=== PATIENT | male | born 1945 | race Caucasian/White ===

== ENCOUNTER 2018-12-09 09:12 | Observation (INO) | payer OTHER ==
[2018-12-09] MEDS ORDERED: ONDANSETRON 4 MG/2 ML VIAL ONE (09:50)
[2018-12-09] MEDS ORDERED: MORPHINE 4 MG/ML SYR ONE (09:50)
[2018-12-09] MEDS ORDERED: NA CHLORIDE 0.9% 1,000 ML ONE (09:50)
[2018-12-09 10:00] LABS: Absolute Lymphocytes (CBC) 0.9 K/uL (0.7-4.9); Basophils % 0.4 % (0-1.3); Eosinophils % 1.1 % (0-4.4); Hematocrit 46.7 % (39.6-49.0); Lymphocytes % 7.8 % (15.3-44.8); MPV 9.6 fL (7.6-11.3); RBC Red Blood Cell Count 5.05 M/uL (4.33-5.43)
[2018-12-09 10:22] LABS: Potassium 4.2 mmol/L (3.5-5.1)
--- NOTE | 2018-12-09 12:02 | RAD REPORT ---
EXAM DESCRIPTION: CT - Abdomen Pelvis W Contrast - 12/09/2018 11:31 am CLINICAL HISTORY: Abdominal pain. Left lower quadrant pain COMPARISON: 2017 TECHNIQUE: Computed axial tomography of the abdomen and pelvis was obtained. 100 cc Isovue-300 is ad ministered intravenously. Oral contrast was given. All CT scans are performed using dose optimization technique as appropriate and may include automated exposure control or mA/KV adjustment according to patient size. FINDINGS: A infrarenal abdominal aortic aneurysm has an AP diameter 5.6 centimeters. It has enlarged since the prior exam in which it measured 4.4 centimeters. There is heterogeneous opacification of the anterior aspect of the aneurysm. The liver, spleen, pancreas, and adrenals appear unremarkable 6.5 centimeter left renal parapelvic cysts. A 4.3 centimeter cyst extends off of the right kidney. . Diverticulosis. Marked stranding is present adjacent to the proximal sigmoid colon with ill-defined fluid. An abscess is not seen. Free air is not noted Mild enlargement prostate gland The appendix is normal caliber. Spondylolysis L5 IMPRESSION: Marked sigmoid diverticulitis Enlargement of a 5.6 centimeter infrarenal abdominal aortic aneurysm. Heterogeneous opacification of the anterior aspect of the aneurysm may indicate an ulcerating plaque
--- NOTE | 2018-12-09 12:19 | EDPHYS ---
Physician Documentation [facility] Name: Chase Daniels Age: 73 yrs Sex: Male : 1945 Arrival Date: 12/09/2018 Time: 09:16 Bed 19 Private MD: Lucero Darnell ED Physician Henri Cohen HPI: 12/09 09:47 This 73 yrs old Male presents to ER via Ambulatory with complaints of kb Abdominal Pain, Back Pain, Constipation. 09:47 The patient presents with abdominal pain in the left lower quadrant. Onset: The kb symptoms/episode began/occurred 3 day(s) ago. The symptoms do not radiate. Associated signs and symptoms: Pertinent positives: constipation, Pertinent negatives: nausea, vomiting, and diarrhea, fever. The symptoms are described as constant. Modifying factors: The symptoms are alleviated by nothing, the symptoms are aggravated by nothing. Severity of pain: At its worst the pain was moderate in the emergency department the pain is unchanged. The patient has experienced similar episodes in the past, a few times. The patient has not recently seen a physician. Historical: - Allergies: 09:25 No Known Allergies; hb - Home Meds: 09:25 Betapace 80 mg Oral tab 1 tab 2 times per day [Active]; clopidogrel 75 mg Oral tab 1 hb tab once daily [Active]; Combigan 0.2-0.5 % ophthalmic drop [Active]; Eliquis 5 mg Oral tab 1 tab 2 times per day [Active]; losartan 50 mg Oral tab 1 tab once daily [Active]; simvastatin 10 mg Oral tab 1 tab once daily [Active]; travoprost ophthalmic [Active]; Zegerid Oral 1 cap once daily [Active]; Zetia 10 mg Oral tab 1 tab once daily [Active]; - PMHx: 09:25 heart attack; Diverticulitis; Hypertension; kidney infection; blood clots; Myocardial hb infarction; Atrial Fib; DVT; - PSHx: 09:25 Pacemaker/Defib; Shoulder Sx; Heart stents; hb - Immunization history:: Adult Immunizations up to date. - Social history:: Smoking status: Patient/guardian denies using tobacco. - Ebola Screening: : No symptoms or risks identified at this time. ROS: 09:47 Constitutional: Negative for fever, chills, and weight loss, ENT: Negative for injury, kb pain, and discharge, Neck: Negative for injury, pain, and swelling, Cardiovascular: Negative for chest pain, palpitations, and edema, Respiratory: Negative for shortness of breath, cough, wheezing, and pleuritic chest pain, Back: Negative for injury and pain, : Negative for injury, bleeding, discharge, and swelling, MS/Extremity: Negative for injury and deformity, Skin: Negative for injury, rash, and discoloration, Neuro: Negative for headache, weakness, numbness, tingling, and seizure. 09:47 Abdomen/GI: Positive for abdominal pain, constipation, Negative for nausea, vomiting, and diarrhea. Exam: 09:46 Constitutional: This is a well developed, well nourished patient who is awake, alert, kb and in no acute distress. Head/Face: Normocephalic, atraumatic. ENT: Nares patent. No nasal discharge, no septal abnormalities noted. Tympanic membranes are normal and external auditory canals are clear. Oropharynx with no redness, swelling, or masses, exudates, or evidence of obstruction, uvula midline. Mucous membranes moist. Neck: Trachea midline, no thyromegaly or masses palpated, and no cervical lymphadenopathy. Supple, full range of motion without nuchal rigidity, or vertebral point tenderness. No Meningismus. Chest/axilla: Normal chest wall appearance and motion. Nontender with no deformity. No lesions are appreciated. Cardiovascular: Regular rate and rhythm with a normal S1 and S2. No gallops, murmurs, or rubs. Normal PMI, no JVD. No pulse deficits. Respiratory: Lungs have equal breath sounds bilaterally, clear to auscultation and percussion. No rales, rhonchi or wheezes noted. No increased work of breathing, no retractions or nasal flaring. Skin: Warm, dry with normal turgor. Normal color with no rashes, no lesions, and no evidence of cellulitis. MS/ Extremity: Pulses equal, no cyanosis. Neurovascular intact. Full, normal range of motion. Neuro: Awake and alert, GCS 15, oriented to person, place, time, and situation. Cranial nerves II-XII grossly intact. Motor strength 5/5 in all extremities. Sensory grossly intact. Cerebellar exam normal. Normal gait. 09:46 Abdomen/GI: Inspection: abdomen appears normal, Bowel sounds: normal, in all quadrants, Palpation: soft, in all quadrants, mild abdominal tenderness, in the left upper quadrant, moderate abdominal tenderness, in the right lower quadrant and left lower quadrant. Vital Signs: 09:22 BP 124 / 89; Pulse 69; Resp 16; Temp 97.9; Pulse Ox 99% on R/A; Weight 81.65 kg; Height hb 5 ft. 10 in. (177.80 cm); Pain 6/10; 11:19 BP 111 / 78; Pulse 64; Resp 18; Pulse Ox 99% on R/A; Pain 3/10; em 12:17 BP 131 / 93; Pulse 62; Resp 18; Temp 97.7(TE); Pulse Ox 100% on R/A; mh5 13:30 BP 131 / 88; Pulse 59; Resp 18; Temp 98.6(O); Pulse Ox 98% on R/A; Pain 4/10; em 09:22 Body Mass Index 25.83 (81.65 kg, 177.80 cm) hb MDM: 09:24 Patient medically screened. kb 09:46 Data reviewed: vital signs, nurses notes. Data interpreted: Pulse oximetry: on room air kb is 99 %. Interpretation: normal. 12:17 Counseling: I had a detailed discussion with the patient and/or guardian regarding: the kb historical points, exam findings, and any diagnostic results supporting the discharge/admit diagnosis, lab results, radiology results, the need for further work-up and treatment in the hospital. Physician consultation: Jcarlos Severino DO was contacted at 12:17, regarding admission, to the medical/surgical unit. patient's condition, and will see patient in ED, shortly. 12/09 09:31 Order name: Basic Metabolic Panel; Complete Time: 10:31 kb 12/09 09:31 Order name: CBC with Diff; Complete Time: 10:31 kb 12/09 09:31 Order name: CT Abd/Pelvis - PO and IV Contrast; Complete Time: 12:08 kb 12/09 12:38 Order name: Urine Dipstick--Ancillary (enter results); Complete Time: 13:20 ms 12/09 09:31 Order name: IV Saline Lock; Complete Time: 09:42 kb 12/09 09:31 Order name: Labs collected and sent; Complete Time: 09:42 kb 06/14 09:31 Order name: Urine Dipstick-Ancillary (obtain specimen); Complete Time: 12:44 kb Administered Medications: 09:41 Drug: NS 0.9% 1000 ml Route: IV; Rate: 1000 ml; Site: right antecubital; sg 11:17 Follow up: IV Status: Completed infusion; IV Intake: 1000ml em 09:41 Drug: Zofran 4 mg Route: IVP; Site: right antecubital; sg 10:30 Follow up: Response: No adverse reaction em 09:41 Drug: morphine 4 mg Route: IVP; Site: right antecubital; sg 11:18 Follow up: Response: No adverse reaction; Pain is decreased em 12:35 Drug: Cipro 500 mg Route: PO; em 12:44 Follow up: Response: No adverse reaction em 12:35 Drug: Flagyl 500 mg Volume: 100 ml; Route: IVPB; Rate: 200 ml/hr; Infused Over: 30 em mins; Site: right antecubital; 13:35 Follow up: Response: No adverse reaction; IV Status: Completed infusion; IV Intake: em 100ml Disposition: 17:46 Co-signature as Attending Physician, Henri Cohen MD I agree with the assessment and kdr plan of care. Disposition: 12/09/18 12:18 Hospitalization ordered by Jcarlos Severino for Inpatient Admission. Preliminary diagnosis is Diverticulitis of intestine, part unspecified, without perforation or abscess without bleeding. - Bed requested for Telemetry/MedSurg (Inpatient). - Status is Inpatient Admission. em - Condition is Stable. - Problem is new. - Symptoms are unchanged. UTI on Admission? No Signatures: Dispatcher [employer] EDCO Anayeli Acevedo, ASIF-C UNDERWRITING CONSULTANT-CkStephen Keene, OLI RN sg Henri Cohen MD MD [facility] Jasen Swan, BINGO ATTENDANT BINGO ATTENDANT [facility] Zulay ms Yuki Jenkins, RN RN Corrections: (The following items were deleted from the chart) 13:28 12:18 Hospitalization Ordered by Jcarlos Severino DO for Inpatient Admission. Preliminary ms diagnosis is Diverticulitis of intestine, part unspecified, without perforation or abscess without bleeding. Bed requested for Telemetry/MedSurg (Inpatient). Status is Inpatient Admission. Condition is Stable. Problem is new. Symptoms are unchanged. UTI on Admission? No. kb 13:56 13:28 12/09/2018 12:18 Hospitalization Ordered by Jcarlos Severino DO for Inpatient em Admission. Preliminary diagnosis is Diverticulitis of intestine, part unspecified, without perforation or abscess without bleeding. Bed requested for Telemetry/MedSurg (Inpatient). Status is Inpatient Admission. Condition is Stable. Problem is new. Symptoms are unchanged. UTI on Admission? No. ms
--- NOTE | 2018-12-09 12:19 | ER ---
Nurse's Notes [facility] Name: Chase Daniels Age: 73 yrs Sex: Male : 1945 Arrival Date: 12/09/2018 Time: 09:16 Bed 19 Private MD: Lucero Darnell Diagnosis: Diverticulitis of intestine, part unspecified, without perforation or abscess without bleeding Presentation: 12/09 09:23 Presenting complaint: Left sided abdominal pain that radiates to left mid back and hb constipation x 3 days. Transition of care: patient was not received from another setting of care. Onset of symptoms was December 06, 2018. Risk Assessment: Do you want to hurt yourself or someone else? Patient reports no desire to harm self or others. Initial Sepsis Screen: Does the patient meet any 2 criteria? No. Patient's initial sepsis screen is negative. Does the patient have a suspected source of infection? No. Patient's initial sepsis screen is negative. Care prior to arrival: None. 09:23 Method Of Arrival: Ambulatory hb 09:23 Acuity: ADAM 3 hb Historical: - Allergies: 09:25 No Known Allergies; hb - Home Meds: 09:25 Betapace 80 mg Oral tab 1 tab 2 times per day [Active]; clopidogrel 75 mg Oral tab 1 hb tab once daily [Active]; Combigan 0.2-0.5 % ophthalmic drop [Active]; Eliquis 5 mg Oral tab 1 tab 2 times per day [Active]; losartan 50 mg Oral tab 1 tab once daily [Active]; simvastatin 10 mg Oral tab 1 tab once daily [Active]; travoprost ophthalmic [Active]; Zegerid Oral 1 cap once daily [Active]; Zetia 10 mg Oral tab 1 tab once daily [Active]; - PMHx: 09:25 heart attack; Diverticulitis; Hypertension; kidney infection; blood clots; Myocardial hb infarction; Atrial Fib; DVT; - PSHx: 09:25 Pacemaker/Defib; Shoulder Sx; Heart stents; hb - Immunization history:: Adult Immunizations up to date. - Social history:: Smoking status: Patient/guardian denies using tobacco. - Ebola Screening: : No symptoms or risks identified at this time. Screenin:28 Abuse screen: Denies threats or abuse. Denies injuries from another. Nutritional hb screening: No deficits noted. Tuberculosis screening: No symptoms or risk factors identified. Fall Risk None identified. Assessment: 09:40 General: Appears in no apparent distress. comfortable, Behavior is calm, cooperative, em Denies fever. Pain: Complains of pain in left upper quadrant and left lower quadrant Pain currently is 4 out of 10 on a pain scale. Neuro: Level of Consciousness is awake, alert, obeys commands, Oriented to person, place, time, situation. Cardiovascular: Capillary refill < 3 seconds Patient's skin is warm and dry. Respiratory: Airway is patent Respiratory effort is even, unlabored, Respiratory pattern is regular, symmetrical. GI: Abdomen is flat, Bowel sounds present X 4 quads. Abd is soft X 4 quads Abdomen is tender to palpation in left upper quadrant and left lower quadrant Reports constipation, since x 2 days Patient currently denies nausea, vomiting. : Denies burning with urination. Derm: Skin is intact, is thin, Skin is pink, warm \T\ dry. Musculoskeletal: Capillary refill < 3 seconds, Range of motion: intact in all extremities. 09:59 Reassessment: finished drinking PO contrast, tolerated well, CT dept. notified. em 10:30 Reassessment: Patient appears in no apparent distress at this time. Patient and/or em family updated on plan of care and expected duration. Pain level reassessed. Patient is alert, oriented x 3, equal unlabored respirations, skin warm/dry/pink. Patient states feeling better. Patient states symptoms have improved. 11:25 Reassessment: Patient appears in no apparent distress at this time. wheeled to CT via em wheelchair. 12:35 Reassessment: Dr. Severino at bedside. em 13:30 Reassessment: Patient appears in no apparent distress at this time. Patient and/or em family updated on plan of care and expected duration. Pain level reassessed. Patient is alert, oriented x 3, equal unlabored respirations, skin warm/dry/pink. rates pain 4/10 Patient states feeling better. Patient states symptoms have improved. Vital Signs: 09:22 BP 124 / 89; Pulse 69; Resp 16; Temp 97.9; Pulse Ox 99% on R/A; Weight 81.65 kg; Height hb 5 ft. 10 in. (177.80 cm); Pain 6/10; 11:19 BP 111 / 78; Pulse 64; Resp 18; Pulse Ox 99% on R/A; Pain 3/10; em 12:17 BP 131 / 93; Pulse 62; Resp 18; Temp 97.7(TE); Pulse Ox 100% on R/A; mh5 13:30 BP 131 / 88; Pulse 59; Resp 18; Temp 98.6(O); Pulse Ox 98% on R/A; Pain 4/10; em 09:22 Body Mass Index 25.83 (81.65 kg, 177.80 cm) hb ED Course: 09:16 Patient arrived in ED. mr 09:17 Lucero Darnell MD is Private Physician. mr 09:19 Jasen Swan LVN is Primary Nurse. em 09:23 Triage completed. hb 09:23 Arm band placed on. hb 09:24 Anayeli Acevedo FNP-C is PHCP. kb 09:24 Henri Cohen MD is Attending Physician. kb 09:40 Patient has correct armband on for positive identification. Bed in low position. Call em light in reach. Adult w/ patient. Pulse ox on. NIBP on. 09:40 Initial lab(s) drawn, by me, sent to lab. Inserted saline lock: 22 gauge in right em antecubital area, using aseptic technique. Blood collected. 11:31 CT Abd/Pelvis - PO and IV Contrast In Process Unspecified. EDMS 12:18 Jcarlos Severino DO is Hospitalizing Provider. kb 13:54 No provider procedures requiring assistance completed. Patient admitted, IV remains in em place. Administered Medications: 09:41 Drug: NS 0.9% 1000 ml Route: IV; Rate: 1000 ml; Site: right antecubital; sg 11:17 Follow up: IV Status: Completed infusion; IV Intake: 1000ml em 09:41 Drug: Zofran 4 mg Route: IVP; Site: right antecubital; sg 10:30 Follow up: Response: No adverse reaction em 09:41 Drug: morphine 4 mg Route: IVP; Site: right antecubital; sg 11:18 Follow up: Response: No adverse reaction; Pain is decreased em 12:35 Drug: Cipro 500 mg Route: PO; em 12:44 Follow up: Response: No adverse reaction em 12:35 Drug: Flagyl 500 mg Volume: 100 ml; Route: IVPB; Rate: 200 ml/hr; Infused Over: 30 em mins; Site: right antecubital; 13:35 Follow up: Response: No adverse reaction; IV Status: Completed infusion; IV Intake: em 100ml Intake: 11:17 IV: 1000ml; Total: 1000ml. em 13:35 IV: 100ml; Total: 1100ml. em Outcome: 12:18 Decision to Hospitalize by Provider. kb 13:54 Admitted to Med/surg accompanied by tech, family with patient, via wheelchair, room em 211, with chart, Report called to OLI Rivas 13:54 Condition: good 13:54 Instructed on the need for admit, Demonstrated understanding of instructions. 13:56 Patient left the ED. em Signatures: Dispatcher [employer] EDAnayeli Millan, CANOPY STRINGERYovannyC CANOPY STRINGER-Stephen Rdz, RN RN Georgiana Lee mr Swan, Jasen, REVENUE CYCLE SPECIALIST REVENUE CYCLE SPECIALIST Yuki Jenkins RN RN Zulay Frausto [facility] Corrections: (The following items were deleted from the chart) 13:56 13:30 BP 131 / 88; Pulse 59bpm; Resp 18bpm; Pulse Ox 98% RA; Temp 96.6F Oral; Pain em 4/10; em
[2018-12-09] MEDS ORDERED: CIPROFLOXACIN HCL 500 MG TAB ONE (12:32)
[2018-12-09] MEDS ORDERED: METRONIDAZOLE 500mg IVPB 500 MG/100 ML BAG IV ONE (12:32)
--- NOTE | 2018-12-09 13:00 | P.HP ---
Certification for Inpatient Patient admitted to: Observation With expected LOS: <2 Midnights Patient will require the following post-hospital care: None Practitioner: I am a practitioner with admitting privileges, knowledge of patient current condition, hospital course, and medical plan of care. Services: Services provided to patient in accordance with Admission requirements found in Title 42 Section 412.3 of the Code of Federal Regulations Patient History Date of Service: 12/09/18 Primary Care Provider: Dr. Darnell; Cardiology-Dr. Sampson Reason for admission: Abdominal pain, nausea and vomiting History of Present Illness: 73-year-old male presented to the emergency room with left lower quadrant abdominal pain, nausea and vomiting. Patient with history of atrial fibrillation on chronic anti coagulation therapy , hypertension, hyperlipidemia, and infrarenal abdominal aortic aneurysm. Patient reported left lower quadrant abdominal pain for the past 2 days. It was associated with some nausea and vomiting. Patient is not been able to take good oral intake over the last day. Pain now radiates to the flank region. Patient reports history of diverticulitis last year. This is similar pain. Pain rated 10/10. Patient came to the ER for further evaluation. In the ER patient evaluated. Patient was given IV pain medication in the emergency room. White count 11.2, hemoglobin 15.9, platelet count 162. Sodium 140, potassium 4.2, BUN of 1.3. GFR 54. Glucose 117. CT scan revealed sigmoid diverticulitis. Previous infrarenal abdominal aortic aneurysm previously 4.4 now 5.6 cm in size. Due to the severity of his symptoms the patient was admitted for observation. When I saw the patient in the ER, abdominal pain had improved from 10 to 4. Patient without any significant nausea at this time. Patient reports compliance with this medication. Patient sees cardiology for his atrial fibrillation and abdominal aortic aneurysm. Allergies No Known Drug Allergies Allergy (Unverified 09/27/14 19:54) Unknown Home medications list reviewed: Yes Home Medications: Aspirin 81 mg PO DAILY 10/08/11 Ezetimibe [Zetia*] 10 mg PO DAILY 10/08/11 Bimatoprost [Lumigan Opthalmic Drops*] 25 drops OP BEDTIME 09/10/14 Brimonidine Tartrate/Timolol [Combigan 0.2%-0.5% Eye Drops] 5 ml OP BID Clopidogrel Bisulfate [Plavix*] 75 mg PO DAILY 09/10/14 Lisinopril [Prinivil*] 10 mg PO DAILY 09/10/14 Simvastatin 10 mg PO BEDTIME 09/10/14 Apixaban [Eliquis *] 10 mg PO BID #14 tablet 09/13/14 Sotalol HCl [Betapace*] 80 mg PO BID 6AM 6PM #60 tab 09/13/14 - Past Medical/Surgical History Diabetic: No -: Glaucoma -: Diverticulosis -: GERD -: CAD -: Chronic atrial fibrillation -: Chronic anti coagulation therapy -: Hypertension -: Hyperlipidemia -: Patient with defibrillator -: Infrarenal abdominal aortic aneurysm -: Heart catheterization x2 -: Defibrillator placement -: Glaucoma surgery Psychosocial/ Personal History: Patient is . He has 1 child. 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 - Family History Father -: Diabetes Brother -: Heart disease, Other (see notes) (Diverticulitis) Mother -: Stroke - Social History Smoking Status: Never smoker Alcohol use: No CD- Drugs: No Caffeine use: Yes Place of Residence: Home Review of Systems General: As per HPI Eyes: Unremarkable ENT: Unremarkable Respiratory: Unremarkable Cardiovascular: Unremarkable Gastrointestinal: Nausea, Vomiting, Abdominal Pain, As per HPI Genitourinary: Unremarkable Musculoskeletal: Back Pain, As per HPI Integumentary: Unremarkable Neurological: Unremarkable Lymphatics: Unremarkable Physical Examination - Physical Exam General: Alert, In no apparent distress, Oriented x3, Cooperative HEENT: Atraumatic, Normocephalic, PERRLA, Mucous membr. moist/pink Neck: Supple, No Thyromegaly Respiratory: Clear to auscultation bilaterally, Normal air movement Cardiovascular: Normal pulses, Regular rate/rhythm Gastrointestinal: Normal bowel sounds, Soft and benign, Non-distended, No masses , No rebound, No guarding, Tenderness (Pain to the left lower quadrant mild) Musculoskeletal: No erythema, No tenderness, No warmth Integumentary: No tenderness/swelling, No erythema, No warmth, No cyanosis Neurological: Normal speech, Normal strength at 5/5 x4 extr, Normal tone, Normal affect - Studies Laboratory Data (last 24 hrs) 12/09/18 09:45: WBC 11.2 H, Hgb 15.9, Hct 46.7, Plt Count 162 12/09/18 09:45: Sodium 140, Potassium 4.2, BUN 15, Creatinine 1.30, Glucose 117 H Assessment and Plan - Plan Impression: Left lower quadrant abdominal pain, nausea and vomiting secondary to acute sigmoid diverticulitis with history of diverticulosis Enlargement of chronic infrarenal abdominal area aneurysm from 4.4-5.6 cm Chronic atrial fibrillation on chronic anti coagulation therapy Hypertension Hyperlipidemia GERD CAD History of defibrillator Plan: Left lower quadrant abdominal pain, nausea and vomiting secondary to acute sigmoid diverticulitis with history of diverticulosis: Patient will be admitted for observation. Will continue with IV fluid and antibiotic therapy including Cipro/Flagyl. Will provide medication for pain and nausea. Pain and nausea at this time has improved. Will start with a full liquid diet and advance to a GI soft as tolerated. Patient will require colonoscopy in the future with GI. This will likely need to be coordinated with his night time nanny due to his multiple cardiac issues and chronic anti coagulation therapy. Encourage ambulation. Likely improvement over the next 24 hr. Anticipate discharge tomorrow. Patient will require outpatient antibiotic therapy and GI follow up. I will turn the service over to Dr. Read tomorrow. I will go over the plan of care with her. Enlargement of chronic infrarenal abdominal area aneurysm from 4.4cm to 5.6 cm: Patient has history of infrarenal abdominal aortic aneurysm. Aneurysm now 5.6 cm in size. Previously 4.4 cm. This was discussed in detail with the patient. Patient will need follow up with cardiology as an outpatient to monitor closely. Patient may require CV surgery evaluation and possible treatment in the near future. Education will be provided. Chronic atrial fibrillation on chronic anti coagulation therapy: Will continue with his medication of Betapace 80 mg 1 pill twice daily and Eliquis 5 mg 1 pill twice daily. Hypertension: Continue with his home medication of losartan 50 mg daily. Hyperlipidemia: Continue with his medication of Zetia 10 mg daily and Zocor 10 mg daily. GERD: Will continue with his medication of Protonix 40 mg daily CAD: Will continue with his medication of Plavix 75 mg daily. History of defibrillator: Overall stable. Will monitor closely. Discharge Plan: Home Plan to discharge in: 24 Hours - Advance Directives Does patient have a Living Will: No Does patient have a Durable POA for Healthcare: No - Code Status/Comfort Care Code Status Assessed: Yes (Patient full code) Time Spent Managing Pts Care (In Minutes): 55
[2018-12-09 13:14] LABS: Urine Blood NEGATIVE (NEG); Urine Glucose NEGATIVE (NEG); Urine Protein NEGATIVE (NEG); Urine Specific Gravity <1.005 (1.005-1.030); Urine pH 5.5 (5.0-7.0)
[2018-12-09] MEDS ORDERED: ONDANSETRON 4 MG/2 ML VIAL IV PRN (14:15)
[2018-12-09] MEDS ORDERED: HYDROCODONE/APAP 7.5/325 MG TAB PO PRN (14:15)
[2018-12-09] MEDS ORDERED: ACETAMINOPHEN 500 MG TAB PO PRN (14:15)
[2018-12-09] MEDS ORDERED: NA CHLORIDE 0.9% 1,000 ML IV SCH (14:15)
[2018-12-09] MEDS ORDERED: TRAMADOL HCL 50 MG TAB PO PRN (14:15)
[2018-12-09] MEDS ORDERED: MORPHINE 2 MG/ML SYR IV PRN (14:15)
[2018-12-09 14:25] VITALS: BMI 28.0
[2018-12-09 15:45] LABS: Urine Appearance CLEAR; Urine Bilirubin NEGATIVE (NEG); Urine Blood NEGATIVE (NEG); Urine Color YELLOW; Urine Glucose NEGATIVE (NEG); Urine Protein NEGATIVE (NEG); Urine Specific Gravity >=1.030 (1.005-1.030)
[2018-12-09 15:48] LABS: Urine Microscopic Reflex NO UMIC
[2018-12-09] MEDS: SOTALOL HCL 80 MG TAB PO SCH (17:05)
[2018-12-09] MEDS: METRONIDAZOLE 500mg IVPB 500 MG/100 ML BAG IV SCH (17:06)
[2018-12-09] MEDS: APIXABAN 5 MG TABLET PO SCH (20:46)
[2018-12-09] MEDS: CIPROFLOXACIN 400mg IV 400 MG/200 ML BAG IV SCH (20:46)
[2018-12-09] MEDS ORDERED: ATORVASTATIN 10 MG TAB PO SCH (21:00)
[2018-12-09] MEDS ORDERED: EZETIMIBE 10 MG TAB PO SCH (21:00)
[2018-12-10] MEDS: METRONIDAZOLE 500mg IVPB 500 MG/100 ML BAG IV SCH ×2 (00:35→08:48)
[2018-12-10 05:16] LABS: Absolute Lymphocytes (CBC) 0.8 K/uL (0.7-4.9); Basophils % 0.5 % (0-1.3); Eosinophils % 3.1 % (0-4.4); Hematocrit 38.5 % (39.6-49.0); Lymphocytes % 12.2 % (15.3-44.8); MPV 8.8 fL (7.6-11.3); Monocytes % 11.3 % (3.3-12.3); RBC Red Blood Cell Count 4.09 M/uL (4.33-5.43)
[2018-12-10 05:25] LABS: Magnesium 2.3 mg/dL (1.8-2.4); Potassium 4.3 mmol/L (3.5-5.1)
[2018-12-10] MEDS: SOTALOL HCL 80 MG TAB PO SCH (06:15)
[2018-12-10] MEDS ORDERED: PANTOPRAZOLE 40MG TABLET PO SCH (07:30)
[2018-12-10] MEDS: APIXABAN 5 MG TABLET PO SCH (08:49)
[2018-12-10] MEDS ORDERED: CLOPIDOGREL 75 MG TABLET PO SCH (09:00)
[2018-12-10] MEDS ORDERED: LOSARTAN POTASSIUM 50 MG TABLET PO SCH (09:00)
[2018-12-10] MEDS: CIPROFLOXACIN 400mg IV 400 MG/200 ML BAG IV SCH (09:36)
[2018-12-10 10:46] VITALS: O2SAT 94
--- NOTE | 2018-12-10 11:10 | P.DS ---
Admission Date: 12/09/18 Discharge Date: 12/10/18 Primary Care Provider: Dr. Darnell; Cardiology-Dr. Sampson Disposition: ROUTINE DISCHARGE Discharge Condition: FAIR Reason for Admission: Abdominal pain, nausea and vomiting - Problems (1) Diverticulitis Current Visit: Yes Status: Acute Brief History of Present Illness: 73-year-old male with pmhx of HTN,HLD,Afib presented to the emergency room with left lower quadrant abdominal pain, nausea and vomiting. CT scan revealed sigmoid diverticulitis. Previous infrarenal abdominal aortic aneurysm previously 4.4 now 5.6 cm in size. Hospital Course: 73-year-old male with pmhx of HTN,HLD,Afib presented to the emergency room with left lower quadrant abdominal pain, nausea and vomiting. CT scan revealed sigmoid diverticulitis. Previous infrarenal abdominal aortic aneurysm previously 4.4 now 5.6 cm in size. Due to the severity of his symptoms the patient was admitted for observation. pt was started on cirpofloxacin and flagyl and on the second day of admission pt clinically improved and was able to eat without any N/V pt seen and examined today denied abdominal pain or diarrhea discussed with the pt the dc plan Vital Signs/Physical Exam: Temp Pulse Resp BP Pulse Ox 97.8 F 62 18 100/60 94 12/10/18 08:00 12/10/18 08:00 12/10/18 08:00 12/10/18 08:00 12/10/18 08:00 General: Alert, In no apparent distress, Oriented x3, Cooperative HEENT: Atraumatic, Normocephalic, PERRLA Neck: Supple Respiratory: Clear to auscultation bilaterally, Normal air movement Cardiovascular: No edema, Normal pulses, Regular rate/rhythm, Normal S1 S2 Gastrointestinal: Normal bowel sounds, Soft and benign, Non-distended Musculoskeletal: No clubbing, No swelling Integumentary: No rashes, No breakdown Neurological: Normal speech, Normal strength at 5/5 x4 extr Laboratory Data at Discharge: WBC 6.9 K/uL (4.3-10.9) D 12/10/18 05:04 Hgb 13.0 g/dL (13.6-17.9) L D 12/10/18 05:04 Hct 38.5 % (39.6-49.0) L D 12/10/18 05:04 Plt Count 105 K/uL (152-406) L D 12/10/18 05:04 Sodium 143 mmol/L (136-145) 12/10/18 05:04 Potassium 4.3 mmol/L (3.5-5.1) 12/10/18 05:04 BUN 13 mg/dL (7-18) 12/10/18 05:04 Creatinine 0.98 mg/dL (0.55-1.3) 12/10/18 05:04 Glucose 96 mg/dL (74-106) 12/10/18 05:04 Magnesium 2.3 mg/dL (1.8-2.4) 12/10/18 05:04 Home Medications: Brimonidine Tartrate/Timolol [Combigan 0.2%-0.5% Eye Drops] 1 drop LEFT EYE BID 09/10/14 Clopidogrel Bisulfate [Plavix*] 75 mg PO BEDTIME 09/10/14 Simvastatin 10 mg PO BEDTIME 09/10/14 Sotalol HCl [Betapace*] 80 mg PO BID 6AM 6PM #60 tab 09/13/14 Apixaban [Eliquis] 5 mg PO BID 12/09/18 Brinzolamide [Azopt] 1 drop LEFT EYE BID 12/09/18 Ezetimibe 10 mg PO BEDTIME 12/09/18 Losartan Potassium 50 mg PO BEDTIME 12/09/18 Omeprazole/Sodium Bicarbonate [Zegerid 20 mg Capsule] 1 each PO BEDTIME Travoprost (Benzalkonium) [Travatan 0.004% Eye Drop] 1 drop LEFT EYE BEDTIME Ciprofloxacin HCl [Cipro 500 MG Tablet] 500 mg PO BID 6 Days #12 tab 12/10/18 metroNIDAZOLE [Flagyl] 500 mg PO Q8H #18 tablet 12/10/18 New Medications: Ciprofloxacin HCl [Cipro 500 MG Tablet] 500 mg PO BID 6 Days #12 tab metroNIDAZOLE [Flagyl] 500 mg PO Q8H #18 tablet Patient Discharge Instructions: pcp f/up for continuation of care. please return to ER if you develop any fever,Nausea ,vomting or severe abdominal pain. cardiology f/up for enlargment of abdominal aneurysm Diet: Low sodium Activity: Ad gretta Followup: Lucero Darnell MD [Primary Care Provider] - Slim Sampson MD [ACTIVE - CAN ADMIT] -
[2018-12-10 12:33] VITALS: BP 122/74; TEMP 97.6
== END 2018-12-10 12:07 | disposition home or self-care (01) ==
LOC: ER 09:12 → ERHOLD 12:46 → 2ND 13:49
PROVIDERS: ADMIT Family Medicine; ATTEND Internal Medicine
DX: K57.32 Diverticulitis of large intestine without perforation or abscess without bleeding (principal); I71.4 Abdominal aortic aneurysm, without rupture; I10 Essential (primary) hypertension; I48.2 Chronic atrial fibrillation; E78.5 Hyperlipidemia, unspecified; I25.10 Atherosclerotic heart disease of native coronary artery without angina pectoris; K21.9 Gastro-esophageal reflux disease without esophagitis; I25.2 Old myocardial infarction; Z79.82 Long term (current) use of aspirin; Z79.01 Long term (current) use of anticoagulants; Z79.899 Other long term (current) drug therapy; Z95.810 Presence of automatic (implantable) cardiac defibrillator; Z86.718 Personal history of other venous thrombosis and embolism; Z95.5 Presence of coronary angioplasty implant and graft
CPT/HCPCS: 96365; 96361; 87040 ×2; 85025 ×2; 80048 ×2; 36415; 83735; 81003 ×2; 74177; 96375; 99285; Q9967; J7030 ×2; J2405; J0744 ×2; G0378 ×2

== ENCOUNTER 2019-02-21 06:31 | Day surgery (SDC) | payer OTHER ==
--- NOTE | 2019-02-20 11:27 | RAD REPORT ---
EXAM DESCRIPTION: RAD - Chest Pa And Lat (2 Views) - 02/20/2019 11:13 am CLINICAL HISTORY: abdominal angiogrampreop chest, pending abdominal angiogram, history of cardiac st enting, smoking history COMPARISON: August 2014 TECHNIQUE: PA and lateral views of the chest were obtained. FINDINGS: The lungs are clear. Pacemaker remains in place. Trachea is midline. Heart size is normal and central vasculature is within normal limits. No pleural effusion or pneumothorax seen. No acut e bony finding noted. No aortic abnormality. IMPRESSION: No acute cardiopulmonary process. No significant interval change.
[2019-02-20 11:30] LABS: Absolute Lymphocytes (CBC) 0.8 K/uL (0.7-4.9); Basophils % 0.8 % (0-1.3); Lymphocytes % 13.7 % (15.3-44.8); MPV 9.1 fL (7.6-11.3); RBC Red Blood Cell Count 4.82 M/uL (4.33-5.43)
[2019-02-20 11:41] LABS: Protime INR 1.6
[2019-02-20 11:48] LABS: Potassium 4.6 mmol/L (3.5-5.1)
--- OUTSIDE RECORDS SUMMARY | 2019-02-21 06:34 | XMS REPORT ---
:1945 [facility] Care Team Providers Name Role Phone Lucero Darnell Provider Role Unavailable Allergies, Adverse Reactions, Alerts Substance Reaction Event Type N.K.D.A. Info Not Available Non Drug Allergy Problems Problem Type Condition Code Onset Dates Condition Status Problem Coronary atherosclerosis of [place] I25.10 Active coronary artery Problem Other chronic pain G89.29 Active Problem Cardiac defibrillator in situ Z95.810 Active Problem Primary osteoarthritis of left knee M17.12 Active Assessment Coronary atherosclerosis of [place] I25.10 Active coronary artery Problem Primary osteoarthritis of right M17.11 Active knee Assessment Cardiac defibrillator in situ Z95.810 Active Assessment Abdominal aortic aneurysm without I71.4 Active rupture Problem Sigmoid diverticulitis K57.32 Active Problem Pain in right knee M25.561 Active Problem Depression screening Z13.31 Active Problem Pain in left knee M25.562 Active Problem Abnormal x-ray of extremity R93.7 Active Problem Abnormal liver function K76.89 Active Assessment Depression screening Z13.31 Active Assessment Hypertension, unspecified type I10 Active Problem Hyperlipidemia, unspecified E78.5 Active hyperlipidemia type Problem Abdominal aortic aneurysm without I71.4 Active rupture Assessment Sigmoid diverticulitis K57.32 Active Problem Rash R21 Active Problem Thrombocytopenia D69.6 Active Assessment Hyperlipidemia, unspecified E78.5 Active hyperlipidemia type Problem Hypertension, unspecified type I10 Active Problem Hyperglycemia R73.9 Active Medications Medication Code Code Instructions Start End Status Dosage System Date Date Fenofibrate ND 15851078523 40 MG Orally Active 1 tablet with Once a day food Eliquis 5 mg ND 48904515418 5 mg Orally Active 1 tablet Once a daily Triamcinolone ND 43587863517 0.1 % Feb 09, Active 1 application Acetonide Externally 2018 to affected Twice daily area Ketoconazole ND 24435206200 2 % Externally Active 1 application Once a day to affected area Clindamycin HCl ND 85681293708 300 MG Orally November Active 1 capsule every 8 hrs 2018 HydrOXYzine HCl [facility] 58950119277 25 MG Orally Active 1 tablet as every 8 hrs needed Simvastatin [facility] 34552646340 10 MG Orally Active 1 tablet Once a day in evening Travatan ND 0 Active not defined Zetia [facility] 06323614785 10 MG Orally Active 1 tablet Once a day Fenofibrate [facility] 94333729297 120 MG Orally August Active 1 tablet with Once a day 2017 Gemfibrozil [facility] 32401901433 600 MG Orally August Active 1 tablet Twice a day 2017 Zegerid [facility] 27690552952 20-1100 MG Active 1 capsule on Orally Once a an empty day stomach Combigan [facility] 27991780977 0.2-0.5 % Active 1 drop into Ophthalmic affected eye Twice a day Medrol [facility] 16637755650 4 MG Orally Active 1 tablet with food or milk in the morning Losartan [facility] 21255279211 50 MG Orally Active 1 tablet Potassium Once a day Betapace [facility] 26314287225 80 MG Orally Active 1 tablet every 12 hrs Plavix [facility] 77284112010 75 MG Orally Active 1 tablet Once a day Results No Known Results Summary Purpose eClinicalWorks Submission
--- OUTSIDE RECORDS SUMMARY | 2019-02-21 06:34 | XMS REPORT ---
:1945 [facility] [place] Care Team Providers Name Role Phone Lucero Darnell Provider Role Unavailable Allergies, Adverse Reactions, Alerts Substance Reaction Event Type N.K.D.A. Info Not Available Non Drug Allergy Problems Problem Type Condition Code Onset Dates Condition Status Problem Coronary atherosclerosis of [place] I25.10 Active coronary artery Problem Other chronic pain G89.29 Active Problem Cardiac defibrillator in situ Z95.810 Active Problem Primary osteoarthritis of left knee M17.12 Active Assessment Follow-up exam Z09 Active Problem Primary osteoarthritis of right M17.11 Active knee Assessment Depression screening Z13.31 Active Problem Sigmoid diverticulitis K57.32 Active Problem Pain in right knee M25.561 Active Problem Depression screening Z13.31 Active Problem Pain in left knee M25.562 Active Problem Abnormal x-ray of extremity R93.7 Active Problem Abnormal liver function K76.89 Active Assessment Abdominal aortic aneurysm without I71.4 Active rupture Assessment Sigmoid diverticulitis K57.32 Active Problem Hyperlipidemia, unspecified E78.5 Active hyperlipidemia type Problem Abdominal aortic aneurysm without I71.4 Active rupture Problem Rash R21 Active Problem Thrombocytopenia D69.6 Active Problem Hypertension, unspecified type I10 Active Problem Hyperglycemia R73.9 Active Medications Medication Code Code Instructions Start End Status Dosage System Date Date Zegerid [facility] 40742563128 20-1100 MG Active 1 capsule on Orally Once a an empty day stomach Triamcinolone & NDC 0 0.1 % Active 1 application Emollient Externally Twice a day Simvastatin ND 34530303770 10 MG Orally Active 1 tablet Once a day in evening Triamcinolone ND 72367078038 0.1 % Feb 09, Active 1 application Acetonide Externally 2018 to affected Twice daily area Gemfibrozil ND 64286065625 600 MG Orally August Active 1 tablet Twice a day 2017 Zetia [facility] 31956483959 10 MG Orally Active 1 tablet Once a day Combigan [facility] 42006766537 0.2-0.5 % Active 1 drop into Ophthalmic affected eye Twice a day Medrol [facility] 20465430356 4 MG Orally Active 1 tablet with food or milk in the morning HydrOXYzine HCl [facility] 79772997784 25 MG Orally Active 1 tablet as every 8 hrs needed Plavix [facility] 59231756297 75 MG Orally Active 1 tablet Once a day Eliquis 5 mg [facility] 62924848647 5 mg Orally Active 1 tablet Once a daily Fenofibrate [facility] 17803133959 120 MG Orally August Active 1 tablet with Once a day 2017 Clindamycin HCl [facility] 66702448839 300 MG Orally November Active 1 capsule every 8 hrs 2018 Losartan [facility] 47021659568 50 MG Orally Active 1 tablet Potassium Once a day Travatan [facility] 0 Active not defined Ketoconazole [facility] 44365415901 2 % Externally Active 1 application Once a day to affected area Fenofibrate [facility] 59496416619 40 MG Orally Active 1 tablet with Once a day food Betapace [facility] 06884269973 80 MG Orally Active 1 tablet every 12 hrs Results No Known Results Summary Purpose eClinicalWorks Submission
[2019-02-21] MEDS ORDERED: NA CHLORIDE 0.9% 500 ML ONE (06:40)
[2019-02-21] MEDS ORDERED: HEPA 1000U/500MLS 1,000 UNIT/500 ML BAG IV ONE ×2 (06:40)
[2019-02-21] MEDS ORDERED: LIDOCAINE 1% MPF 30 ML VIAL ONE (06:40)
[2019-02-21] MEDS ORDERED: MIDAZOLAM HCL 2 MG/2 ML INJ ONE (07:24)
[2019-02-21] MEDS ORDERED: FENTANYL CITR 100 MCG/2 ML ONE (07:25)
[2019-02-21 11:29] VITALS: O2SAT 98
[2019-02-21 12:18] VITALS: BP 121/100; TEMP 97.5
--- NOTE | 2019-02-21 19:47 | OP ---
Date of Procedure: 02/21/2019 Surgeon: Cirilo Carver MD Chemical Project Engineer: Eugenie Omer. Procedure Performed: Abdominal angiogram. Indication For Procedure: Large infrarenal abdominal aortic aneurysm, greater than 5 cm. History Of Present Illness: Mr. Chase Daniels was brought into the orthodontic laboratory technician as an outpatient today, prepped and draped in the routine sterile fashion. Given Versed and fentanyl for sedation. A 6-Fren ch sheath was introduced in the right common femoral artery without any complication. StarClose was used to close the case. Abdominal angiogram was done using the pigtail catheter that was placed abov e the hepatic and splenic artery in the mid aorta. Abdominal angiogram revealed an infrarenal, large , approximately 5.5 cm wide and about 5 cm long aneurysm up to the bifurcation of the iliacs. There were no iliac stenosis. The iliac arteries appeared to be normal. The renal arteries were normal. There were no complications. Blood Loss: 5 mL. Anesthesia: Total conscious sedation was 30 minutes. Final Diagnosis: Large infrarenal abdominal aortic aneurysm. CV surgery [facility] JULIANA/KRISSY Voice ID: [id number] Report ID: [id number]
== END 2019-02-21 12:15 | disposition home or self-care (01) ==
LOC: CCL 06:31
PROC: B400YZZ Plain Radiography of Abdominal Aorta using Other Contrast (ICD-10-PCS; principal; 2019-02-21)
DX: I71.4 Abdominal aortic aneurysm, without rupture (principal); I25.10 Atherosclerotic heart disease of native coronary artery without angina pectoris; I48.0 Paroxysmal atrial fibrillation; I11.0 Hypertensive heart disease with heart failure; I50.9 Heart failure, unspecified; E78.5 Hyperlipidemia, unspecified; H40.9 Unspecified glaucoma; Z95.810 Presence of automatic (implantable) cardiac defibrillator; Z86.718 Personal history of other venous thrombosis and embolism; Z87.891 Personal history of nicotine dependence
CPT/HCPCS: 85025; 80048; 36415; 85610; 85730; 71046; 36200; 75625; C1893; J2250; J3010

== ENCOUNTER 2019-09-04 06:48 | Day surgery (SDC) | payer OTHER ==
--- NOTE | 2019-09-01 11:21 | RAD REPORT ---
EXAM DESCRIPTION: RAD - Chest Pa And Lat (2 Views) - 09/01/2019 11:14 am CLINICAL HISTORY: preop Chest pain. COMPARISON: Chest Pa And Lat (2 Views) dated 02/20/2019; CHEST SINGLE VIEW dated 09/11/2014; CHEST SIN GLE VIEW dated 09/10/2014; CHEST SINGLE VIEW dated 10/09/2011 FINDINGS: The lungs are clear. The heart is upper limit normal in size with a dual lead pacer device present. No displaced fractures. IMPRESSION: No acute or concerning finding suspected.
[2019-09-01 11:33] LABS: Absolute Lymphocytes (CBC) 0.9 K/uL (0.7-4.9); Basophils % 0.6 % (0-1.3); Hematocrit 46.3 % (39.6-49.0); MPV 9.4 fL (7.6-11.3); Protime INR 1.71; RBC Red Blood Cell Count 5.06 M/uL (4.33-5.43)
--- OUTSIDE RECORDS SUMMARY | 2019-09-04 06:50 | XMS REPORT ---
:1945 [facility] Address [address] [place] [address] Dr. Hurst [address] [place] [address] Care Team Providers Name Role Phone Unavailable Unavailable Unavailable Problems This patient has no known problems. Allergies, Adverse Reactions, Alerts This patient has no known allergies or adverse reactions. Medications This patient has no known medications. Encounters Start End Encounter Admission Attending Care Care Encounter Date/Time Date/Time Type Type Clinicians Facility Department ID 2019-04-20 2019-04-18 Inpatient U [facility] [id number] 09:26:00 15:00:00
--- OUTSIDE RECORDS SUMMARY | 2019-09-04 06:50 | XMS REPORT ---
:1945 Author Organization eClinicalWorks Care Team Providers Name Role Phone Lucia Kapoor Provider Role Unavailable Allergies, Adverse Reactions, Alerts Substance Reaction Event Type N.K.D.A. Info Not Available Non Drug Allergy Problems Problem Type Condition Code Onset Dates Condition Status Problem Coronary atherosclerosis of [place] I25.10 Active coronary artery Problem Other chronic pain G89.29 Active Problem Cardiac defibrillator in situ Z95.810 Active Problem Primary osteoarthritis of left knee M17.12 Active Problem Primary osteoarthritis of right M17.11 Active knee Problem Sigmoid diverticulitis K57.32 Active Problem Pain in right knee M25.561 Active Problem Depression screening Z13.31 Active Problem Pain in left knee M25.562 Active Problem Abnormal x-ray of extremity R93.7 Active Problem Abnormal liver function K76.89 Active Assessment Renal cysts, acquired, bilateral N28.1 Active Problem Hyperlipidemia, unspecified E78.5 Active hyperlipidemia type Problem Abdominal aortic aneurysm without I71.4 Active rupture Problem Rash R21 Active Problem Thrombocytopenia D69.6 Active Problem Hypertension, unspecified type I10 Active Problem Hyperglycemia R73.9 Active Medications Medication Code Code Instructions Start End Status Dosage System Date Date Simvastatin ND 37084928139 10 MG Orally Active 1 tablet Once a day in evening Azopt [facility] 89431484235 1 % Ophthalmic Active INSTILL 1 DROP INTO LEFT EYE 3 TIMES A DAY Zetia [facility] 01530653361 10 MG Orally Active 1 tablet Once a day Eliquis 5 mg ND 68272224327 5 mg Orally Active 1 tablet Once a daily Fenofibrate ND 12047240335 40 MG Orally Active 1 tablet with Once a day food Travatan Z [facility] 85125782044 0.004 % Active TAKE 1 Ophthalmic DROP(S) IN BOTH EYES ONCE IN THE EVENING Zegerid [facility] 58864840172 20-1100 MG Active 1 capsule on Orally Once a an empty day stomach Betapace [facility] 59168941581 80 MG Orally Active 1 tablet every 12 hrs Losartan [facility] 73376157666 50 MG Orally Active 1 tablet Potassium Once a day Plavix [facility] 12637421715 75 MG Orally Active 1 tablet Once a day Triamcinolone [facility] 78121763758 0.1 % Feb 09, Active 1 application Acetonide Externally 2017 to affected Twice daily area Combigan [facility] 33520446547 0.2-0.5 % Active 1 drop into Ophthalmic affected eye Twice a day Results No Known Results Summary Purpose eClinicalWorks Submission
--- OUTSIDE RECORDS SUMMARY | 2019-09-04 06:50 | XMS REPORT ---
:1945 [facility] Team Providers Name Role Phone Lucero Darnell Provider Role Unavailable Allergies, Adverse Reactions, Alerts Substance Reaction Event Type N.K.D.A. Info Not Available Non Drug Allergy Problems Problem Type Condition Code Onset Dates Condition Status Problem Coronary atherosclerosis of [place] I25.10 Active coronary artery Problem Other chronic pain G89.29 Active Problem Cardiac defibrillator in situ Z95.810 Active Problem Primary osteoarthritis of left knee M17.12 Active Assessment Cardiac defibrillator in situ Z95.810 Active Problem Primary osteoarthritis of right M17.11 Active knee Assessment Abdominal aortic aneurysm without I71.4 Active rupture Assessment Hyperlipidemia, unspecified E78.5 Active hyperlipidemia type Problem Sigmoid diverticulitis K57.32 Active Problem Pain in right knee M25.561 Active Problem Depression screening Z13.31 Active Problem Pain in left knee M25.562 Active Problem Abnormal x-ray of extremity R93.7 Active Problem Abnormal liver function K76.89 Active Assessment Coronary atherosclerosis of [place] I25.10 Active coronary artery Assessment Hypertension, unspecified type I10 Active Problem Hyperlipidemia, unspecified E78.5 Active hyperlipidemia type Problem Abdominal aortic aneurysm without I71.4 Active rupture Problem Rash R21 Active Problem Thrombocytopenia D69.6 Active Problem Hypertension, unspecified type I10 Active Problem Hyperglycemia R73.9 Active Medications Medication Code Code Instructions Start End Status Dosage System Date Date Zegerid [facility] 39502900646 20-1100 MG Active 1 capsule on Orally Once a an empty day stomach Betapace [facility] 68949420944 80 MG Orally Active 1 tablet every 12 hrs Simvastatin ND 43182095828 10 MG Orally Active 1 tablet Once a day in evening Fenofibrate [facility] 33455545983 40 MG Orally Active 1 tablet with Once a day food Azopt [facility] 29751899649 1 % Ophthalmic Active INSTILL 1 DROP INTO LEFT EYE 3 TIMES A DAY Losartan [facility] 86957337753 50 MG Orally Active 1 tablet Potassium Once a day Plavix [facility] 56786790868 75 MG Orally Active 1 tablet Once a day Eliquis 5 mg [facility] 56986190110 5 mg Orally Active 1 tablet Once a daily Combigan [facility] 31584897112 0.2-0.5 % Active 1 drop into Ophthalmic affected eye Twice a day Zetia [facility] 05726131658 10 MG Orally Active 1 tablet Once a day Triamcinolone [facility] 97469243924 0.1 % Feb 09, Active 1 application Acetonide Externally 2018 to affected Twice daily area Travatan Z [facility] 59187355616 0.004 % Active TAKE 1 Ophthalmic DROP(S) IN BOTH EYES ONCE IN THE EVENING Ketoconazole [facility] 21160867277 2 % Externally Active 1 application Once a day to affected area Fenofibrate [facility] 25400412682 40 MG Orally Active 1 tablet with Once a day food Results No Known Results Summary Purpose eClinicalWorks Submission
--- OUTSIDE RECORDS SUMMARY | 2019-09-04 06:50 | XMS REPORT ---
:1945 Author Organization eClinicalWorks Care Team Providers Name Role Phone Mason Espinal Provider Role Unavailable Allergies, Adverse Reactions, Alerts Substance Reaction Event Type N.K.D.A. Info Not Available Non Drug Allergy Problems Problem Type Condition Code Onset Dates Condition Status Problem Coronary atherosclerosis of [place] I25.10 Active coronary artery Problem Other chronic pain G89.29 Active Problem Cardiac defibrillator in situ Z95.810 Active Problem Primary osteoarthritis of left knee M17.12 Active Assessment Pain in left knee M25.562 Active Problem Primary osteoarthritis of right M17.11 Active knee Assessment Pain in right knee M25.561 Active Problem Sigmoid diverticulitis K57.32 Active Problem Pain in right knee M25.561 Active Problem Depression screening Z13.31 Active Problem Pain in left knee M25.562 Active Problem Abnormal x-ray of extremity R93.7 Active Problem Abnormal liver function K76.89 Active Assessment Primary osteoarthritis of right M17.11 Active knee Assessment Primary osteoarthritis of left knee M17.12 Active Problem Hyperlipidemia, unspecified E78.5 Active hyperlipidemia type Problem Abdominal aortic aneurysm without I71.4 Active rupture Problem Rash R21 Active Problem Thrombocytopenia D69.6 Active Problem Hypertension, unspecified type I10 Active Problem Hyperglycemia R73.9 Active Medications Medication Code Code Instructions Start End Status Dosage System Date Date Travatan Z [facility] 68625628376 0.004 % Active TAKE 1 Ophthalmic DROP(S) IN BOTH EYES ONCE IN THE EVENING Azopt ND 32937015728 1 % Ophthalmic Active INSTILL 1 DROP INTO LEFT EYE 3 TIMES A DAY Fenofibrate ND 26457784280 40 MG Orally Active 1 tablet with Once a day food Plavix [facility] 66266995406 75 MG Orally Active 1 tablet Once a day Combigan [facility] 91890324255 0.2-0.5 % Active 1 drop into Ophthalmic affected eye Twice a day Simvastatin ND 26622122147 10 MG Orally Active 1 tablet Once a day in evening Losartan [facility] 56993590771 50 MG Orally Active 1 tablet Potassium Once a day Triamcinolone [facility] 68426292322 0.1 % Feb 09, Active 1 application Acetonide Externally 2018 to affected Twice daily area Zetia [facility] 06730622907 10 MG Orally Active 1 tablet Once a day Eliquis 5 mg [facility] 65454053445 5 mg Orally Active 1 tablet Once a daily Zegerid [facility] 85549087567 20-1100 MG Active 1 capsule on Orally Once a an empty day stomach Betapace [facility] 50126472745 80 MG Orally Active 1 tablet every 12 hrs Results No Known Results Summary Purpose eClinicalWorks Submission
--- OUTSIDE RECORDS SUMMARY | 2019-09-04 06:50 | XMS REPORT ---
:1945 Author Organization eClinicalWorks Care Team Providers Name Role Phone Lucero Darnell Provider Role Unavailable Allergies No Known Allergies Problems Problem Type Condition Code Onset Dates Condition Status Problem Coronary atherosclerosis of [place] I25.10 Active coronary artery Problem Other chronic [...] Problem Abnormal liver function K76.89 Active Assessment Influenza vaccine administered Z23 Active Problem Hyperlipidemia, unspecified E78.5 Active hyperlipidemia type Problem Abdominal aortic aneurysm without I71.4 Active rupture Problem Rash R21 Active Problem Thrombocytopenia D69.6 Active Problem Hypertension, unspecified type I10 Active Problem Hyperglycemia R73.9 Active Medications No Known Medications Results No Known Results Immunizations Vaccine Administration Date FLUZONE HIGH DOSE OVER 65 Mar 31, 2019 Summary Purpose eClinicalWorks Submission
--- OUTSIDE RECORDS SUMMARY | 2019-09-04 06:51 | XMS REPORT ---
:1945 Author Organization [employer] Care Team Providers Name Role Phone Lucia Kapoor Provider Role Unavailable Allergies, Adverse Reactions, Alerts Substance Reaction Event Type N.K.D.A. Info Not Available Non Drug Allergy Problems Problem Type Condition Code Onset Dates Condition Status Problem Coronary atherosclerosis of [place] I25.10 Active coronary artery Problem Other chronic [...] Start End Status Dosage System Date Date Betapace [facility] 29431592004 80 MG Orally Active 1 tablet every 12 hrs Azopt [facility] 82487879928 1 % Ophthalmic Active INSTILL 1 DROP INTO LEFT EYE 3 TIMES A DAY Zetia [facility] 07267460270 10 MG Orally Active 1 tablet Once a day Fenofibrate [facility] 68190654861 40 MG Orally Active 1 tablet with Once a day food Zegerid [facility] 54042042778 20-1100 MG Active 1 capsule on Orally Once a an empty day stomach Simvastatin [facility] 88595795172 10 MG Orally Active 1 tablet Once a day in evening Losartan [facility] 38611649210 50 MG Orally Active 1 tablet Potassium Once a day Eliquis 5 mg [facility] 77630425263 5 mg Orally Active 1 tablet Once a daily Plavix [facility] 91810547263 75 MG Orally Active 1 tablet Once a day Triamcinolone [facility] 14277200189 0.1 % Feb 09, Active 1 application Acetonide Externally 2017 to affected Twice daily area Combigan [facility] 75935072517 0.2-0.5 % Active 1 drop into Ophthalmic affected eye Twice a day Travatan Z [facility] 73552927525 0.004 % Active TAKE 1 Ophthalmic DROP(S) IN BOTH EYES ONCE IN THE EVENING Results No Known Results Summary Purpose [employer]ClinicalWorks Submission
--- OUTSIDE RECORDS SUMMARY | 2019-09-04 06:51 | XMS REPORT ---
:1945 Author Organization [employer] Care Team Providers Name Role Phone Mason Espinal Provider Role Unavailable Allergies No Known Allergies Problems Problem Type Condition Code Onset Dates Condition Status Problem Coronary atherosclerosis of [place] I25.10 Active coronary artery Problem Other chronic [...] Active Problem Abnormal liver function K76.89 Active Problem Hyperlipidemia, unspecified E78.5 Active hyperlipidemia type Problem Abdominal aortic aneurysm without I71.4 Active rupture Problem Rash R21 Active Problem Thrombocytopenia D69.6 Active Problem Hypertension, unspecified type I10 Active Problem Hyperglycemia R73.9 Active Medications No Known Medications Results No Known Results Summary Purpose eClinicalWorks Submission
--- OUTSIDE RECORDS SUMMARY | 2019-09-04 06:51 | XMS REPORT | Summary of Care ---
:1945 Author Name MAVERICK GONZALEZ M.D. Address [facility] Unavailable , Care Team Providers Name Role Phone CARLOS Givens, MAVERICK Unavailable Unavailable KIMBERLEY BEGUM [place], DANNY Segura Unavailable Unavailable BERENICE BEGUM, MARCIA Herrera Unavailable Unavailable MAVERICK GONZALEZ MD Unavailable Unavailable Functional Status Name Dates Details Functional status health issues are not documented Status: Name Dates Details Cognitive status health issues are not documented Status: Problems Name Dates Details Abdominal aortic aneurysm (441.4, I71.4) Status: Active Medications Name Dates Details Sotalol HCl - 80 MG Oral Tablet Refills: 0 Active Eliquis 5 MG Oral Tablet Refills: 0 Active Zetia TABS Refills: 0 Active Simvastatin TABS Refills: 0 Active Plavix TABS Refills: 0 Active Losartan Potassium TABS Refills: 0 Active Zegerid CAPS Refills: 0 Active Combigan SOLN Refills: 0 Active Travatan SOLN Refills: 0 Active Allergies and Adverse Reactions Name Dates Details No Known Drug Allergies (Allergy) Status: Active Past Medical History Name Dates Details History of cardiac pacemaker (V12.50, Z95.0) Status: Resolved History of myocardial infarction (412, I25.2) Status: Resolved Procedures Procedure Dates Details CT Abdomen wo contrast 88801 Date: 15-May-2019 CT Pelvis wo contrast 59702 Date: 15-May-2019 Immunization Name Dates Details Immunizations not documented Social History Name Dates Details - Status: Name Dates Details Former smoker Vital Signs Date Test Result Details No Known Vitals to report Results Date Description Value Details Results not documented Plan of Care Name Dates Details Planned Observations Planned Goals not documented Interventions Provided Labs/Procedures/ImagingCT Abdomen wo contrast 12467; To Be Done: 15 May 2019CT Pelvis wo contrast 17208; To Be Done: 15 May 2019 Instructions Name Dates Details Instructions not documented Encounters Appointment; MAVERICK GONZALEZ M.D. On: 21-Mar-2019 13:30 Encounter Diagnosis: Problem not documented Appointment; MAVERICK GONZALEZ M.D. On: 15-May-2019 9:15 Encounter Diagnosis: Problem not documented
--- OUTSIDE RECORDS SUMMARY | 2019-09-04 06:51 | XMS REPORT ---
:1945 Author Organization [employer]Works Care Team Providers Name Role Phone Lucia Kapoor Provider Role Unavailable Allergies No Known Allergies Problems Problem Type Condition Code Onset Dates Condition Status Problem Coronary atherosclerosis of [place] I25.10 Active coronary artery Problem Other chronic [...]
[2019-09-04] MEDS ORDERED: LIDOCAINE 1% 20 ML MDV ONE (07:03)
[2019-09-04] MEDS ORDERED: HEPA 1000U/500MLS 2,000 UNIT/1,000 ML BAG IV ONE (07:03)
[2019-09-04] MEDS ORDERED: NA CHLORIDE 0.9% 500 ML ONE (07:15)
[2019-09-04] MEDS ORDERED: HEPARIN 5000 UNIT/ML 1 ML VIAL ONE (07:38)
[2019-09-04] MEDS ORDERED: NITROGLYCERIN 100 MCG/ML SYR (for cath lab use only) IV ONE (07:39)
[2019-09-04] MEDS ORDERED: ATROPINE SULF 1 MG/10 ML SYR IV ONE (07:39)
[2019-09-04] MEDS ORDERED: NICARDIPINE HCL 25 MG/10 ML IV ONE (07:39)
[2019-09-04] MEDS ORDERED: MIDAZOLAM HCL 2 MG/2 ML INJ ONE ×2 (07:39→08:07)
[2019-09-04] MEDS ORDERED: NITROGLYCERIN/D5W 25 MG/250 ML BTL IV ONE (07:39)
[2019-09-04] MEDS ORDERED: FENTANYL CITR 100 MCG/2 ML ONE (07:39)
[2019-09-04] MEDS ORDERED: NA CHLORIDE 0.9% 0 ML ONE (07:40)
--- NOTE | 2019-09-04 10:24 | OP ---
Surgeon: Slim Sampson MD [employer]: Davis Jose. Procedure: Left heart catheterization, coronary left ventricular angiography. Findings: The patient had 2 previously placed coronary artery stents in the right coronary and the m id LAD, both were widely patent. A side branch coming off the LAD stent to the second diagonal has a 60% stenosis, left main has a 30% to 40% stenosis at the bifurcation of the LAD and circumflex, his right coronary has a 50% stenosis. Left ventricular ejection fraction was normal at about 60, but th ere was hypokinesis of the very distal distribution of the LAD; the so-called inferoapical section of the heart is hypokinetic. Left ventricular end-diastolic pressure was normal at 9. No intervention was done and he will go home today. We will attempt to have him go to cardiac rehab to improve his overall situation. We will continue all of his present medications. Procedure In Detail: The patient was brought to the cardiac bed laborer fasting, sedated with Versed an d fentanyl, prepared and draped in usual sterile fashion. Right radial approach was used. We entere d the right radial artery after anesthetizing the skin and tissues around there with a 21-gauge needl e, cannulated it with a 0.021 inch diameter guidewire and I used the modified Seldinger technique to place a 5/6-English Terumo radial sheath. We flushed the sheath, gave a radial cocktail consisting of heparin, nicardipine, and nitroglycerin. We guided a TIG catheter into the ascending aorta using a Glidewire with a short radius J-tip. We were able to angiogram right coronary and left ventricle. I t would not engage the left main ostium. A JL4 was attempted that likewise was unsuccessful. We the n used a Glynn catheter and this resulted in good apposition. Cannulation of the first few millimete rs of the left main. We were able to get all of our pictures. At the end of the procedure, the cath eter was withdrawn over a wire. The sheath was flushed. A waveform was recorded with the pressure t ransducer connected at the side-port of the sheath and the sheath was removed and the arteriotomy abisai sed with a TR band. Complications: From the procedure, none. Estimated Blood Loss: 5 cc. BLANCA/KRISSY Voice ID: [id number] Report ID: [id number]
[2019-09-04 10:54] VITALS: BP 133/81; TEMP 98; O2SAT 100
== END 2019-09-04 11:15 | disposition home or self-care (01) ==
LOC: CCL 06:48
PROVIDERS: ATTEND Internal Medicine
DX: I25.110 Atherosclerotic heart disease of native coronary artery with unstable angina pectoris (principal); I48.0 Paroxysmal atrial fibrillation; I71.4 Abdominal aortic aneurysm, without rupture; Z95.5 Presence of coronary angioplasty implant and graft; Z95.810 Presence of automatic (implantable) cardiac defibrillator; Z87.891 Personal history of nicotine dependence
CPT/HCPCS: 85025; 80048; 36415; 85610; 85730; 71046; 93458; C1893; J1644; J2250 ×2; J3010; J7040; J0583

== ENCOUNTER 2022-02-09 16:57 | Emergency (ER) | payer OTHER ==
--- OUTSIDE RECORDS SUMMARY | 2022-02-09 17:06 | XMS REPORT | Continuity of Care Document ---
:1945 Author Organization [facility] t Address [address] [place] [address] Care Team Providers Name Role Phone JOANIE ELIAS Primary Care Physician Unavailable Joanie Elias Attending Clinician Unavailable [place] Ross Attending Clinician Unavailable Lucero Darnell Attending Clinician Unavailable JAMA DIETZ Attending Clinician Unavailable Doctor Unassigned, [place] Attending Clinician Unavailable RADIOLOGY Attending Clinician Unavailable Radiology Attending Clinician Unavailable Kiley Aviles RN Attending Clinician Unavailable AYAH CAVAZOS Attending Clinician Unavailable Ayah Cavazos MD Attending Clinician Stephen [place] MD Attending Clinician [phone] MAVERICK GONZALEZ M.D. Attending Clinician UnavailJOANIE Dobbins Admitting Clinician Unavailable AYAH CAVAZOS Admitting Clinician Unavailable Ayah Cavazos MD Admitting Clinician Payers Payer Name Policy Type Policy Number Effective Date Expiration Date S ource Problems Condition Condition Condition Status Onset Resolution Last Treating Co mments Source Name Details Category Date Date Treatment Clinician Date Coronary Coronary Disease Active Unive rs artery artery 1-19 ity of disease disease 00:00: [place] involving involving 00 Medi maria guadalupe [place] Branch coronary coronary artery of artery of [place] alat[place] heart heart without without angina angina pectoris pectoris Ischemic Ischemic Disease Active Unive rs cardiomyop cardiomyop 1-19 it y of athy athy 00:00: [place] 00 Medical Branch 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 -19 ity of systolic systolic 00:00: [place] and and Medical diastolic diastolic Bran ch heart heart failure failure PAF PAF Disease Active Univers (paroxysma (paroxysma 07-16 it y of l atrial l atrial 00:00: [place] fibrillati fibrillati 00 Me dical on) on) Branch Essential Essential Disease Active Uni vers hypertensi hypertensi -19 it y of on on 00:00: [place] 00 Medical Branch Dyslipidem Dyslipidem Disease Active U nivers ia ia 07-16 ity of 00:00: [place] 00 Medical Branch Septic Septic Disease Active Univers olecranon olecranon 14 ity of bursitis bursitis 00:00: [place] of left of left 00 Medical elbow elbow Branch History of History of Problem Resolve [facility] cardiac cardiac d [facility] pacemaker pacemaker ans History of History of Problem Resolve [facility] myocardial myocardial d Ph y[facility] infarction infarction an s Abdominal Abdominal Problem Active [facility] 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 ans Allergies, Adverse Reactions, Alerts Allergy Allergy Status Severity Reaction(s) Onset Inactive Treating Comm ents Source Name Type Date Date Clinician NO KNOWN Drug Active Univers ALLERGIE Class ity of S [facility] Social History Social Habit Start Date Stop Date Quantity Comments Source Exposure to Not sure [facility] SARS-CoV-2 [facility] (event) Branch Alcohol intake 2021-07-17 2021-07-17 Ex-drinker University 00:00:00 00:00:00 (finding) [facility] Tobacco use and 2021-07-11 2021-07-11 Never used Universit y of exposure 00:00:00 00:00:00 [facility] Tobacco Comment 2021-07-11 2021-07-11 Quit 40 yrs ago Univ ersity of 00:00:00 00:00:00 [facility] Sex [birth year] Universit y of 00:00:00 00:00:00 [facility] Smoking Status Start Date Stop Date Source Former smoker 2021-07-11 00:00:00 2021-07-11 00:00:00 [facility] Medications Ordered Filled Start Stop Current Ordering Indication Dosage Frequency Signature Comments Components Source Medication Medication Date Date Medication? Clinician (SIG) Name Name diphenhydrA Yes 25mg 25 mg, Univ ers MINE 1-20 Oral, ity of (BENADRYL) 15:28: Q[place]PRN[place] tablet 25 38 Starting Medica l mg on [facility] Branch 07/17/21 at 0928, Until Discontinu ed, Routine, Itching diphenhydrA Yes 25mg 25 mg, Univ ers MINE 1-20 Oral, ity of (BENADRYL) 15:28: Q4HPRN, [place] tablet 25 38 Starting Medica l mg on [facility] Branch 07/17/21 at 0928, Until Discontinu ed, Routine, Itching vancomycin Yes 1000mg 1,000 mg, Univers (VANCOCIN) 1-20 IV ity of 1,000 mg in 13:00: [place], [place] NaCl 0.9% 00 Q12H ABX, Medic al (NS) 250 mL First dose Br anch VIAL-MATE (after IV last piggyback modificati on) on [facility] 07/17/21 at 0700, Until Discontinu ed, Administer over 60 Minutes, 250 mL
Reas on for Anti-Infec tive: Documented Infection< br>Documen narcisa Infection Site: Joint
D uration of Therapy: 7 days vancomycin Yes 1000mg 1,000 mg, Univers (VANCOCIN) 1-20 IV ity of 1,000 mg in 13:00: [place], [place] NaCl 0.9% 00 Q12H ABX, Medic al (NS) 250 mL First dose Br anch VIAL-MATE (after IV last piggyback modificati on) on [facility] 07/17/21 at 0700, Until Discontinu ed, Administer over 60 Minutes, 250 mL
Reas on for Anti-Infec tive: Documented Infection< br>Documen narcisa Infection Site: Joint
D uration of Therapy: 7 days sotaloL Yes 80mg Take 80 mg Univ ers (BETAPACE) 1-20 by mouth ity o f 80 mg 12:50: every 12 [place] tablet 48 (twelve) Medical hours. Branch apixaban Yes 5mg Take 5 mg Univ ers (ELIQUIS) 5 1-20 by mouth 2 it y of mg tablet 12:50: (two) [place] 48 times Medical daily. Branch ezetimibe Yes 10mg Take 10 mg Un dajuan 10 mg 1-20 by mouth ity of tablet 12:50: at [place] [address] bedtime. Medical Branch simvastatin Yes 10mg Take 10 mg Univers 10 mg 1-20 by mouth ity of tablet 12:50: at [place] [address] bedtime. Medical Branch clopidogreL Yes 75mg Take 75 mg Univers (PLAVIX) 75 1-20 by mouth ity of mg tablet 12:50: at [place] [address] bedtime. Medical Branch losartan 50 0 Yes 50mg Take 50 mg Univers mg tablet 1-20 by mouth ity of 12:50: daily. [place] [address] Medical Branch omeprazole/ 0 Yes 20mg Take 20 mg Univers sodium 1-20 by mouth ity of bicarbonate 12:50: [place]. [place] (ZEGERID 48 Medical ORAL) Branch Brimonidine Yes 1[drp] Place 1 U nivers -Timolol 1-20 Drop in ity of (COMBIGAN) 12:50: each eye 2 [place] 0.2-0.5 % 48 (two) Medical ophthalmic times Branch drops daily. Left eye travoprost Yes 1[drp] 1 Drop at Univers 0.004 % 1-20 bedtime. ity of ophthalmic 12:50: [place] solution 48 Medical Branch brinzolamid Yes 1[drp] Place 1 U nivers e (AZOPT) 1 1-20 Drop in ity o f % 12:50: left eye [place] ophthalmic 48 Daily at 3 Med ical suspension pm. Branch drops sotaloL Yes 80mg Take 80 mg Univ ers (BETAPACE) 1-20 by mouth ity o f 80 mg 12:50: every 12 [place] tablet 48 (twelve) Medical hours. Branch apixaban Yes 5mg Take 5 mg Univ ers (ELIQUIS) 5 1-20 by mouth 2 it y of mg tablet 12:50: (two) [place] 48 times Medical daily. Branch ezetimibe Yes 10mg Take 10 mg Un dajuan 10 mg 1-20 by mouth ity of tablet 12:50: at [place] [address] bedtime. Medical Branch simvastatin Yes 10mg Take 10 mg Univers 10 mg 1-20 by mouth ity of tablet 12:50: at [place] [address] bedtime. Medical Branch clopidogreL Yes 75mg Take 75 mg Univers (PLAVIX) 75 1-20 by mouth ity of mg tablet 12:50: at [place] [address] bedtime. Medical Branch losartan 50 0 Yes 50mg Take 50 mg Univers mg tablet 1-20 by mouth ity of 12:50: daily. [place] [address] Medical Branch omeprazole/ Yes 20mg Take 20 mg Univers sodium 1-20 by mouth ity of bicarbonate 12:50: [place]. [place] (ZEGERID 48 Medical ORAL) Branch Brimonidine Yes 1[drp] Place 1 U nivers -Timolol 1-20 Drop in ity of (COMBIGAN) 12:50: each eye 2 [place] 0.2-0.5 % 48 (two) Medical ophthalmic times Branch drops daily. Left eye travoprost Yes 1[drp] 1 Drop at Univers 0.004 % 1-20 bedtime. ity of ophthalmic 12:50: [place] solution 48 Medical Branch brinzolamid Yes 1[drp] Place 1 U nivers e (AZOPT) 1 1-20 Drop in ity o f % 12:50: left eye [place] ophthalmic Daily at 3 Med ical suspension pm. Branch drops sotaloL Yes 80mg Take 80 mg Univ ers (BETAPACE) 1-20 by mouth ity o f 80 mg 12:50: every 12 [place] tablet 48 (twelve) Medical hours. Branch apixaban Yes 5mg Take 5 mg Univ ers (ELIQUIS) 5 1-20 by mouth 2 it y of mg tablet 12:50: (two) [place] 48 times Medical daily. Branch ezetimibe Yes 10mg Take 10 mg Un dajuan 10 mg 1-20 by mouth ity of tablet 12:50: at [place] [address] bedtime. Medical Branch simvastatin Yes 10mg Take 10 mg Univers 10 mg 1-20 by mouth ity of tablet 12:50: at [place] [address] bedtime. Medical Branch clopidogreL Yes 75mg Take 75 mg Univers (PLAVIX) 75 1-20 by mouth ity of mg tablet 12:50: at [place] 48 bedtime. Medical Branch losartan 50 Yes 50mg Take 50 mg Univers mg tablet 1-20 by mouth ity of 12:50: daily. [place] 48 Medical Branch omeprazole/ Yes 20mg Take 20 mg Univers sodium 1-20 by mouth ity of bicarbonate 12:50: [place]. [place] (ZEGERID 48 Medical ORAL) Branch Brimonidine Yes 1[drp] Place 1 U nivers -Timolol 1-20 Drop in ity of (COMBIGAN) 12:50: each eye 2 [place] 0.2-0.5 % 48 (two) Medical ophthalmic times Branch drops daily. Left eye travoprost Yes 1[drp] 1 Drop at Univers 0.004 % 1-20 bedtime. ity of ophthalmic 12:50: [place] solution 48 Medical Branch brinzolamid Yes 1[drp] Place 1 U nivers e (AZOPT) 1 1-20 Drop in ity o f % 12:50: left eye [place] ophthalmic 48 Daily at 3 Med ical suspension pm. Branch drops sotaloL Yes 80mg Take 80 mg Univ ers (BETAPACE) 1-20 by mouth ity o f 80 mg 12:50: every 12 [place] tablet 48 (twelve) Medical hours. Branch apixaban Yes 5mg Take 5 mg Univ ers (ELIQUIS) 5 1-20 by mouth 2 it y of mg tablet 12:50: (two) [place] 48 times Medical daily. Branch ezetimibe Yes 10mg Take 10 mg Un dajuan 10 mg 1-20 by mouth ity of tablet 12:50: at [place] [address] bedtime. Medical Branch simvastatin Yes 10mg Take 10 mg Univers 10 mg 1-20 by mouth ity of tablet 12:50: at [place] [address] bedtime. Medical Branch clopidogreL Yes 75mg Take 75 mg Univers (PLAVIX) 75 1-20 by mouth ity of mg tablet 12:50: at [place] [address] bedtime. Medical Branch losartan 50 0 Yes 50mg Take 50 mg Univers mg tablet 1-20 by mouth ity of 12:50: daily. [place] [address] Medical Branch omeprazole/ 0 Yes 20mg Take 20 mg Univers sodium 1-20 by mouth ity of bicarbonate 12:50: daily. [place] (ZEGERID 48 Medical ORAL) Branch Brimonidine Yes 1[drp] Place 1 U nivers -Timolol 1-20 Drop in ity of (COMBIGAN) 12:50: each eye 2 [place] 0.2-0.5 % 48 (two) Medical ophthalmic times Branch drops daily. Left eye travoprost Yes 1[drp] 1 Drop at Univers 0.004 % 1-20 bedtime. ity of ophthalmic 12:50: [place] [address] Medical Branch brinzolamid Yes 1[drp] Place 1 U nivers e (AZOPT) 1 1-20 Drop in ity o f % 12:50: left eye [place] ophthalmic Daily at 3 Med ical suspension pm. Branch drops sotaloL Yes 80mg Take 80 mg Univ ers (BETAPACE) 1-20 by mouth ity o f 80 mg 12:50: every 12 [place] tablet 48 (twelve) Medical hours. Branch apixaban Yes 5mg Take 5 mg Univ ers (ELIQUIS) 5 1-20 by mouth 2 it y of mg tablet 12:50: (two) [place] [address] times Medical daily. Branch ezetimibe Yes 10mg Take 10 mg Un dajuan 10 mg 1-20 by mouth ity of tablet 12:50: at [place] [address] bedtime. Medical Branch simvastatin Yes 10mg Take 10 mg Univers 10 mg 1-20 by mouth ity of tablet 12:50: at [place] [address] bedtime. Medical Branch clopidogreL 0 Yes 75mg Take 75 mg Univers (PLAVIX) 75 1-20 by mouth ity of mg tablet 12:50: at [place] [address] bedtime. Medical Branch losartan 50 0 Yes 50mg Take 50 mg Univers mg tablet 1-20 by mouth ity of 12:50: daily. [place] [address] Medical Branch omeprazole/ 0 Yes 20mg Take 20 mg Univers sodium 1-20 by mouth ity of bicarbonate 12:50: daily. [place] s (ZEGERID 48 Medical ORAL) Branch Brimonidine Yes 1[drp] Place 1 U nivers -Timolol 1-20 Drop in ity of (COMBIGAN) 12:50: each eye 2 [place] 0.2-0.5 % 48 (two) Medical ophthalmic times Branch drops daily. Left eye travoprost Yes 1[drp] 1 Drop at Univers 0.004 % 1-20 bedtime. ity of ophthalmic 12:50: [place] solution 48 Medical Branch brinzolamid Yes 1[drp] Place 1 U nivers e (AZOPT) 1 1-20 Drop in ity o f % 12:50: left eye [place] ophthalmic 48 Daily at 3 Med ical suspension pm. Branch drops sotaloL Yes 80mg Take 80 mg Univ ers (BETAPACE) 1-20 by mouth ity o f 80 mg 12:50: every 12 [place] tablet 48 (twelve) Medical hours. Branch apixaban Yes 5mg Take 5 mg Univ ers (ELIQUIS) 5 1-20 by mouth 2 it y of mg tablet 12:50: (two) [place] 48 times Medical daily. Branch ezetimibe Yes 10mg Take 10 mg Un dajuan 10 mg 1-20 by mouth ity of tablet 12:50: at [place] [address] bedtime. Medical Branch simvastatin Yes 10mg Take 10 mg Univers 10 mg 1-20 by mouth ity of tablet 12:50: at [place] [address] bedtime. Medical Branch clopidogreL Yes 75mg Take 75 mg Univers (PLAVIX) 75 1-20 by mouth ity of mg tablet 12:50: at [place] [address] bedtime. Medical Branch losartan 50 0 Yes 50mg Take 50 mg Univers mg tablet 1-20 by mouth ity of 12:50: daily. [place] [address] Medical Branch omeprazole/ 0 Yes 20mg Take 20 mg Univers sodium 1-20 by mouth ity of bicarbonate 12:50: daily. [place] (ZEGERID 48 Medical ORAL) Branch Brimonidine Yes 1[drp] Place 1 U nivers -Timolol 1-20 Drop in ity of (COMBIGAN) 12:50: each eye 2 [place] 0.2-0.5 % 48 (two) Medical ophthalmic times Branch drops daily. Left eye travoprost 0 Yes 1[drp] 1 Drop at Univers 0.004 % 1-20 bedtime. ity of ophthalmic 12:50: [place] solution 48 Medical Branch brinzolamid 0 Yes 1[drp] Place 1 U nivers e (AZOPT) 1 1-20 Drop in ity o f % 12:50: left eye [place] ophthalmic 48 Daily at 3 Med ical suspension pm. Branch drops acetaminoph 0 Yes [id number] 650mg Take 2 Univers en 325 mg 1-20 tablets by ity of tablet 00:00: mouth [place] 00 every 6 Medical (six) Branch hours as needed for Pain (scale 1-3) or Temp > 38.5 C. diphenhydrA 0 Yes [id number] 25mg Take 1 Univers MINE 25 mg 1-20 tablet by ity of tablet 00:00: mouth [place] 00 every 4 Medical (four) Branch hours as needed for Itching. acetaminoph 0 Yes [id number] 650mg Take 2 Univers en 325 mg 1-20 tablets by ity of tablet 00:00: mouth [place] 00 every 6 Medical (six) Branch hours as needed for Pain (scale 1-3) or Temp > 38.5 C. diphenhydrA 0 Yes [id number] 25mg Take 1 Univers MINE 25 mg 1-20 tablet by ity of tablet 00:00: mouth [place] 00 every 4 Medical (four) Branch hours as needed for Itching. acetaminoph 0 Yes [id number] 650mg Take 2 Univers en 325 mg 1-20 tablets by ity of tablet 00:00: mouth [place] 00 every 6 Medical (six) Branch hours as needed for Pain (scale 1-3) or Temp > 38.5 C. diphenhydrA 2021-0 Yes [id number] 25mg Take 1 Univers MINE 25 mg 1-20 tablet by ity of tablet 00:00: mouth [place] 00 every 4 Medical (four) Branch hours as needed for Itching. acetaminoph 2021-0 Yes [id number] 650mg Take 2 Univers en 325 mg 1-20 tablets by ity of tablet 00:00: mouth [place] 00 every 6 Medical (six) Branch hours as needed for Pain (scale 1-3) or Temp > 38.5 C. diphenhydrA 2-0 Yes [id number] 25mg Take 1 Univers MINE 25 mg 1-20 tablet by ity of tablet 00:00: mouth [place] 00 every 4 Medical (four) Branch hours as needed for Itching. acetaminoph 2-0 Yes [id number] 650mg Take 2 Univers en 325 mg 1-20 tablets by ity of tablet 00:00: mouth [place] 00 every 6 Medical (six) Branch hours as needed for Pain (scale 1-3) or Temp > 38.5 C. diphenhydrA 2021-0 Yes [id number] 25mg Take 1 Univers MINE 25 mg 1-20 tablet by ity of tablet 00:00: mouth [place] 00 every 4 Medical (four) Branch hours as needed for Itching. acetaminoph 2021-0 Yes [id number] 650mg Take 2 Univers en 325 mg 1-20 tablets by ity of tablet 00:00: mouth [place] 00 every 6 Medical (six) Branch hours as needed for Pain (scale 1-3) or Temp > 38.5 C. diphenhydrA 2021-0 Yes [id number] 25mg Take 1 Univers MINE 25 mg 1-20 tablet by ity of tablet 00:00: mouth [place] 00 every 4 Medical (four) Branch hours as needed for Itching. sulfamethox 2021- No [id number] 1{tbl} Take 1 Univers azole-trime 1-20 07-26 tablet by it y of thoprim 00:00: 05:59 mouth 2 [place] (BACTRIM 00 :00 (two) Medical DS) 800-160 times Branch mg per daily for tablet 8 days. sulfamethox 2021-0 2021- No [id number] 1{tbl} Take 1 Univers azole-trime 1-20 - tablet by it y of thoprim 00:00: 05:59 mouth 2 [place] (BACTRIM 00 :00 (two) Medical DS) 800-160 times Branch mg per daily for tablet 8 days. sulfamethox 2021-0 2021- No [id number] 1{tbl} Take 1 Univers azole-trime 1-20 -29 tablet by it y of thoprim 00:00: 05:59 mouth 2 [place] (BACTRIM 00 :00 (two) Medical DS) 800-160 times Branch mg per daily for tablet 8 days. HYDROcodone 2021-0 Yes 1{tbl} 1 tablet, Univers -acetaminop 1-19 Oral, ity of hen (NORCO 20:47: Q6HPRN, [place] 5) 5-325 mg 49 Starting Medi maria guadalupe tablet 1 on Wed Branch tablet 07/16/21 at 1447, Until Discontinu ed, Routine, Pain (scale 4-6) HYDROcodone 2021-0 Yes 1{tbl} 1 tablet, Univers -acetaminop 1-19 Oral, ity of hen (NORCO 20:47: Q6HPRN, [place] 5) 5-325 mg 49 Starting Medi maria guadalupe tablet 1 on Wed Branch tablet 07/16/21 at 1447, Until Discontinu ed, Routine, Pain (scale 4-6) lactated 2021-0 Yes 1000mL at 75 Univer s ringers IV 1-19 mL/hr, ity of infusion 20:15: 1,000 mL, [place] 1,000 mL 00 IV Medical Infusion, Branch CONTINUOUS , Starting on Wed07/16/21 at 1415, Until Discontinu ed, Routine, PACU lactated 2022-0 Yes 1000mL at 75 Univer s ringers IV 1-19 mL/hr, ity of infusion 20:15: 1,000 mL, [place] 1,000 mL 00 IV Medical Infusion, Branch CONTINUOUS , Starting on Wed07/16/21 at 1415, Until Discontinu ed, Routine, PACU lactated 2-0 Yes 1000mL at 75 Univer s ringers IV 1-17 mL/hr, ity of infusion 19:00: 1,000 mL, [place] 1,000 mL 00 IV Medical Infusion, Branch CONTINUOUS , Starting on Wed07/14/21 at 1300, Until Discontinu ed, Routine, PACU lactated 2022-0 Yes 1000mL at 75 Univer s ringers IV 1-17 mL/hr, ity of infusion 19:00: 1,000 mL, [place] 1,000 mL 00 IV Medical Infusion, Branch CONTINUOUS , Starting on Wed07/14/21 at 1300, Until Discontinu ed, Routine, PACU lactated 2022-0 Yes 1000mL at 75 Univer s ringers IV 1-17 mL/hr, ity of infusion 19:00: 1,000 mL, [place] 1,000 mL 00 IV Medical Infusion, Branch CONTINUOUS , Starting on Wed07/14/21 at 1300, Until Discontinu ed, Routine, PACU FENTanyl PF 0 Yes 25ug 25 mcg, Uni vers (SUBLIMAZE 07-14 Slow IV ity of (PF)) 18:56: [place], [place] injection 12 Q5MIN PRN, Medi maria guadalupe 25 mcg 4 doses, Branch Starting on Wed07/14/21 at 1256, Until Discontinu ed, Routine, Pain (scale 4-6), PACU FENTanyl PF 2021- No 25ug 25 mcg, Un dajuan (SUBLIMAZE 07-14 Slow IV ity o f (PF)) 18:56: 20:26 Push, [place] injection 12 :31 Q5MIN PRN, Medi maria guadalupe 25 mcg 4 doses, Branch Starting on Wed07/14/21 at 1256, Until Wed07/16/21 at 1426, Routine, Pain (scale 4-6), PACU ondansetron 2021- No 4mg 4 mg, Slow Univers (ZOFRAN 07-14 IV Push, ity of (PF)) 18:56: 19:32 PRN, 1 [place] injection 4 12 :00 dose, Medical mg Starting Branch on Wed07/14/21 at 1256, Until Wed07/14/21 at 1332, Routine, Nausea and Vomiting (N/V), PACU sodium 0 Yes PRN, Univers chloride 07-14 Starting ity of 0.9 % 18:39: on Wed [place] irrigation 00 07/14/21 at Med ical solution 1239, Branch Until Discontinu ed, Intra-op sotaloL 0 Yes 80mg Take 80 mg Univ ers (BETAPACE) 17 by mouth ity o f 80 mg 13:41: every 12 [place] tablet 27 (twelve) Medical hours. Branch apixaban Yes 5mg Take 5 mg Univ ers (ELIQUIS) 5 07-14 by mouth 2 it y of mg tablet 13:41: (two) [place] 27 times Medical daily. Branch ezetimibe 2022-0 Yes 10mg Take 10 mg Un dajuan 10 mg -17 by mouth ity of tablet 13:41: at [place] [address] bedtime. Medical Branch simvastatin Yes 10mg Take 10 mg Univers 10 mg 17 by mouth ity of tablet 13:41: at [place] [address] bedtime. Medical Branch clopidogreL Yes 75mg Take 75 mg Univers (PLAVIX) 75 17 by mouth ity of mg tablet 13:41: at [place] [address] bedtime. Medical Branch losartan 50 Yes 50mg Take 50 mg Univers mg tablet 17 by mouth ity of 13:41: daily. [place] [address] Medical Branch omeprazole/ Yes 20mg Take 20 mg Univers sodium -17 by mouth ity of bicarbonate 13:41: daily. Mil s (ZEGERID 27 Medical ORAL) Branch Brimonidine Yes 1[drp] Place 1 U nivers -Timolol -17 Drop in ity of (COMBIGAN) 13:41: each eye 2 [place] 0.2-0.5 % 27 (two) Medical ophthalmic times Branch drops daily. Left eye travoprost Yes 1[drp] 1 Drop at Univers 0.004 % 17 bedtime. ity of ophthalmic 13:41: [place] [address] Medical Branch brinzolamid Yes 1[drp] Place 1 U nivers e (AZOPT) 1 17 Drop in ity o f % 13:41: left eye [place] ophthalmic Daily at 3 Med ical suspension pm. Branch drops losartan Yes 50mg 50 mg, Univers (COZAAR) 1-15 Oral, ity of tablet 50 15:00: DAILY, [place] mg 00 First dose Medical on [facility] Branch 07/12/21 at 0900, Until Discontinu ed, Routine losartan 2021-0 Yes 50mg 50 mg, Univers (COZAAR) 1-15 Oral, ity of tablet 50 15:00: DAILY, [place] mg 00 First dose Medical on [facility] Branch 07/12/21 at 0900, Until Discontinu ed, Routine losartan 2021-0 Yes 50mg 50 mg, Univers (COZAAR) 1-15 Oral, ity of tablet 50 15:00: DAILY, [place] mg 00 First dose Medical on [facility] Branch 07/12/21 at 0900, Until Discontinu ed, Routine latanoprost 2021-0 Yes 1[drp] 1 Drop, U nivers (XALATAN) 1-15 Left Eye, ity o f 0.005 % 03:00: QHS, First [place] ophthalmic 00 dose on Medica l drops 1 Wed Branch Drop 07/11/21 at 2100, Until Discontinu ed simvastatin 2021-0 Yes 10mg 10 mg, Univ ers (ZOCOR) 1-15 Oral, QHS, ity of tablet 10 03:00: First dose [place] mg 00 on Wed Medical 07/11/21 at Branch 2100, Until Discontinu ed, Routine ezetimibe 2021-0 Yes 10mg 10 mg, Univer s (ZETIA) 1-15 Oral, QHS, ity of tablet 10 03:00: First dose [place] mg 00 on Wed [facility] 07/11/21 at Branch 2100, Until Discontinu ed, Routine clopidogreL 2021-0 Yes 75mg 75 mg, Univ ers (PLAVIX) 1-15 Oral, QHS, ity o f tablet 75 03:00: First dose [place] mg 00 on Wed [facility] 07/11/21 at Branch 2100, Until Discontinu ed, Routine latanoprost 2021-0 Yes 1[drp] 1 Drop, U nivers (XALATAN) 1-15 Left Eye, ity o f 0.005 % 03:00: QHS, First [place] ophthalmic 00 dose on Medica l drops 1 Wed Branch Drop 07/11/21 at 2100, Until Discontinu ed simvastatin 2-0 Yes 10mg 10 mg, Univ ers (ZOCOR) 1-15 Oral, QHS, ity of tablet 10 03:00: First dose [place] mg 00 on Wed [facility] 07/11/21 at Branch 2100, Until Discontinu ed, Routine ezetimibe 2-0 Yes 10mg 10 mg, Univer s (ZETIA) 1-15 Oral, QHS, ity of tablet 10 03:00: First dose [place] mg 00 on Wed Medical 07/11/21 at Branch 2100, Until Discontinu ed, Routine clopidogreL 2-0 Yes 75mg 75 mg, Univ ers (PLAVIX) 1-15 Oral, QHS, ity o f tablet 75 03:00: First dose [place] mg 00 on Fri Medical 07/11/21 at Branch 2100, Until Discontinu ed, Routine latanoprost 2021-0 Yes 1[drp] 1 Drop, U nivers (XALATAN) 1-15 Left Eye, ity o f 0.005 % 03:00: QHS, First [place] ophthalmic 00 dose on Medica l drops 1 Wed Branch Drop 07/11/21 at 2100, Until Discontinu ed simvastatin 2021-0 Yes 10mg 10 mg, Univ ers (ZOCOR) 1-15 Oral, QHS, ity of tablet 10 03:00: First dose [place] mg 00 on Wed Medical 07/11/21 at Branch 2100, Until Discontinu ed, Routine ezetimibe 2021-0 Yes 10mg 10 mg, Univer s (ZETIA) 1-15 Oral, QHS, ity of tablet 10 03:00: First dose [place] mg 00 on Wed Medical 07/11/21 at Branch 2100, Until Discontinu ed, Routine clopidogreL 2021-0 Yes 75mg 75 mg, Univ ers (PLAVIX) 1-15 Oral, QHS, ity o f tablet 75 03:00: First dose [place] mg 00 on Wed Medical 07/11/21 at Branch 2100, Until Discontinu ed, Routine sotaloL 2021-0 Yes 80mg 80 mg, Univers (BETAPACE) 1-15 Oral, ity of tablet 80 02:00: Q12H, [place] mg 00 First dose Medical on Fri Branch 07/11/21 at 2000, Until Discontinu ed, Routine
amphibian crewmember approving Restricted medication : GERMAN JUAREZ sotaloL 2021-0 Yes 80mg 80 mg, Univers (BETAPACE) 1-15 Oral, ity of tablet 80 02:00: Q12H, [place] mg 00 First dose Medical on Wed Branch 07/11/21 at 2000, Until Discontinu ed, Routine
amphibian crewmember approving Restricted medication : GERMAN JUAREZ ADRIAN sotaloL 2021-0 Yes 80mg 80 mg, Univers (BETAPACE) 1-15 Oral, ity of tablet 80 02:00: Q12H, [place] mg 00 First dose Medical on Fri Branch 07/11/21 at 2000, Until Discontinu ed, Routine
amphibian crewmember approving Restricted medication : GERMAN JUAREZ apixaban 2021- No 5mg 5 mg, Univers (ELIQUIS) 07-1215 Oral, BID, ity of tablet 5 mg 02:00: 16:45 First dose [place] 00 :48 (after Medical last Branch modificati on) on Wed07/11/21 at 2000, Until Discontinu ed, Routine
Indicatio ns: Non-Valvul ar Atrial Fibrillati on vancomycin Yes 1000mg 1,000 mg, Univers (VANCOCIN) 14 IV ity of 1,000 mg in 22:30: [facility], [place] NaCl 0.9% 00 Q12H ABX, Medic al (NS) 250 mL First dose Br anch VIAL-MATE on Wed IV 07/11/21 at piggyback 1630, Until Discontinu ed, Administer over 60 Minutes, 250 mL
Reas on for Anti-Infec tive: Documented Infection< br>Documen narcisa Infection Site: Joint
D uration of Therapy: 7 days vancomycin 2021- No 1000mg 1,000 mg, Univers (VANCOCIN) 07-11 01-20 IV ity of 1,000 mg in 22:30: [facility] [place] NaCl 0.9% 00 :17 Q12H ABX, Medic al (NS) 250 mL First dose Br anch VIAL-MATE on Wed IV 07/11/21 at piggyback 1630, Until Discontinu ed, Administer over 60 Minutes, 250 mL
Reas on for Anti-Infec tive: Documented Infection< br>Documen narcisa Infection Site: Joint
D uration of Therapy: 7 days ondansetron 2021-0 Yes 4mg 4 mg, Slow Univers (ZOFRAN 1-14 IV Push, ity of (PF)) 19:04: Q6HPRN, [place] injection 4 46 Starting Medi maria guadalupe mg on Wed Branch 07/11/21 at 1304, Until Discontinu ed, Routine, Nausea and Vomiting (N/V) ondansetron 2021-0 Yes 4mg 4 mg, Slow Univers (ZOFRAN 1-14 IV Push, ity of (PF)) 19:04: Q6HPRN, [place] injection 4 46 Starting Medi maria guadalupe mg on Fri Branch 07/11/21 at 1304, Until Discontinu ed, Routine, Nausea and Vomiting (N/V) ondansetron 2021-0 Yes 4mg 4 mg, Slow Univers (ZOFRAN 1-14 IV Push, ity of (PF)) 19:04: Q6HPRN, [place] injection 4 46 Starting Medi maria guadalupe mg on Fri Branch 07/11/21 at 1304, Until Discontinu ed, Routine, Nausea and Vomiting (N/V) HYDROcodone 2021-0 202- No 1{tbl} 1 tablet, Univers -acetaminop -14 01-16 Oral, ity of hen (NORCO 19:04: 19:03 Q6HPRN, Thang as 5) 5-325 mg 40 :40 Starting Medi maria guadalupe tablet 1 on Fri Branch tablet 07/11/21 at 1304, Until 07/13/21 at 1303, Routine, Pain (scale 4-6) acetaminoph 202-0 Yes 650mg 650 mg, Un dajuan en 14 Oral, ity of (TYLENOL) 19:04: Q6HPRN, [place] tablet 650 34 Starting Medic al mg on Fri Branch 07/11/21 at 1304, Until Discontinu ed, Routine, Pain (scale 1-3), Temp > 38.5 C acetaminoph 2-0 Yes 650mg 650 mg, Un dajuan en -14 Oral, ity of (TYLENOL) 19:04: Q6HPRN, [place] tablet 650 34 Starting Medic al mg on Fri Branch 07/11/21 at 1304, Until Discontinu ed, Routine, Pain (scale 1-3), Temp > 38.5 C acetaminoph 2022-0 Yes 650mg 650 mg, Un dajuan en -14 Oral, ity of (TYLENOL) 19:04: Q6HPRN, [place] tablet 650 34 Starting Medic al mg on Fri Branch 07/11/21 at 1304, Until Discontinu ed, Routine, Pain (scale 1-3), Temp > 38.5 C Triamcinolo Triamcinolo 2018-0 Yes Lucero 1 Common ne ne 8-15 Millender applicatio Spir it Acetonide Acetonide 00:00: n to - C HI [address] [facility] Plavix TABS Plavix TABS Yes U T Physici ans Losartan Losartan Yes UT Potassium Potassium Physi ci TABS TABS ans Betapace Betapace Yes Lucero 1 tablet Co mmon [facility] Eliquis 5 Eliquis 5 Yes Lucero 1 tablet Common mg mg Millender [facility] Combigan Combigan Yes Lucero 1 drop Comm on Millender into Spirit affected - CH[facility] eye [facility] Azopt Azopt Yes Lucero INSTILL 1 Common Millender DROP INTO Spiri t LEFT EYE 3 - CHI TIMES A [facility] Simvastatin Simvastatin Yes Lucero 1 tablet Common Millender [facility] Losartan Losartan Yes Lucero 1 tablet Co mmon Potassium Potassium Millender [facility] Plavix Plavix Yes Lucero 1 tablet Common Millender [facility] Fenofibrate Fenofibrate Yes Lucero 1 tablet Common Millender with food Spiri t - [facility] Zegerid Zegerid Yes UT CAPS CAPS Physici ans Zetia Zetia Yes Lucero 1 tablet Common Millender [facility] Zegerid Zegerid Yes Lucero 1 capsule Com mon Millender on an Spirit empty - CHI stomach [facility] Travatan Z Travatan Z Yes Lucero TAKE 1 Common Millender DROP(S) IN Spir it BOTH EYES - CHI ONCE IN [facility] Combigan Combigan Yes UT SOLN SOLN Physici ans Travatan Travatan Yes UT SOLN SOLN Physici ans Sotalol HCl Sotalol HCl Yes U T - 80 MG - 80 MG Physici Oral Tablet Oral Tablet a ns Eliquis 5 Eliquis 5 Yes UT MG Oral MG Oral Physici Tablet Tablet ans Zetia TABS Zetia TABS Yes UT Physici ans Simvastatin Simvastatin Yes U T TABS TABS Physici ans Immunizations Ordered Immunization Filled Immunization Date Status Commen ts Source Name Name FLUZONE HIGH DOSE FLUZONE HIGH DOSE 2019-03-31 Completed Common [facility] OVER 65 OVER 65 00:00:00 - [facility] Vital Signs Vital Name Observation Time Observation Value Comments Source Systolic blood 2021-07-17 17:29:00 147 mm[Hg] Univer sity of pressure [place] [facility] Diastolic blood 2021-07-17 17:29:00 89 mm[Hg] Unive rsity of pressure [place] [facility] Heart rate 2021-07-17 17:29:00 73 /min [facility] [place] [facility] Body temperature 2021-07-17 17:29:00 36.44 Yajaira Univ ersity of [place] [facility] Respiratory rate 2021-07-17 17:29:00 18 /min Univ ersity of [place] [facility] Oxygen saturation in 2021-07-17 17:29:00 97 /min University of Arterial blood by [facility] Pulse oximetry Branch Body weight 2021-07-17 10:10:00 93.895 kg [facility] [place] [facility] BMI 2021-07-17 10:10:00 28.87 kg/m2 [facility] [place] [facility] Body height 2021-07-11 19:15:00 180.3 cm [facility] [place] [facility] Systolic blood 2021-07-16 19:55:00 124 mm[Hg] Univer sity of pressure [place] [facility] Diastolic blood 2021-07-16 19:55:00 71 mm[Hg] Unive rsity of pressure [place] [facility] Heart rate 2021-07-16 19:55:00 63 /min [facility] [place] [facility] Respiratory rate 2021-07-16 19:55:00 19 /min Univ ersity of [place] [facility] Oxygen saturation in 2021-07-16 19:55:00 98 /min University of Arterial blood by [facility] Pulse oximetry Branch Body temperature 2021-07-16 19:44:00 36.39 Yajaira Univ [facility] [place] [facility] Body weight 2021-07-15 10:33:00 85.872 kg [facility] [place] [facility] BMI 2021-07-15 10:33:00 28.87 kg/m2 [facility] [place] [facility] Body height 2021-07-11 19:15:00 180.3 cm [facility] [place] [facility] Systolic blood 2021-07-14 19:25:00 148 mm[Hg] Univer sity of pressure [place] [facility] Diastolic blood 2021-07-14 19:25:00 90 mm[Hg] Unive rsity of pressure [place] [facility] Heart rate 2021-07-14 19:25:00 61 /min [facility] Oxygen saturation in 2021-07-14 19:25:00 96 /min [facility] Arterial blood by [facility] Pulse oximetry [place] Respiratory rate 2021-07-14 19:20:00 24 /min [facility] Body temperature 2021-07-14 18:51:00 36.11 Yajaira [facility] Body weight 2021-07-14 10:02:00 85.957 kg [facility] BMI 2021-07-14 10:02:00 26.40 kg/m2 [facility] Body height 2021-07-11 19:15:00 180.3 cm [facility] Procedures Procedure Date / Time Performing Clinician Source Performed REFERRAL- REQUEST/RESPONSE 2021-08-21 06:01:00 Doctor Chintan , [facility] Name [facility] XR CHEST 2 VW 2021-08-11 17:10:36 Joanie Elias Holder o [facility] CONSENT/REFUSAL FOR 2021-08-11 16:47:46 Doctor Chintan, [facility] DIAGNOSIS AND TREATMENT [place] [facility] ASSIGNMENT OF BENEFITS 2021-08-11 16:47:26 Doctor Chintan, [facility] Name Medical [place] CBC WITH DIFF 2021-07-17 10:39:00 [facility] WITH DIFF 2021-07-17 10:39:00 [facility] TROPONIN I 2021-07-17 10:29:00 Tevin Schuler [facility] BASIC METABOLIC PANEL (NA, 2021-07-17 10:29:00 [facility], CO2, GLUCOSE, BUN, Medica l Branch CREATININE, CA) TROPONIN I 2021-07-17 10:29:00 Tevin Schuler [facility] BASIC METABOLIC PANEL (NA, 2021-07-17 10:29:00 [facility], CL, CO2, GLUCOSE, BUN, Medica l Branch CREATININE, CA) VANCOMYCIN TROUGH 2021-07-16 23:44:00 Alesia Diallo [facility] VANCOMYCIN TROUGH 2021-07-16 23:44:00 Alesia Diallo [facility] HB ECG ROUTINE & RHYTHM 2021-07-16 22:45:56 Tevin Schuler [facility] INCISION AND DRAINAGE 2021-07-16 17:58:00 [facility] INCISION AND DRAINAGE 2021-07-16 17:58:00 [facility] BASIC METABOLIC PANEL (NA, 2021-07-16 10:06:00 [facility], CL, CO2, GLUCOSE, BUN, Medica l Branch CREATININE, CA) N-TERMINAL PRO-BNP 2021-07-16 10:06:00 Tevin Schuler [facility] BASIC METABOLIC PANEL (NA, 2021-07-16 10:06:00 [facility], CL, CO2, GLUCOSE, BUN, Medica l Branch CREATININE, CA) N-TERMINAL PRO-BNP 2021-07-16 10:06:00 Tevin Schuler [facility] CBC WITH DIFF 2021-07-16 10:01:00 [facility] CBC WITH DIFF 2021-07-16 10:01:00 [facility] BASIC METABOLIC PANEL (NA, 2021-07-15 10:47:00 [facility] K, CL, CO2, GLUCOSE, BUN, Medica l Branch CREATININE, CA) CBC WITH DIFF 2021-07-15 10:47:00 [facility] BASIC METABOLIC PANEL (NA, 2021-07-15 10:47:00 [facility], CL, CO2, GLUCOSE, BUN, Medica l Branch CREATININE, CA) CBC WITH DIFF 2021-07-15 10:47:00 [facility] BASIC METABOLIC PANEL (NA, 2021-07-15 10:47:[address] [facility] K, CL, CO2, GLUCOSE, BUN, Medica l Branch CREATININE, CA) CBC WITH DIFF 2021-07-15 10:47:00 Raymond Tran [facility] ASPIRATE OR ABSCESS 2021-07-14 18:28:00 Stephen [place] [facility] CULTURE(AEROBIC/ANAEROBIC) [facility] CULTURE 2021-07-14 18:28:00 Stephen Montana [facility] FUNGUS (ROUTINE) CULTURE 2021-07-14 18:28:00 [facility] ABSCESS 2021-07-14 18:28:00 Stephen Montana [facility] CULTURE(AEROBIC/ANAEROBIC) [facility] [employer] CULTURE 2021-07-14 18:28:00 Stephen Montana [facility] FUNGUS (ROUTINE) CULTURE 2021-07-14 18:28:00 [facility] ABSCESS 2021-07-14 18:28:00 Stephen Montana [facility] CULTURE(AEROBIC/ANAEROBIC) [facility] [employer] CULTURE 2021-07-14 18:28:00 Stephen Montana [facility] FUNGUS (ROUTINE) CULTURE 2021-07-14 18:28:00 Stephen Montana [facility] SURGICAL PATHOLOGY EXAM 2021-07-14 18:20:00 Stephen [place] [facility]AM 2021-07-14 18:20:00 Stephen [place] [facility] ASPIRATE OR ABSCESS 2021-07-14 18:08:00 Stephen Montana [facility] CULTURE(AEROBIC/ANAEROBIC) [facility] [employer] CULTURE 2021-07-14 18:08:00 Stephen Montana [facility] FUNGUS (ROUTINE) CULTURE 2021-07-14 18:08:00 [facility] ASPIRATE OR ABSCESS 2021-07-14 18:08:00 Stephen Montana [facility] CULTURE(AEROBIC/ANAEROBIC) [facility] [employer] CULTURE 2021-07-14 18:08:00 Stephen Montana [facility] FUNGUS (ROUTINE) CULTURE 2021-07-14 18:08:00 Stephen Montana [facility] ASPIRATE OR ABSCESS 2021-07-14 18:08:00 Stephen Montana [facility] CULTURE(AEROBIC/ANAEROBIC) [facility] [employer] CULTURE 2021-07-14 18:08:00 Stephen Montana [facility] FUNGUS (ROUTINE) CULTURE 2021-07-14 18:08:00 Stephen Montana [facility] ELBOW IRRIGATION & 2021-07-14 17:19:00 Stephen Montana [facility] DEBRIDEMENT [facility] ELBOW IRRIGATION & 2021-07-14 17:19:00 Stephen [place] [facility] DEBRIDEMENT [facility] BASIC METABOLIC PANEL (NA, 2021-07-14 10:57:00 Nwokedi, Stefania [facility] [place] K, CL, CO2, GLUCOSE, BUN, Medica l Branch CREATININE, CA) CBC WITH DIFF 2021-07-14 10:57:00 [facility] / [facility] 2021-07-14 10:57:00 NwokediStefania [facility] BASIC METABOLIC PANEL (NA, 2021-07-14 10:57:00 Nwokedi, Stefania [facility] [place] K, CL, CO2, GLUCOSE, BUN, Medica l Branch CREATININE, CA) CBC WITH DIFF 2021-07-14 10:57:00 [facility] PROTHROMBIN TIME / INR 2021-07-14 10:57:00 [facility]okedi[facility] METABOLIC PANEL (NA, 2021-07-14 10:57:00 Nwokedi, Stefania [facility] [place] K, CL, CO2, GLUCOSE, BUN, Medica l Branch CREATININE, CA) CBC WITH DIFF 2021-07-14 10:57:00 [facility] / INR 2021-07-14 10:57:00 [facility] VANCOMY[facility] TROUGH 2021-07-13 10:46:00 Imani [facility] [place] VANCOMYCIN TROUGH 2021-07-13 10:46:00 Imani [facility] [place] VANCOMYCIN TROUGH 2021-07-13 10:46:00 Imani [facility] [place] BASIC METABOLIC PANEL (NA, 2021-07-12 10:27:00 [place]ville, Ayah [facility] [place] K, CL, CO2, GLUCOSE, BUN, Medica l Branch CREATININE, CA) CBC WITH DIFF 2021-07-12 10:27:00 Ovjerzy [facility] BASIC METABOLIC PANEL (NA, 2021-07-12 10:27:00 [place]ville, Ayah [facility] [place] K, CL, CO2, GLUCOSE, BUN, Medica l Branch CREATININE, CA) CBC WITH DIFF 2021-07-12 10:27:00 Ovjerzy [facility] BASIC METABOLIC PANEL (NA, 2021-07-12 10:27:00 Oville, Ayah [facility] [place] K, CL, CO2, GLUCOSE, BUN, Medica l Branch CREATININE, CA) CBC WITH DIFF 2021-07-12 10:27:00 [facility] 2021-07-11 20:43:00 OvAyah bertrand [facility] BLOOD CULTURE SCREEN 2021-07-11 20:43:00 OvAyah bertrand [facility] BLOOD CULTURE SCREEN 2021-07-11 20:43:00 OvAyah bertrand [facility] BLOOD CULTURE SCREEN 2021-07-11 20:42:00 OvAyah bertrand [facility] BLOOD CULTURE SCREEN 2021-07-11 20:42:00 OvAyah bertrand [facility] BLOOD CULTURE SCREEN 2021-07-11 20:42:00 OvAyah bertrand [facility] HEPATIC FUNCTION PANEL 2021-07-11 19:50:00 [place], [facility] ([id number]) (ALB,T.PRO,BILI Medical Branch T,BU/BC,ALT,AST,ALK PHOS) BASIC METABOLIC PANEL (NA, 2021-07-11 19:50:00 [place], [facility], [facility], CO2, GLUCOSE, BUN, Medica l Branch CREATININE, CA) CBC WITH DIFF 2021-07-11 19:50:00 Ovjerzy, [facility] GLYCOSYLATED HEMOGLOBIN 2021-07-11 19:50:00 [place], [facility] ([facility]) [facility] PROTHROMBIN TIME / INR 2021-07-11 19:50:00 [place], [facility] ACTIVATED PARTIAL THRMPLAS 2021-07-11 19:50:00 [place], [facility] HE[facility]EL 2021-07-11 19:50:00 [place], [facility] ([id number]) (ALB,T.PRO,[facility] T,BU/BC,ALT,AST,ALK PHOS) BASIC METABOLIC PANEL (NA, 2021-07-11 19:50:00 [place], [facility] K, CL, CO2, GLUCOSE, BUN, Medica l Branch CREATININE, CA) CBC WITH DIFF 2021-07-11 19:50:00 [place], [facility] GLYCOSYLATED HEMOGLOBIN 2021-07-11 19:50:00 [place], [facility] (A1C) [facility] PROTHROMBIN TIME / INR 2021-07-11 19:50:00 [place], [facility] ACTIVATED PARTIAL THRMPLAS 2021-07-11 19:50:00 [place], Ayah [facility] HEPATIC FUNCTION PANEL 2021-07-11 19:50:00 [place], [facility] ([id number]) (ALB,T.PRO,BILI Medical Branch T,BU/BC,ALT,AST,ALK PHOS) BASIC METABOLIC PANEL (NA, 2021-07-11 19:50:00 Ayah Cavazos [facility] K, CL, CO2, GLUCOSE, BUN, Medica l Branch CREATININE, CA) CBC WITH DIFF 2021-07-11 19:50:00 Macy Ayah [facility] GLYCOSYLATED HEMOGLOBIN 2021-07-11 19:50:00 [facility] Medical Branch PROTHROMBIN TIME / INR 2021-07-11 19:50:00 Ayah Cavazos [facility] ACTIVATED PARTIAL THRMPLAS 2021-07-11 19:50:00 Ayah Cavazos [facility] NATHAN [facility] COVID-19 (ID NOW RAPID 2021-07-11 19:00:00 Macy [facility] TESTING) Medical Branch LAB ONLY COVID 2021-07-11 19:00:00 Macy Ayah [facility] INTERPRETATION [facility] COVID-19 (ID NOW RAPID 2021-07-11 19:00:00 Macy [facility] TESTING) Medical Branch LAB ONLY COVID 2021-07-11 19:00:00 Macy [facility] INTERPRETATION [facility] COVID-19 (ID NOW RAPID 2021-07-11 19:00:00 Macy [facility] TESTING) Medical Branch NOTICE OF BILLING 2021-07-11 18:30:52 Doctor Unassvahe [facility] FOR MEDICARE [place] [facility] PATIENTS NOTICE OF BILLING 2021-07-11 18:30:52 Doctor Unassvahe [facility] FOR MEDICARE [place] [facility] PATIENTS NOTICE OF BILLING 2021-07-11 18:30:52 Doctor Unassigned, [facility] PRACTICES FOR MEDICARE [place] [facility] PATIENTS [facility] PATIENT FINANCIAL 2021-07-11 18:30:19 Doctor Unassigned, [facility] POLICY [place] [facility] PATIENT FINANCIAL 2021-07-11 18:30:19 Doctor Unassigned, [facility] POLICY [place] [facility] PATIENT FINANCIAL 2021-07-11 18:30:19 [facility] [place] [facility] NO SHOW OR MISSED 2021-07-11 18:30:01 Doctor Unassigned, [facility] APPOINTMENT POLICY [place] [facility] ACKNOWLEDGEMENT NO SHOW OR MISSED 2021-07-11 18:30:01 Doctor Unassigned, [facility] APPOINTMENT POLICY [place] [facility] ACKNOWLEDGEMENT NO SHOW OR MISSED 2021-07-11 18:30:01 Doctor Unassigned, [facility] APPOINTMENT POLICY [place] [facility] ACKNOWLEDGEMENT NOTICE OF PRIVACY 2021-07-11 18:29:45 Doctor Unassigned, [facility] [place] [facility] NOTICE OF PRIVACY 2021-07-11 18:29:45 Doctor Unassigned, [facility] [place] [facility] NOTICE OF PRIVACY 2021-07-11 18:29:45 Doctor Unassigned, [facility] [place] [facility] CONSENT/REFUSAL FOR 2021-07-11 18:29:30 Doctor Unassigned, [facility] DIAGNOSIS AND TREATMENT [place] [facility] CONSENT/REFUSAL FOR 2021-07-11 18:29:30 Doctor Unassigned, [facility] DIAGNOSIS AND TREATMENT [place] [facility] CONSENT/REFUSAL FOR 2021-07-11 18:29:30 Doctor Unassigned, [facility] DIAGNOSIS AND TREATMENT [place] [facility] ASSIGNMENT OF BENEFITS 2021-07-11 18:29:12 Doctor Unassigned, [facility] [place] [facility] ASSIGNMENT OF BENEFITS 2021-07-11 18:29:12 Doctor Unassigned, [facility] [place] [facility] ASSIGNMENT OF BENEFITS 2021-07-11 18:29:12 Doctor Unassigned, [facility] [place] [facility] CT Abdomen wo contrast 2019-05-15 00:00:[facility] [id number] [facility] Pel[facility] contrast 2019-05-15 00:[id number] Encounters Start End Encounter Admission Attending Care Care Encounter Source Date/Time Date/Time Type Type Clinicians Facility Department ID 2022-02-06 Outpatient EliasJoanie [facility] [id number] 2 Common 08:37:00 [id number] [facility] 2022-02-04 Outpatient Elias, Na STLMLC ST[facility] [id number] 2 Common 10:51:00 [facility] 2021-11-13 Outpatient Elias, Na STLMLC ST[facility] [id number] 2 Common 11:20:01 [facility] 2021-10-31 Outpatient Elias, Na STLMLC ST[facility] [id number] 2 Common 09:14:01 [facility] 2021-08-08 Outpatient Elias, Na STLMLC STLMLC [id number] 2 Common 13:48:01 [facility] 2021-08-01 Outpatient Elias, Na STLMLC STLMLC [id number] 2 Common 10:52:00 [facility] 2021-07-23 Outpatient Elias, Na STLMLC STLMLC [id number] 2 Common 14:35:32 [facility] 2021-07-23 Outpatient Elias, Na STLMLC STLMLC [id number] 2 Common 14:35:07 [facility] 2021-07-23 Outpatient Elias, Na STLMLC STLMLC [id number] 2 Common 13:09:25 [facility] 2021-07-23 Outpatient Elias, Na STLMLC STLMLC [id number] 2 Common 12:59:04 [facility] 2021-07-23 Outpatient Elias, Na STLMLC STLMLC [id number] 2 Common 12:28:41 [facility] 2021-07-23 Outpatient Elias, Na STLMLC STLMLC [id number] 2 Common 12:27:34 [facility] 2021-07-23 Outpatient Elias, Na STLMLC STLMLC [id number] 2 Common 12:15:23 [id number] [facility] 2021-07-23 Outpatient Ross, Kin STLMLC STLMLC [id number] 02 Common 12:05:09 [id number] [facility] 2021-07-23 Outpatient Millender, STLMLC STLMLC [id number] Common 12:04:39 Lucero [id number] [facility] 2021-07-23 Outpatient Millender, STLMLC STLMLC [id number] Common 11:43:13 Lucero [id number] [facility] 2021-07-23 Outpatient Millender, STLMLC STLMLC [id number] Common 11:42:20 Lucero [id number] [facility] 2021-07-23 Outpatient Millender, STLMLC STLMLC [id number] Common 11:40:17 Lucero [id number] [facility] 2021-07-23 Outpatient Millender, STLMLC STLMLC [id number] Common 11:31:54 Lucero [id number] [facility] 2021-07-23 Outpatient Millender, STLMLC STLMLC [id number] Common 11:21:11 Lucero [id number] [facility] 2022-02-06 2022-02-06 ambulatory STLMLC STLMLC [id number] Common 00:00:00 00:00:00 [facility] 2022-01-19 2022-01-19 ambulatory STLMLC STLMLC [id number] Common 00:00:00 00:00:00 [facility] 2021-11-04 2021-11-04 ambulatory STLMLC STLMLC [id number] Common 00:00:00 00:00:00 [facility] 2021-09-03 2021-09-03 ambulatory STLMLC STLMLC [id number] Common 00:00:00 00:00:00 [facility] 2021-08-29 2021-08-29 ambulatory STLMLC STLMLC [id number] Common 00:00:00 00:00:00 [facility] 2021-08-28 2021-08-28 Outpatient Melany DIETZ [facility] [id number] Univers 09:30:00 09:30:00 JAMA [id number] [facility] 2021-08-22 2021-08-22 Outpatient R BRIDGES, [facility] [id number] Univers 14:30:00 14:30:00 JAMA [id number] ity [facility] 2021-08-21 2021-08-21 Orders Doctor EDWARD [id number] Univers 00:00:00 00:00:00 Only Unassigned, ABNER [id number] ity [facility] [place] [facility] [id number] Thang as [id number] [facility] 00[address] [place] 2021-08-18 2021-08-18 ambulatory STLMLC STLMLC [id number] Common 00:00:00 00:00:00 [facility] 2021-08-11 2021-08-11 Outpatient R RADIOLOGY [facility] [id number] Univers 10:49:09 23:59:00 ity [facility] 2021-08-11 2021-08-11 Hospital Radiology [facility] [id number] Univers 10:49:09 23:59:00 Encounter [place] 350.1.13.10 ity of [place]2.[place] [phone] [facility] [address] 2021-08-11 2021-08-11 Outpatient R RADIOLOGY [facility] [id number] Univers 00:00:00 00:00:00 [id number] ity of [facility] 2021-08-11 2021-08-11 Orders Doctor LEON [id number] [id number] Univers 00:00:00 00:00:00 Only Unassigned, ABNER 350.1.13.10 ity of [place] [facility] 4.2.7.2.686 [place] [phone] [facility] [address] [place] 2021-08-07 2021-08-07 ambulatory STLMLC STLMLC [id number] Common 00:00:00 00:00:00 [facility] 2021-08-05 2021-08-05 ambulatory STLMLC STLMLC [id number] Common 00:00:00 00:00:00 [facility] 2021-08-05 2021-08-05 ambulatory STLMLC STLMLC [id number] Common 00:00:00 00:00:00 [facility] 2021-08-04 2021-08-04 ambulatory STLMLC STLMLC [id number] Common 00:00:00 00:00:00 [facility] 2021-08-04 2021-08-04 ambulatory STLMLC STLMLC [id number] Common 00:00:00 00:00:00 [facility] 2021-07-28 2021-07-28 ambulatory STLMLC STLMLC [id number] Common 00:00:00 00:00:00 [facility] 2021-07-18 2021-07-18 Transition MIS [place] 1.2.840.114 [id number] Univers 00:00:00 00:00:00 of Jarvis GARCIA 350.1.13.10 it y of [place] 4.2.7.2.686 [facility] [phone] [facility] [address] 2021-07-11 2021-07-17 Inpatient U [facility] JOSE RAFAEL [id number] Univers 12:36:00 12:45:00 AYAH ity of [facility] 2021-07-11 2021-07-17 [facility] 1.2.840.114 [id number] Univers 12:36:00 12:45:00 Encounter Ayah SONI 350.1.13.10 [facility] 4.2.7.2.686 [facility] [phone] [facility] [address] 2021-07-16 2021-07-16 Surgery [facility] 1.2.840.114 [id number] Univers 11:30:00 13:57:00 Stephen SONI 350.1.13.10 ity of [place] 4.2.7.2.686 [facility] SURGICAL [id number] [facility] 0[address] 2021-07-14 2021-07-14 Surgery [facility] 1.2.840.114 [id number] Univers 11:50:00 13:33:00 Stephen SONI 350.1.13.10 [facility] tati [place] 4.2.7.2.686 [facility] [phone] [facility] [address] 2021-07-11 2021-07-11 ambulatory STLMLC STLMLC [id number] Common 00:00:00 00:00:00 [facility] 2021-07-11 2021-07-11 ambulatory STLMLC STLMLC [id number] Common 00:00:00 00:00:00 [facility] 2021-07-09 2021-07-09 ambulatory STLMLC STLMLC [id number] Common 00:00:00 00:00:00 [facility] 2021-05-05 2021-05-05 ambulatory STLMLC STLMLC [id number] Common 00:00:00 00:00:00 [facility] 2020-11-21 2020-11-21 Outpatient STLMLC STLMLC [id number] Common 00:00:00 00:00:00 [facility] 2020-10-29 2020-10-29 Outpatient STLMLC STLMLC [id number] Common 00:00:00 00:00:00 [facility] 2020-09-26 2020-09-26 Outpatient STLMLC STLMLC [id number] Common 00:00:00 00:00:00 [facility] 2020-08-01 2020-08-01 Outpatient STLMLC STLMLC [id number] Common 00:00:00 00:00:00 [facility] 2020-06-19 2020-06-19 Outpatient STLMLC STLMLC [id number] Common 00:00:00 00:00:00 [facility] 2020-05-13 2020-05-13 Outpatient STLMLC STLMLC [id number] Common 00:00:00 00:00:00 [facility] 2020-03-27 2020-03-27 Outpatient STLMLC STLMLC [id number] Common 00:00:00 00:00:00 [facility] 2020-02-29 2020-02-29 [facility] [id number] Common 11:00:00 11:00:[address] [facility] [address] [facility] 2020-01-23 2020-01-23 [facility] [id number] Common 13:45:00 13:45:[address] [facility] [address] [facility] 2019-12-11 2019-12-11 [facility] [id number] Common 10:40:00 10:40:[address] [facility] [address] [facility] 2019-08-30 2019-08-30 [facility]patient [facility] [id number] Common 11:30:00 11:30:00 t Specialty/U Sp ariela Specialty rology - [facility]rology Clinic [facility] 2019-08-25 2019-08-25 Outpatient [facility] [id number] Common 14:45:00 14:45:00 t Specialty/U Sp ariela Specialty rology - [facility]Urology Clinic [facility] 2019-07-12 2019-07-12 [facility] [id number] Common 12:13:00 12:13:00 t Bone Bone and Spiri t and Joint Joint - [facility] 2019-06-05 2019-06-05 [facility] [id number] Common 15:30:00 15:30:00 t Bone Bone and Spiri t and Joint Joint - [facility] of [facility] 2019-06-01 2019-06-01 [facility] [id number] Common 13:30:00 13:30:00 t Specialty/U Sp ariela Specialty rology - [facility] /Urology Clinic [facility] 2019-05-30 2019-05-30 [facility] [id number] Common 13:00:00 13:00:00 t [facility] [address] [facility] 2019-05-15 2019-05-15 [place] [facility] [id number] [place] 09:15:00 09:15:00 t; W, cic & Physic i KALEBJuan FERRARI M.D. [facility] 2019-04-20 2019-04-18 Inpatient U [facility] [id number] [facility] 09:26:00 15:00:00 2019-03-31 2019-03-31 [facility] [id number] Common 11:20:00 11:20:00 [facility] 2019-03-21 2019-03-21 Appointmen HILDA SWANSON [facility] [id number] [place] 13:30:00 13:30:00 t; W, Physic i yany CALIXTO M.D. KRISTOFER, M.D. 2018-12-21 2018-12-21 [facility] [id number] Common 08:40:00 08:40:00 [facility] 2018-12-13 2018-12-13 Out[facility] [id number] Common 16:20:00 16:20:00 [facility] Results Test Description Test Time Test Comments Results Result Comments Source SURGICAL PATHOLOGY EXAM 2021-07-17 18:39:56 Test Item Value Reference Range Interpretation Comme [facility] Case Report (test code = [id number]) Surgical Pathology ?Case: [id number] ? Authorizing Provider: ?Stephen Montana MD Collected: ? 07/14/2021 1220 ?Ordering Location: ? ? [facility] ? ? ?Received: ?07/14/2021 1455 ? Surgical Center ?Pathologist: ? Keshav Tee MD PHD ?Specimen: ? ?ELBOW, LEFT, LEFT, BURSECTOMY SAC ? Final Diagnosis (test code = c9tycCHkILLwg6xkSMXjuRIoBkCwFbJxIkZhVl [id number]) dWMxIHtccnRmMVxlcGljOTYwMVxhbnNpXHNwbHRw V4CjmwyoPSplKS4vIU3cpMzxdDTreDGkZZHvMfRt i0dnk291nLMgx6nsBPWIkuspbVx5tCwtY65sg2I3 KlogX58mrXByTPF7PYWxMPFvdFYiWGCeURK8GQSv wCPtP1yeZFFaGY5xscjgSUxrILmzTZLyqFX3SPPt oGIpC0LaTRJuUKruMXWpkdu7MoKdTv0krOUxuXoe MFxwYXJkXHBsYWluXGZzMjBccGFyIEEuIFNPRlQg YSuSH8COFFPMEQBSEgmrBNUKEXcfZvPKE0FRRY9E LZnbhJGkYLaiJSDcXVHqNFQ4AVxywU97EHNuDLLh GRUrNASXGB2YD82aV91UNjYFJAkZJTBCNjIcRacP Yc9MOTlXK4QNPFSDS7QQGSWCUKVIEQQVIYXUZKrB [file] ExvvqeP5DAFmsi43 Clinical Information (test code = LEFT OLECRANON BURSITIS, SEPTIC [id number]) Gross Description (test code = k9chhHDmRKYycDJ8DtGbZCXbm6wnd6WoaDBi cGFy [id number]) DXbgyXMrzmFmly86vIT6gQ30NK3gMAFvGlK3NMLw qgW9Qfb4KGOgFVOcbNSkC208m4lnj4vhszPzwEG1 yUrnLEPkelvqHpT4HJzlPHAbgqapFGy7SWiiXFVc zAS8ARPxxVFtR5ImFSSaOP8fory5ZKM8UOcmIWFb HqS3ONAhxPVnGGDtsXswRXmqd863SNV0MmGpEUVz hlZ3LVzuGOSmT0MhB4GmDGbmTGJ6KXKcAAYsLLOe ALXfXNGgKHoowqO1j0mqKPVtjIGoXQP8NUghbXDn KAXkAWTvLDoaIjIMXcIwBjAjEwR4YJI5QkJfXJc4 BRsiN5LFPSEmPGY2ZmJmSAp7MjI3FRz5SPMXGq3j NEXiMSA1BvUbPzA7VITnSSCfLQNyAuGdLZIeSCmr SdUFsxfhbDIbKJAzOGLeJZkdhvI6DQDzXObzSOZj RrNvSB8jAIuFM1quRQmIYtRfCOOniwxqulViFIOs SPIukOFrZBAczRDsfsAaULw6IKVrcO0mDc3iiVPt xB1cjBDoXSsiESV6uYOiIXFdSTIjWZKoJL10S6Ok gpWeXMseTQfpihCkVcFrFWBacAGpvXimNyGdb9No sP0haQCbNKOhPBOowO2inDTvwDFgXAJvotwcENBx qxIjZ11eq4lcmSIye0AeEFUmSPdpFFZtzLSaASj2 oLAtMEQkNlXgcSwoe7IaDUImQEsmIV77WVc2TqUz rNR7RkJyoGMrShLzR71nDIqidSPrGHjxNWJpbonq vHb7EADgO1Tgj43vTKQ5okFqSPNpCVqizVLyFRYu xeuzzW0baNCtCFvbtHghehT0SXSmKMjczIWpFPL9 eUZtyAFqFRIoor1sEsWdqdPiOH72KBSgdzQao1Xt jRvfyjNsNMGdKEG0Kk2faPSqRSUngsXPBM0ZFn4i tGUqBKOnngPAKKR1UXSomhFbpIjtXUPPMLnyFSWu W1WqP7SbqyU9z4ohsYlza3KobSJlWY2pxWYugP== Disclaimer (test code = [id number]) y1lijKHnYQZcn3xxFQZmlHMpNsKsVuY cZnRuYmpc rIFySUlvaeTsQVbxk2QgD3IhFzYyRRqvezPzORVt MqwdecikUGBzZCP7omVsOJUwSIoxAYIqWMauVu2u iDYqePriEkVuIGQcd9arcvGXRBqvYnYkJ375XZGg ADutt3qnz0LuLAAnpFBed9B4KMRLbplgiLp0fPll G99cs8M3JqxvL4koLDZaHXAzU6HsYH9dKQSoFfw4 ZSI1PLL9ZLRsMDCkP9QvRE4sNJIeqFNxPYf4o1yk zAgsRCAmNNX2s9ysSHekjrIfCH9pds3mbTa6p7eg xnDeQIHiWERpaZYAOWVyH5PfnXpwIe2fuWn6oPel FzlvVTD1Kwk7DQ1edu13gvo5yXetNEHbgjknOhG3 VJeeUKLmzzjdVWm2YBphJVUchQC2OZQiiOHvL7In GOTeZP1qovf7QVP9OSpgSNFsQlQ0NZHrtXMwZBMw iZbkCPayl240GUJ2SgRwVP7yH0Dll8B9oC5nlLTv DATlbPSjSwZvEEEzjy1asQTqCBstk6IgHGZ8zkM4 sYXcwTWcOXGzDV12Zrpfa4NyWprbh5XoN48ovRJ6 COtbi3pbQI5cQiU1lgGfXJdwn0awxA5xJbU6FNqm KG7eGY7vUCRvvC0hzuuiCVYwNlRpdfkpMFWbnYza kwAmZl9skQooTUX1CJtnT6uxjN2cMrD4RJgqV9ww cZ2tKLp9JQeadIX7YACzuA2fOD3tcgdte4lpABts YUecIBColfH7jfJ0UDKzdBPgG8CohV7aGWUrYU5b ncvln3fmFGX4HDyvBUSrILM5WfDgDJBsl0Rjapw9 AbWgb7VucYOaIEscR66ds300UTOchbUdK1rpkFDu ompudYZfouwqXAjwbpB0GHUwxhZbc4XwEUYbHUQ5 BIrrOOgtjBHaHIFtzKiel3foK6IbtNYkVEDsATtl XGYxXGZzMjBcbGFuZzEwMzNcaGljaFxmMVxkYmNo [file] P0hgAiOkkQ2fwImaQOtuFcHbIkHlSVddAOY6gB== Embedded Images (test code = [id number]) [facility] [id number] 18:39:56 Test Item Value Reference Range Interpretation Comments Case Report (test code Surgical Pathology ? ? = [id number]) ?Case: [id number] ? Authorizing Provider: ?Stephen Montana MD Collected: ? 07/14/2021 1220 ?Ordering Location: ? ? [facility] ? ? ?Received: ?07/14/2021 1455 ? Surgical Center ?Pathologist: ? Keshav Tee MD PHD ?Specimen: ? ?ELBOW, LEFT, LEFT, BURSECTOMY SAC ? Final Diagnosis (test c3xpdVFcRMIoa2qqDREyhZ code = [id number]) FuZzEwMzNcZnRuYmpcdWMx IHtccnRmMVxlcGljOTYwMV ugjqPfGFIwgYZeH6Dnbstc HQrsZU4lJI5huOleyTUcgS ZdALNmItGqx2eod337rRQt l5amVDCDpbiajSx7wNmqB3 9ga1D3EearE62xyIChTZH7 OZBmVDPigKHxBAWyGHS1AR WjbKQvI9wgIEDuTA3fqwxo YWppHGamLNFjtAT9AXAngY GcP8WtLBVxGCfvFEGwyrp5 ZvLuNb2faAIcbZksDJsqVD JkXHBsYWluXGZzMjBccGFy TDOrBUQGNzTtULyHS2GKND BFTEJPVywgTEVGVCwgQlVS E5FEWS8IYChatOIuYTmaUP OsMEHxPWS1ZEyxiQ39CZNs MGHmPSOpHMLFOM5KI47cI3 9OTkVDVElWRSBBTkQgRklC Ds2WPChIU2BAAYTRT0JOBT BXSVRIIEFDVVRFIElORkxB BN9IZHyWVyCabHYxOJixNK xmaTBcbGluMFxwYXJccGFy GTDsnJTsr2mpBXejeSjavU 6cYG8DZXppIFAygTMmlBws vhAlZTbde6LfG1RaZyRcPR xhbnNpXGRlZmxhbmcxMDMz VMO9dtQdQWTsWQbdERRcQN faWi2zoIKjuLwvMeLiDAMm w3sgvhKUQLpzQqByT641OK VyJDeoy7wvb3UaDENagBEe r6N9DYEIcacefWc1p1quBr WyPkO8zUZpKQuaA3zqkbZc mDRqC1EteRDlbNd8oHjqR9 5jg6R9QkmyG0uvTQTsBJCp Y8ZvTI7xIBGjUfy6FWK6JW Z9GZDbPAAhQ3XpZZ0zIEXc dWBcSLl7v5sslRmtDUHxPB O1y4zoGGjvarV5EU1drd7h fXn9q5jxqsMbVEOcYONbrJ FBBYFyV0WeuXruTx6hjGa9 pQwcBbglIRI2Yee0UG2okh 57ahp9aYvzYDYgemvrTvN6 BUqvOLDbctqnVNf0YNkgQF DqpOU2ABEfqIEjT0ArREPm NW4ysjk7KJU4HEeqZWIzDb C9GAAhgAKxFTRxeTzkMXtp z298EGM2AkPmFG2eM2Btu2 U8rX8zzAYjQCZzpZDcJbCb LFHvxf7hdVPvJHyys1StJU D0onE1dDZkyVPbHLVmFD62 Pjikj7WzFzbhSUK8FRLdiz Tir6Vgp0otWmPqxtKoS7bt P6IpNYSpHGMjIXNbDjVjbl Mdz9Veu6ToqQTbzAu0m8oa TBVgIFLzxUmjm7dtLFE7UR QsB2H2lCCds1fcNLloPQBe kPC3bqT0RDSdgVJmT2DwoR 7sPZVyTY5bodj7r0zgSQN2 TPntZEEmSwG7nlO3XCZevA KgXFXmvBhjAZicm015KVO5 PkRoANDmr2GdI0UiyIcnL3 4fvRsbH61bVEJxsJgodY1e mNsfkG8gLyStFeTsXWogqF xwbGFpblxmMVxmczIwXGxh drutDRDbTKtkZ4akDaFjRZ NchIstYMjnj9FxOFSbDHBs MlxmczIwXHBhciBJIGhhdm CprAZgn95kPYzstGVnUBXv BQpnTHOgbEnvl7FdQ8bjMT 5tH7YbqHQszgVdfkBgCRsb MZIyg5h1oDEnwItoe9OdlH RvEM08oxWlSGKsDOT3LHQe w7gdCG00wjnnBwWheZ42cx PktxCeOICst5nbO2jszCSy p8Dpn7ZyekPeHXgkx4LqBN 9suBZqfdnlqDY2TWJrkQXc xrTaufH0nYotKXTuhP1jbY 4myTsveS6xZoTjBaUtVUoa RU0fRHVjR8xfoZJhQUAiCQ AjM3asNdNjuU6awZslRabo swJ9EPArxi71 Clinical Information LEFT OLECRANON (test code = BURSITIS, SEPTIC [id number]) Gross Description (test x3emlVNoGGXfgYY7UxXxVE code = 4069314478) Uer6yvq6RigFLloRWhFQsa wHJeuaWjct73tWG5gN10AY 9vNFFrIgP2JXAaadY6Ppl0 ZIAkRKForBFvC794k8tfu4 wwrxOwcMI3uStwAASimztd YvM5SGpsMCPpqgwgHJy9WP vbVGGftWE8MFVkjYAuA1Uu AZJbIR3imtl8AYY8UKkrAG YiTlU7ADPgbQTmEGFkbCts ESseg654ENW6AaLbLTXckr U8NPsjUYNsK6IfS1ZjYWja CAH1ULBvYGItYNRfRIRwDN AqWFxvdwE4z2unLROnwZFh KMZ3EYzdhRJpEQZbPFCnDZ fqHvBZDzMvByQdTwD3WLA0 EaDqBWa9NHvtJ0POEHLrRU D0UkCbSFo3DdF0NSa8RIQV Ti0bPTAbLLA8JuBkDqA9BH QwNCBcXHQgMiBcXGZsIFxc ZiBBcmlhbCBcXGZzIDEwIF qutlF3LNJuAImuDYShLeSn ZF6nGSoNF2dlMRhYXaCjIH BhclxmczIyIFNwZWNpbWVu CXVmfRDpclHuSGz5QJXfzT 2jWm8otNCfmU8clIEyLCet MPB8mEOiJPHhOYIeUOHsOS 56X7JlwlAzLWytKZfdvwOa YmVyICIgbGVmdCwgYnVyc2 ClvF5yrCDqZGToCYDxnH3g bGUgdGFuLXBpbmsiLCBhbm CzJ82hu7wzvQHpf2TcZMEo BLurCFAqsIRdISs1fZHlFP BqBzZukUptg1UpFAQkQKuq OW83GEe0AwMiiEF3IyWltX XcVhKfS34sFOclfQLbGDwb FRGnvwpusZa3LDPiY5Qak3 3eGXD5zrWlPPAkIDglpWWu YLIbliojzI4tlWCiRXshmB psrzW5ETYcSSjhkSOuJTD4 gLSivSViELLbhw7wDgWyky IsQW45ZWPoktRjx9SraIky luZtXJHeOBM3Ju5qqJQuKQ JuhoKXAS9WTd8muQNkAJBv gaRKVHK6YZFrrpGefWzoOC QVJLtjUOOnZ1DwL6NzgpS3 w8aljLvib1UnjVCkGC7xeQ FyfQ== Disclaimer (test code = l2dulYYyOVHqs0feWJMeyB [id number]) FuZzEwMzNcZnRuYmpcdWMx ULzpgeDkIAcwo8CsE2OwCn AwMFxhbnNpXGRlZmxhbmcx FVQiJNM2hnNiRQErYZwiUH CuBEjbEp2jfBFngIceDbYt OQJsc3dzxwZLXXkqLlNbN0 13WQOwUWdns3uxp6GpCIRy dGPxs9D9UBTJtobgzVu8qT pyY22wf6D3BbsnH6xxGHOg AGQkS8HeDY3fLJOoMqe0PL F8SFM3FAXcBJJcG5AzBL1l WTPggANxHMx4m0zknTdwXV OvYGH4s4xcXAjazfZzIZ2h uv3mdUp0n0avapCgCVBxSJ XcaCBAMWAtE4XsrWkgNj2q rYa8dSwvXlczIKM3Ahk6PB 8sez86jwg9lXzpDDPnvigj BeL8RVjwRWAgxomnNHq5RQ hmQOOrsPI4KBJjdOCkF6Cc ATUnOT0blhq8UEL2UYrlBH EdCsM0KKYapWHcVBIcuFpf VQwtq583XQH3QmZcLB4rE2 Uea1M6pA2odCStQSIkvNTc IvMwFIKjul7lwYYfTBrks9 GbAYN7sqE9dIJxeYBwBABn AK14Swqog8UbKphut3BwE9 0sxON8ZOruu0eaEU5kXyP3 xeVgDUkqr4cqsN0sLqZ4ME nsPZ3fQU5lUDWwtU5reprh XHBnYnJkcmhlYWRccGdicm PrAo3dlZjrFXT4FStrV2km aX3hHpZ3XFpgZ4ylkK3jTD d2FKdjrJK7SDBwuC0uNH4h ydfhs5dsLMdaNVbaZPRgbi X3kkG1OSCulAUkW0KooG4l GNBbQS3mwsumn3fhLNS1VG aoDRXfZEU4QpZuZKNck5Dt efw1AdLci4CqzROmTDsvN2 5oa295WIIvthOvE0vzzSBu drxorMLccbphEQimvkB2CM EsmuWek8QlWPWlVPU3QDds WAydpWLdWXNbhKdek8zqI9 RscGFyXHBsYWluXGYxXGZz MjBcbGFuZzEwMzNcaGljaF zeDCpwKjReVPIxALjaK6rn ZcSkH8OxNYEwEfImfKQeU3 ggVGhpcyByZXBvcnQgbWF5 ETezW7k1LYVqkhGpgIy8gp NcNuZiEFRwGRD7UGalmICb KNWlb7WrljdldMShPi6krS SzGZQhnQ4jNBMoQPJtJBwy FU6mgTg1TTZCySBroJYyLz OUIONqOA68otEzZKTGnuln f8E6ZYttINWjz7BlsZBfY0 iuq9QnCMCtd99nYF7zk9R1 m9geASQ0CV3ia8XvPRNyyX QeuNDfHDOmg2Tiqqodu8Wb RVPnyjPhg0MrRZMoitAolI HzZWKguuLjbx7hbgIoMHTj LEYwY5JfdcbjvRgpfdRbEG Ykyu7niwFqDEM8WAUFRJDr BTGkr2PulG9pkBWWWXZ2tW Zcyl6flrXTxPYjXNKuyf32 QNTtSG7kR6hzQSLaBHEuiz IukJVkg6DhMCNugJE0nGUk AL8SViBXr58uYUYtDRVDbr JkAVIxrSnucKE0poY2rV7d IChGREEpLlx+IFRoZSBGRE BfCV5kcpNvi0LefhOaxAvu PEAyvLUsg1MphFBnv9MdwC vgz2JvjUKrhOIpWS8nVBNe clxwYXIgVVRNQiBMYWJvcm D8a0FlCVXlXMRbIHO7yVco qlq0RZNatO4rJTXxJ1woya yeHXkrYWKva7MkqZ7isFWL tATaq8CwpACwiYODsSGwQJ 0bulGgIPkCMCyOZVQ6dpPq BXYhp8CzOKqnC8dnP06bpE oqqYa3nAY4VTW3oS8iEss+ IFxwYXJccGFyIEFwcHJvcH DlGZXhbHucqpTiR1GpziVm xL8rzBCsseSoGD1iJB4dO0 I6tFUgYNHdxoCjf6raYKvy dmUgYmVlbiByZXZpZXdlZC Ejh8ZxSMijATP3QOtiawVq bmNsdWRpbmcgSCZFLCBTcG VbxPDbWRA8RRvwdbYvunTy TX7uaE5llCkleI9zyMDwvP F4bwfjONYbXQZbgObpPLUb ZG4xmTRmSBXumuYMzBtrvY QyqR8mN2DwMQSkFARewo3w JFWblW8lXRzpg0DzefneHK TyLFVvWKDdlvBxgw2fBLDw pBGWWN5BQUgjzWTdp3Gnwo LfJ0sNCLA2CZJbUkIsAeux DUCnhHPaeNDaYJBxie32QW AuuR6pvNchEYDgqV9atU1b vPkraP3dXrDaHrVhOMdyYE 2wXNCaX6tipEVpDNGbQQSs K6njWiNnwQ4cgFuiQUywIr KdDfDtWOfkOOY4yG== Embedded Images (test code = 2959215197) [facility] [id number] 15:58:33 Test Item Value Reference Interpretation Comments Range TROPONIN I (test 0.006 ng/mL See_Comment [Automated code = [id number]) message] The system which generated this result transmitted reference range : <=0.034. The reference range was not used to interpret this result as normal/abnormal . FLOYD (test code = Reference (Normal) FLOYD) Range (defined by the 99th percentile reference limit): <= 0.034 ng/mL Note: Cardiac troponin begins to rise 3-4 hours after the onset of ischemia. Repeat in 4-6 hours if the sample was drawn within 3-4 hours of the onset of the symptom and found normal. Diagnosis of myocardial injury is made with acute changes in cTn concentrations with at least one serial sample above the 99th percentile upper reference limit (URL), taken together with the patient's clinical presentation. Biotin has been reported to cause a negative bias, interpret results relative to patient's use of biotin. Lab Interpretation Normal (test code = 72317-0) [facility] [id number] 15:58:33 Test Item Value Reference Interpretation Comments Range TROPONIN I (test 0.006 ng/mL See_Comment [Automated code = [id number]) message] The system which generated this result transmitted reference range : <=0.034. The reference range was not used to interpret this result as normal/abnormal . FLOYD (test code = Reference (Normal) FLOYD) Range (defined by the 99th percentile reference limit): <= 0.034 ng/mL Note: Cardiac troponin begins to rise 3-4 hours after the onset of ischemia. Repeat in 4-6 hours if the sample was drawn within 3-4 hours of the onset of the symptom and found normal. Diagnosis of myocardial injury is made with acute changes in cTn concentrations with at least one serial sample above the 99th percentile upper reference limit (URL), taken together with the patient's clinical presentation. Biotin has been reported to cause a negative bias, interpret results relative to patient's use of biotin. Lab Interpretation Normal (test code = 92217-6) [facility]ANAEROBIC[facility] 2021-07-17 13:42:31 Test Item Value Reference Range Interpretation Comments Aspirate or Abscess No aerobic/anaerobic Culture (test code = organisms isolated 34506-8) Gram stain (test code Occasional (Rare) PMNs = 664-3) or Mononuclear cells observed [facility](AEROBIC/ANAEROBIC) 2021-07-17 13:42:31 Test Item Value Reference Range Interpretation Comments Aspirate or Abscess No aerobic/anaerobic Culture (test code = organisms isolated 69031-4) Gram stain (test code Few PMNs or Mononuclear = 664-3) cells [facility](AEROBIC/ANAEROBIC) 2021-07-17 13:42:31 Test Item Value Reference Range Interpretation Comments Aspirate or Abscess No aerobic/anaerobic Culture (test code = organisms isolated 95743-4) Gram stain (test code Occasional (Rare) PMNs = 664-3) or Mononuclear cells observed [facility](AEROBIC/ANAEROBIC) 2021-07-17 13:42:31 Test Item Value Reference Range Interpretation Comments Aspirate or Abscess No aerobic/anaerobic Culture (test code = organisms isolated 69287-1) Gram stain (test code Few PMNs or Mononuclear = 664-3) cells [facility] (NA, K, CL, CO2, GLUCOSE, BUN, CREATININE, CA)2021-07-17 11:17:54 Test Item Value Reference Range Interpretation Comments NA (test code = 135 mmol/L 135-145 9210820853) K (test code = 3.8 mmol/L 3.5-5.0 4438518176) CL (test code = 103 mmol/L 98-108 6708748182) CO2 TOTAL (test code = 31 mmol/L 23-31 4017806263) AGAP (test code = 2-16 L 7771737400) BUN (test code = 18 mg/dL 7-23 0576618211) GLUCOSE (test code = 103 mg/dL 70-110 3748616330) CREATININE (test code = 1.04 mg/dL 0.60-1.25 9325792609) CALCIUM (test code = 8.3 mg/dL 8.6-10.6 L 7553524954) eGFR (test code = mL/min/1.73m2 4874269852) FLOYD (test code = FLOYD) Association of Glomerular Filtration Rate (GFR) and Staging of Kidney Disease* + --+ --+ ------+| GFR (mL/min/1.73 m2) ?| With Kidney Damage ?| ?Without Kidney Damage+ --------+ --------+ +| ?>90 ?| ?Stage one ?| ? Normal ?+ ---+ ---+ -------+| ?60-89 ?| ?Stage two ?| ? Decreased GFR ? + --+ --+ ------+| ?30-59 ?| ?Stage three ?| ? Stage three ? + --+ --+ ------+| ?15-29 ?| ?Stage four ? | ? Stage four ?+ ---+ ---+ -------+| ?<15 (or dialysis) ? ?| ?Stage five ? | ? Stage five ?+ ---+ ---+ -------+ *Each stage assumes the associated GFR level has been in effect for at least three months. ?Stages 1 to 5, with or without kidney disease, indicate chronic kidney disease. Notes: Determination of stages one and two (with eGFR >59mL/min/1.73 m2) requires estimation of kidney damage for at least three months as defined by structural or functional abnormalities of the kidney, manifested by either:Pathological abnormalities or Markers of kidney damage (including abnormalities in the composition of the blood or urine or abnormalities in imaging tests). Lab Interpretation Abnormal (test code = 13421-5) [facility] METABOLIC PANEL (NA, K, CL, CO2, GLUCOSE, BUN, CREATININE, CA)2021-07-17 11:17:54 Test Item Value Reference Range Interpretation Comments NA (test code = 135 mmol/L 135-145 2982318733) K (test code = 3.8 mmol/L 3.5-5.0 6160822775) CL (test code = 103 mmol/L 98-108 6795378686) CO2 TOTAL (test code = 31 mmol/L 23-31 9693303393) AGAP (test code = 2-16 L 3839475908) BUN (test code = 18 mg/dL 7-23 4355921175) GLUCOSE (test code = 103 mg/dL 70-110 9086745819) CREATININE (test code = 1.04 mg/dL 0.60-1.25 9648215931) CALCIUM (test code = 8.3 mg/dL 8.6-10.6 L 5415042043) eGFR (test code = mL/min/1.73m2 3286835111) FLOYD (test code = FLOYD) Association of Glomerular Filtration Rate (GFR) and Staging of Kidney Disease* + --+ --+ ------+| GFR (mL/min/1.73 m2) ?| With Kidney Damage ?| ?Without Kidney Damage+ --------+ --------+ +| ?>90 ?| ?Stage one ?| ? Normal ?+ ---+ ---+ -------+| ?60-89 ?| ?Stage two ?| ? Decreased GFR ? + --+ --+ ------+| ?30-59 ?| ?Stage three ?| ? Stage three ? + --+ --+ ------+| ?15-29 ?| ?Stage four ? | ? Stage four ?+ ---+ ---+ -------+| ?<15 (or dialysis) ? ?| ?Stage five ? | ? Stage five ?+ ---+ ---+ -------+ *Each stage assumes the associated GFR level has been in effect for at least three months. ?Stages 1 to 5, with or without kidney disease, indicate chronic kidney disease. Notes: Determination of stages one and two (with eGFR >59mL/min/1.73 m2) requires estimation of kidney damage for at least three months as defined by structural or functional abnormalities of the kidney, manifested by either:Pathological abnormalities or Markers of kidney damage (including abnormalities in the composition of the blood or urine or abnormalities in imaging tests). Lab Interpretation Abnormal (test code = 61503-1) [facility] WITH [id number] 11:12:51 Test Item Value Reference Range Interpretation Comments WBC (test code = See_Comment [Automated 6690-2) message] The sy stem which generated this result transmitted reference range : 4.20 - 10.70 10*3/?L. The reference range was not used to interpret this result as normal/abnormal . RBC (test code = See_Comment L [Automated 789-8) message] The sy stem which generated this result transmitted reference range : 4.26 - 5.52 10*6/?L. The reference range was not used to interpret this result as normal/abnormal . HGB (test code = 12.3 g/dL 12.2-16.4 718-7) HCT (test code = 37.2 % 38.4-49.3 L 4544-3) MCV (test code = 95.6 fL 81.7-95.6 787-2) MCH (test code = 31.6 pg 26.1-32.7 785-6) MCHC (test code = 33.1 g/dL 31.2-35.0 786-4) RDW-SD (test code = 43.8 fL 38.5-51.6 59198-0) RDW-CV (test code = 12.5 % 12.1-15.4 788-0) PLT (test code = See_Comment L [Automated 777-3) message] The sy stem which generated this result transmitted reference range : 150 - 328 10*3/ ?L. The reference r aleksandra was not used to interpret this result as normal/abnormal . MPV (test code = 10.0 fL 9.8-13.0 84996-1) NRBC/100 WBC (test See_Comment [Automat ed code = 1673141743) message] The system which generated this result transmitted reference range : 0.0 - 10.0 /100 WBCs. The refer ence range was not u sed to interpret th is result as normal/abnormal . NRBC x10^3 (test code <0.01 See_Comment [Auto mated = [id number]) message] The s ystem which generated this result transmitted reference range : 10*3/?L. The reference range was not used to interpret this result as normal/abnormal . GRAN MAT (NEUT) % 69.0 % (test code = 770-8) IMM GRAN % (test code 0.30 % = 1677096280) LYMPH % (test code = 15.2 % 736-9) MONO % (test code = 10.5 % 5905-5) EOS % (test code = 4.2 % 713-8) BASO % (test code = 0.8 % 706-2) GRAN MAT x10^3(ANC) 4.07 10*3/uL 1.99-6.95 (test code = 9146643494) IMM GRAN x10^3 (test <0.03 0.00-0.06 code = 6351427040) LYMPH x10^3 (test code 0.90 10*3/uL 1.09-3.23 L = 731-0) MONO x10^3 (test code 0.62 10*3/uL 0.36-1.02 = 742-7) EOS x10^3 (test code = 0.25 10*3/uL 0.06-0.53 711-2) BASO x10^3 (test code 0.05 10*3/uL 0.01-0.09 = 704-7) Lab Interpretation Abnormal (test code = 99825-8) [facility] WITH [id number] 11:12:51 Test Item Value Reference Range Interpretation Comments WBC (test code = See_Comment [Automated 7290-2) message] The sy stem which generated this result transmitted reference range : 4.20 - 10.70 10*3/?L. The reference range was not used to interpret this result as normal/abnormal . RBC (test code = See_Comment L [Automated 849-8) message] The sy stem which generated this result transmitted reference range : 4.26 - 5.52 10*6/?L. The reference range was not used to interpret this result as normal/abnormal . HGB (test code = 12.3 g/dL 12.2-16.4 718-7) HCT (test code = 37.2 % 38.4-49.3 L 4544-3) MCV (test code = 95.6 fL 81.7-95.6 787-2) MCH (test code = 31.6 pg 26.1-32.7 785-6) MCHC (test code = 33.1 g/dL 31.2-35.0 786-4) RDW-SD (test code = 43.8 fL 38.5-51.6 74259-0) RDW-CV (test code = 12.5 % 12.1-15.4 788-0) PLT (test code = See_Comment L [Automated 777-3) message] The sy stem which generated this result transmitted reference range : 150 - 328 10*3/ ?L. The reference r aleksandra was not used to interpret this result as normal/abnormal . MPV (test code = 10.0 fL 9.8-13.0 12794-9) NRBC/100 WBC (test See_Comment [Automat ed code = 7691376086) message] The system which generated this result transmitted reference range : 0.0 - 10.0 /100 WBCs. The refer ence range was not u sed to interpret th is result as normal/abnormal . NRBC x10^3 (test code <0.01 See_Comment [Auto mated = 6262362068) message] The s ystem which generated this result transmitted reference range : 10*3/?L. The reference range was not used to interpret this result as normal/abnormal . GRAN MAT (NEUT) % 69.0 % (test code = 770-8) IMM GRAN % (test code 0.30 % = 1707653343) LYMPH % (test code = 15.2 % 736-9) MONO % (test code = 10.5 % 5905-5) EOS % (test code = 4.2 % 713-8) BASO % (test code = 0.8 % 706-2) GRAN MAT x10^3(ANC) 4.07 10*3/uL 1.99-6.95 (test code = 7846021641) IMM GRAN x10^3 (test <0.03 0.00-0.06 code = 0531461999) LYMPH x10^3 (test code 0.90 10*3/uL 1.09-3.23 L = 731-0) MONO x10^3 (test code 0.62 10*3/uL 0.36-1.02 = 742-7) EOS x10^3 (test code = 0.25 10*3/uL 0.06-0.53 711-2) BASO x10^3 (test code 0.05 10*3/uL 0.01-0.09 = 704-7) Lab Interpretation Abnormal (test code = 19870-3) [facility] - Please draw trough BEFORE the dose scheduled at 07/16 @ 1630; but no more than 60 mins before the dose is due.2021-07-17 01:16:55 Test Item Value Reference Range Interpretation Comments VANCO TROUGH (test code 14.5 ug/mL 10.0-20.0 = 0189887772) FLOYD (test code = FLOYD) Toxic Range: ?>20 ug/mL 15-20 ug/mL is recommended for severe infection or when Vancomycin ZITA is greater than or equal to 2. Lab Interpretation (test Normal code = 46951-7) [facility] Please draw trough BEFORE the dose scheduled at 07/16 @ 1630; but no more than 60 mins before the dose is due.2021-07-17 01:16:55 Test Item Value Reference Range Interpretation Comments VANCO TROUGH (test code 14.5 ug/mL 10.0-20.0 = 7937891918) FLOYD (test code = FLOYD) Toxic Range: ?>20 ug/mL 15-20 ug/mL is recommended for severe infection or when Vancomycin ZITA is greater than or equal to 2. Lab Interpretation (test Normal code = 42981-8) [facility] [id number] 00:16:04 Test Item Value Reference Range Interpretation Comments NT-proBNP (test code 385 pg/mL See_Comment H [Autom ated = 6512600264) message] The system which generated this result transmitted reference range : <=125. The reference range was not used to interpret this result as normal/abnormal . FLOYD (test code = FLOYD) Biotin has been reported to cause a negative bias, interpret results relative to patient's use of biotin. Lab Interpretation Abnormal (test code = 59715-5) [facility] [id number] 00:16:04 Test Item Value Reference Range Interpretation Comments NT-proBNP (test code 385 pg/mL See_Comment H [Autom ated = 3764463838) message] The system which generated this result transmitted reference range : <=125. The reference range was not used to interpret this result as normal/abnormal . FLOYD (test code = FLOYD) Biotin has been reported to cause a negative bias, interpret results relative to patient's use of biotin. Lab Interpretation Abnormal (test code = 97195-2) [facility] CULTURE [id number] 22:01:50 Test Item Value Reference Range Interpretation Comments Blood Culture-Aerobic No organisms No growth Previo us (test code = 05832-4) isolated prelim inary verified result was Culture In Progress on 07/11/2021 at 19 01 CSTPrevious preliminary verified result was No growth a t 24 hours on 07/12/2021 at 16 01 CSTPrevious preliminary verified result was No growth a t 48 hours on 07/13/2021 at 16 01 CSTPrevious preliminary verified result was No growth a t 72 hours on 07/14/2021 at 16 01 [employer] Blood No organisms No growth Previous Culture-Anaerobic isolated preliminar y (test code = 25347-3) verifi ed result was Culture In Progress on 07/11/2021 at 19 01 CSTPrevious preliminary verified result was No growth a t 24 hours on 07/12/2021 at 16 01 CSTPrevious preliminary verified result was No growth a t 48 hours on 07/13/2021 at 16 01 CSTPrevious preliminary verified result was No growth a t 72 hours on 07/14/2021 at 16 01 [employer] Lab Interpretation Normal (test code = 77696-6) [facility] CULTURE [id number] 22:01:50 Test Item Value Reference Range Interpretation Comments Blood Culture-Aerobic No organisms No growth Previo us (test code = 69420-7) isolated prelim inary verified result was Culture In Progress on 07/11/2021 at 19 01 CSTPrevious preliminary verified result was No growth a t 24 hours on 07/12/2021 at 16 01 CSTPrevious preliminary verified result was No growth a t 48 hours on 07/13/2021 at 16 01 CSTPrevious preliminary verified result was No growth a t 72 hours on 07/14/2021 at 16 01 [employer] Blood No organisms No growth Previous Culture-Anaerobic isolated preliminar y (test code = 27980-6) verifi ed result was Culture In Progress on 07/11/2021 at 19 01 CSTPrevious preliminary verified result was No growth a t 24 hours on 07/12/2021 at 16 01 CSTPrevious preliminary verified result was No growth a t 48 hours on 07/13/2021 at 16 01 CSTPrevious preliminary verified result was No growth a t 72 hours on 07/14/2021 at 16 01 [employer] Lab Interpretation Normal (test code = 30396-2) [facility] CULTURE [id number] 22:01:50 Test Item Value Reference Range Interpretation Comments Blood Culture-Aerobic No organisms No growth Previo us (test code = 29057-8) isolated prelim inary verified result was Culture In Progress on 07/11/2021 at 19 01 CSTPrevious preliminary verified result was No growth a t 24 hours on 07/12/2021 at 16 01 CSTPrevious preliminary verified result was No growth a t 48 hours on 07/13/2021 at 16 01 CSTPrevious preliminary verified result was No growth a t 72 hours on 07/14/2021 at 16 01 [employer] Blood No organisms No growth Previous Culture-Anaerobic isolated preliminar y (test code = 98496-4) verifi ed result was Culture In Progress on 07/11/2021 at 19 01 CSTPrevious preliminary verified result was No growth a t 24 hours on 07/12/2021 at 16 01 CSTPrevious preliminary verified result was No growth a t 48 hours on 07/13/2021 at 16 01 CSTPrevious preliminary verified result was No growth a t 72 hours on 07/14/2021 at 16 01 [employer] Lab Interpretation Normal (test code = 50901-9) [facility] CULTURE [id number] 22:01:50 Test Item Value Reference Range Interpretation Comments Blood Culture-Aerobic No organisms No growth Previo us (test code = 14937-7) isolated prelim inary verified result was Culture In Progress on 07/11/2021 at 19 01 CSTPrevious preliminary verified result was No growth a t 24 hours on 07/12/2021 at 16 01 CSTPrevious preliminary verified result was No growth a t 48 hours on 07/13/2021 at 16 01 CSTPrevious preliminary verified result was No growth a t 72 hours on 07/14/2021 at 16 01 [employer] Blood No organisms No growth Previous Culture-Anaerobic isolated preliminar y (test code = 53343-4) verifi ed result was Culture In Progress on 07/11/2021 at 19 01 CSTPrevious preliminary verified result was No growth a t 24 hours on 07/12/2021 at 16 01 CSTPrevious preliminary verified result was No growth a t 48 hours on 07/13/2021 at 16 01 CSTPrevious preliminary verified result was No growth a t 72 hours on 07/14/2021 at 16 01 [employer] Lab Interpretation Normal (test code = 11062-7) [facility] WITH [id number] 11:35:47 Test Item Value Reference Range Interpretation Comments WBC (test code = See_Comment [Automated 6690-2) message] The sy stem which generated this result transmitted reference range : 4.20 - 10.70 10*3/?L. The reference range was not used to interpret this result as normal/abnormal . RBC (test code = See_Comment L [Automated 789-8) message] The sy stem which generated this result transmitted reference range : 4.26 - 5.52 10*6/?L. The reference range was not used to interpret this result as normal/abnormal . HGB (test code = 12.6 g/dL 12.2-16.4 718-7) HCT (test code = 38.0 % 38.4-49.3 L 4544-3) MCV (test code = 94.1 fL 81.7-95.6 787-2) MCH (test code = 31.2 pg 26.1-32.7 785-6) MCHC (test code = 33.2 g/dL 31.2-35.0 786-4) RDW-SD (test code = 42.8 fL 38.5-51.6 93099-9) RDW-CV (test code = 12.4 % 12.1-15.4 788-0) PLT (test code = See_Comment [Automated 777-3) message] The sy stem which generated this result transmitted reference range : 150 - 328 10*3/ ?L. The reference r aleksandra was not used to interpret this result as normal/abnormal . MPV (test code = 10.2 fL 9.8-13.0 83083-1) NRBC/100 WBC (test See_Comment [Automat ed code = 9039992795) message] The system which generated this result transmitted reference range : 0.0 - 10.0 /100 WBCs. The refer ence range was not u sed to interpret th is result as normal/abnormal . NRBC x10^3 (test code <0.01 See_Comment [Auto mated = 9193416224) message] The s ystem which generated this result transmitted reference range : 10*3/?L. The reference range was not used to interpret this result as normal/abnormal . GRAN MAT (NEUT) % 70.2 % (test code = 770-8) IMM GRAN % (test code 0.50 % = 9629136848) LYMPH % (test code = 16.0 % 736-9) MONO % (test code = 9.4 % 5905-5) EOS % (test code = 2.9 % 713-8) BASO % (test code = 1.0 % 706-2) GRAN MAT x10^3(ANC) 5.36 10*3/uL 1.99-6.95 (test code = 8492321145) IMM GRAN x10^3 (test 0.04 10*3/uL 0.00-0.06 code = 4159167813) LYMPH x10^3 (test code 1.22 10*3/uL 1.09-3.23 = 731-0) MONO x10^3 (test code 0.72 10*3/uL 0.36-1.02 = 742-7) EOS x10^3 (test code = 0.22 10*3/uL 0.06-0.53 711-2) BASO x10^3 (test code 0.08 10*3/uL 0.01-0.09 = 704-7) Lab Interpretation Abnormal (test code = 60500-8) [facility] WITH [id number] 11:35:47 Test Item Value Reference Range Interpretation Comments WBC (test code = See_Comment [Automated 3290-2) message] The sy stem which generated this result transmitted reference range : 4.20 - 10.70 10*3/?L. The reference range was not used to interpret this result as normal/abnormal . RBC (test code = See_Comment L [Automated 979-8) message] The sy stem which generated this result transmitted reference range : 4.26 - 5.52 10*6/?L. The reference range was not used to interpret this result as normal/abnormal . HGB (test code = 12.6 g/dL 12.2-16.4 718-7) HCT (test code = 38.0 % 38.4-49.3 L 4544-3) MCV (test code = 94.1 fL 81.7-95.6 787-2) MCH (test code = 31.2 pg 26.1-32.7 785-6) MCHC (test code = 33.2 g/dL 31.2-35.0 786-4) RDW-SD (test code = 42.8 fL 38.5-51.6 24272-1) RDW-CV (test code = 12.4 % 12.1-15.4 788-0) PLT (test code = See_Comment [Automated 777-3) message] The sy stem which generated this result transmitted reference range : 150 - 328 10*3/ ?L. The reference r aleksandra was not used to interpret this result as normal/abnormal . MPV (test code = 10.2 fL 9.8-13.0 60948-2) NRBC/100 WBC (test See_Comment [Automat ed code = 2624097682) message] The system which generated this result transmitted reference range : 0.0 - 10.0 /100 WBCs. The refer ence range was not u sed to interpret th is result as normal/abnormal . NRBC x10^3 (test code <0.01 See_Comment [Auto mated = 1372596213) message] The s ystem which generated this result transmitted reference range : 10*3/?L. The reference range was not used to interpret this result as normal/abnormal . GRAN MAT (NEUT) % 70.2 % (test code = 770-8) IMM GRAN % (test code 0.50 % = 9663526616) LYMPH % (test code = 16.0 % 736-9) MONO % (test code = 9.4 % 5905-5) EOS % (test code = 2.9 % 713-8) BASO % (test code = 1.0 % 706-2) GRAN MAT x10^3(ANC) 5.36 10*3/uL 1.99-6.95 (test code = 4663287460) IMM GRAN x10^3 (test 0.04 10*3/uL 0.00-0.06 code = 5959964486) LYMPH x10^3 (test code 1.22 10*3/uL 1.09-3.23 = 731-0) MONO x10^3 (test code 0.72 10*3/uL 0.36-1.02 = 742-7) EOS x10^3 (test code = 0.22 10*3/uL 0.06-0.53 711-2) BASO x10^3 (test code 0.08 10*3/uL 0.01-0.09 = 704-7) Lab Interpretation Abnormal (test code = 09592-0) [facility] METABOLIC PANEL (NA, K, CL, CO2, GLUCOSE, BUN, CREATININE, CA)2021-07-16 11:26:42 Test Item Value Reference Range Interpretation Comments NA (test code = 137 mmol/L 135-145 4841694898) K (test code = 3.9 mmol/L 3.5-5.0 3606000999) CL (test code = 105 mmol/L 98-108 8478633605) CO2 TOTAL (test code = 29 mmol/L 23-31 3225159082) AGAP (test code = 2-16 7979573366) BUN (test code = 21 mg/dL 7-23 1848589802) GLUCOSE (test code = 91 mg/dL 70-110 1692963492) CREATININE (test code = 1.06 mg/dL 0.60-1.25 8436349868) CALCIUM (test code = 8.4 mg/dL 8.6-10.6 L 9061938910) eGFR (test code = mL/min/1.73m2 6683568779) FLOYD (test code = FLOYD) Association of Glomerular Filtration Rate (GFR) and Staging of Kidney Disease* + --+ --+ ------+| GFR (mL/min/1.73 m2) ?| With Kidney Damage ?| ?Without Kidney Damage+ --------+ --------+ +| ?>90 ?| ?Stage one ?| ? Normal ?+ ---+ ---+ -------+| ?60-89 ?| ?Stage two ?| ? Decreased GFR ? + --+ --+ ------+| ?30-59 ?| ?Stage three ?| ? Stage three ? + --+ --+ ------+| ?15-29 ?| ?Stage four ? | ? Stage four ?+ ---+ ---+ -------+| ?<15 (or dialysis) ? ?| ?Stage five ? | ? Stage five ?+ ---+ ---+ -------+ *Each stage assumes the associated GFR level has been in effect for at least three months. ?Stages 1 to 5, with or without kidney disease, indicate chronic kidney disease. Notes: Determination of stages one and two (with eGFR >59mL/min/1.73 m2) requires estimation of kidney damage for at least three months as defined by structural or functional abnormalities of the kidney, manifested by either:Pathological abnormalities or Markers of kidney damage (including abnormalities in the composition of the blood or urine or abnormalities in imaging tests). Lab Interpretation Abnormal (test code = 10569-8) [facility] (NA, K, CL, CO2, GLUCOSE, BUN, CREATININE, CA)2021-07-16 11:26:42 Test Item Value Reference Range Interpretation Comments NA (test code = 137 mmol/L 135-145 0859388525) K (test code = 3.9 mmol/L 3.5-5.0 3935827347) CL (test code = 105 mmol/L 98-108 0089593873) CO2 TOTAL (test code = 29 mmol/L 23-31 0255777537) AGAP (test code = 2-16 8291173895) BUN (test code = 21 mg/dL 7-23 8898824624) GLUCOSE (test code = 91 mg/dL 70-110 7783633555) CREATININE (test code = 1.06 mg/dL 0.60-1.25 4683925372) CALCIUM (test code = 8.4 mg/dL 8.6-10.6 L 3067668818) eGFR (test code = mL/min/1.73m2 7516870690) FLOYD (test code = FLOYD) Association of Glomerular Filtration Rate (GFR) and Staging of Kidney Disease* + --+ --+ ------+| GFR (mL/min/1.73 m2) ?| With Kidney Damage ?| ?Without Kidney Damage+ --------+ --------+ +| ?>90 ?| ?Stage one ?| ? Normal ?+ ---+ ---+ -------+| ?60-89 ?| ?Stage two ?| ? Decreased GFR ? + --+ --+ ------+| ?30-59 ?| ?Stage three ?| ? Stage three ? + --+ --+ ------+| ?15-29 ?| ?Stage four ? | ? Stage four ?+ ---+ ---+ -------+| ?<15 (or dialysis) ? ?| ?Stage five ? | ? Stage five ?+ ---+ ---+ -------+ *Each stage assumes the associated GFR level has been in effect for at least three months. ?Stages 1 to 5, with or without kidney disease, indicate chronic kidney disease. Notes: Determination of stages one and two (with eGFR >59mL/min/1.73 m2) requires estimation of kidney damage for at least three months as defined by structural or functional abnormalities of the kidney, manifested by either:Pathological abnormalities or Markers of kidney damage (including abnormalities in the composition of the blood or urine or abnormalities in imaging tests). Lab Interpretation Abnormal (test code = 39543-3) [facility] METABOLIC PANEL (NA, K, CL, CO2, GLUCOSE, BUN, CREATININE, CA)2021-07-15 12:47:33 Test Item Value Reference Range Interpretation Comments NA (test code = 134 mmol/L 135-145 L 1551062397) K (test code = 4.1 mmol/L 3.5-5.0 2302733417) CL (test code = 100 mmol/L 98-108 3842131544) CO2 TOTAL (test code = 27 mmol/L 23-31 3022965155) AGAP (test code = 2-16 3473363031) BUN (test code = 24 mg/dL 7-23 H 9625961815) GLUCOSE (test code = 125 mg/dL 70-110 H 0414891471) CREATININE (test code = 1.03 mg/dL 0.60-1.25 3131675853) CALCIUM (test code = 8.6 mg/dL 8.6-10.6 3443830394) eGFR (test code = mL/min/1.73m2 1797019113) FLOYD (test code = FLOYD) Association of Glomerular Filtration Rate (GFR) and Staging of Kidney Disease* + --+ --+ ------+| GFR (mL/min/1.73 m2) ?| With Kidney Damage ?| ?Without Kidney Damage+ --------+ --------+ +| ?>90 ?| ?Stage one ?| ? Normal ?+ ---+ ---+ -------+| ?60-89 ?| ?Stage two ?| ? Decreased GFR ? + --+ --+ ------+| ?30-59 ?| ?Stage three ?| ? Stage three ? + --+ --+ ------+| ?15-29 ?| ?Stage four ? | ? Stage four ?+ ---+ ---+ -------+| ?<15 (or dialysis) ? ?| ?Stage five ? | ? Stage five ?+ ---+ ---+ -------+ *Each stage assumes the associated GFR level has been in effect for at least three months. ?Stages 1 to 5, with or without kidney disease, indicate chronic kidney disease. Notes: Determination of stages one and two (with eGFR >59mL/min/1.73 m2) requires estimation of kidney damage for at least three months as defined by structural or functional abnormalities of the kidney, manifested by either:Pathological abnormalities or Markers of kidney damage (including abnormalities in the composition of the blood or urine or abnormalities in imaging tests). Lab Interpretation Abnormal (test code = 23014-2) [facility] METABOLIC PANEL (NA, K, CL, CO2, GLUCOSE, BUN, CREATININE, CA)2021-07-15 12:47:33 Test Item Value Reference Range Interpretation Comments NA (test code = 134 mmol/L 135-145 L 9643933455) K (test code = 4.1 mmol/L 3.5-5.0 8187360273) CL (test code = 100 mmol/L 98-108 2681930388) CO2 TOTAL (test code = 27 mmol/L 23-31 3124772816) AGAP (test code = 2-16 5125120004) BUN (test code = 24 mg/dL 7-23 H 0904596551) GLUCOSE (test code = 125 mg/dL 70-110 H 5231478615) CREATININE (test code = 1.03 mg/dL 0.60-1.25 5313926458) CALCIUM (test code = 8.6 mg/dL 8.6-10.6 6624861692) eGFR (test code = mL/min/1.73m2 6674847034) FLOYD (test code = FLOYD) Association of Glomerular Filtration Rate (GFR) and Staging of Kidney Disease* + --+ --+ ------+| GFR (mL/min/1.73 m2) ?| With Kidney Damage ?| ?Without Kidney Damage+ --------+ --------+ +| ?>90 ?| ?Stage one ?| ? Normal ?+ ---+ ---+ -------+| ?60-89 ?| ?Stage two ?| ? Decreased GFR ? + --+ --+ ------+| ?30-59 ?| ?Stage three ?| ? Stage three ? + --+ --+ ------+| ?15-29 ?| ?Stage four ? | ? Stage four ?+ ---+ ---+ -------+| ?<15 (or dialysis) ? ?| ?Stage five ? | ? Stage five ?+ ---+ ---+ -------+ *Each stage assumes the associated GFR level has been in effect for at least three months. ?Stages 1 to 5, with or without kidney disease, indicate chronic kidney disease. Notes: Determination of stages one and two (with eGFR >59mL/min/1.73 m2) requires estimation of kidney damage for at least three months as defined by structural or functional abnormalities of the kidney, manifested by either:Pathological abnormalities or Markers of kidney damage (including abnormalities in the composition of the blood or urine or abnormalities in imaging tests). Lab Interpretation Abnormal (test code = 94098-8) [facility] METABOLIC PANEL (NA, K, CL, CO2, GLUCOSE, BUN, CREATININE, CA)2021-07-15 12:47:33 Test Item Value Reference Range Interpretation Comments NA (test code = 134 mmol/L 135-145 L 4542457085) K (test code = 4.1 mmol/L 3.5-5.0 9191193343) CL (test code = 100 mmol/L 98-108 7052839548) CO2 TOTAL (test code = 27 mmol/L 23-31 4874825159) AGAP (test code = 2-16 3082855416) BUN (test code = 24 mg/dL 7-23 H 2089448919) GLUCOSE (test code = 125 mg/dL 70-110 H 9693897245) CREATININE (test code = 1.03 mg/dL 0.60-1.25 9049679316) CALCIUM (test code = 8.6 mg/dL 8.6-10.6 5039382414) eGFR (test code = mL/min/1.73m2 8274721302) FLOYD (test code = FLOYD) Association of Glomerular Filtration Rate (GFR) and Staging of Kidney Disease* + --+ --+ ------+| GFR (mL/min/1.73 m2) ?| With Kidney Damage ?| ?Without Kidney Damage+ --------+ --------+ +| ?>90 ?| ?Stage one ?| ? Normal ?+ ---+ ---+ -------+| ?60-89 ?| ?Stage two ?| ? Decreased GFR ? + --+ --+ ------+| ?30-59 ?| ?Stage three ?| ? Stage three ? + --+ --+ ------+| ?15-29 ?| ?Stage four ? | ? Stage four ?+ ---+ ---+ -------+| ?<15 (or dialysis) ? ?| ?Stage five ? | ? Stage five ?+ ---+ ---+ -------+ *Each stage assumes the associated GFR level has been in effect for at least three months. ?Stages 1 to 5, with or without kidney disease, indicate chronic kidney disease. Notes: Determination of stages one and two (with eGFR >59mL/min/1.73 m2) requires estimation of kidney damage for at least three months as defined by structural or functional abnormalities of the kidney, manifested by either:Pathological abnormalities or Markers of kidney damage (including abnormalities in the composition of the blood or urine or abnormalities in imaging tests). Lab Interpretation Abnormal (test code = 77098-9) [facility] WITH [id number] 11:55:46 Test Item Value Reference Range Interpretation Comments WBC (test code = See_Comment H [Automated 6690-2) message] The sy stem which generated this result transmitted reference range : 4.20 - 10.70 10*3/?L. The reference range was not used to interpret this result as normal/abnormal . RBC (test code = See_Comment [Automated 789-8) message] The sy stem which generated this result transmitted reference range : 4.26 - 5.52 10*6/?L. The reference range was not used to interpret this result as normal/abnormal . HGB (test code = 13.4 g/dL 12.2-16.4 718-7) HCT (test code = 40.8 % 38.4-49.3 4544-3) MCV (test code = 95.8 fL 81.7-95.6 H 787-2) MCH (test code = 31.5 pg 26.1-32.7 785-6) MCHC (test code = 32.8 g/dL 31.2-35.0 786-4) RDW-SD (test code = 42.7 fL 38.5-51.6 99647-7) RDW-CV (test code = 12.2 % 12.1-15.4 788-0) PLT (test code = See_Comment [Automated 777-3) message] The sy stem which generated this result transmitted reference range : 150 - 328 10*3/ ?L. The reference r aleksandra was not used to interpret this result as normal/abnormal . MPV (test code = 10.2 fL 9.8-13.0 84011-8) NRBC/100 WBC (test See_Comment [Automat ed code = 4790554859) message] The system which generated this result transmitted reference range : 0.0 - 10.0 /100 WBCs. The refer ence range was not u sed to interpret th is result as normal/abnormal . NRBC x10^3 (test code <0.01 See_Comment [Auto mated = 7156993842) message] The s ystem which generated this result transmitted reference range : 10*3/?L. The reference range was not used to interpret this result as normal/abnormal . GRAN MAT (NEUT) % 84.9 % (test code = 770-8) IMM GRAN % (test code 0.50 % = 8479523801) LYMPH % (test code = 7.2 % 736-9) MONO % (test code = 6.9 % 5905-5) EOS % (test code = 0.2 % 713-8) BASO % (test code = 0.3 % 706-2) GRAN MAT x10^3(ANC) 9.33 10*3/uL 1.99-6.95 H (test code = 5142104469) IMM GRAN x10^3 (test 0.05 10*3/uL 0.00-0.06 code = 0587126895) LYMPH x10^3 (test code 0.79 10*3/uL 1.09-3.23 L = 731-0) MONO x10^3 (test code 0.76 10*3/uL 0.36-1.02 = 742-7) EOS x10^3 (test code = <0.03 0.06-0.53 L 711-2) BASO x10^3 (test code 0.03 10*3/uL 0.01-0.09 = 704-7) Lab Interpretation Abnormal (test code = 71879-5) [facility] WITH [id number] 11:55:46 Test Item Value Reference Range Interpretation Comments WBC (test code = See_Comment H [Automated 6690-2) message] The sy stem which generated this result transmitted reference range : 4.20 - 10.70 10*3/?L. The reference range was not used to interpret this result as normal/abnormal . RBC (test code = See_Comment [Automated 789-8) message] The sy stem which generated this result transmitted reference range : 4.26 - 5.52 10*6/?L. The reference range was not used to interpret this result as normal/abnormal . HGB (test code = 13.4 g/dL 12.2-16.4 718-7) HCT (test code = 40.8 % 38.4-49.3 4544-3) MCV (test code = 95.8 fL 81.7-95.6 H 787-2) MCH (test code = 31.5 pg 26.1-32.7 785-6) MCHC (test code = 32.8 g/dL 31.2-35.0 786-4) RDW-SD (test code = 42.7 fL 38.5-51.6 90784-9) RDW-CV (test code = 12.2 % 12.1-15.4 788-0) PLT (test code = See_Comment [Automated 777-3) message] The sy stem which generated this result transmitted reference range : 150 - 328 10*3/ ?L. The reference r aleksandra was not used to interpret this result as normal/abnormal . MPV (test code = 10.2 fL 9.8-13.0 58707-2) NRBC/100 WBC (test See_Comment [Automat ed code = 0044645017) message] The system which generated this result transmitted reference range : 0.0 - 10.0 /100 WBCs. The refer ence range was not u sed to interpret th is result as normal/abnormal . NRBC x10^3 (test code <0.01 See_Comment [Auto mated = 9879777096) message] The s ystem which generated this result transmitted reference range : 10*3/?L. The reference range was not used to interpret this result as normal/abnormal . GRAN MAT (NEUT) % 84.9 % (test code = 770-8) IMM GRAN % (test code 0.50 % = 4360284898) LYMPH % (test code = 7.2 % 736-9) MONO % (test code = 6.9 % 5905-5) EOS % (test code = 0.2 % 713-8) BASO % (test code = 0.3 % 706-2) GRAN MAT x10^3(ANC) 9.33 10*3/uL 1.99-6.95 H (test code = 4214916548) IMM GRAN x10^3 (test 0.05 10*3/uL 0.00-0.06 code = 9007262682) LYMPH x10^3 (test code 0.79 10*3/uL 1.09-3.23 L = 731-0) MONO x10^3 (test code 0.76 10*3/uL 0.36-1.02 = 742-7) EOS x10^3 (test code = <0.03 0.06-0.53 L 711-2) BASO x10^3 (test code 0.03 10*3/uL 0.01-0.09 = 704-7) Lab Interpretation Abnormal (test code = 74752-0) [facility] WITH [id number] 11:55:46 Test Item Value Reference Range Interpretation Comments WBC (test code = See_Comment H [Automated 6690-2) message] The sy stem which generated this result transmitted reference range : 4.20 - 10.70 10*3/?L. The reference range was not used to interpret this result as normal/abnormal . RBC (test code = See_Comment [Automated 789-8) message] The sy stem which generated this result transmitted reference range : 4.26 - 5.52 10*6/?L. The reference range was not used to interpret this result as normal/abnormal . HGB (test code = 13.4 g/dL 12.2-16.4 718-7) HCT (test code = 40.8 % 38.4-49.3 4544-3) MCV (test code = 95.8 fL 81.7-95.6 H 787-2) MCH (test code = 31.5 pg 26.1-32.7 785-6) MCHC (test code = 32.8 g/dL 31.2-35.0 786-4) RDW-SD (test code = 42.7 fL 38.5-51.6 57367-6) RDW-CV (test code = 12.2 % 12.1-15.4 788-0) PLT (test code = See_Comment [Automated 777-3) message] The sy stem which generated this result transmitted reference range : 150 - 328 10*3/ ?L. The reference r aleksandra was not used to interpret this result as normal/abnormal . MPV (test code = 10.2 fL 9.8-13.0 71890-3) NRBC/100 WBC (test See_Comment [Automat ed code = 6136034290) message] The system which generated this result transmitted reference range : 0.0 - 10.0 /100 WBCs. The refer ence range was not u sed to interpret th is result as normal/abnormal . NRBC x10^3 (test code <0.01 See_Comment [Auto mated = 7279408631) message] The s ystem which generated this result transmitted reference range : 10*3/?L. The reference range was not used to interpret this result as normal/abnormal . GRAN MAT (NEUT) % 84.9 % (test code = 770-8) IMM GRAN % (test code 0.50 % = 1823188297) LYMPH % (test code = 7.2 % 736-9) MONO % (test code = 6.9 % 5905-5) EOS % (test code = 0.2 % 713-8) BASO % (test code = 0.3 % 706-2) GRAN MAT x10^3(ANC) 9.33 10*3/uL 1.99-6.95 H (test code = 3732180849) IMM GRAN x10^3 (test 0.05 10*3/uL 0.00-0.06 code = 2359071428) LYMPH x10^3 (test code 0.79 10*3/uL 1.09-3.23 L = 731-0) MONO x10^3 (test code 0.76 10*3/uL 0.36-1.02 = 742-7) EOS x10^3 (test code = <0.03 0.06-0.53 L 711-2) BASO x10^3 (test code 0.03 10*3/uL 0.01-0.09 = 704-7) Lab Interpretation Abnormal (test code = 08917-4) [facility] Metabolic Panel (NA, K, CL, CO2, GLUCOSE, BUN, CREATININE, CA)2021-07-15 03:46:35 Test Item Value Reference Range Interpretation Comments NA (test code = 137 mmol/L 135-145 8010008934) K (test code = 4.5 mmol/L 3.5-5.0 3432378133) CL (test code = 100 mmol/L 98-108 4141792923) CO2 TOTAL (test code = 32 mmol/L 23-31 H 1666738655) AGAP (test code = 2-16 5855542306) BUN (test code = 17 mg/dL 7-23 6946068033) GLUCOSE (test code = 103 mg/dL 70-110 6122861932) CREATININE (test code = 1.00 mg/dL 0.60-1.25 5805809351) CALCIUM (test code = 8.6 mg/dL 8.6-10.6 0723552345) eGFR (test code = mL/min/1.73m2 7646191977) FLOYD (test code = FLOYD) Association of Glomerular Filtration Rate (GFR) and Staging of Kidney Disease* + --+ --+ ------+| GFR (mL/min/1.73 m2) ?| With Kidney Damage ?| ?Without Kidney Damage+ --------+ --------+ +| ?>90 ?| ?Stage one ?| ? Normal ?+ ---+ ---+ -------+| ?60-89 ?| ?Stage two ?| ? Decreased GFR ? + --+ --+ ------+| ?30-59 ?| ?Stage three ?| ? Stage three ? + --+ --+ ------+| ?15-29 ?| ?Stage four ? | ? Stage four ?+ ---+ ---+ -------+| ?<15 (or dialysis) ? ?| ?Stage five ? | ? Stage five ?+ ---+ ---+ -------+ *Each stage assumes the associated GFR level has been in effect for at least three months. ?Stages 1 to 5, with or without kidney disease, indicate chronic kidney disease. Notes: Determination of stages one and two (with eGFR >59mL/min/1.73 m2) requires estimation of kidney damage for at least three months as defined by structural or functional abnormalities of the kidney, manifested by either:Pathological abnormalities or Markers of kidney damage (including abnormalities in the composition of the blood or urine or abnormalities in imaging tests). Lab Interpretation Abnormal (test code = 62527-1) [facility] Metabolic Panel (NA, K, CL, CO2, GLUCOSE, BUN, CREATININE, CA)2021-07-15 03:46:35 Test Item Value Reference Range Interpretation Comments NA (test code = 137 mmol/L 135-145 6426576127) K (test code = 4.5 mmol/L 3.5-5.0 8451758222) CL (test code = 100 mmol/L 98-108 2873450121) CO2 TOTAL (test code = 32 mmol/L 23-31 H 1354930266) AGAP (test code = 2-16 1469335379) BUN (test code = 17 mg/dL 7-23 5141977405) GLUCOSE (test code = 103 mg/dL 70-110 2622511422) CREATININE (test code = 1.00 mg/dL 0.60-1.25 1001170022) CALCIUM (test code = 8.6 mg/dL 8.6-10.6 3629669873) eGFR (test code = mL/min/1.73m2 3935748150) FLOYD (test code = FLOYD) Association of Glomerular Filtration Rate (GFR) and Staging of Kidney Disease* + --+ --+ ------+| GFR (mL/min/1.73 m2) ?| With Kidney Damage ?| ?Without Kidney Damage+ --------+ --------+ +| ?>90 ?| ?Stage one ?| ? Normal ?+ ---+ ---+ -------+| ?60-89 ?| ?Stage two ?| ? Decreased GFR ? + --+ --+ ------+| ?30-59 ?| ?Stage three ?| ? Stage three ? + --+ --+ ------+| ?15-29 ?| ?Stage four ? | ? Stage four ?+ ---+ ---+ -------+| ?<15 (or dialysis) ? ?| ?Stage five ? | ? Stage five ?+ ---+ ---+ -------+ *Each stage assumes the associated GFR level has been in effect for at least three months. ?Stages 1 to 5, with or without kidney disease, indicate chronic kidney disease. Notes: Determination of stages one and two (with eGFR >59mL/min/1.73 m2) requires estimation of kidney damage for at least three months as defined by structural or functional abnormalities of the kidney, manifested by either:Pathological abnormalities or Markers of kidney damage (including abnormalities in the composition of the blood or urine or abnormalities in imaging tests). Lab Interpretation Abnormal (test code = 52996-1) [facility] Metabolic Panel (NA, K, CL, CO2, GLUCOSE, BUN, CREATININE, CA)2021-07-15 03:46:35 Test Item Value Reference Range Interpretation Comments NA (test code = 137 mmol/L 135-145 8703976299) K (test code = 4.5 mmol/L 3.5-5.0 8410037204) CL (test code = 100 mmol/L 98-108 9638131459) CO2 TOTAL (test code = 32 mmol/L 23-31 H 9143146897) AGAP (test code = 2-16 2650153046) BUN (test code = 17 mg/dL 7-23 7146202004) GLUCOSE (test code = 103 mg/dL 70-110 0045964666) CREATININE (test code = 1.00 mg/dL 0.60-1.25 4717485685) CALCIUM (test code = 8.6 mg/dL 8.6-10.6 0719973322) eGFR (test code = mL/min/1.73m2 5928098687) FLOYD (test code = FLOYD) Association of Glomerular Filtration Rate (GFR) and Staging of Kidney Disease* + --+ --+ ------+| GFR (mL/min/1.73 m2) ?| With Kidney Damage ?| ?Without Kidney Damage+ --------+ --------+ +| ?>90 ?| ?Stage one ?| ? Normal ?+ ---+ ---+ -------+| ?60-89 ?| ?Stage two ?| ? Decreased GFR ? + --+ --+ ------+| ?30-59 ?| ?Stage three ?| ? Stage three ? + --+ --+ ------+| ?15-29 ?| ?Stage four ? | ? Stage four ?+ ---+ ---+ -------+| ?<15 (or dialysis) ? ?| ?Stage five ? | ? Stage five ?+ ---+ ---+ -------+ *Each stage assumes the associated GFR level has been in effect for at least three months. ?Stages 1 to 5, with or without kidney disease, indicate chronic kidney disease. Notes: Determination of stages one and two (with eGFR >59mL/min/1.73 m2) requires estimation of kidney damage for at least three months as defined by structural or functional abnormalities of the kidney, manifested by either:Pathological abnormalities or Markers of kidney damage (including abnormalities in the composition of the blood or urine or abnormalities in imaging tests). Lab Interpretation Abnormal (test code = 86290-3) [facility] METABOLIC PANEL (NA, K, CL, CO2, GLUCOSE, BUN, CREATININE, CA)2021-07-14 11:38:11 Test Item Value Reference Range Interpretation Comments NA (test code = 138 mmol/L 135-145 5501113460) K (test code = 4.0 mmol/L 3.5-5.0 5136375147) CL (test code = 102 mmol/L 98-108 9296923359) CO2 TOTAL (test code = 34 mmol/L 23-31 H 3243983123) AGAP (test code = 2-16 0484893009) BUN (test code = 17 mg/dL 7-23 0117793490) GLUCOSE (test code = 119 mg/dL 70-110 H 8025719963) CREATININE (test code = 1.15 mg/dL 0.60-1.25 1857655468) CALCIUM (test code = 8.7 mg/dL 8.6-10.6 2746723537) eGFR (test code = mL/min/1.73m2 9006403244) FLOYD (test code = FLOYD) Association of Glomerular Filtration Rate (GFR) and Staging of Kidney Disease* + --+ --+ ------+| GFR (mL/min/1.73 m2) ?| With Kidney Damage ?| ?Without Kidney Damage+ --------+ --------+ +| ?>90 ?| ?Stage one ?| ? Normal ?+ ---+ ---+ -------+| ?60-89 ?| ?Stage two ?| ? Decreased GFR ? + --+ --+ ------+| ?30-59 ?| ?Stage three ?| ? Stage three ? + --+ --+ ------+| ?15-29 ?| ?Stage four ? | ? Stage four ?+ ---+ ---+ -------+| ?<15 (or dialysis) ? ?| ?Stage five ? | ? Stage five ?+ ---+ ---+ -------+ *Each stage assumes the associated GFR level has been in effect for at least three months. ?Stages 1 to 5, with or without kidney disease, indicate chronic kidney disease. Notes: Determination of stages one and two (with eGFR >59mL/min/1.73 m2) requires estimation of kidney damage for at least three months as defined by structural or functional abnormalities of the kidney, manifested by either:Pathological abnormalities or Markers of kidney damage (including abnormalities in the composition of the blood or urine or abnormalities in imaging tests). Lab Interpretation Abnormal (test code = 80084-8) [facility] METABOLIC PANEL (NA, K, CL, CO2, GLUCOSE, BUN, CREATININE, CA)2021-07-14 11:38:11 Test Item Value Reference Range Interpretation Comments NA (test code = 138 mmol/L 135-145 7335328081) K (test code = 4.0 mmol/L 3.5-5.0 5222400755) CL (test code = 102 mmol/L 98-108 4688642506) CO2 TOTAL (test code = 34 mmol/L 23-31 H 1867983210) AGAP (test code = 2-16 4276115143) BUN (test code = 17 mg/dL 7-23 1265882804) GLUCOSE (test code = 119 mg/dL 70-110 H 8088275581) CREATININE (test code = 1.15 mg/dL 0.60-1.25 6184231269) CALCIUM (test code = 8.7 mg/dL 8.6-10.6 7305853386) eGFR (test code = mL/min/1.73m2 4320224742) FLOYD (test code = FLOYD) Association of Glomerular Filtration Rate (GFR) and Staging of Kidney Disease* + --+ --+ ------+| GFR (mL/min/1.73 m2) ?| With Kidney Damage ?| ?Without Kidney Damage+ --------+ --------+ +| ?>90 ?| ?Stage one ?| ? Normal ?+ ---+ ---+ -------+| ?60-89 ?| ?Stage two ?| ? Decreased GFR ? + --+ --+ ------+| ?30-59 ?| ?Stage three ?| ? Stage three ? + --+ --+ ------+| ?15-29 ?| ?Stage four ? | ? Stage four ?+ ---+ ---+ -------+| ?<15 (or dialysis) ? ?| ?Stage five ? | ? Stage five ?+ ---+ ---+ -------+ *Each stage assumes the associated GFR level has been in effect for at least three months. ?Stages 1 to 5, with or without kidney disease, indicate chronic kidney disease. Notes: Determination of stages one and two (with eGFR >59mL/min/1.73 m2) requires estimation of kidney damage for at least three months as defined by structural or functional abnormalities of the kidney, manifested by either:Pathological abnormalities or Markers of kidney damage (including abnormalities in the composition of the blood or urine or abnormalities in imaging tests). Lab Interpretation Abnormal (test code = 94743-9) [facility] METABOLIC PANEL (NA, K, CL, CO2, GLUCOSE, BUN, CREATININE, CA)2021-07-14 11:38:11 Test Item Value Reference Range Interpretation Comments NA (test code = 138 mmol/L 135-145 5735751497) K (test code = 4.0 mmol/L 3.5-5.0 8974434921) CL (test code = 102 mmol/L 98-108 0548449871) CO2 TOTAL (test code = 34 mmol/L 23-31 H 1256461293) AGAP (test code = 2-16 8043016001) BUN (test code = 17 mg/dL 7-23 6947795775) GLUCOSE (test code = 119 mg/dL 70-110 H 1797640754) CREATININE (test code = 1.15 mg/dL 0.60-1.25 3630304049) CALCIUM (test code = 8.7 mg/dL 8.6-10.6 6985731612) eGFR (test code = mL/min/1.73m2 1553309170) FLOYD (test code = FLOYD) Association of Glomerular Filtration Rate (GFR) and Staging of Kidney Disease* + --+ --+ ------+| GFR (mL/min/1.73 m2) ?| With Kidney Damage ?| ?Without Kidney Damage+ --------+ --------+ +| ?>90 ?| ?Stage one ?| ? Normal ?+ ---+ ---+ -------+| ?60-89 ?| ?Stage two ?| ? Decreased GFR ? + --+ --+ ------+| ?30-59 ?| ?Stage three ?| ? Stage three ? + --+ --+ ------+| ?15-29 ?| ?Stage four ? | ? Stage four ?+ ---+ ---+ -------+| ?<15 (or dialysis) ? ?| ?Stage five ? | ? Stage five ?+ ---+ ---+ -------+ *Each stage assumes the associated GFR level has been in effect for at least three months. ?Stages 1 to 5, with or without kidney disease, indicate chronic kidney disease. Notes: Determination of stages one and two (with eGFR >59mL/min/1.73 m2) requires estimation of kidney damage for at least three months as defined by structural or functional abnormalities of the kidney, manifested by either:Pathological abnormalities or Markers of kidney damage (including abnormalities in the composition of the blood or urine or abnormalities in imaging tests). Lab Interpretation Abnormal (test code = 36441-9) [facility] [id number] 11:13:50 Test Item Value Reference Range Interpretation Comments PROTIME PATIENT (test See_Comment [Auto mated message] code = 5964-2) The system [employer] generated this result transmitted ref erence range: 12.0 - 1 4.7 Seconds. The re ference range was not u sed to interpret this result as normal/abnor mal. INR (test code = 6301-6) Nor mal INR <1.1; Warfarin Therap eutic range 2.0 to 3. 0 or 2.5 to 3.5, dep ending upon the indica tions. Lab Interpretation (test Normal code = 26900-4) [facility] [id number] 11:13:50 Test Item Value Reference Range Interpretation Comments PROTIME PATIENT (test See_Comment [Auto mated message] code = 5964-2) The system [employer] generated this result transmitted ref erence range: 12.0 - 1 4.7 Seconds. The re ference range was not u sed to interpret this result as normal/abnor mal. INR (test code = 6301-6) Nor mal INR <1.1; Warfarin Therap eutic range 2.0 to 3. 0 or 2.5 to 3.5, dep ending upon the indica tions. Lab Interpretation (test Normal code = 24489-0) [facility] [id number] 11:13:50 Test Item Value Reference Range Interpretation Comments PROTIME PATIENT (test See_Comment [Auto mated message] code = 5964-2) The system wh ich generated this result transmitted ref erence range: 12.0 - 1 4.7 Seconds. The re ference range was not u sed to interpret this result as normal/abnor mal. INR (test code = 6301-6) Nor mal INR <1.1; Warfarin Therap eutic range 2.0 to 3. 0 or 2.5 to 3.5, dep ending upon the indica tions. Lab Interpretation (test Normal code = 05226-6) [facility] WITH [id number] 11:05:47 Test Item Value Reference Range Interpretation Comments WBC (test code = See_Comment [Automated 6990-2) message] The sy stem which generated this result transmitted reference range : 4.20 - 10.70 10*3/?L. The reference range was not used to interpret this result as normal/abnormal . RBC (test code = See_Comment [Automated 479-8) message] The sy stem which generated this result transmitted reference range : 4.26 - 5.52 10*6/?L. The reference range was not used to interpret this result as normal/abnormal . HGB (test code = 14.2 g/dL 12.2-16.4 718-7) HCT (test code = 42.8 % 38.4-49.3 4544-3) MCV (test code = 94.9 fL 81.7-95.6 787-2) MCH (test code = 31.5 pg 26.1-32.7 785-6) MCHC (test code = 33.2 g/dL 31.2-35.0 786-4) RDW-SD (test code = 42.0 fL 38.5-51.6 04097-1) RDW-CV (test code = 12.1 % 12.1-15.4 788-0) PLT (test code = See_Comment [Automated 777-3) message] The sy stem which generated this result transmitted reference range : 150 - 328 10*3/ ?L. The reference r aleksandra was not used to interpret this result as normal/abnormal . MPV (test code = 9.4 fL 9.8-13.0 L 30915-9) NRBC/100 WBC (test See_Comment [Automat ed code = 0503659839) message] The system which generated this result transmitted reference range : 0.0 - 10.0 /100 WBCs. The refer ence range was not u sed to interpret th is result as normal/abnormal . NRBC x10^3 (test code <0.01 See_Comment [Auto mated = 7684866251) message] The s ystem which generated this result transmitted reference range : 10*3/?L. The reference range was not used to interpret this result as normal/abnormal . GRAN MAT (NEUT) % 65.4 % (test code = 770-8) IMM GRAN % (test code 0.30 % = 5265382772) LYMPH % (test code = 16.4 % 736-9) MONO % (test code = 11.2 % 5905-5) EOS % (test code = 5.7 % 713-8) BASO % (test code = 1.0 % 706-2) GRAN MAT x10^3(ANC) 3.89 10*3/uL 1.99-6.95 (test code = 7833020153) IMM GRAN x10^3 (test <0.03 0.00-0.06 code = 9330920591) LYMPH x10^3 (test code 0.98 10*3/uL 1.09-3.23 L = 731-0) MONO x10^3 (test code 0.67 10*3/uL 0.36-1.02 = 742-7) EOS x10^3 (test code = 0.34 10*3/uL 0.06-0.53 711-2) BASO x10^3 (test code 0.06 10*3/uL 0.01-0.09 = 704-7) Lab Interpretation Abnormal (test code = 79435-7) [facility] WITH [id number] 11:05:47 Test Item Value Reference Range Interpretation Comments WBC (test code = See_Comment [Automated 6690-2) message] The sy stem which generated this result transmitted reference range : 4.20 - 10.70 10*3/?L. The reference range was not used to interpret this result as normal/abnormal . RBC (test code = See_Comment [Automated 789-8) message] The sy stem which generated this result transmitted reference range : 4.26 - 5.52 10*6/?L. The reference range was not used to interpret this result as normal/abnormal . HGB (test code = 14.2 g/dL 12.2-16.4 718-7) HCT (test code = 42.8 % 38.4-49.3 4544-3) MCV (test code = 94.9 fL 81.7-95.6 787-2) MCH (test code = 31.5 pg 26.1-32.7 785-6) MCHC (test code = 33.2 g/dL 31.2-35.0 786-4) RDW-SD (test code = 42.0 fL 38.5-51.6 92817-2) RDW-CV (test code = 12.1 % 12.1-15.4 788-0) PLT (test code = See_Comment [Automated 777-3) message] The sy stem which generated this result transmitted reference range : 150 - 328 10*3/ ?L. The reference r aleksandra was not used to interpret this result as normal/abnormal . MPV (test code = 9.4 fL 9.8-13.0 L 47617-0) NRBC/100 WBC (test See_Comment [Automat ed code = 3616254460) message] The system which generated this result transmitted reference range : 0.0 - 10.0 /100 WBCs. The refer ence range was not u sed to interpret th is result as normal/abnormal . NRBC x10^3 (test code <0.01 See_Comment [Auto mated = 3007752945) message] The s ystem which generated this result transmitted reference range : 10*3/?L. The reference range was not used to interpret this result as normal/abnormal . GRAN MAT (NEUT) % 65.4 % (test code = 770-8) IMM GRAN % (test code 0.30 % = 8378872236) LYMPH % (test code = 16.4 % 736-9) MONO % (test code = 11.2 % 5905-5) EOS % (test code = 5.7 % 713-8) BASO % (test code = 1.0 % 706-2) GRAN MAT x10^3(ANC) 3.89 10*3/uL 1.99-6.95 (test code = 3128962395) IMM GRAN x10^3 (test <0.03 0.00-0.06 code = 9064424868) LYMPH x10^3 (test code 0.98 10*3/uL 1.09-3.23 L = 731-0) MONO x10^3 (test code 0.67 10*3/uL 0.36-1.02 = 742-7) EOS x10^3 (test code = 0.34 10*3/uL 0.06-0.53 711-2) BASO x10^3 (test code 0.06 10*3/uL 0.01-0.09 = 704-7) Lab Interpretation Abnormal (test code = 91326-1) [facility] WITH [id number] 11:05:47 Test Item Value Reference Range Interpretation Comments WBC (test code = See_Comment [Automated 1690-2) message] The sy stem which generated this result transmitted reference range : 4.20 - 10.70 10*3/?L. The reference range was not used to interpret this result as normal/abnormal . RBC (test code = See_Comment [Automated 739-8) message] The sy stem which generated this result transmitted reference range : 4.26 - 5.52 10*6/?L. The reference range was not used to interpret this result as normal/abnormal . HGB (test code = 14.2 g/dL 12.2-16.4 718-7) HCT (test code = 42.8 % 38.4-49.3 4544-3) MCV (test code = 94.9 fL 81.7-95.6 787-2) MCH (test code = 31.5 pg 26.1-32.7 785-6) MCHC (test code = 33.2 g/dL 31.2-35.0 786-4) RDW-SD (test code = 42.0 fL 38.5-51.6 74257-0) RDW-CV (test code = 12.1 % 12.1-15.4 788-0) PLT (test code = See_Comment [Automated 777-3) message] The sy stem which generated this result transmitted reference range : 150 - 328 10*3/ ?L. The reference r aleksandra was not used to interpret this result as normal/abnormal . MPV (test code = 9.4 fL 9.8-13.0 L 76058-7) NRBC/100 WBC (test See_Comment [Automat ed code = [id number]) message] The system which generated this result transmitted reference range : 0.0 - 10.0 /100 WBCs. The refer ence range was not u sed to interpret th is result as normal/abnormal . NRBC x10^3 (test code <0.01 See_Comment [Auto mated = 2933408172) message] The s ystem which generated this result transmitted reference range : 10*3/?L. The reference range was not used to interpret this result as normal/abnormal . GRAN MAT (NEUT) % 65.4 % (test code = 770-8) IMM GRAN % (test code 0.30 % = 5291555399) LYMPH % (test code = 16.4 % 736-9) MONO % (test code = 11.2 % 5905-5) EOS % (test code = 5.7 % 713-8) BASO % (test code = 1.0 % 706-2) GRAN MAT x10^3(ANC) 3.89 10*3/uL 1.99-6.95 (test code = 2454115063) IMM GRAN x10^3 (test <0.03 0.00-0.06 code = 4890580968) LYMPH x10^3 (test code 0.98 10*3/uL 1.09-3.23 L = 731-0) MONO x10^3 (test code 0.67 10*3/uL 0.36-1.02 = 742-7) EOS x10^3 (test code = 0.34 10*3/uL 0.06-0.53 711-2) BASO x10^3 (test code 0.06 10*3/uL 0.01-0.09 = 704-7) Lab Interpretation Abnormal (test code = 19599-8) [facility] - Please draw trough BEFORE the 4th dose scheduled at 0430, but no more than60 mins before the dose is due.2021-07-13 12:38:43 Test Item Value Reference Range Interpretation Comments VANCO TROUGH (test code 13.8 ug/mL 10.0-20.0 = 6082940556) FLOYD (test code = FLOYD) Toxic Range: ?>20 ug/mL 15-20 ug/mL is recommended for severe infection or when Vancomycin ZITA is greater than or equal to 2. Lab Interpretation (test Normal code = 08033-1) [facility] - Please draw trough BEFORE the 4th dose scheduled at 0430, but no more than60 mins before the dose is due.2021-07-13 12:38:43 Test Item Value Reference Range Interpretation Comments VANCO TROUGH (test code 13.8 ug/mL 10.0-20.0 = 3491958443) FLOYD (test code = FLOYD) Toxic Range: ?>20 ug/mL 15-20 ug/mL is recommended for severe infection or when Vancomycin ZITA is greater than or equal to 2. Lab Interpretation (test Normal code = 20425-9) [facility] Trough Level - Please draw trough BEFORE the 4th dose scheduled at 0430, but no more than60 mins before the dose is due.2021-07-13 12:38:43 Test Item Value Reference Range Interpretation Comments VANCO TROUGH (test code 13.8 ug/mL 10.0-20.0 = 1672954154) FLOYD (test code = FLOYD) Toxic Range: ?>20 ug/mL 15-20 ug/mL is recommended for severe infection or when Vancomycin ZITA is greater than or equal to 2. Lab Interpretation (test Normal code = 16111-8) [facility] with [id number] 10:54:51 Test Item Value Reference Range Interpretation Comments WBC (test code = See_Comment [Automated 2872-2) message] The sy stem which generated this result transmitted reference range : 4.20 - 10.70 10*3/?L. The reference range was not used to interpret this result as normal/abnormal . RBC (test code = See_Comment [Automated 602-0) message] The sy stem which generated this result transmitted reference range : 4.26 - 5.52 10*6/?L. The reference range was not used to interpret this result as normal/abnormal . HGB (test code = 14.6 g/dL 12.2-16.4 718-7) HCT (test code = 42.8 % 38.4-49.3 4544-3) MCV (test code = 93.2 fL 81.7-95.6 787-2) MCH (test code = 31.8 pg 26.1-32.7 785-6) MCHC (test code = 34.1 g/dL 31.2-35.0 786-4) RDW-SD (test code = 42.4 fL 38.5-51.6 10804-7) RDW-CV (test code = 12.3 % 12.1-15.4 788-0) PLT (test code = See_Comment [Automated 777-3) message] The sy stem which generated this result transmitted reference range : 150 - 328 10*3/ ?L. The reference r aleksandra was not used to interpret this result as normal/abnormal . MPV (test code = 9.9 fL 9.8-13.0 06957-6) NRBC/100 WBC (test See_Comment [Automat ed code = 3184002459) message] The system which generated this result transmitted reference range : 0.0 - 10.0 /100 WBCs. The refer ence range was not u sed to interpret th is result as normal/abnormal . NRBC x10^3 (test code <0.01 See_Comment [Auto mated = 8790369721) message] The s ystem which generated this result transmitted reference range : 10*3/?L. The reference range was not used to interpret this result as normal/abnormal . GRAN MAT (NEUT) % 65.8 % (test code = 770-8) IMM GRAN % (test code 0.20 % = 1131525407) LYMPH % (test code = 15.7 % 736-9) MONO % (test code = 11.8 % 5905-5) EOS % (test code = 4.8 % 713-8) BASO % (test code = 1.7 % 706-2) GRAN MAT x10^3(ANC) 3.18 10*3/uL 1.99-6.95 (test code = 9230167082) IMM GRAN x10^3 (test <0.03 0.00-0.06 code = 4180101781) LYMPH x10^3 (test code 0.76 10*3/uL 1.09-3.23 L = 731-0) MONO x10^3 (test code 0.57 10*3/uL 0.36-1.02 = 742-7) EOS x10^3 (test code = 0.23 10*3/uL 0.06-0.53 711-2) BASO x10^3 (test code 0.08 10*3/uL 0.01-0.09 = 704-7) Lab Interpretation Abnormal (test code = 72944-4) [facility] [id number] 10:54:51 Test Item Value Reference Range Interpretation Comments WBC (test code = See_Comment [Automated 2788-2) message] The sy stem which generated this result transmitted reference range : 4.20 - 10.70 10*3/?L. The reference range was not used to interpret this result as normal/abnormal . RBC (test code = See_Comment [Automated 885-8) message] The sy stem which generated this result transmitted reference range : 4.26 - 5.52 10*6/?L. The reference range was not used to interpret this result as normal/abnormal . HGB (test code = 14.6 g/dL 12.2-16.4 718-7) HCT (test code = 42.8 % 38.4-49.3 4544-3) MCV (test code = 93.2 fL 81.7-95.6 787-2) MCH (test code = 31.8 pg 26.1-32.7 785-6) MCHC (test code = 34.1 g/dL 31.2-35.0 786-4) RDW-SD (test code = 42.4 fL 38.5-51.6 34379-7) RDW-CV (test code = 12.3 % 12.1-15.4 788-0) PLT (test code = See_Comment [Automated 647-3) message] The sy stem which generated this result transmitted reference range : 150 - 328 10*3/ ?L. The reference r aleksandra was not used to interpret this result as normal/abnormal . MPV (test code = 9.9 fL 9.8-13.0 36245-6) NRBC/100 WBC (test See_Comment [Automat ed code = 8989291270) message] The system which generated this result transmitted reference range : 0.0 - 10.0 /100 WBCs. The refer ence range was not u sed to interpret th is result as normal/abnormal . NRBC x10^3 (test code <0.01 See_Comment [Auto mated = 2157154412) message] The s ystem which generated this result transmitted reference range : 10*3/?L. The reference range was not used to interpret this result as normal/abnormal . GRAN MAT (NEUT) % 65.8 % (test code = 770-8) IMM GRAN % (test code 0.20 % = 0765386099) LYMPH % (test code = 15.7 % 736-9) MONO % (test code = 11.8 % 5905-5) EOS % (test code = 4.8 % 713-8) BASO % (test code = 1.7 % 706-2) GRAN MAT x10^3(ANC) 3.18 10*3/uL 1.99-6.95 (test code = 9151817317) IMM GRAN x10^3 (test <0.03 0.00-0.06 code = 8817037812) LYMPH x10^3 (test code 0.76 10*3/uL 1.09-3.23 L = 731-0) MONO x10^3 (test code 0.57 10*3/uL 0.36-1.02 = 742-7) EOS x10^3 (test code = 0.23 10*3/uL 0.06-0.53 711-2) BASO x10^3 (test code 0.08 10*3/uL 0.01-0.09 = 704-7) Lab Interpretation Abnormal (test code = 49280-0) [facility] [id number] 10:54:51 Test Item Value Reference Range Interpretation Comments WBC (test code = See_Comment [Automated 6690-2) message] The sy stem which generated this result transmitted reference range : 4.20 - 10.70 10*3/?L. The reference range was not used to interpret this result as normal/abnormal . RBC (test code = See_Comment [Automated 789-8) message] The sy stem which generated this result transmitted reference range : 4.26 - 5.52 10*6/?L. The reference range was not used to interpret this result as normal/abnormal . HGB (test code = 14.6 g/dL 12.2-16.4 718-7) HCT (test code = 42.8 % 38.4-49.3 4544-3) MCV (test code = 93.2 fL 81.7-95.6 787-2) MCH (test code = 31.8 pg 26.1-32.7 785-6) MCHC (test code = 34.1 g/dL 31.2-35.0 786-4) RDW-SD (test code = 42.4 fL 38.5-51.6 92086-6) RDW-CV (test code = 12.3 % 12.1-15.4 788-0) PLT (test code = See_Comment [Automated 777-3) message] The sy stem which generated this result transmitted reference range : 150 - 328 10*3/ ?L. The reference r aleksandra was not used to interpret this result as normal/abnormal . MPV (test code = 9.9 fL 9.8-13.0 08557-7) NRBC/100 WBC (test See_Comment [Automat ed code = 0806085960) message] The system which generated this result transmitted reference range : 0.0 - 10.0 /100 WBCs. The refer ence range was not u sed to interpret th is result as normal/abnormal . NRBC x10^3 (test code <0.01 See_Comment [Auto mated = 1384151604) message] The s ystem which generated this result transmitted reference range : 10*3/?L. The reference range was not used to interpret this result as normal/abnormal . GRAN MAT (NEUT) % 65.8 % (test code = 770-8) IMM GRAN % (test code 0.20 % = 5913751189) LYMPH % (test code = 15.7 % 736-9) MONO % (test code = 11.8 % 5905-5) EOS % (test code = 4.8 % 713-8) BASO % (test code = 1.7 % 706-2) GRAN MAT x10^3(ANC) 3.18 10*3/uL 1.99-6.95 (test code = 5105259567) IMM GRAN x10^3 (test <0.03 0.00-0.06 code = 6174888922) LYMPH x10^3 (test code 0.76 10*3/uL 1.09-3.23 L = 731-0) MONO x10^3 (test code 0.57 10*3/uL 0.36-1.02 = 742-7) EOS x10^3 (test code = 0.23 10*3/uL 0.06-0.53 711-2) BASO x10^3 (test code 0.08 10*3/uL 0.01-0.09 = 704-7) Lab Interpretation Abnormal (test code = 64868-9) [facility] (A1C)2021-07-12 00:40:43 Test Item Value Reference Range Interpretation Comments HGB A1C (test code = 5.3 % 4.0-5.7 4548-4) FLOYD (test code = FLOYD) Reference RangesNormal: <5.7%Prediabetes: 5.7 - 6.4%Diabetes: > 6.5% Lab Interpretation (test Normal code = 50274-9) [facility] (A1C)2021-07-12 00:40:43 Test Item Value Reference Range Interpretation Comments HGB A1C (test code = 5.3 % 4.0-5.7 4548-4) FLOYD (test code = FLOYD) Reference RangesNormal: <5.7%Prediabetes: 5.7 - 6.4%Diabetes: > 6.5% Lab Interpretation (test Normal code = 87038-9) [facility] (A1C)2021-07-12 00:40:43 Test Item Value Reference Range Interpretation Comments HGB A1C (test code = 5.3 % 4.0-5.7 4548-4) FLOYD (test code = FLOYD) Reference RangesNormal: <5.7%Prediabetes: 5.7 - 6.4%Diabetes: > 6.5% Lab Interpretation (test Normal code = 22401-9) [facility] METABOLIC PANEL (NA, K, CL, CO2, GLUCOSE, BUN, CREATININE, CA)2021-07-11 20:36:41 Test Item Value Reference Range Interpretation Comments NA (test code = 136 mmol/L 135-145 8573002158) K (test code = 4.0 mmol/L 3.5-5.0 6343243281) CL (test code = 104 mmol/L 98-108 0807477174) CO2 TOTAL (test code = 29 mmol/L 23-31 3666275659) AGAP (test code = 2-16 9011440548) BUN (test code = 18 mg/dL 7-23 2585590854) GLUCOSE (test code = 89 mg/dL 70-110 9629037969) CREATININE (test code = 1.00 mg/dL 0.60-1.25 6053061212) CALCIUM (test code = 8.3 mg/dL 8.6-10.6 L 8996746021) eGFR (test code = mL/min/1.73m2 7253832461) FLOYD (test code = FLOYD) Association of Glomerular Filtration Rate (GFR) and Staging of Kidney Disease* + --+ --+ ------+| GFR (mL/min/1.73 m2) ?| With Kidney Damage ?| ?Without Kidney Damage+ --------+ --------+ +| ?>90 ?| ?Stage one ?| ? Normal ?+ ---+ ---+ -------+| ?60-89 ?| ?Stage two ?| ? Decreased GFR ? + --+ --+ ------+| ?30-59 ?| ?Stage three ?| ? Stage three ? + --+ --+ ------+| ?15-29 ?| ?Stage four ? | ? Stage four ?+ ---+ ---+ -------+| ?<15 (or dialysis) ? ?| ?Stage five ? | ? Stage five ?+ ---+ ---+ -------+ *Each stage assumes the associated GFR level has been in effect for at least three months. ?Stages 1 to 5, with or without kidney disease, indicate chronic kidney disease. Notes: Determination of stages one and two (with eGFR >59mL/min/1.73 m2) requires estimation of kidney damage for at least three months as defined by structural or functional abnormalities of the kidney, manifested by either:Pathological abnormalities or Markers of kidney damage (including abnormalities in the composition of the blood or urine or abnormalities in imaging tests). Lab Interpretation Abnormal (test code = 00763-8) [facility] (94283[facility] (ALB,T.PRO,BILI T,BU/BC,ALT,AST,ALK PHOS)2021-07-11 20:36:41 Test Item Value Reference Range Interpretation Comments TOTAL BILI (test code = 4517521531) 1.3 mg/dL 0.1-1.1 H BILI UNCON (test code = 0664223362) 1.1 mg/dL 0.1-1.1 BILI CONJ (test code = 4578131053) 0.0 mg/dL 0.0-0.3 T PROTEIN (test code = 9524536546) 6.4 g/dL 6.3-8.2 ALBUMIN (test code = 2016364019) 3.5 g/dL 3.5-5.0 ALK PHOS (test code = 9828332153) 48 U/L 34-122 ALTv (test code = 1742-6) 12 U/L 5-50 AST(SGOT) (test code = 3579460792) 20 U/L 13-40 Lab Interpretation (test code = Abnormal 73169-8) [facility] (NA, K, CL, CO2, GLUCOSE, BUN, CREATININE, CA)2021-07-11 20:36:41 Test Item Value Reference Range Interpretation Comments NA (test code = 136 mmol/L 135-145 1791745474) K (test code = 4.0 mmol/L 3.5-5.0 3146400689) CL (test code = 104 mmol/L 98-108 5534141597) CO2 TOTAL (test code = 29 mmol/L 23-31 5285295845) AGAP (test code = 2-16 3658965401) BUN (test code = 18 mg/dL 7-23 6742510031) GLUCOSE (test code = 89 mg/dL 70-110 5564245409) CREATININE (test code = 1.00 mg/dL 0.60-1.25 5546546020) CALCIUM (test code = 8.3 mg/dL 8.6-10.6 L 6003638516) eGFR (test code = mL/min/1.73m2 0138174128) FLOYD (test code = FLOYD) Association of Glomerular Filtration Rate (GFR) and Staging of Kidney Disease* + --+ --+ ------+| GFR (mL/min/1.73 m2) ?| With Kidney Damage ?| ?Without Kidney Damage+ --------+ --------+ +| ?>90 ?| ?Stage one ?| ? Normal ?+ ---+ ---+ -------+| ?60-89 ?| ?Stage two ?| ? Decreased GFR ? + --+ --+ ------+| ?30-59 ?| ?Stage three ?| ? Stage three ? + --+ --+ ------+| ?15-29 ?| ?Stage four ? | ? Stage four ?+ ---+ ---+ -------+| ?<15 (or dialysis) ? ?| ?Stage five ? | ? Stage five ?+ ---+ ---+ -------+ *Each stage assumes the associated GFR level has been in effect for at least three months. ?Stages 1 to 5, with or without kidney disease, indicate chronic kidney disease. Notes: Determination of stages one and two (with eGFR >59mL/min/1.73 m2) requires estimation of kidney damage for at least three months as defined by structural or functional abnormalities of the kidney, manifested by either:Pathological abnormalities or Markers of kidney damage (including abnormalities in the composition of the blood or urine or abnormalities in imaging tests). Lab Interpretation Abnormal (test code = 37675-2) [facility] (44446) (ALB,T.PRO,BILI T,BU/BC,ALT,AST,ALK PHOS)2021-07-11 20:36:41 Test Item Value Reference Range Interpretation Comments TOTAL BILI (test code = 1945142434) 1.3 mg/dL 0.1-1.1 H BILI UNCON (test code = 0735907086) 1.1 mg/dL 0.1-1.1 BILI CONJ (test code = 2880292538) 0.0 mg/dL 0.0-0.3 T PROTEIN (test code = 1243581533) 6.4 g/dL 6.3-8.2 ALBUMIN (test code = 2386642006) 3.5 g/dL 3.5-5.0 ALK PHOS (test code = 7399768017) 48 U/L 34-122 ALTv (test code = 1742-6) 12 U/L 5-50 AST(SGOT) (test code = 7428551284) 20 U/L 13-40 Lab Interpretation (test code = Abnormal 36930-1) [facility] METABOLIC PANEL (NA, K, CL, CO2, GLUCOSE, BUN, CREATININE, CA)2021-07-11 20:36:41 Test Item Value Reference Range Interpretation Comments NA (test code = 136 mmol/L 135-145 8060121374) K (test code = 4.0 mmol/L 3.5-5.0 5908902906) CL (test code = 104 mmol/L 98-108 0829324787) CO2 TOTAL (test code = 29 mmol/L 23-31 0906632455) AGAP (test code = 2-16 2681737158) BUN (test code = 18 mg/dL 7-23 4479270645) GLUCOSE (test code = 89 mg/dL 70-110 6366418502) CREATININE (test code = 1.00 mg/dL 0.60-1.25 9057091547) CALCIUM (test code = 8.3 mg/dL 8.6-10.6 L 4154558982) eGFR (test code = mL/min/1.73m2 3241163813) FLOYD (test code = FLOYD) Association of Glomerular Filtration Rate (GFR) and Staging of Kidney Disease* + --+ --+ ------+| GFR (mL/min/1.73 m2) ?| With Kidney Damage ?| ?Without Kidney Damage+ --------+ --------+ +| ?>90 ?| ?Stage one ?| ? Normal ?+ ---+ ---+ -------+| ?60-89 ?| ?Stage two ?| ? Decreased GFR ? + --+ --+ ------+| ?30-59 ?| ?Stage three ?| ? Stage three ? + --+ --+ ------+| ?15-29 ?| ?Stage four ? | ? Stage four ?+ ---+ ---+ -------+| ?<15 (or dialysis) ? ?| ?Stage five ? | ? Stage five ?+ ---+ ---+ -------+ *Each stage assumes the associated GFR level has been in effect for at least three months. ?Stages 1 to 5, with or without kidney disease, indicate chronic kidney disease. Notes: Determination of stages one and two (with eGFR >59mL/min/1.73 m2) requires estimation of kidney damage for at least three months as defined by structural or functional abnormalities of the kidney, manifested by either:Pathological abnormalities or Markers of kidney damage (including abnormalities in the composition of the blood or urine or abnormalities in imaging tests). Lab Interpretation Abnormal (test code = 60719-9) [facility] (71361) (ALB,T.PRO,BILI T,BU/BC,ALT,AST,ALK PHOS)2021-07-11 20:36:41 Test Item Value Reference Range Interpretation Comments TOTAL BILI (test code = 5855750880) 1.3 mg/dL 0.1-1.1 H BILI UNCON (test code = 1573223045) 1.1 mg/dL 0.1-1.1 BILI CONJ (test code = 6164021318) 0.0 mg/dL 0.0-0.3 T PROTEIN (test code = 6542428800) 6.4 g/dL 6.3-8.2 ALBUMIN (test code = 5403494670) 3.5 g/dL 3.5-5.0 ALK PHOS (test code = 6568191921) 48 U/L 34-122 ALTv (test code = 1742-6) 12 U/L 5-50 AST(SGOT) (test code = 6317924081) 20 U/L 13-40 Lab Interpretation (test code = Abnormal 87555-9) [facility] 20:21:30 Test Item Value Reference Range Interpretation Comments APTT Patient (test See_Comment [Automat ed code = 3173-2) message] The system which generated this result transmitted reference range : 23 - 38 Seconds . The reference range was not used to interpr et this result as normal/abnormal . FLOYD (test code = FLOYD) The [facility] patient population mean normal value for aPTT is 30 seconds. Lab Interpretation Normal (test code = 16204-2) [facility]14 20:21:30 Test Item Value Reference Range Interpretation Comments APTT Patient (test See_Comment [Automat ed code = 3173-2) message] The system which generated this result transmitted reference range : 23 - 38 Seconds . The reference range was not used to interpr et this result as normal/abnormal . FLOYD (test code = FLOYD) The [facility] patient population mean normal value for aPTT is 30 seconds. Lab Interpretation Normal (test code = 58150-9) [facility]14 20:21:30 Test Item Value Reference Range Interpretation Comments APTT Patient (test See_Comment [Automat ed code = 3173-2) message] The system which generated this result transmitted reference range : 23 - 38 Seconds . The reference range was not used to interpr et this result as normal/abnormal . FLOYD (test code = FLOYD) The [facility] patient population mean normal value for aPTT is 30 seconds. Lab Interpretation Normal (test code = 76513-1) [facility]iscoProthrom[facility] Time / [id number] 20:19:29 Test Item Value Reference Range Interpretation Comments PROTIME PATIENT (test See_Comment H [Auto mated message] code = 5964-2) The system [employer] generated this result transmitted ref erence range: 12.0 - 1 4.7 Seconds. The reference range was not used to int erpret this result as normal/abnormal . INR (test code = 6301-6) Nor mal INR <1.1; Warfarin Therap eutic range 2.0 to 3. 0 or 2.5 to 3.5, dep ending upon the indica tions. Lab Interpretation (test Abnormal code = 27999-7) [facility]iscoProth[facility] / [id number] 20:19:29 Test Item Value Reference Range Interpretation Comments PROTIME PATIENT (test See_Comment H [Auto mated message] code = 5964-2) The system [employer] generated this result transmitted ref erence range: 12.0 - 1 4.7 Seconds. The reference range was not used to int erpret this result as normal/abnormal . INR (test code = 6301-6) Nor mal INR <1.1; Warfarin Therap eutic range 2.0 to 3. 0 or 2.5 to 3.5, dep ending upon the indica tions. Lab Interpretation (test Abnormal code = 48538-7) [facility] / [id number] 20:19:29 Test Item Value Reference Range Interpretation Comments PROTIME PATIENT (test See_Comment H [Auto mated message] code = 5964-2) The system wh ich generated this result transmitted ref erence range: 12.0 - 1 4.7 Seconds. The reference range was not used to int erpret this result as normal/abnormal . INR (test code = 6301-6) Nor mal INR <1.1; Warfarin Therap eutic range 2.0 to 3. 0 or 2.5 to 3.5, dep ending upon the indica tions. Lab Interpretation (test Abnormal code = 23660-6) [facility] [id number] 20:11:46 Test Item Value Reference Range Interpretation Comments WBC (test code = See_Comment [Automated 6690-2) message] The sy stem which generated this result transmitted reference range : 4.20 - 10.70 10*3/?L. The reference range was not used to interpret this result as normal/abnormal . RBC (test code = See_Comment [Automated 639-8) message] The sy stem which generated this result transmitted reference range : 4.26 - 5.52 10*6/?L. The reference range was not used to interpret this result as normal/abnormal . HGB (test code = 13.7 g/dL 12.2-16.4 718-7) HCT (test code = 39.9 % 38.4-49.3 4544-3) MCV (test code = 92.6 fL 81.7-95.6 787-2) MCH (test code = 31.8 pg 26.1-32.7 785-6) MCHC (test code = 34.3 g/dL 31.2-35.0 786-4) RDW-SD (test code = 42.1 fL 38.5-51.6 84363-6) RDW-CV (test code = 12.2 % 12.1-15.4 788-0) PLT (test code = See_Comment [Automated 777-3) message] The sy stem which generated this result transmitted reference range : 150 - 328 10*3/ ?L. The reference r aleksandra was not used to interpret this result as normal/abnormal . MPV (test code = 10.3 fL 9.8-13.0 57744-5) NRBC/100 WBC (test See_Comment [Automat ed code = 7900457288) message] The system which generated this result transmitted reference range : 0.0 - 10.0 /100 WBCs. The refer ence range was not u sed to interpret th is result as normal/abnormal . NRBC x10^3 (test code <0.01 See_Comment [Auto mated = 6622906060) message] The s ystem which generated this result transmitted reference range : 10*3/?L. The reference range was not used to interpret this result as normal/abnormal . GRAN MAT (NEUT) % 68.4 % (test code = 770-8) IMM GRAN % (test code 0.20 % = 2590574204) LYMPH % (test code = 15.2 % 736-9) MONO % (test code = 10.5 % 5905-5) EOS % (test code = 4.4 % 713-8) BASO % (test code = 1.3 % 706-2) GRAN MAT x10^3(ANC) 3.60 10*3/uL 1.99-6.95 (test code = 0660812987) IMM GRAN x10^3 (test <0.03 0.00-0.06 code = 7744289502) LYMPH x10^3 (test code 0.80 10*3/uL 1.09-3.23 L = 731-0) MONO x10^3 (test code 0.55 10*3/uL 0.36-1.02 = 742-7) EOS x10^3 (test code = 0.23 10*3/uL 0.06-0.53 711-2) BASO x10^3 (test code 0.07 10*3/uL 0.01-0.09 = 704-7) Lab Interpretation Abnormal (test code = 22952-4) [facility] WITH [id number] 20:11:46 Test Item Value Reference Range Interpretation Comments WBC (test code = See_Comment [Automated 6690-2) message] The sy stem which generated this result transmitted reference range : 4.20 - 10.70 10*3/?L. The reference range was not used to interpret this result as normal/abnormal . RBC (test code = See_Comment [Automated 789-8) message] The sy stem which generated this result transmitted reference range : 4.26 - 5.52 10*6/?L. The reference range was not used to interpret this result as normal/abnormal . HGB (test code = 13.7 g/dL 12.2-16.4 718-7) HCT (test code = 39.9 % 38.4-49.3 4544-3) MCV (test code = 92.6 fL 81.7-95.6 787-2) MCH (test code = 31.8 pg 26.1-32.7 785-6) MCHC (test code = 34.3 g/dL 31.2-35.0 786-4) RDW-SD (test code = 42.1 fL 38.5-51.6 33869-9) RDW-CV (test code = 12.2 % 12.1-15.4 788-0) PLT (test code = See_Comment [Automated 777-3) message] The sy stem which generated this result transmitted reference range : 150 - 328 10*3/ ?L. The reference r aleksandra was not used to interpret this result as normal/abnormal . MPV (test code = 10.3 fL 9.8-13.0 44945-7) NRBC/100 WBC (test See_Comment [Automat ed code = 6763096092) message] The system which generated this result transmitted reference range : 0.0 - 10.0 /100 WBCs. The refer ence range was not u sed to interpret th is result as normal/abnormal . NRBC x10^3 (test code <0.01 See_Comment [Auto mated = 7638968167) message] The s ystem which generated this result transmitted reference range : 10*3/?L. The reference range was not used to interpret this result as normal/abnormal . GRAN MAT (NEUT) % 68.4 % (test code = 770-8) IMM GRAN % (test code 0.20 % = 9611418307) LYMPH % (test code = 15.2 % 736-9) MONO % (test code = 10.5 % 5905-5) EOS % (test code = 4.4 % 713-8) BASO % (test code = 1.3 % 706-2) GRAN MAT x10^3(ANC) 3.60 10*3/uL 1.99-6.95 (test code = 1336380124) IMM GRAN x10^3 (test <0.03 0.00-0.06 code = 6122648016) LYMPH x10^3 (test code 0.80 10*3/uL 1.09-3.23 L = 731-0) MONO x10^3 (test code 0.55 10*3/uL 0.36-1.02 = 742-7) EOS x10^3 (test code = 0.23 10*3/uL 0.06-0.53 711-2) BASO x10^3 (test code 0.07 10*3/uL 0.01-0.09 = 704-7) Lab Interpretation Abnormal (test code = 56508-7) [facility] WITH [id number] 20:11:46 Test Item Value Reference Range Interpretation Comments WBC (test code = See_Comment [Automated 8890-2) message] The sy stem which generated this result transmitted reference range : 4.20 - 10.70 10*3/?L. The reference range was not used to interpret this result as normal/abnormal . RBC (test code = See_Comment [Automated 938-8) message] The sy stem which generated this result transmitted reference range : 4.26 - 5.52 10*6/?L. The reference range was not used to interpret this result as normal/abnormal . HGB (test code = 13.7 g/dL 12.2-16.4 718-7) HCT (test code = 39.9 % 38.4-49.3 4544-3) MCV (test code = 92.6 fL 81.7-95.6 787-2) MCH (test code = 31.8 pg 26.1-32.7 785-6) MCHC (test code = 34.3 g/dL 31.2-35.0 786-4) RDW-SD (test code = 42.1 fL 38.5-51.6 18641-9) RDW-CV (test code = 12.2 % 12.1-15.4 788-0) PLT (test code = See_Comment [Automated 777-3) message] The sy stem which generated this result transmitted reference range : 150 - 328 10*3/ ?L. The reference r aleksandra was not used to interpret this result as normal/abnormal . MPV (test code = 10.3 fL 9.8-13.0 94169-1) NRBC/100 WBC (test See_Comment [Automat ed code = 1892628287) message] The system which generated this result transmitted reference range : 0.0 - 10.0 /100 WBCs. The refer ence range was not u sed to interpret th is result as normal/abnormal . NRBC x10^3 (test code <0.01 See_Comment [Auto mated = 1341926179) message] The s ystem which generated this result transmitted reference range : 10*3/?L. The reference range was not used to interpret this result as normal/abnormal . GRAN MAT (NEUT) % 68.4 % (test code = 770-8) IMM GRAN % (test code 0.20 % = 6060552875) LYMPH % (test code = 15.2 % 736-9) MONO % (test code = 10.5 % 5905-5) EOS % (test code = 4.4 % 713-8) BASO % (test code = 1.3 % 706-2) GRAN MAT x10^3(ANC) 3.60 10*3/uL 1.99-6.95 (test code = 4009708029) IMM GRAN x10^3 (test <0.03 0.00-0.06 code = 6656151584) LYMPH x10^3 (test code 0.80 10*3/uL 1.09-3.23 L = 731-0) MONO x10^3 (test code 0.55 10*3/uL 0.36-1.02 = 742-7) EOS x10^3 (test code = 0.23 10*3/uL 0.06-0.53 711-2) BASO x10^3 (test code 0.07 10*3/uL 0.01-0.09 = 704-7) Lab Interpretation Abnormal (test code = 52531-6) [facility]"
[2022-02-09 17:49] LABS: Lymphocytes % 17.4 % (15.3-44.8); MCV 91.5 fL (80-100); MPV 8.1 fL (7.6-11.3); RBC Red Blood Cell Count 4.91 M/uL (4.33-5.43)
[2022-02-09 17:50] LABS: Protime INR 1.4
[2022-02-09 17:54] LABS: SARS-CoV-2 Antigen Rapid Res Negative (Negative)
[2022-02-09 18:21] LABS: Albumin 3.6 g/dL (3.4-5.0); Bilirubin Direct 0.1 mg/dL (0-0.2); Bilirubin Total 0.7 mg/dL (0.2-1.0); Magnesium 2.1 mg/dL (1.8-2.4); Potassium 4.3 mmol/L (3.5-5.1); Protein, Total 6.8 g/dL (6.4-8.2); Troponin High Sensitivity 21.4 pg/mL (<58.9)
--- NOTE | 2022-02-09 18:40 | RAD REPORT ---
EXAM DESCRIPTION: [facility] Single View02/09/2022 6:20 pm CLINICAL HISTORY: sob COMPARISON: 2019 FINDINGS: The lungs appear clear of acute infiltrate. The heart is normal size Pacemaker leads in place IMPRESSION: No acute abnormalities displayed
--- NOTE | 2022-02-09 20:26 | ER ---
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 It knocked me off the toilet." Denies pain, dizziness, or SOB at this time. Defibrillator was placed 08/2014. Coronavirus screen: Vaccine status: Patient reports receiving the 2nd dose of the covid vaccine. Ebola Screen: No symptoms or risks identified at this time. Initial Sepsis Screen: Does the patient meet any 2 criteria? No. Patient's initial sepsis screen is negative. Does the patient have a suspected source of infection? No. Patient's initial sepsis screen is negative. Risk Assessment: Do you want to hurt yourself or someone else? Patient reports no desire to harm self or others. 17:00 Method Of Arrival: Ambulatory ph 17:00 Acuity: ADAM 3 ph 17:05 Note During triage pt began to c/o that he was feeling lightheaded and SOB, ERP in triage to assess pt, taken to exam room 27. 17:11 Acuity: ADAM 2 ph 20:56 Onset of symptoms was February 09, 2022 at 20:56. ld1 Historical: - Allergies: 17:05 No Known Drug Allergies; ph - PMHx: 17:05 Atrial Fib; blood clots; Diverticulitis; heart attack; Hypertension; kidney infection; ph - Immunization history:: Adult Immunizations up to date. - Social history:: Smoking status: Patient denies any tobacco usage or history of. Screenin:37 Abuse screen: Denies threats or abuse. Denies injuries from another. Nutritional ld1 screening: No deficits noted. Tuberculosis screening: No symptoms or risk factors identified. Fall Risk None identified. Assessment: 17:37 General: Appears in no apparent distress. comfortable, Behavior is calm, cooperative, ld1 appropriate for age. Pain: Denies pain. Neuro: Level of Consciousness is awake, alert, obeys commands, Oriented to person, place, time, situation. Cardiovascular: Capillary refill < 3 seconds Patient's skin is warm and dry. Respiratory: Airway is patent Respiratory effort is even, unlabored. GI: Abdomen is flat, non-distended. : No signs and/or symptoms were reported regarding the genitourinary system. EENT: No signs and/or symptoms were reported regarding the EENT system. Derm: No signs and/or symptoms reported regarding the dermatologic system. Musculoskeletal: No signs and/or symptoms reported regarding the musculoskeletal system. Vital Signs: 17:00 BP 143 / 97; Pulse 95; Resp 18; Temp 96.5; Pulse Ox 99% on R/A; Weight 90.72 kg; Pain ph 0/10; 17:37 BP 137 / 85; Pulse 61; Resp 18; Pulse Ox 98% on R/A; ld1 18:31 BP 136 / 86; Pulse 61; Resp 18; Pulse Ox 99% on R/A; ld1 20:22 BP 141 / 85; Pulse 63; Resp 18; Pulse Ox 99% on R/A; ld1 ED Course: 16:59 Patient arrived in ED. mr 17:00 Brianna Mcneil MD is Private Physician. mr 17:05 Triage completed. ph 17:06 Arm band placed on Patient placed in an exam room. ph 17:11 Lori Ayala, OLI is Primary Nurse. ld1 17:16 Madalyn Sanchez FNP-C is PHCP. snw 17:16 Calvin Marin DO is Attending Physician. snw 17:37 Patient has correct armband on for positive identification. Placed in gown. Bed in low ld1 position. Call light in reach. Side rails up X2. Client placed on continuous cardiac and pulse oximetry monitoring. NIBP monitoring applied. Door closed. Noise minimized. Warm blanket given. 17:37 No provider procedures requiring assistance completed. Inserted saline lock: 20 gauge ld1 in right antecubital area, using aseptic technique. Blood collected. 17:39 SARS RAPID Sent. ld1 18:22 XRAY Chest (1 view) In Process Unspecified. EDMS 20:23 Brianna Mcneil MD is Referral Physician. snw 20:56 IV discontinued, intact, bleeding controlled, No redness/swelling at site. ld1 Administered Medications: No medications were administered Medication: 17:37 VIS not applicable for this client. ld1 Outcome: 20:25 Discharge ordered by . amauri 20:56 Discharged to home ambulatory, with family. ld1 20:56 Condition: stable 20:56 Discharge instructions given to patient, family, Instructed on discharge instructions, follow up and referral plans. medication usage, Demonstrated understanding of instructions, follow-up care, medications, Prescriptions given X 1. 20:57 Patient left the ED. ld1 Signatures: Dispatcher [employer] EDMS Madalyn Sanchez, BOOT TRIMMER-C BOOT TRIMMER-Yunierw Georgiana Lee mr Renetta Russo RN RN Lori Ayala, OLI RN ld1
--- NOTE | 2022-02-09 20:26 | EDPHYS ---
Physician Documentation [facility] Name: Chase Daniels Age: 76 yrs Sex: Male : 1945 Arrival Date: 02/09/2022 Time: 16:59 Bed 27 Private MD: Brianna Mcneil ED Physician Calvin Marin HPI: 02/09 17:33 This 76 yrs old Male presents to ER via Ambulatory with complaints of Defibrillator snw problem. 17:33 The patient presents with a history of irregular heart beat. Context: The symptoms snw occur pt was on the toilet, had some dizziness and shortness of breath and then defibrillator fired. Onset: The symptoms/episode began/occurred suddenly. Duration: The patient or guardian reports a single episode. Modifying factors: The symptoms are aggravated by nothing. Associated signs and symptoms: Pertinent positives: as noted. Severity of symptoms: At their worst the symptoms were moderate. The patient has not experienced similar symptoms in the past. The patient has been recently seen by a physician: the patient's primary care provider, Dr. Mcneil with similar presenting complaints, lab tests were done. Historical: - Allergies: 17:05 No Known Drug Allergies; ph - PMHx: 17:05 Atrial Fib; blood clots; Diverticulitis; heart attack; Hypertension; kidney infection; ph - Immunization history:: Adult Immunizations up to date. - Social history:: Smoking status: Patient denies any tobacco usage or history of. ROS: 17:32 Constitutional: Negative for fever, chills, and weight loss, Eyes: Negative for injury, snw pain, redness, and discharge, ENT: Negative for injury, pain, and discharge, Neck: Negative for injury, pain, and swelling, Cardiovascular: Negative for chest pain, palpitations, and edema, chest is sore post defibrillation, states he is always in a. fib Respiratory: Negative for cough, wheezing, and pleuritic chest pain, + mild shortness of breath Abdomen/GI: Negative for abdominal pain, nausea, vomiting, diarrhea, and constipation, Back: Negative for injury and pain, : Negative for injury, bleeding, discharge, and swelling, MS/Extremity: Negative for injury and deformity, Skin: Negative for injury, rash, and discoloration, Psych: Negative for depression, anxiety, suicide ideation, homicidal ideation, and hallucinations. 17:32 Neuro: Positive for dizziness. Exam: 17:30 Constitutional: This is a well developed, well nourished patient who is awake, alert, snw and in no acute distress. occasional episodes of pallor, dizziness. Pt states his chest is sore s/p defibrillation. Pt states he got a little short of breath and a little dizzy prior to defib Head/Face: Normocephalic, atraumatic. Eyes: Pupils equal round and reactive to light, extra-ocular motions intact. Lids and lashes normal. Conjunctiva and sclera are non-icteric and not injected. Cornea within normal limits. Periorbital areas with no swelling, redness, or edema. ENT: Nares patent. No nasal discharge, no septal abnormalities noted. Tympanic membranes are normal and external auditory canals are clear. Oropharynx with no redness, swelling, or masses, exudates, or evidence of obstruction, uvula midline. Mucous membranes moist. Neck: Trachea midline, no thyromegaly or masses palpated, and no cervical lymphadenopathy. Supple, full range of motion without nuchal rigidity, or vertebral point tenderness. No Meningismus. Chest/axilla: Normal chest wall appearance and motion. Nontender with no deformity. No lesions are appreciated. Cardiovascular: Regular rate and rhythm with a normal S1 and S2. No gallops, murmurs, or rubs. Normal PMI, no JVD. No pulse deficits. Respiratory: Lungs have equal breath sounds bilaterally, clear to auscultation and percussion. No rales, rhonchi or wheezes noted. No increased work of breathing, no retractions or nasal flaring. Abdomen/GI: Soft, non-tender, with normal bowel sounds. No distension or tympany. No guarding or rebound. No evidence of tenderness throughout. Back: No spinal tenderness. No costovertebral tenderness. Full range of motion. Skin: Warm, dry with normal turgor. Normal color with no rashes, no lesions, and no evidence of cellulitis. MS/ Extremity: Pulses equal, no cyanosis. Neurovascular intact. Full, normal range of motion. Neuro: Awake and alert, GCS 15, oriented to person, place, time, and situation. Cranial nerves II-XII grossly intact. Motor strength 5/5 in all extremities. Sensory grossly intact. Cerebellar exam normal. Normal gait. Psych: Awake, alert, with orientation to person, place and time. Behavior, mood, and affect are within normal limits. Vital Signs: 17:00 BP 143 / 97; Pulse 95; Resp 18; Temp 96.5; Pulse Ox 99% on R/A; Weight 90.72 kg; Pain ph 0/10; 17:37 BP 137 / 85; Pulse 61; Resp 18; Pulse Ox 98% on R/A; ld1 18:31 BP 136 / 86; Pulse 61; Resp 18; Pulse Ox 99% on R/A; ld1 20:22 BP 141 / 85; Pulse 63; Resp 18; Pulse Ox 99% on R/A; ld1 MDM: 17:20 Patient medically screened. snw 20:22 Data reviewed: vital signs, nurses notes, lab test result(s), EKG, radiologic studies. snw Counseling: I had a detailed discussion with the patient and/or guardian regarding: the historical points, exam findings, and any diagnostic results supporting the discharge/admit diagnosis, the presence of at least one elevated blood pressure reading (>120/80) during this emergency department visit, lab results, radiology results, the need for outpatient follow up, to return to the emergency department if symptoms worsen or persist or if there are any questions or concerns that arise at home. Response to treatment: There is no appreciated change of the patient's symptoms at this time. Physician consultation: Cirilo Carver MD was called at 20:22, was contacted at 20:22, regarding consult, patient's condition, would like medications started, pt currently taking Sotalol 80mg po BID, Dr. Carver wants dose increased to 80mg TID. . Special discussion: Based on the patient's history, exam, and Dx evaluation, there is no indication for emergent intervention or inpatient Tx. It is understood by the patient/guardian that if the Sx's persist or worsen they need to return immediately for re-evaluation. Based on the history and exam findings, there is no indication for further emergent testing or inpatient evaluation. I discussed with the patient/guardian the need to see the pit crane operator for further evaluation of the symptoms. I discussed with the patient/guardian the need to see the primary care provider for further evaluation of the symptoms. 02/09 17:17 Order name: Basic Metabolic Panel; Complete Time: 18:38 snw 02/09 17:17 Order name: CBC with Diff; Complete Time: 18:02 snw 02/09 17:17 Order name: LFT's; Complete Time: 18:38 snw 02/09 17:17 Order name: Magnesium; Complete Time: 18:38 snw 02/09 17:17 Order name: NT PRO-BNP; Complete Time: 18:38 snw 02/09 17:17 Order name: PT-INR; Complete Time: 18:02 snw 02/09 17:17 Order name: Troponin HS; Complete Time: 18:38 snw 02/09 17:17 Order name: XRAY Chest (1 view); Complete Time: 18:44 snw 02/09 17:17 Order name: EKG; Complete Time: 17:20 snw 02/09 17:17 Order name: Cardiac monitoring; Complete Time: 18:08 snw 02/09 17:17 Order name: EKG - Nurse/Tech; Complete Time: 17:37 snw 02/09 17:17 Order name: IV Saline Lock; Complete Time: 17:37 snw 02/09 17:17 Order name: Labs collected and sent; Complete Time: 17:37 snw 02/09 17:17 Order name: SARS RAPID; Complete Time: 18:02 snw 02/09 17:17 Order name: O2 Per Protocol; Complete Time: 17:37 snw 02/09 17:17 Order name: O2 Sat Monitoring; Complete Time: 17:37 snw 02/09 17:20 Order name: Misc. Order: pacemaker interogation; Complete Time: 17:39 snw EC:35 Rate is 62 beats/min. Rhythm is regular, Normal Sinus Rhythm with PACs, Ventricular snw paced. Clinical impression: NSR w/ Non-specific ST/T Changes. Administered Medications: No medications were administered Disposition: 22:08 Co-signature as Attending Physician, Calvin Marin DO I agree with the assessment and ms3 plan of care. Disposition Summary: 02/09/22 20:25 Discharge Ordered Location: Home snw Condition: Stable snw Diagnosis - Presence of automatic (implantable) cardiac defibrillator snw - Ventricular tachycardia - pace terminated 7 of 8 times, shock terminated 1 time snw Followup: snw - With: Emergency Department - When: As needed - Reason: Worsening of condition Followup: snw - With: Brianna Mcneil MD - When: 2 - 3 days - Reason: Recheck today's complaints, Continuance of care, Re-evaluation by your physician Discharge Instructions: - Discharge Summary Sheet snw - Ventricular Tachycardia snw Forms: - Medication Reconciliation Form snw - Thank You Letter snw - Antibiotic Education snw - Prescription Opioid Use snw Prescriptions: - sotalol 80 mg Oral tablet - take 1 tablet by ORAL route 3 times per day; 30 tablet; Refills: 0, Product snw Selection Permitted Signatures: Dispatcher [employer] EDMS Madalyn Sanchez, BUS REPAIR SUPERVISOR-C BUS REPAIR SUPERVISOR-Csnw Renetta Russo, RN RN ph Calvin Marin DO DO ms3
[2022-02-09 21:22] VITALS: TEMP 96.5
[2022-02-09 21:26] VITALS: O2SAT 99
[2022-02-09 21:30] VITALS: BP 141/85
--- NOTE | 2022-02-10 08:12 | EKG ---
Test Date: 2022-02-09 Test Time: 17:33:46 Assistant Professor Of English: MEASUREMENT RESULTS: Intervals: Rate: 62 [place]: 134 QRSD: 82 QT: 262 QTc: 265 [place]: P: 18 [place]: 134 QRS: 30 T: 22 INTERPRETIVE STATEMENTS: Normal sinus rhythm Cannot rule out Inferior infarct, age undetermined Abnormal ECG Compared to ECG 02/09/2022 17:31:23 Myocardial infarct finding now present Accelerated junctional rhythm no longer present Ventricular premature complex(es) no longer present Prolonged QT interval no longer present Electronically Signed On 02-10-22 08:11:04 CDT by Cirilo Carver
--- NOTE | 2022-02-10 08:13 | EKG ---
Test Date: 2022-02-09 Test Time: 17:31:23 Child Caregiver Private Home: MEASUREMENT RESULTS: Intervals: Rate: 67 [place]: QRSD: 90 QT: 556 QTc: 587 [place]: P: [place]: QRS: 46 T: 27 INTERPRETIVE STATEMENTS: Poor data quality, interpretation may be adversely affected Accelerated Junctional rhythm with occasional premature ventricular complexes Prolonged QT Abnormal ECG Compared to ECG 07/05/2016 18:18:45 Accelerated junctional rhythm now present Ventricular premature complex(es) now present Prolonged QT interval now present Sinus rhythm no longer present Myocardial infarct finding no longer present T-wave abnormality no longer present Electronically Signed On 02-10-22 08:11:05 CDT by Cirilo Carver
== END 2022-02-09 20:57 | disposition home or self-care (01) ==
LOC: ER 16:57
DX: I47.2 Ventricular tachycardia (principal); Z95.810 Presence of automatic (implantable) cardiac defibrillator; I10 Essential (primary) hypertension; I48.91 Unspecified atrial fibrillation; Z20.822 Contact with and (suspected) exposure to COVID-19
CPT/HCPCS: 36415; 71045; 80048; 80076; 83735; 83880; 84484; 85025; 85610; 87811; 93005; 99284

== ENCOUNTER 2022-03-26 04:00 | Observation (INO) | payer OTHER ==
--- OUTSIDE RECORDS SUMMARY | 2022-03-26 04:10 | XMS REPORT | Continuity of Care Document ---
:1945 Author Organization [facility] t Address [address] [place] [address] Care Team Providers Name Role Phone Joanie Elias DO Primary Care Physician Joanie Elias Attending Clinician Unavailable Dayton Ross Attending Clinician Unavailable Lucero Darnell Attending Clinician Unavailable Stefanie Omer APRN Attending Clinician QASIM BERTRAND Attending Clinician Unavailable Qasim Bertrand Attending Clinician OBI HARRIS Attending Clinician Unavailable Obi Harris Attending Clinician JOSS CHOWDARY Attending Clinician Unavailable JAMA DIETZ Attending Clinician Unavailable Doctor Unassigned, [place] Attending Clinician Unavailable RADIOLOGY Attending Clinician Unavailable Radiology Attending Clinician Unavailable Kiley Aviles RN Attending Clinician Unavailable AYAH CAVAZOS Attending Clinician Unavailable Ayah Cavazos MD Attending Clinician Stephen Montana MD Attending Clinician MAVERICK GONZALEZ M.D. Attending Clinician Unavailabl e Maverick Gonzalez Attending Clinician QASIM BERTRAND Admitting Clinician Unavailable Qasim Bertrand Admitting Clinician OBI HARRIS Admitting Clinician Unavailable Obi Harris Admitting Clinician JOANIE ELIAS Admitting Clinician Unavailable AYAH CAVAZOS Admitting Clinician Unavailable Ayah Cavazos MD Admitting Clinician Maverick Gonzalez Admitting Clinician Payers Payer Name Policy Type Policy Number Effective Date Expiration Date Mitul hare [employer] [id number] 2018 MEDICARE 00:00:00 [employer] 53 [id number] 2020 Common MCR Replace 00:00:00 [facility] Problems Condition Condition Condition Status Onset Resolution Last Treating Co mments Source Name Details Category Date Date Treatment Clinician Date 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 03-24 He alth tor in tor in 00:00: situ situ 00 Diverticul Diverticul Disease Active U T itis itis 03-24 Health 00:00: 00 Glaucoma Glaucoma Disease Active UT of both of both 03-24 Health eyes eyes 00:00: 00 Hyperlipid Hyperlipid Disease Active U T emia emia 03-24 Health 00:00: 00 A-fib A-fib Disease Active UT 8 Health 00:00: 00 HTN HTN Disease Active UT (hypertens (hypertens 825 He alth ion) ion) 00:00: 00 [place] VT Disease Active UT (ventricul (ventricul 02-19 He alth ar ar 00:00: tachycardi tachycardi 00 a) a) Dyslipidem Dyslipidem Disease Active U T ia ia 02-19 Health 00:00: 00 AAA AAA Disease Active UT (abdominal (abdominal 02-19 He alth aortic aortic 00:00: aneurysm) aneurysm) 00 CAD CAD Disease Active UT (coronary (coronary 825 Heal th artery artery 00:00: disease) disease) 00 Vertigo Vertigo Disease Active UT 8-25 Health 00:00: 00 Carotid Carotid Disease Active UT bruit bruit 8-25 Health 00:00: 00 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 Health systolic systolic 00:00: and and 00 diastolic diastolic heart heart failure failure Ischemic Ischemic Disease Active UT cardiomyop cardiomyop 1-19 He alth athy athy 00:00: 00 PAF PAF Disease Active Univers (paroxysma (paroxysma 19 it y of l atrial l atrial 00:00: [place] fibrillati fibrillati 00 Me dical on) on) Branch Essential Essential Disease Active Uni vers hypertensi hypertensi 1-19 it y of on on 00:00: [place] 00 Medical Branch Dyslipidem Dyslipidem Disease Active U nivers ia ia 1-19 ity of 00:00: [place] [facility] Deep vein Deep vein Disease Active UT thrombosis thrombosis 3-17 He alth of left of left 00:00: upper upper 00 extremity extremity [id number] Abnormal Problem Commo n liver [facility] function - [facility] [id number] Rash Problem Common [facility] Thrombocyt Thrombocyt Problem C ommon openia openia [facility] Abdominal Abdominal Problem Com mon aortic aortic Spirit aneurysm aneurysm - [facility] without without St rupture rupture [facility] [id number] Allergic Problem Commo n rhinitis, [facility] unspecifie - [facility] d [facility] y, Medical unspecifie Center d trigger Stable 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 angina Medical pectoris, Center unspecifie d vessel or lesion type, unspecifie d whether [facility] or transplant ed heart [id number] Depression Problem Co mmon screening [facility] [id number] Other Problem Common chronic [facility] pain - [facility] [id number] Pain in Problem Common right knee [facility] [id number] Pain in Problem Comm on left knee [facility] [id number] Primary Problem Comm on osteoarthr Spirit itis of - [facility] right knee [facility] [id number] Abnormal Problem Comm on x-ray of Spirit extremity - [facility] [id number] Sigmoid Problem Commo n diverticul Spirit itis - [facility] [id number] Primary Problem Comm on osteoarthr Spirit itis of - [facility] left knee [facility] [id number] Glaucoma Problem Commo n of both Spirit eyes, - [facility] unspecifie [facility] glaucoma [facility] [id number] Chronic Problem Commo n atrial [facility] fibrillati - [facility] on [facility] [id number] Stage 3a Problem Comm on chronic [facility] kidney - [facility] disease [facility] [id number] Abscess of Problem Co mmon left Spirit olecranon - [facility] bursa [facility] Atheroscle Coronary Problem Com mon rosis of atheroscle Spir it coronary rosis of - CHI artery [facility] coronary [facility] artery [facility] [id number] Olecranon Problem Co mmon bursitis Spirit of left - [facility] elbow [facility] Hyperglyce Hyperglyce Problem C ommon vilma vilma [facility] [id number] Skin Problem Commo n 06 lesion of Spirit face - [facility] [id number] Septic Problem Commo n [id number] olecranon Spirit bursitis - [facility]I of left elbow [facility] [id number] Left elbow Problem Com mon pain [facility] Inflammati Olecranon Problem Co mmon on of bursitis, Spirit bursa of left elbow - CH I olecranon [facility] History of History of Problem Resolve UT cardiac cardiac d Physici pacemaker pacemaker ans History of History of Problem Resolve UT myocardial myocardial d Ph ysici infarction infarction an s Allergies, Adverse Reactions, Alerts Allergy Allergy Status Severity Reaction(s) Onset Inactive Treating Comm ents Source Name Type Date Date Clinician Adhesive Drug Active UT Tape Allergy 8 Health 00:00: 00 Calcium Propensi Active UT ty to 8 Health adverse 00:00: reaction 00 s Lisinopr Propensi Active UT il ty to 825 Health adverse 00:00: reaction 00 s Pravasta Propensi Active UT tin ty to 02-19 Health adverse 00:00: reaction 00 s Rosuvast Propensi Active UT atin ty to 8- Health adverse 00:00: reaction 00 s Simvasta Propensi Active UT tin ty to 8 Health adverse 00:00: reaction 00 s Sodium Propensi Active UT ty to 8 Health adverse 00:00: reaction 00 s NO KNOWN Drug Active [facility] ALLERGIE Class ity of S [facility] Social History Social Habit Start Date Stop Date Quantity Comments Source History of Cigarette [facility]oker [facility] tobacco use Exposure to 2022-03-14 2022-03-24 Not sure [facility] SARS-CoV-2 00:00:00 14:55:00 (event) Tobacco use and 2022-03-24 2022-03-24 Smokeless tobacco [facility] exposure 00:00:00 00:00:00 non-user Alcohol intake 2022-03-24 2022-03-24 Ex-drinker [facility] 00:00:00 00:00:00 (finding) Tobacco Comment 2021-07-11 2021-07-11 Quit 40 yrs ago Univ ersity of 00:00:00 00:00:00 [facility] Sex Assigned At [birth year] [facility] 00:00:00 00:00:00 Smoking Status Start Date Stop Date Source Ex-smoker 2022-03-24 00:00:00 2022-03-[facility] 2022-02-05 00:00:00 Common [facility] Medications Ordered Filled Start Stop Current Ordering Indication Dosage Frequency Signature Comments Components Source Medication Medication Date Date Medication? Clinician (SIG) Name Name brimonidine Yes 1 drop UT -timolol 03-24 into Health (Combigan) 15:08: affected 0.2-0.5 % 43 eye ophthalmic solution travoprost Yes TAKE 1 UT (Travatan 03-24 DROP(S) IN Heal th Z) 0.004 % 15:08: BOTH EYES solution 43 ONCE IN ophthalmic THE solution EVENING FLUoxetine FLUoxetine No QD FLUoxetine HCl 20 MG HCl 20 MG 9- HCl 20 MG 00:00: 00 FLUoxetine Yes 1 (one) UT (PROzac) 20 9-21 time each Hea lth MG capsule 00:00: day at the 00 same time. losartan 2022-0 Yes 25mg QD Take 25 mg UT (Cozaar) 25 03-11 by mouth 1 He alth MG tablet 00:00: (one) time 00 each day. furosemide 2022-0 Yes 20mg QD Take 20 mg U T (Lasix) 20 03-11 by mouth 1 Hea lth MG tablet 00:00: (one) time 00 each day. pantoprazol 2-0 Yes 40mg QD Take 40 mg UT e 03-11 by mouth 1 Health (ProtoNix) 00:00: (one) time 40 MG EC 00 each day. tablet spironolact 2021-0 Yes TAKE BY UT one 03-11 MOUTH 1/2 Health (Aldactone) 00:00: TABET 25 MG 00 DAILY tablet metoprolol 2021-0 Yes 25mg QD Take 25 mg U T succinate 03-11 by mouth 1 Heal th XL 00:00: (one) time (Toprol-XL) 00 each day. 25 MG 24 hr tablet warfarin 2021-0 Yes TAKE BY UT (Coumadin) 03-11 MOUTH 1 Health 5 MG tablet 00:00: TAB ON 00 SUN,TUE,WE D,THUR,SAT ,TAKE 1/2 TAB MON & FRI Aspirin Low 2021-0 Yes 81mg QD Chew 81 mg UT Dose 81 MG 03-11 1 (one) Health chewable 00:00: time each tablet 00 day. amiodarone 2-0 Yes 200mg QD Take 200 UT (Pacerone) 9-07 mg by Health 200 MG 00:00: mouth 1 tablet 00 (one) time each day. Brilinta 90 2021-0 Yes 90mg Q.5D Take 90 mg UT MG tablet 03-03 by mouth Health 00:00: in the 00 morning and 90 mg before bedtime. ezetimibe 2-0 Yes 10mg QD Take 10 mg UT (Zetia) 10 03-01 by mouth 1 Hea lth MG tablet 00:00: (one) time 00 each day. Combigan 2022-0 Yes 1[drp] Q.5D Administer U T 0.2-0.5 % 28 1 drop Health ophthalmic 00:00: into the solution 00 left eye in the morning and 1 drop in the evening. INSTILL 1 DROP INTO LEFT EYE TWICE A DAY. diphenhydrA 0 Yes 25mg 25 mg, Univ ers MINE 1-20 Oral, ity of (BENADRYL) 15:28: [place] 25 38 Starting Medica l mg on [facility] Branch 07/17/21 at 0928, Until Discontinu ed, Routine, Itching diphenhydrA 0 Yes 25mg 25 mg, Univ ers MINE 1-20 Oral, ity of (BENADRYL) 15:28: Q4[place]PRN[place] 25 38 Starting Medica l mg on [facility] Branch 07/17/21 at 0928, Until Discontinu ed, Routine, Itching vancomycin Yes 1000mg 1,000 mg, Univers (VANCOCIN) 1-20 IV ity of 1,000 mg in 13:00: [place], [place] NaCl 0.9% 00 Q12H ABX, Medic al (NS) 250 mL First dose Br anch VIAL-MATE (after IV last piggyback modificati on) on [facility] 07/17/21 at 0700, Until Discontinu ed, Administer over 60 Minutes, 250 mL
Reas on for Anti-Infec tive: Documented Infection< br>Documen narcisa Infection Site: Joint
D uration of Therapy: 7 days vancomycin Yes 1000mg 1,000 mg, Univers (VANCOCIN) 1-20 IV ity of 1,000 mg in 13:00: [place], [place] NaCl 0.9% 00 Q12H ABX, Medic al (NS) 250 mL First dose Br anch VIAL-MATE (after IV last piggyback modificati on) on [facility] 07/17/21 at 0700, Until Discontinu ed, Administer over 60 Minutes, 250 mL
Reas on for Anti-Infec tive: Documented Infection< br>Documen narcisa Infection Site: Joint
D uration of Therapy: 7 days sotaloL 0 Yes 80mg Take 80 mg Univ ers (BETAPACE) 1-20 by mouth ity o f 80 mg 12:50: every 12 [place] tablet 48 (twelve) Medical hours. Branch apixaban Yes 5mg Take 5 mg Univ ers (ELIQUIS) 5 1-20 by mouth 2 it y of mg tablet 12:50: (two) [place] [address] times Medical daily. Branch ezetimibe Yes 10mg Take 10 mg Un dajuan 10 mg 1-20 by mouth ity of tablet 12:50: at [place] [address] bedtime. Medical Branch simvastatin Yes 10mg Take 10 mg Univers 10 mg 1-20 by mouth ity of tablet 12:50: at [place] [address] bedtime. Medical Branch clopidogreL Yes 75mg Take 75 mg Univers (PLAVIX) 75 1-20 by mouth ity of mg tablet 12:50: at [place] [address] bedtime. Medical Branch losartan 50 Yes 50mg Take 50 mg Univers mg tablet 1-20 by mouth ity of 12:50: daily. [place] [address] Medical Branch omeprazole/ Yes 20mg Take 20 mg Univers sodium 1-20 by mouth ity of bicarbonate 12:50: [facility] Medical ORAL) Branch Brimonidine Yes 1[drp] Place 1 U nivers -Timolol 1-20 Drop in ity of (COMBIGAN) 12:50: each eye 2 [place] 0.2-0.5 % 48 (two) Medical ophthalmic times Branch drops daily. Left eye travoprost Yes 1[drp] 1 Drop at [facility] 0.004 % 1-20 bedtime. ity of ophthalmic 12:50: [place] [facility] 48 Medical Branch brinzolamid Yes 1[drp] Place 1 U nivers e (AZOPT) 1 1-20 Drop in ity o f % 12:50: left eye [place] ophthalmic 48 Daily at 3 Med ical suspension pm. Branch drops sotaloL Yes 80mg Take 80 mg Univ ers (BETAPACE) 1-20 by mouth ity o f 80 mg 12:50: every 12 [place] tablet 48 (twelve) Medical hours. Branch apixaban Yes 5mg Take 5 mg Univ ers (ELIQUIS) 5 1-20 by mouth 2 it y of mg tablet 12:50: (two) [place] [address] times Medical daily. Branch ezetimibe Yes 10mg Take 10 mg Un dajuan 10 mg 1-20 by mouth ity of tablet 12:50: at [place] [address] bedtime. Medical Branch simvastatin Yes 10mg Take 10 mg Univers 10 mg 1-20 by mouth ity of tablet 12:50: at [place] [address] bedtime. Medical Branch clopidogreL Yes 75mg Take 75 mg Univers (PLAVIX) 75 1-20 by mouth ity of mg tablet 12:50: at [place] [address] bedtime. Medical Branch losartan 50 0 Yes 50mg Take 50 mg Univers mg tablet 1-20 by mouth ity of 12:50: daily. [place] [facility] omeprazole/ 0 Yes 20mg Take [...] by mouth ity of tablet 12:50: at [place] [address] bedtime. Medical Branch simvastatin Yes 10mg Take 10 mg Univers 10 mg 1-20 by mouth ity of tablet 12:50: at [place] [address] bedtime. Medical Branch clopidogreL Yes 75mg Take 75 mg Univers (PLAVIX) 75 1-20 by mouth ity of mg tablet 12:50: at [place] [address] bedtime. Medical Branch losartan 50 Yes 50mg Take 50 mg Univers mg tablet 1-20 by mouth ity of 12:50: daily. [place] [address] Medical Branch omeprazole/ Yes 20mg Take 20 mg Univers sodium 1-20 by mouth ity of bicarbonate 12:50: [place]. [place] (ZEGERID 48 Medical ORAL) Branch Brimonidine Yes 1[drp] Place 1 U nivers -Timolol 1-20 Drop in ity of (COMBIGAN) 12:50: each eye 2 [place] 0.2-0.5 % 48 (two) Medical ophthalmic times Branch drops daily. Left eye travoprost Yes 1[drp] 1 Drop at [facility] 0.004 % 1-20 bedtime. ity of ophthalmic 12:50: [place] [address] Medical Branch brinzolamid Yes 1[drp] Place 1 U nivers e (AZOPT) 1 1-20 Drop in ity o f % 12:50: left eye [place] ophthalmic 48 Daily at 3 Med ical [...] by mouth ity of tablet 12:50: at [place] [address] bedtime. Medical Branch simvastatin Yes 10mg Take 10 mg Univers 10 mg 1-20 by mouth ity of tablet 12:50: at [place] [address] bedtime. Medical Branch clopidogreL Yes 75mg Take 75 mg Univers (PLAVIX) 75 1-20 by mouth ity of mg tablet 12:50: at [place] [address] bedtime. Medical Branch losartan 50 Yes 50mg Take 50 mg Univers mg tablet 1-20 by mouth ity of 12:50: daily. [place] [address] Medical Branch omeprazole/ Yes 20mg Take 20 mg Univers sodium 1-20 by mouth ity of bicarbonate 12:50: daily. [place] (ZEGERID 48 Medical ORAL) Branch Brimonidine Yes 1[drp] Place 1 U nivers -Timolol 1-20 Drop in ity of (COMBIGAN) 12:50: each eye 2 [place] 0.2-0.5 % 48 (two) Medical ophthalmic times Branch drops daily. Left eye travoprost Yes 1[drp] 1 Drop at Univers 0.004 % 1-20 bedtime. ity of ophthalmic 12:50: [place] [address] Medical Branch brinzolamid Yes 1[drp] Place 1 U nivers e (AZOPT) 1 1-20 Drop in ity o f % 12:50: left eye [place] ophthalmic 48 Daily at 3 Med ical suspension pm. Branch drops sotaloL Yes 80mg Take 80 mg Univ ers (BETAPACE) 1-20 by mouth ity o f 80 mg 12:50: every 12 [place] tablet (twelve) Medical hours. Branch apixaban Yes 5mg Take 5 mg Univ ers (ELIQUIS) 5 1-20 by mouth 2 it y of mg tablet 12:50: (two) [place] 48 times Medical daily. Branch ezetimibe Yes 10mg Take 10 mg Un dajuan 10 mg 1-20 by mouth ity of tablet 12:50: at [place] [address] bedtime. Medical Branch simvastatin Yes 10mg Take 10 mg Univers 10 mg 1-20 by mouth ity of tablet 12:50: at [place] [address] bedtime. Medical Branch clopidogreL Yes 75mg Take 75 mg Univers (PLAVIX) 75 1-20 by mouth ity of mg tablet 12:50: at [place] [address] bedtime. Medical Branch losartan 50 0 Yes 50mg Take 50 mg Univers mg tablet 1-20 by mouth ity of 12:50: daily. [place] [address] Medical Branch omeprazole/ 0 Yes 20mg Take 20 mg Univers sodium 1-20 by mouth ity of bicarbonate 12:50: daily. [place] (ZEGERID 48 Medical ORAL) Branch Brimonidine Yes 1[drp] Place 1 U nivers -Timolol 1-20 Drop in ity of (COMBIGAN) 12:50: each eye 2 [place] 0.2-0.5 % 48 (two) Medical ophthalmic times Branch drops daily. Left eye travoprost Yes 1[drp] 1 Drop at Univers 0.004 % 1-20 bedtime. ity of ophthalmic 12:50: [place] [address] Medical Branch brinzolamid Yes 1[drp] Place 1 U nivers e (AZOPT) 1 1-20 Drop in ity o f % 12:50: left eye [place] ophthalmic 48 Daily at 3 Med ical suspension pm. Branch drops sotaloL Yes 80mg Take 80 mg Univ ers (BETAPACE) 1-20 by mouth ity o f 80 mg 12:50: every 12 [place] tablet 48 (twelve) Medical hours. Branch apixaban Yes 5mg Take 5 mg Univ ers (ELIQUIS) 5 1-20 by mouth 2 it y of mg tablet 12:50: (two) [place] [address] times Medical daily. Branch ezetimibe Yes 10mg Take 10 mg Un dajuan 10 mg 1-20 by mouth ity of tablet 12:50: at [place] [address] bedtime. Medical Branch simvastatin Yes 10mg Take 10 mg Univers 10 mg 1-20 by mouth ity of tablet 12:50: at [place] [address] bedtime. Medical Branch clopidogreL Yes 75mg Take 75 mg Univers (PLAVIX) 75 1-20 by mouth ity of mg tablet 12:50: at [place] [address] bedtime. Medical Branch losartan 50 0 Yes 50mg Take 50 mg Univers mg tablet 1-20 by mouth ity of 12:50: daily. [place] [address] Medical Branch omeprazole/ 0 Yes 20mg Take 20 mg Univers sodium 1-20 by mouth ity of bicarbonate 12:50: [place]. [place] (ZEGERID 48 Medical ORAL) Branch Brimonidine Yes 1[drp] Place 1 U nivers -Timolol 1-20 Drop in ity of (COMBIGAN) 12:50: each eye 2 [place] 0.2-0.5 % 48 (two) Medical ophthalmic times Branch drops daily. Left eye travoprost 2022-0 Yes 1[drp] 1 Drop at Univers 0.004 % 1-20 bedtime. ity of ophthalmic 12:50: [place] solution 48 Medical Branch brinzolamid 2021-0 Yes 1[drp] Place 1 U nivers e (AZOPT) 1 1-20 Drop in ity o f % 12:50: left eye [place] ophthalmic 48 Daily at 3 Med ical suspension pm. Branch drops acetaminoph 2021-0 Yes [id number] 650mg Take 2 Univers en 325 mg 1-20 tablets by ity of tablet 00:00: mouth [place] 00 every 6 Medical (six) Branch hours as needed for Pain (scale 1-3) or Temp > 38.5 C. diphenhydrA 0 Yes [id number] 25mg Take 1 Univers MINE 25 mg 1-20 tablet by ity of tablet 00:00: mouth [place] 00 every 4 Medical (four) Branch hours as needed for Itching. acetaminoph 0 Yes [id number] 650mg Take 2 Univers en 325 mg 1-20 tablets by ity of tablet 00:00: mouth [place] 00 every 6 Medical (six) Branch hours as needed for Pain (scale 1-3) or Temp > 38.5 C. diphenhydrA 0 Yes [id number] 25mg Take 1 Univers MINE 25 mg 1-20 tablet by ity of tablet 00:00: mouth [place] 00 every 4 Medical (four) Branch hours as needed for Itching. acetaminoph 2021-0 Yes [id number] 650mg Take 2 Univers en 325 mg 1-20 tablets by ity of tablet 00:00: mouth [place] 00 every 6 Medical (six) Branch hours as needed for Pain (scale 1-3) or Temp > 38.5 C. diphenhydrA 2021-0 Yes [id number] 25mg Take 1 Univers MINE 25 mg 1-20 tablet by ity of tablet 00:00: mouth [place] 00 every 4 Medical (four) Branch hours as needed for Itching. acetaminoph 2021-0 Yes [id number] 650mg Take 2 Univers en 325 mg 1-20 tablets by ity of tablet 00:00: mouth [place] 00 every 6 Medical (six) Branch hours as needed for Pain (scale 1-3) or Temp > 38.5 C. diphenhydrA 2022-0 Yes [id number] 25mg Take 1 Univers MINE 25 mg 1-20 tablet by ity of tablet 00:00: mouth [place] 00 every 4 Medical (four) Branch hours as needed for Itching. acetaminoph 0 Yes [id number] 650mg Take 2 Univers en 325 mg 1-20 tablets by ity of tablet 00:00: mouth [place] 00 every 6 Medical (six) Branch hours as needed for Pain (scale 1-3) or Temp > 38.5 C. diphenhydrA Yes [id number] 25mg Take 1 Univers MINE 25 mg 1-20 tablet by ity of tablet 00:00: mouth [place] 00 every 4 Medical (four) Branch hours as needed for Itching. acetaminoph Yes [id number] 650mg Take 2 Univers en 325 mg 1-20 tablets by ity of tablet 00:00: mouth [place] 00 every 6 Medical (six) Branch hours as needed for Pain (scale 1-3) or Temp > 38.5 C. diphenhydrA Yes [id number] 25mg Take 1 Univers MINE 25 mg 1-20 tablet by ity of tablet 00:00: mouth [place] 00 every 4 Medical (four) Branch hours as needed for Itching. sulfamethox 2021- No [id number] 1{tbl} Take 1 Univers azole-trime 1-20 - tablet by it y of thoprim 00:00: 05:59 mouth 2 [place] (BACTRIM 00 :00 (two) Medical DS) 800-160 times Branch mg per daily for tablet 8 days. sulfamethox 2021- No [id number] 1{tbl} Take 1 Univers azole-trime -20 - tablet by it y of thoprim 00:00: 05:59 mouth 2 [place] (BACTRIM 00 :00 (two) Medical DS) 800-160 times Branch mg per daily for tablet 8 days. sulfamethox 2021- No [id number] 1{tbl} Take 1 Univers azole-trime 1-20 - tablet by it y of thoprim 00:00: 05:59 mouth 2 [place] (BACTRIM 00 :00 (two) Medical DS) 800-160 times Branch mg per daily for tablet 8 days. HYDROcodone 2022-0 Yes 1{tbl} 1 tablet, Univers -acetaminop 1-19 Oral, ity of hen (NORCO 20:47: Q6HPRN, [place] 5) 5-325 mg 49 Starting Medi maria guadal[place] tablet 1 on Wed Branch tablet 07/16/21 at 1447, Until Discontinu ed, Routine, Pain (scale 4-6) HYDROcodone 2022-0 Yes 1{tbl} 1 tablet, Univers -acetaminop 1-19 Oral, ity of hen (NORCO 20:47: Q6HPRN, [place] 5) 5-325 mg 49 Starting Medi maria guadalupe tablet 1 on Wed Branch tablet 07/16/21 at 1447, Until Discontinu ed, Routine, Pain (scale 4-6) lactated 2022-0 Yes 1000mL at 75 Univer [...] Until Discontinu ed, Routine, PACU FENTanyl PF Yes 25ug 25 mcg, Uni vers (SUBLIMAZE 07-14 Slow IV ity of (PF)) 18:56: [place], [place] injection 12 Q5MIN PRN, Medi maria guadalupe 25 mcg 4 doses, Branch Starting on Wed07/14/21 at 1256, Until Discontinu ed, Routine, Pain (scale 4-6), PACU FENTanyl PF 0 2021- No 25ug 25 mcg, Un dajuan [...] 80mg Take 80 mg Univ ers (BETAPACE) 07-14 by mouth ity o f 80 mg 13:41: every 12 [place] tablet 27 (twelve) Medical hours. Branch apixaban 0 Yes 5mg Take 5 mg Univ ers (ELIQUIS) 5 07-14 by mouth 2 it y of mg tablet 13:41: (two) [place] 27 times Medical daily. Branch ezetimibe 0 Yes 10mg Take 10 mg Un dajuan 10 mg 07-14 by mouth ity of tablet 13:41: at [place] 27 bedtime. Medical Branch simvastatin 2022-0 Yes 10mg Take 10 mg Univers 10 mg -17 by mouth ity of tablet 13:41: at [place] [address] bedtime. Medical Branch clopidogreL Yes 75mg Take 75 mg Univers (PLAVIX) 75 17 by mouth ity of mg tablet 13:41: at [place] [address] bedtime. Medical Branch losartan 50 Yes 50mg Take 50 mg Univers mg tablet -17 by mouth ity of 13:41: daily. [place] [address] Medical Branch omeprazole/ Yes 20mg Take 20 mg Univers sodium -17 by mouth ity of bicarbonate 13:41: [place]. [place] (ZEGERID 27 Medical ORAL) Branch Brimonidine Yes 1[drp] Place 1 U nivers -Timolol -17 Drop in ity of (COMBIGAN) 13:41: each eye 2 [place] 0.2-0.5 % 27 (two) Medical ophthalmic times Branch drops daily. Left eye travoprost Yes 1[drp] 1 Drop at [facility] 0.004 % 17 bedtime. ity of ophthalmic 13:41: [place] [address] Medical Branch brinzolamid Yes 1[drp] Place 1 U nivers e (AZOPT) 1 17 Drop in ity o f % 13:41: left eye [place] ophthalmic 27 Daily at 3 Med ical suspension pm. Branch drops losartan Yes 50mg 50 mg, Univers (COZAAR) 1-15 Oral, ity of tablet 50 15:00: DAILY, [place] mg 00 First dose Medical on [facility] 07/12/21 at 0900, Until Discontinu ed, Routine losartan Yes 50mg 50 mg, Univers (COZAAR) 1-15 Oral, ity of tablet 50 15:00: DAILY, [place] mg 00 First dose Medical on [facility] 07/12/21 at 0900, Until Discontinu ed, Routine losartan 0 Yes 50mg 50 mg, Univers (COZAAR) 1-15 Oral, ity of tablet 50 15:00: DAILY, [place] mg 00 First dose Medical on [facility] 07/12/21 at 0900, Until Discontinu ed, Routine latanoprost Yes 1[drp] 1 Drop, U nivers (XALATAN) [...] mg 00 on Wed Medical 07/11/21 at [place] 2100, Until Discontinu ed, Routine ezetimibe 2021-0 Yes 10mg 10 mg, Univer s (ZETIA) 1-15 Oral, QHS, ity of tablet 10 03:00: [place] 00 [place] Wed Medical 07/11/21 at [place] 2100, Until Discontinu ed, Routine clopidogreL 2021-0 Yes 75mg 75 mg, Univ ers (PLAVIX) 1-15 Oral, QHS, ity o f tablet 75 03:00: [place] 00 on Wed Medical 07/11/21 at [place] 2100, Until Discontinu ed, Routine latanoprost 2021-0 Yes 1[drp] 1 Drop, U nivers (XALATAN) 1-15 Left Eye, ity o f 0.005 % 03:00: QHS, [place] ophthal[place] 00 dose on Medica l drops 1 Wed Branch [facility] 07/11/21 at 2100, Until Discontinu ed simvastatin 2021-0 Yes 10mg 10 mg, Univ ers (ZOCOR) 1-15 Oral, QHS, ity of tablet 10 03:00: [place] 00 on Wed [facility] 07/11/21 at [place] 2100, Until Discontinu ed, Routine ezetimibe 2-0 Yes 10mg 10 mg, Univer s (ZETIA) 1-15 Oral, QHS, ity of tablet 10 03:00: [place] mg 00 on Wed Medical 07/11/21 at [place] 2100, Until Discontinu ed, Routine clopidogreL 2-0 [...] 07/11/21 at 2100, Until Discontinu ed simvastatin 0 Yes 10mg 10 mg, Univ ers (ZOCOR) 1-15 Oral, QHS, ity of tablet 10 03:00: [place] 00 on Wed Medical 07/11/21 at [facility] 2100, Until Discontinu ed, Routine ezetimibe 0 Yes 10mg 10 mg, Univer s (ZETIA) 1-15 Oral, QHS, ity of tablet 10 03:00: [place] 00 on Wed Medical 07/11/21 at [facility] 2100, Until Discontinu ed, Routine clopidogreL 0 Yes 75mg 75 mg, Univ ers (PLAVIX) 1-15 Oral, QHS, ity o f tablet 75 03:00: [place] 00 on Wed Medical 07/11/21 at [facility] 2100, Until Discontinu ed, Routine sotaloL 0 Yes 80mg 80 mg, Univers (BETAPACE) 1-15 Oral, ity of tablet 80 02:00: Q12H, [place] mg 00 First dose Medical on Wed Branch 07/11/21 at 2000, Until Discontinu ed, Routine
membership correspondent approving Restricted medication : GERMAN JUAREZ sotaloL 0 Yes 80mg 80 mg, Univers (BETAPACE) 1-15 Oral, ity of tablet 80 02:00: Q12H, [place] mg 00 First dose Medical on Wed Branch 07/11/21 at 2000, Until Discontinu ed, Routine
membership correspondent approving Restricted medication : GERMAN JUAREZ sotaloL 0 Yes 80mg 80 mg, Univers (BETAPACE) 1-15 Oral, ity of tablet 80 02:00: Q12H, [place] mg 00 First dose Medical on Wed Branch 07/11/21 at 2000, Until Discontinu ed, Routine
membership correspondent approving Restricted medication : GERMAN JUAREZ apixaban 0 2021- No 5mg 5 mg, Univers (ELIQUIS) 1-15 01-15 Oral, BID, ity of tablet 5 mg 02:00: 16:45 First dose [place] 00 :48 (after Medical last Branch modificati on) on Wed07/11/21 at 2000, Until Discontinu ed, Routine
Indicatio ns: Non-Valvul ar Atrial Fibrillati on vancomycin 0 Yes 1000mg 1,000 mg, Univers (VANCOCIN) 14 IV ity of 1,000 mg in 22:30: [place], [place] NaCl 0.9% 00 Q12H ABX, Medic al (NS) 250 mL First dose Br anch VIAL-MATE on Wed IV 07/11/21 [address] [facility] 1630, Until Discontinu ed, Administer over 60 Minutes, 250 mL
Reas on for Anti-Infec tive: Documented Infection< br>Documen narcisa Infection Site: Joint
D uration of Therapy: 7 days vancomycin 0 2021- No 1000mg 1,000 mg, Univers (VANCOCIN) 07-1120 IV ity of 1,000 mg in 22:30: 01:51 [place], [place] NaCl 0.9% 00 :17 Q12H ABX, Medic al (NS) 250 mL First dose Br anch VIAL-MATE on Wed IV 07/11/21 at [facility] 1630, Until Discontinu ed, Administer over 60 Minutes, 250 mL
Reas on for Anti-Infec tive: Documented Infection< br>Documen narcisa Infection Site: Joint
D uration of Therapy: 7 days ondansetron 2021-0 Yes 4mg 4 mg, Slow Univers (ZOFRAN 1-14 IV Push, ity of (PF)) 19:04: Q6HPRN, [place] injection 4 46 Starting Medi maria guadalupe mg on Wed Branch 07/11/21 at 1304, Until Discontinu ed, Routine, Nausea and Vomiting (N/V) ondansetron 2-0 Yes 4mg 4 mg, Slow Univers (ZOFRAN 1-14 IV Push, ity of (PF)) 19:04: Q6HPRN, [place] injection 4 46 Starting Medi maria guadalupe mg on Wed Branch 07/11/21 at 1304, Until Discontinu ed, Routine, Nausea and Vomiting (N/V) ondansetron 2022-0 Yes 4mg 4 mg, Slow Univers (ZOFRAN -14 IV Push, ity of (PF)) 19:04: Q6HPRN, [place] injection 4 46 Starting Medi maria guadalupe mg on Fri Branch 07/11/21 at 1304, Until Discontinu ed, Routine, Nausea and Vomiting (N/V) HYDROcodone 2021-0 2022- No 1{tbl} 1 tablet, Univers -acetaminop -14 -16 Oral, ity of hen (NORCO 19:04: 19:03 Q6HPRN, [place] as 5) 5-325 mg 40 :40 Starting Medi maria guadalupe tablet 1 on Fri Branch tablet 07/11/21 at 1304, Until 07/13/21 at 1303, Routine, Pain (scale 4-6) acetaminoph 2021-0 Yes 650mg 650 mg, Un dajuan en 14 Oral, ity of (TYLENOL) 19:04: Q6HPN, [place] tablet 650 34 Starting Medic al mg on Fri Branch 07/11/21 at 1304, Until Discontinu ed, Routine, Pain (scale 1-3), Temp > 38.5 C acetaminoph 2021-0 Yes 650mg 650 mg, Un dajuan en -14 Oral, ity of (TYLENOL) 19:04: Q6HPN, [place] tablet 650 34 Starting Medic al mg on Fri Branch 07/11/21 at 1304, Until Discontinu ed, Routine, Pain (scale 1-3), Temp > 38.5 C acetaminoph 2-0 Yes 650mg 650 mg, Un dajuan en 14 Oral, ity of (TYLENOL) 19:04: Q6HPN, [place] tablet 650 34 Starting Medic al mg on Fri Branch 07/11/21 at 1304, Until Discontinu ed, Routine, Pain (scale 1-3), Temp > 38.5 C Hyalgan 20 Hyalgan 20 No 20mg C ommon mg mg 12-01 Spirit 00:00: - [facility] Hyalgan 20 Hyalgan 20 2018-0 No 20mg C ommon mg mg 12-01 Spirit 00:00: - [facility] LIDOCAINE LIDOCAINE No 10mg Com mon HCL 10MG/ML HCL 10MG/ML 6-06 S pirit 00:00: - [facility] LIDOCAINE LIDOCAINE 2019-0 No 10mg Com mon HCL 10MG/ML HCL 10MG/ML 6-06 S pirit 00:00: - [facility] Hyalgan 20 Hyalgan 20 2019-0 No 20mg C ommon mg mg 5-30 Spirit 00:00: - [facility] LIDOCAINE LIDOCAINE 2018-0 No 10mg Com mon HCL 10MG/ML HCL 10MG/ML 5-30 S pirit 00:00: - [facility] LIDOCAINE LIDOCAINE 2018-0 No 10mg Com mon HCL 10MG/ML HCL 10MG/ML 5-30 S pirit 00:00: - [facility] Hyalgan 20 Hyalgan 20 2018-0 No 20mg C ommon mg mg 5-30 Spirit 00:00: - [facility] Hyalgan 20 Hyalgan 20 2019-0 No 20mg C ommon mg mg 5-23 Spirit 00:00: - [facility] Hyalgan 20 Hyalgan 20 2019-0 No 20mg C ommon mg mg 5-23 Spirit 00:00: - [facility] LIDOCAINE LIDOCAINE 2018-0 No 10mg Com mon HCL 10MG/ML HCL 10MG/ML 5-23 S pirit 00:00: - [facility] LIDOCAINE LIDOCAINE 2018-0 No 10mg Com mon HCL 10MG/ML HCL 10MG/ML 5-23 S pirit 00:00: - [facility] Triamcinolo Yes Lucero 1 Common ne ne 8-15 Millender applicatio Spir it Acetonide Acetonide 00:00: n to - C HI 00 affected [facility] No 1{appli Triamcinol ne ne 8-15 cation_ one Acetonide Acetonide 00:00: to_affe Acetonide 0.1 % 0.1 % 00 cted_ar 0.1 % ea} Betapace Betapace Yes Lucero 1 tablet Co mmon [facility] Eliquis 5 Eliquis 5 Yes Lucero 1 tablet Common mg mg [facility] Combigan Combigan Yes Lucero 1 drop Comm on Millender into Spirit affected - [facility] eye [facility] Azopt Azopt Yes Lucero INSTILL 1 Common Millender DROP INTO Spiri t LEFT EYE 3 - CHI TIMES A [facility] Simvastatin Simvastatin Yes Lucero 1 tablet Common [facility] Losartan Losartan Yes Lucero 1 tablet Co mmon Potassium Potassium [facility] [facility] - [facility] Plavix Plavix Yes Lucero 1 tablet Common [place] [facility] - [facility] Fenofibrate Fenofibrate Yes Lucero 1 tablet Common Mill[place] with food Spiri t - [facility] Zetia Zetia Yes Lucero 1 tablet Common [facility] Spirit [facility] Zegerid Zegerid Yes Lucero 1 capsule Com mon Millender on an Spirit empty - [facility] stomach [facility] Travatan Z Travatan Z Yes Lucero TAKE 1 Common Millender DROP(S) IN Spir it BOTH EYES - CHI ONCE IN [facility] Combigan Combigan No 1{drop_ BID Combigan 0.2-0.5 % 0.2-0.5 % into_af 0.2-0.5 % fected_ eye} Clopidogrel Clopidogrel No Clopidogre Bisulfate Bisulfate l 75 MG 75 MG Bisulfate 75 MG Losartan Losartan No Losartan Potassium Potassium Potassium 50 MG 50 MG 50 MG Sotalol HCl Sotalol HCl No Sotalol 80 MG 80 MG HCl 80 MG Banophen 25 Banophen 25 No QD Banophen MG MG 25 MG Fenofibrate Fenofibrate No 1{table QD Fenofibrat 40 MG 40 MG t_with_ e 40 MG food} Combigan Combigan No Combigan 0.2-0.5 % 0.2-0.5 % 0.2-0.5 % Cetirizine Cetirizine No 1{table Cetirizine HCl 10 MG HCl 10 MG t} HCl 10 MG Eliquis 5 Eliquis 5 No 1{table Eliquis 5 mg 5 mg mg 5 mg t} mg 5 mg Zegerid Zegerid No 1{capsu QD Zegerid 20-1100 MG 20-1100 MG le_on_a 20-1100 MG n_empty _stomac h} Zetia 10 MG Zetia 10 MG No 1{table QD Zetia 10 t} MG Plavix 75 Plavix 75 No 1{table QD Plavix 75 MG MG t} MG Flonase 50 Flonase 50 No 2{spray QD Flonase 50 MCG/ACT MCG/ACT _in_eac MCG/ACT h_nostr il} Simvastatin Simvastatin No Simvastati 10 MG 10 MG n 10 MG Ezetimibe Ezetimibe No Ezetimibe 10 MG 10 MG 10 MG Clobetasol Clobetasol No 1{appli BID Clobetasol Prop Prop cation} Prop Emollient Emollient Emollient Base 0.05 % Base 0.05 % Base 0.05 % Pimecrolimu Pimecrolimu No 1{appli BID Pimecrolim s 1 % s 1 % cation} us 1 % Azopt 1 % Azopt 1 % No Azopt 1 % Losartan Losartan No 1{table QD Losartan Potassium Potassium t} Potassium 50 MG 50 MG 50 MG Betapace 80 Betapace 80 No 1{table BID Betapace MG MG t} 80 MG Travatan Z Travatan Z No Travatan Z 0.004 % 0.004 % 0.004 % Sotalol HCl Sotalol HCl Yes U T - 80 MG - 80 MG Physici Oral Tablet Oral Tablet a ns Eliquis 5 Eliquis 5 Yes UT MG Oral MG Oral Physici Tablet Tablet ans Zetia TABS Zetia TABS Yes UT Physici ans Simvastatin Simvastatin Yes U T TABS TABS Physici ans Plavix TABS Plavix TABS Yes U T Physici ans Losartan Losartan Yes UT Potassium Potassium Physi ci TABS TABS ans Zegerid Zegerid Yes UT CAPS CAPS Physici ans Combigan Combigan Yes UT SOLN SOLN Physici ans Travatan Travatan Yes [facility] SOLN SOLN Physici ans Immunizations Ordered Immunization Filled Immunization Date Status Commen ts Source Name Name Pfizer COVID-19 Pfizer COVID-19 2021-04-23 Completed Comm on Spirit Vaccine Vaccine 14:37:00 - [facility] Pfizer COVID-19 Pfizer COVID-19 2020-10-09 Completed Comm on [facility] Vaccine Vaccine 14:37:00 - [facility] Pfizer COVID-19 Pfizer COVID-19 2020-09-18 Completed Comm on [facility] Vaccine Vaccine 14:37:00 - [facility] FLUZONE HIGH DOSE FLUZONE HIGH DOSE 2019-03-31 Completed Common [facility] OVER 65 OVER 65 08:51:00 - [facility] FLUZONE HIGH DOSE FLUZONE HIGH DOSE 2019-03-31 Completed Common [facility] OVER 65 OVER 65 00:00:00 - [facility] FLUZONE HIGH DOSE FLUZONE HIGH DOSE 2018-03-24 Completed Common [facility] OVER 65 OVER 65 09:18:00 - [facility] Vital Signs Vital Name Observation Time Observation Value Comments Source Heart rate 2022-03-24 20:02:00 96 /[facility] height 2022-03-24 20:02:00 180.3 cm [facility] Body weight 2022-03-24 20:02:00 85.276 kg [facility] h BMI 2022-03-24 20:02:00 26.22 kg/m2 [facility] Systolic blood 2022-03-24 20:02:00 110 mm[Hg] [facility] Diastolic blood 2022-03-24 20:02:00 78 mm[Hg] [facility] Systolic blood 2021-07-17 17:29:00 147 mm[Hg] Univer [facility]ity of [facility] Diastolic blood 2021-07-17 17:29:00 89 mm[Hg] Unive rsity of [facility] Heart rate 2021-07-17 17:29:00 73 /min [facility] Body temperature 2021-07-17 17:29:[address] [facility] 2021-07-17 17:29:00 18 /min [facility] Oxygen saturation in 2021-07-17 17:29:00 97 /min [facility] Arterial blood by [facility] Pulse oximetry Branch Body weight 2021-07-17 10:10:00 93.895 kg [facility] BMI 2021-07-17 10:10:00 28.87 kg/m2 [facility] Body height 2021-07-11 19:15:00 180.3 cm [facility] Systolic blood 2021-07-16 19:55:00 124 mm[Hg] Univer sity of [facility] Diastolic blood 2021-07-16 19:55:00 71 mm[Hg] Unive rsity of pressure [place] [facility] [place] Heart rate 2021-07-16 19:55:00 63 /min [facility] [place] [facility] Respiratory rate 2021-07-16 19:55:00 19 /min Univ ers[facility] Oxygen saturation in 2021-07-16 19:55:00 98 /min University of Arterial blood by [facility] Pulse oximetry Branch Body temperature 2021-07-16 19:44:00 36.39 Yajaira Univ [facility] [place] [facility] [place] Body weight 2021-07-15 10:33:00 85.872 kg [facility] [place] [facility] BMI 2021-07-15 10:33:00 28.87 kg/m2 [facility] Body height 2021-07-11 19:15:00 180.3 cm [facility] [place] [facility] Systolic blood 2021-07-14 19:25:00 148 mm[Hg] Univer sity of pressure [place] [facility] [place] Diastolic blood 2021-07-14 19:25:00 90 mm[Hg] Unive rsity of pressure [facility] Heart rate 2021-07-14 19:25:00 61 /min [facility] [place] [facility] Oxygen saturation in 2021-07-14 19:25:00 96 /min University of Arterial blood by [facility] Pulse oximetry Branch Respiratory rate 2021-07-14 19:20:00 24 /min Univ ers[facility] Body temperature 2021-07-14 18:51:[address] [facility] ers[facility] [place] [facility] [place] Body weight 2021-07-14 10:02:00 85.957 kg [facility] [place] [facility] BMI 2021-07-14 10:02:00 26.40 kg/m2 [facility] Body height 2021-07-11 19:15:00 180.3 cm [facility] [place] [facility] Procedures Procedure Date / Time Performing Clinician Source Performed ECG 12-LEAD 2022-03-24 20:11:00 Stefanie Omer [facility] REFERRAL- REQUEST/RESPONSE 2021-08-21 06:01:00 Doctor Unassigned , [facility] XR CHEST 2 VW 2021-08-11 17:10:36 Joanie Elias [facility] o f [facility] CONSENT/REFUSAL FOR 2021-08-11 16:47:46 Doctor Unassigned, [facility] DIAGNOSIS AND TREATMENT [facility] [place] ASSIGNMENT OF BENEFITS 2021-08-11 16:47:26 Doctor Unassigned, [facility] Name Medical Branch CBC WITH DIFF 2021-07-17 10:39:00 [facility] WITH DIFF 2021-07-17 10:39:00 [facility] TROPONIN I 2021-07-17 10:29:00 Tevin Schuler [facility] BASIC METABOLIC PANEL (NA, 2021-07-17 10:29:00 [facility], CO2, GLUCOSE, BUN, Medica l Branch CREATININE, CA) TROPONIN I 2021-07-17 10:29:00 Tevin Schuler [facility] BASIC METABOLIC PANEL (NA, 2021-07-17 10:29:00 [facility], CL, CO2, GLUCOSE, BUN, Medica l Branch CREATININE, CA) VANCOMYCIN TROUGH 2021-07-16 23:44:00 Alesia Diallo [facility] VANCOMYCIN TROUGH 2021-07-16 23:44:00 Alesia Diallo [facility] HB ECG ROUTINE & RHYTHM 2021-07-16 22:45:56 Tevin Schuler [facility] INCISION AND DRAINAGE 2021-07-16 17:58:00 [facility] INCISION AND DRAINAGE 2021-07-16 17:58:00 [facility] (NA, 2021-07-16 10:06:00 [facility] K, CL, CO2, GLUCOSE, BUN, Medica l Branch CREATININE, CA) N-TERMINAL PRO-BNP 2021-07-16 10:06:00 Tevin Schuler [facility] BASIC METABOLIC PANEL (NA, 2021-07-16 10:06:00 Marc [facility] K, CL, CO2, GLUCOSE, BUN, Medica l Branch CREATININE, CA) N-TERMINAL PRO-BNP 2021-07-16 10:06:00 Tevin Schuler [facility] CBC WITH DIFF 2021-07-16 10:01:00 [facility] CBC WITH DIFF 2021-07-16 10:01:00 [facility] BASIC METABOLIC PANEL (NA, 2021-07-15 10:47:00 Marc [facility] K, CL, CO2, GLUCOSE, BUN, Medica l Branch CREATININE, CA) CBC WITH DIFF 2021-07-15 10:47:00 Marc [facility] BASIC METABOLIC PANEL (NA, 2021-07-15 10:47:00 Marc [facility] K, CL, CO2, GLUCOSE, BUN, Medica l Branch CREATININE, CA) CBC WITH DIFF 2021-07-15 10:47:00 Marc [facility] BASIC METABOLIC PANEL (NA, 2021-07-15 10:47:00 Marc [facility] K, CL, CO2, GLUCOSE, BUN, Medica Branch CREATININE, CA) CBC WITH DIFF 2021-07-15 10:47:00 [facility] ASPIRATE OR ABSCESS 2021-07-14 18:28:00 [place] [facility] CULTURE(AEROBIC/ANAEROBIC) [facility] CULTURE 2021-07-14 18:28:00 [place] [facility] FUNGUS (ROUTINE) CULTURE 2021-07-14 18:28:00 Stephen [place] [facility] ASPIRATE OR ABSCESS 2021-07-14 18:28:00 Stephen [place] [facility] CULTURE(AEROBIC/ANAEROBIC) [facility] CULTURE 2021-07-14 18:28:00 Stephen [place] [facility] FUNGUS (ROUTINE) CULTURE 2021-07-14 18:28:00 [facility]SCESS 2021-07-14 18:28:00 Stephen [place] [facility] CULTURE(AEROBIC/ANAEROBIC) [facility] [employer] CULTURE 2021-07-14 18:28:00 Stephen [place] [facility] FUNGUS (ROUTINE) CULTURE 2021-07-14 18:28:00 Stephen [place] [facility] SURGICAL PATHOLOGY EXAM 2021-07-14 18:20:00 [facility] [place] [facility] 2021-07-14 18:20:00 Stephen [place] [facility] ASPIRATE OR ABSCESS 2021-07-14 18:08:00 [place] [facility] CULTURE(AEROBIC/ANAEROBIC) [facility] [employer] CULTURE 2021-07-14 18:08:00 [place] [facility] FUNGUS (ROUTINE) CULTURE 2021-07-14 18:08:00 Stephen [place] [facility] ASPIRATE OR ABSCESS 2021-07-14 18:08:00 [place] [facility] CULTURE(AEROBIC/ANAEROBIC) [facility] [employer] CULTURE 2021-07-14 18:08:00 [place] [facility] FUNGUS (ROUTINE) CULTURE 2021-07-14 18:08:00 [facility] ABSCESS 2021-07-14 18:08:00 [place] [facility] CULTURE(AEROBIC/ANAEROBIC) [facility] CULTURE 2021-07-14 18:08:00 [place] [facility] FUNGUS (ROUTINE) CULTURE 2021-07-14 18:08:00 [facility] & 2021-07-14 17:19:00 [place] [facility] IR[facility] & 2021-07-14 17:19:00 [facility] [place] [facility] BASIC METABOLIC PANEL (NA, 2021-07-14 10:57:00 Nwokedi, Stefania [facility] [place] K, CL, CO2, GLUCOSE, BUN, Medica l Branch CREATININE, CA) CBC WITH DIFF 2021-07-14 10:57:00 [facility] PROT[facility]BIN TIME / INR 2021-07-14 10:57:00 [facility]okedi[facility] BASIC METABOLIC PANEL (NA, 2021-07-14 10:57:00 Nwokedi, Stefania [facility] [place] K, CL, CO2, GLUCOSE, BUN, Medica l Branch CREATININE, CA) CBC WITH DIFF 2021-07-14 10:57:00 [facility] PROTHROMBIN TIME / INR 2021-07-14 10:57:00 Nwokedi, Stefania [facility] BASIC METABOLIC PANEL (NA, 2021-07-14 10:57:00 Nwokedi, Stefania [facility] [place] K, CL, CO2, GLUCOSE, BUN, Medica l Branch CREATININE, CA) CBC WITH DIFF 2021-07-14 10:57:00 Nwokedi [facility] PROTHROMBIN TIME / INR 2021-07-14 10:57:00 [facility] VANCOMYCIN TROUGH 2021-07-13 10:46:00 Alesia Diallo [facility] VANCOMYCIN TROUGH 2021-07-13 10:46:00 Alesia Diallo [facility] VANCOMYCIN TROUGH 2021-07-13 10:46:00 Alesia Diallo [facility] BASIC METABOLIC PANEL (NA, 2021-07-12 10:27:00 Ayah Cavazos [facility] [place] K, CL, CO2, GLUCOSE, BUN, Medica l Branch CREATININE, CA) CBC WITH DIFF 2021-07-12 10:27:00 [place], [facility] BASIC METABOLIC PANEL (NA, 2021-07-12 10:27:00 [place], [facility] K, CL, CO2, GLUCOSE, BUN, Medica Branch CREATININE, CA) CBC WITH DIFF 2021-07-12 10:27:00 Ovjerzy, [facility] BASIC METABOLIC PANEL (NA, 2021-07-12 10:27:00 [place], [facility] K, CL, CO2, GLUCOSE, BUN, Medica l Branch CREATININE, CA) CBC WITH DIFF 2021-07-12 10:27:00 Ovjerzy, [facility] BLOOD CULTURE SCREEN 2021-07-11 20:43:00 [place], [facility] BLOOD CULTURE SCREEN 2021-07-11 20:43:00 [place], [facility] BLOOD CULTURE SCREEN 2021-07-11 20:43:00 [place], [facility] BLOOD CULTURE SCREEN 2021-07-11 20:42:00 [place], [facility] BLOOD CULTURE SCREEN 2021-07-11 20:42:00 [place], [facility] BLOOD CULTURE SCREEN 2021-07-11 20:42:00 [facility] HEPATIC FUNCTION PANEL 2021-07-11 19:50:00 Macy [facility] ([id number]) (ALB,T.PRO,BILI Medical Branch T,BU/BC,ALT,AST,ALK PHOS) BASIC METABOLIC PANEL (NA, 2021-07-11 19:50:00 Ovjerzy, [facility] K, CL, CO2, GLUCOSE, [facility], [facility] [place] CREAT[facility]INE, [facility]) CBC WITH DIFF 2021-07-11 19:50:00 Macy [facility] GLYCOSYLATED HEMOGLOBIN 2021-07-11 19:50:00 Macy [facility] (A1C) [facility] PROTHROMBIN TIME / INR 2021-07-11 19:50:00 Ovjerzy [facility] ACTIVATED PARTIAL THRMPLAS 2021-07-11 19:50:00 Ovjerzy, Ayah [facility] HEPATIC FUNCTION PANEL 2021-07-11 19:50:00 [id number] (ALB,T.PRO,BILI Medical Branch T,BU/BC,ALT,AST,ALK PHOS) BASIC METABOLIC PANEL (NA, 2021-07-11 19:50:00 [place], Ayah [facility] K, CL, CO2, GLUCOSE, BUN, Medica l Branch CREATININE, CA) CBC WITH DIFF 2021-07-11 19:50:00 Ovjerzy, [facility] GLYCOSYLATED HEMOGLOBIN 2021-07-11 19:50:00 Ovjerzy, [facility] (A1C) [facility] [place] PROTHROMBIN TIME / INR 2021-07-11 19:50:00 Ovjerzy, [facility] ACTIVATED PARTIAL THRMPLAS 2021-07-11 19:50:00 [place], Ayah [facility] HEPATIC FUNCTION PANEL 2021-07-11 19:50:00 Ovjerzy [facility] ([id number]) (ALB,T.PRO,BILI Medical Branch T,BU/BC,ALT,AST,ALK PHOS) BASIC METABOLIC PANEL (NA, 2021-07-11 19:50:00 [place], [facility] K, CL, CO2, GLUCOSE, BUN, Medica l Branch CREATININE, CA) CBC WITH DIFF 2021-07-11 19:50:00 Ovjerzy [facility] GLYCOSYLATED HEMOGLOBIN 2021-07-11 19:50:00 [place], [facility] (A1C) [facility] [place] PROTHROMBIN TIME / INR 2021-07-11 19:50:00 Ovjer[place], [facility] ACTIVATED PARTIAL THRMPLAS 2021-07-11 19:50:00 Ovjerzy, Ayah [facility] COVID-19 (ID NOW RAPID 2021-07-11 19:00:00 [place], [facility] TESTING) Medical Branch LAB ONLY COVID 2021-07-11 19:00:00 [facility] INTERPRETATION Medical Branch COVID-19 (ID NOW RAPID 2021-07-11 19:00:00 Ayah Cavazos [facility] TESTING) Medical Branch LAB ONLY COVID 2021-07-11 19:00:00 [facility] INTERPRETATION Medical Branch COVID-19 (ID NOW RAPID 2021-07-11 19:00:00 Ayah Cavazos [facility] TESTING) Medical Branch NOTICE OF BILLING 2021-07-11 18:30:52 Doctor Unassigned, [facility] PATIENTS NOTICE OF BILLING 2021-07-11 18:30:52 Doctor Unassigned, [facility] PATIENTS NOTICE OF BILLING 2021-07-11 18:30:52 Doctor Unassigned, [facility] FOR MEDICARE [facility] PATIENTS [facility] PATIENT FINANCIAL 2021-07-11 18:30:19 Doctor Unassigned, Un [facility] [place] POLICY [facility] PATIENT FINANCIAL 2021-07-11 18:30:19 Doctor Unassigned, Un [facility] [place] POLICY [facility] PATIENT FINANCIAL 2021-07-11 18:30:19 Doctor Unassigned, [facility] [place] [facility] NO SHOW OR MISSED 2021-07-11 18:30:01 Doctor Unassigned, [facility] APPOINTMENT POLICY [facility] ACKNOWLEDGEMENT NO SHOW OR MISSED 2021-07-11 18:30:01 Doctor Unassigned, [facility] APPOINTMENT POLICY [facility] ACKNOWLEDGEMENT NO SHOW OR MISSED 2021-07-11 18:30:01 Doctor Unassigned, [facility] APPOINTMENT POLICY [facility] ACKNOWLEDGEMENT NOTICE OF PRIVACY 2021-07-11 18:29:45 Doctor Unassigned, [facility] NOTICE OF PRIVACY 2021-07-11 18:29:45 Doctor Unassigned, [facility] NOTICE OF PRIVACY 2021-07-11 18:29:45 Doctor Unassigned, [facility] PRACTICES [facility] CONSENT/REFUSAL FOR 2021-07-11 18:29:30 Doctor Unassigned, [facility] CONSENT/REFUSAL FOR 2021-07-11 18:29:30 Doctor Unassigned, [facility] DIAGNOSIS AND TREATMENT [facility] CONSENT/REFUSAL FOR 2021-07-11 18:29:30 Doctor Unassigned, [facility] DIAGNOSIS AND TREATMENT [facility] ASSIGNMENT OF BENEFITS 2021-07-11 18:29:12 Doctor Unassigned, [facility] ASSIGNMENT OF BENEFITS 2021-07-11 18:29:12 [facility], [facility] ASSIGNMENT OF BENEFITS 2021-07-11 18:29:12 [facility], [facility] Abdomen [place] 2019-05-15 [place] [facility] [id number] [place] Pelvis [place] contrast 2019-05-15 00:00:00 [place] [facility] [id number] Encounters Start End Encounter Admission Attending Care Care Encounter Source Date/Time Date/Time Type Type Clinicians Facility Department ID 2022-03-25 Outpatient [facility] [id number] [place] 14:41:07 [id number] [facility] 2022-03-24 Outpatient [facility] [id number] [place] 14:58:48 [id number] [facility] 2022-03-13 Outpatient [facility] [id number] [place] 13:15:28 [id number] [facility] 2022-02-20 Outpatient [facility] [id number] [place] 05:24:07 [id number] [facility] 2022-02-12 Outpatient [facility] [id number] [place] 15:01:04 [id number] [facility] 2022-02-11 Outpatient [facility] [id number] [place] 10:38:13 [id number] [facility] 2022-02-06 [facility] [id number] 2 Common 08:37:00 [facility] 2022-02-04 [facility] [id number] 2 Common 10:51:00 [facility] 2021-11-13 Outpatient Elias, Na STLMLC STLMLC [id number] 2 Common 11:20:01 [facility] 2021-10-31 Outpatient Elias, Na STLMLC STLMLC [id number] 2 Common 09:14:01 [facility] 2021-08-08 Outpatient Elias, Na STLMLC STLMLC [id number] 2 Common 13:48:01 [facility] 2021-08-01 Outpatient Elias, Na STLMLC STLMLC [id number] 2 Common 10:52:00 [facility] 2021-07-23 Outpatient Elias, Na STLMLC STLMLC [id number] 2 Common 14:35:32 [facility] 2021-07-23 Outpatient Elias, Na STLMLC STLMLC [id number] 2 Common 14:35:07 [facility] 2021-07-23 Outpatient Elias, Na STLMLC STLMLC [id number] 2 Common 13:09:25 [facility] 2021-07-23 Outpatient Elias, Na STLMLC STLMLC [id number] 2 Common 12:59:04 [facility] 2021-07-23 Outpatient Elias, Na STLMLC STLMLC [id number] 2 Common 12:28:41 84724 [facility] 2021-07-23 Outpatient Elias, Na STLMLC STLMLC [id number] 2 Common 12:27:34 88910 [facility] 2021-07-23 Outpatient Elias, Na STLMLC STLMLC [id number] 2 Common 12:15:23 48602 [facility] 2021-07-23 Outpatient Ross, Kin STLMLC STLMLC [id number] 02 Common 12:05:09 65853 [facility] 2021-07-23 Outpatient Millender, STLMLC STLMLC [id number] Common 12:04:39 [place] 8[address]71 [facility] 2021-07-23 Outpatient Mann, [facility] Common 11:43:13 [place] 91661 [facility] 2021-07-23 Outpatient Milldeanne, [facility] Common 11:42:20 [place] 91030 [facility] 2021-07-23 Outpatient Mann, ST[facility] Common 11:40:17 [place] 71358 [facility] 2021-07-23 Out[facility] Mann, [facility] Common 11:31:54 [place] 66245 [facility] 2021-07-23 Outpatient Mann, [facility] Common 11:21:11 [place] 02835 [facility] 2022-03-24 2022-03-[address] [facility] [id number] [place] 15:15:00 15:57:11 Visit [facility] [id number] [place] [address] [id number] 2 2022-03-17 2022-03-17 (TEL) [facility] [id number] Co mmon 00:00:00 00:00:00 [facility] 2022-02-21 2022-03-10 Inpatient U JERZY, [facility] CAR 2238 [facility] 00:41:00 16:45:00 BISWAJIT 2022-02-21 2022-03-10 Outpatient Jerzy, [facility] [id number] 00:41:00 16:45:00 Biswajit 38 2022-02-21 2022-02-21 Outpatient Jerzy, [facility] [id number] 00:41:00 00:41:00 Biswajit 38 2022-02-18 2022-02-20 Inpatient E KIMBERLY, [facility] [id number] 13:48:00 23:00:00 OBI bhakta [facility] 2022-02-18 2022-02-20 Outpatient Kimberly, [place] [id number] 10:31:54 23:00:00 Obi Hdz 2022-02-19 2022-02-19 Outpatient HEMATPOUR, [facility] [id number] [place] 10:00:00 10:00:00 JOSS Cruz 2022-02-11 2022-02-11 ambulatory STLMLC STLMLC [id number] Common 00:00:00 00:00:00 [facility] 2022-02-06 2022-02-06 ambulatory STLMLC STLMLC [id number] Common 00:00:00 00:00:00 [facility] 2022-01-19 2022-01-19 ambulatory STLMLC STLMLC [id number] Common 00:00:00 00:00:00 [facility] 2021-11-04 2021-11-04 ambulatory STLMLC STLMLC [id number] Common 00:00:00 00:00:00 [facility] 2021-09-03 2021-09-03 ambulatory STLMLC STLMLC [id number] Common 00:00:00 00:00:00 [facility] 2021-08-29 2021-08-29 ambulatory STLMLC STLMLC [id number] Common 00:00:00 00:00:00 [facility] 2021-08-28 2021-08-28 [facility] [id number]-20 Univers 09:30:00 09:30:00 [facility] [id number] [facility] 2021-08-22 2021-08-22 Outpatient Melany DIETZ [facility] [id number] Univers 14:30:00 14:30:00 JAMA [id number] [facility] 2021-08-21 2021-08-21 Orders Doctor LEON [id number] 00:00:00 00:00:00 Only Unassigned, ABNER [id number] ity [facility] [id number] [place] [phone] [address] 2021-08-18 2021-08-18 ambulatory STLMLC STLMLC [id number] Common 00:00:00 00:00:00 [facility] 2021-08-11 2021-08-11 Outpatient R RADIOLOGY [facility] [id number] Univers 10:49:09 23:59:00 ity of [facility] 2021-08-11 2021-08-11 Hospital Radiology [facility] [id number] Univers 10:49:09 23:59:00 Encounter [place] [id number] ity [facility] [id number] [facility] [id number] [facility] 807 Branch 2021-08-11 2021-08-11 Outpatient R RADIOLOGY [facility] [id number] Univers 00:00:00 00:00:00 [id number] ity of [facility] 2021-08-11 2021-08-11 Orders Doctor EDWARD [id number] Univers 00:00:00 00:00:00 Only Unassigned, ABNER [id number] ity of [facility] [id number] [facility] [phone] [facility] 009 Branch 2021-08-07 2021-08-07 ambulatory STLMLC STLMLC [id number] Common 00:00:00 00:00:00 [facility] 2021-08-05 2021-08-05 ambulatory STLMLC STLMLC [id number] Common 00:00:00 00:00:00 [facility] 2021-08-05 2021-08-05 ambulatory STLMLC STLMLC [id number] Common 00:00:00 00:00:00 [facility] 2021-08-04 2021-08-04 ambulatory STLMLC STLMLC [id number] Common 00:00:00 00:00:00 [facility] 2021-08-04 2021-08-04 ambulatory STLMLC STLMLC [id number] Common 00:00:00 00:00:00 [facility] 2021-07-28 2021-07-28 ambulatory STLMLC STLMLC [id number] Common 00:00:00 00:00:00 [facility] 2021-07-18 2021-07-18 Transition MIS [place] [id number] Univers 00:00:00 00:00:00 of Jarvis GARCIA [id number] it [place] [id number] [facility] 403 Branch 2021-07-11 2021-07-17 Inpatient U [facility] JOSE RAFAEL [id number] Univers 12:36:00 12:45:00 AYAH ity of [facility] 2021-07-11 2021-07-17 [facility] [id number] Univers 12:36:00 12:45:00 Encounter Ayah ZACHARIAH [id number] it[id number] [id number] [facility] 081 Branch 2021-07-16 2021-07-16 Surgery [facility] [id number] Univers 11:30:00 13:57:00 Stephen Jero SONI [id number] it[id number] [id number] [facility] 020 Branch 2021-07-14 2021-07-14 Surgery [facility] [id number] Univers 11:50:00 13:33:00 Stephen Jero ZACHARIAH [id number] [facility] [id number] [phone] [facility] 020 Branch 2021-07-11 2021-07-11 ambulatory STLMLC STLMLC [id number] Common 00:00:00 00:00:00 [facility] 2021-07-11 2021-07-11 ambulatory STLMLC STLMLC [id number] Common 00:00:00 00:00:00 [facility] 2021-07-09 2021-07-09 ambulatory STLMLC STLMLC [id number] Common 00:00:00 00:00:00 [facility] 2021-05-05 2021-05-05 ambulatory STLMLC STLMLC [id number] Common 00:00:00 00:00:00 [facility] 2020-11-21 2020-11-21 Outpatient STLMLC STLMLC [id number] Common 00:00:00 00:00:00 [facility] 2020-10-29 2020-10-29 Outpatient STLMLC STLMLC [id number] Common 00:00:00 00:00:00 [facility] 2020-09-26 2020-09-26 Outpatient STLMLC STLMLC [id number] Common 00:00:00 00:00:00 [facility] 2020-08-01 2020-08-01 Outpatient STLMLC STLMLC [id number] Common 00:00:00 00:00:00 [facility] 2020-06-19 2020-06-19 Outpatient STLMLC STLMLC [id number] Common 00:00:00 00:00:00 [facility] 2020-05-13 2020-05-13 Outpatient STLMLC STLMLC [id number] Common 00:00:00 00:00:00 [facility] 2020-03-27 2020-03-27 Outpatient STLMLC STLMLC [id number] Common 00:00:00 00:00:00 [facility] 2020-02-29 2020-02-29 Outpatient [facility] [id number] Common 11:00:00 11:00:00 [facility] it [facility] 2020-01-23 2020-01-23 Outpatient [facility] [id number] Common 13:45:00 13:45:00 [facility] it Road [facility] 2019-12-11 2019-12-11 Outpatient [facility] [id number] Common 10:40:00 10:40:00 [facility] it [facility] 2019-08-30 2019-08-30 Outpatient Maria Ines Spannt [id number] Common 11:30:00 11:30:00 t Specialty/U Sp ariela Specialty rology - [facility]Urology Clinic [facility] 2019-08-25 2019-08-25 Outpatient Brazessie Spannt [id number] Common 14:45:00 14:45:00 t Specialty/U Sp ariela Specialty rology - [facility] Clinic [facility] 2019-07-12 2019-07-12 Outpatient Maria Ines Spannt [id number] Common 12:13:00 12:13:00 t Bone Bone and Spiri t and Joint Joint - [facility] 2019-06-05 2019-06-05 Outpatient Maria Ines Spannt [id number] Common 15:30:00 15:30:00 t Bone Bone [facility] Spiri t and Joint [facility] - [facility] 2019-06-01 2019-06-01 Outpatient Maria Ines Spannt [id number] Common 13:30:00 13:30:00 t Specialty/U Sp ariela Specialty rology - [facility]Urology Clinic [facility] 2019-05-30 2019-05-30 Outpatient Maria Ines Spannt [id number] Common 13:00:00 13:00:00 t [facility] it Road Family - [facility] Family Medicine [facility] 2019-05-15 2019-05-15 Appointmen [facility] Cardiothmission viejo [id number] [place] 09:15:00 09:15:00 t; W, cic & Physic i CASEY TEMPLE Vascular a pete FRENCH M.D. [facility] 2019-04-20 2019-04-22 Outpatient Rolando [facility] [id number] 09:26:00 15:44:00 Marco stern 2019-04-20 2019-04-18 [id number] 09:26:00 15:00:00 2019-03-31 2019-03-31 Outpatient Maria Ines Macias [id number] Common 11:20:00 11:20:00 t [facility] 2019-03-21 2019-03-21 Appointjeannette [facility] [id number] [place] 13:30:00 13:30:00 Enoc Desai i, an s UW, M.D. KRISTOFER, M.D. 2018-12-21 2018-12-21 Out[facility] [id number] Common 08:40:00 08:40:00 t [facility] it [facility] 2018-12-13 2018-12-13 Outpatient [facility] [id number] Common 16:20:00 16:20:00 [facility] Results Test Description Test Time Test Comments Results Result Comments Source ECG 12 lead 2022-03-24 20:11:00 Test Item Value Reference Range Interpretation Comme nts Lab Interpretation (test code = 69057-9) Normal [place] [facility] [id number] 18:39:56 Test Item Value Reference Range Interpretation Comments Case Report (test code Surgical Pathology ? ? = [id number]) ?Case: [id number] ? Authorizing Provider: ?Stephen Montana MD Collected: ? 07/14/2021 1220 ?Ordering Location: ? ? [facility] ? ? ?Received: ?07/14/2021 1455 ? Surgical Center ?Pathologist: ? Keshav Tee MD PHD ?Specimen: ? ?ELBOW, LEFT, LEFT, BURSECTOMY SAC ? Final Diagnosis (test a1tklYJhRYUyn7ovGMBqzO code = [id number]) FuZzEwMzNcZnRuYmpcdWMx IHtccnRmMVxlcGljOTYwMV buvpFdUVBjnPQxW1Khveue BXaeQY6lOW0xqRgimRUmxK EfUDUjPzKju7hvz494bWAk r2dtEFJFcaayqZb7pYhqN4 4oy1F5KxuyV10tdSDwFCR6 RZNkPWWuzXCfVCBgCDM3ED FmnFEhR4fuUPYdQB7vtxch UBpsRTphLRQpkHG6KYIpxA AxC9KuLCYsNQkuHABlnps1 EeAoYp6ejIXpkXeiMRikJG JkXHBsYWluXGZzMjBccGFy EJNjPFZSGcVeDLrIK1EUPH BFTEJPVywgTEVGVCwgQlVS W2BWNW2CMIozvHRpXKpzRT BxJGHhPLI7EQrusY99FLSh YDMrMJRgYRJCUS9WI54tD6 9OTkVDVElWRSBBTkQgRklC Vj4BXGvPA5ZOXWCOV3WCLG BXSVRIIEFDVVRFIElORkxB VN2YSDuZHySbiUUrNCqgPM xmaTBcbGluMFxwYXJccGFy FCNyhKYbi0kxVUpvvFgocE 5sHC3RCHupRXVjkROxrZuo adMmWZwyz2NvI8RgWnRdVS xhbnNpXGRlZmxhbmcxMDMz SYQ6ckPgRAPyRXaqGJTvGC xvSn5fyLGiiFlzOeOmPEJm b1pkbzAXEGvxJrAkZ235ZC KtGNtyg5tha6LsDGYcqAZh p1D1FJXPkebwiIj7r1kfYb NbXbR1bPJjLOxiY0txnbWo eLMtT4PwcNHkbBr7qKphO6 2ca7R5UtkuP1drZQCbWJAn H9PyQE7iFEXdFrz3SRS8XR P7IXCbBUVfQ7UaEI5bGCRl cHXoSDu8t0tknHumIGYaGR U8p2zhRIydasQ2SG4neh0h aMi6k5efjgVaNVUcYMIspU LJDQPzT5BopBwlIz3kkMw7 vVynHzuxMAT5Ijx3IF3hfg 68dhs3lEddFCHisybnJgO9 MOxuIUDifzrzOVa8LCtsQG FawUW9YNMgbTQuD6EnUYLt RE8qqtw6BGC1QIvuUUTlYc Q5KYCtoRKhZPDgmVzjLOlm d678BUB9PyBmVP9nH5Vjp5 X3mH4riMAeLTNvkZLyNiXc XCHdxj9cwTTiWJtuy2MlRM N9wrZ0dPWpuIDjJWFqOV72 Etreb5RiLnwnLAR8JRCdlf Sus0Qnk7onBlRznpYrA0fx M9GhXXOvXMFuKKLkRfJiqe Eyy1Nhx6NmeDYzhHh8c8qm FCHkDDVrrIxfp2mgXHY7XL ToP7G6dASgk6vmBAogDYPp yDC6bkH1PXWhfQFxU6SvrA 6lSWRsCZ1vyve6f2faDTA7 SLuoXYMfBgS7kcF9XAXmnD FiYOVxqIvsGAshv499RFW7 MbRyOURop1TqF7QbvWknG6 6hjYitK92uCIVkfMerhN0b rIfhwQ3uTeXgJvUoSEjsnO xwbGFpblxmMVxmczIwXGxh tjgtZMCeODjrQ5xwHjNkQK DljOxnOCfsx2DbZCCgNOOf MlxmczIwXHBhciBJIGhhdm CrqHDsf21nOTqgvSZyOEMd EKbiFFLylWnbm0UfW7wgSN 8oB2RnfCMgslXnftUaKOev TQGpq1i1dAMtbIzff8PfkS JhQT03zdGoACOeXUX4BHFd b9mlDV06nflzJoIfsX37be CtgnDrXWBdq9rwM0nrjMKp g2Jma7OcyoKqIAsou5SkKP 6cmYBckvhhuOG6OSIjaIXk gqUtfcX8lXsbNBOjlO3rmF 9mxNxgjJ4bQePyJzGnIIbo ND5nCZEtR2ehkTQnEMIiVU GoI1xxWaTbpB2jlGmnEgzv itU2NEMeat40 Clinical Information LEFT OLECRANON (test code = BURSITIS, SEPTIC [id number]) Gross Description (test q2cdcMHvSTTobJU7NeMmQR code = [id number]) Mxb6zmj2AclLTqiXOjQBia cFGihnThnc37eYX5bM58GN 6eQAShViC2HVZjquO9Kya9 DBQeWPZudNTwJ487i7zgq0 vlxkXpuWK4oPsbUQMittnv IwX8TMesQPHslcuyYOp2WI yhZDBleZO6GUWnwPClT2Qx MUWpMA7xljz9ROS8KUzcDK OrCmI9YKWczFQdXAHwbDyx NRojj423OSQ5EiRmZRGbvn K2DBsnUKRxR1VeK9NcOJeb EJH4FNSpTJNvXRBqXAZwCD FtDBpryxU9d2chQAZasZVe UKM7ALlkzFJhRLWhUBTnQO fdXwWFIwHuVaXpNaF0CAL3 ArRuLCt6QSjlI5YHCJMkXU K6QtHeNBz5JnH3HHq6OFCJ Uo8jZXInHTC1XwFaXrQ6RI QwNCBcXHQgMiBcXGZsIFxc ZiBBcmlhbCBcXGZzIDEwIF kjnnW0DXZaEDnhWBDqUlVf MM6pGKkDG9eiRLmQPmAaFC BhclxmczIyIFNwZWNpbWVu ANBxnXUrdxFpLMv2PYJytJ 1dBj5cePPdlZ0oyUEaGGgh WSE6rLVfZNAaNSXqBVRcVP 72L7YizeDrJCsoSQduxxFf YmVyICIgbGVmdCwgYnVyc2 QgfD1jhAYzRLWaNZMidY8m bGUgdGFuLXBpbmsiLCBhbm OvU56jt5wrqSTgk2UnBHXf AUhxOSEylHSnUZi3gMKaDZ MvTqVrfCspz6LdGYAqRFpt EG82DHk1CpHvpLH9SzQjmQ JaXqMhN39hWSvuwOBgCAdh TELaznzvxOx8SIUsC9Hvr8 7aXJF4ccVjFYVkZUjwbMKt DULupuvwnM0blEQoUYwutA fqwyT0YQHzWDsdgPOlGXI8 fAFfuZYnZTIwye1kQzByqf SyNT32EIVmchSaq6DxdBzf rzUqOPNoUWZ5Pi8wjOPmCK WmcePIFE2YCs7mnNXwULQh gwKTOZT5RSRmgtAuaVxuZH NOUWbbSPDbN0YxD9DixwR0 d3jtcUmts4BjxFVlLG8otW FyfQ== Disclaimer (test code = x8dzzJJeVCOby1iuLWTejU [id number]) FuZzEwMzNcZnRuYmpcdWMx STbptbPbHJzys5JrF1QwBz AwMFxhbnNpXGRlZmxhbmcx NTYiLHO6csZmOGDpZPwuQI VxYFnlQm4bcPYxuDrlDmCf DAWch4zajaWISUzhInKvQ9 98SMExPTben9gcu3XxSIPj eGVax5W6GDZCxyfhvUn7rW bvC39mk5F1ZsckZ5dfNPRa RXWlZ4QnNJ4yRBJcKkg4JQ K1TWW5LGRpFLDlK1XaUS9x VBJjiJBxUPh4j7wwtIetUO OrMAV7o5urKKzuutObDY1v bm2kfKp3e3imijPqRVTaND TekGYZILQhS0GgvFdrPj7m sVb4iHoySiexEZU7Klv9VP 6shl74xwp9yCnsBCNqhxxw PlO2VOwxIFSglhppBKy5NP lhVZUirPJ9WZOepAChS9Rh BMOrAF4lfaq1EBU2EFypZW JfCwA8WDKcvKDtBIBjmZhy LZnxt609CPT4PxHvKZ3gU7 Gze1K3eT9kvUGoCZCdaBDc ZrXdVNJpey3lbAYlFUzsc6 HbXNL0ebA4hRUeaXAiHDIm DY11Odajb4WlFxhah9RbI0 8kmAR6WCuor2csZF3zLqQ7 zoYgLHlxt5wbkR0fMrR7RT nrXC6cNW7iISGjaF1ztoap XHBnYnJkcmhlYWRccGdicm ExRk3qpBtwNYI6UWvuY2zz wJ5vGpM9OPdmV4yfvL6dRR t0DHdnbOC5OGQveC6bLS9n dauuu2niSVzhFPkiKTMbhl G2nqL7LDGbvQQfQ9PzyR2q WOQrEQ1dqrnjm1ngGXD7NK vyTEBeTPA9GlFfRNCnk8Sl dxc8IeDgz5NaoEFiLIqkF6 9mu373WNIlqxJsX9xauOUp zbjxtMNlbdhbPLmeunR8BT HuryMbm1JkKBZqFIK4FZol QPswqJAiYLZzaLssw6paB7 RscGFyXHBsYWluXGYxXGZz MjBcbGFuZzEwMzNcaGljaF kzEMrsPqCoBSKnQNwbY0mz IsDwZ2YjDKWgKjZbmFEwV2 ggVGhpcyByZXBvcnQgbWF5 RJzaJ0h8MGOiahBlaGi6ae IjPxFaDQDkSLQ0OLycgCRl UGKwt0KgtoorzFExNp6zaR OzFZMpzD1iZXSdFSKwDCwx FN9jlRr0XHSWwQPuwKBbJo ACXUHeUU86mfJsHGWJnjuo d3V9MNvuLAQni5AmvFZhF0 glq8TvYDSdg25eBD6hq8V6 g4vyTLY5UB3vr6YhYDZqzT QqnARaYNDes2Cyoynql2Mm AGXabpJux5RbUXRswkHzqQ OzBWExvfLxgt5hkdRnQXXa BVVeE8PjlfepiNrjalHxCI Quiu0ingZlRDU7IMVYTSIy FDCoz7TezS9iaHVYZQX7dH Fnhj2rcsGLfPXjQMIcfu89 QMMnSA9bD0kmDFFcNYEcsw SgmYJmm1KjNMBrpPU3sBLd HX3RKnIQx64sJTSiGEWKzn DfCDEtjZzagSS5eiT4aN3o IChGREEpLlx+IFRoZSBGRE DzEW5nczSfq9RysvOdbAko CZLlnQLht7TkqUQnu6FlaR rwm3TyvKSeeLYeNC2rKSGi clxwYXIgVVRNQiBMYWJvcm H7a0JwZQYdXSHqQLY6dPqu bga5NXTioE3wNEPsR4fwcr fgCUzpFCDfn8XwxX7mnSCA jMLgy1IvgTMoqWUSqLBkAC 0yqyVrRXkILRiCXRI9itNw PDJiw0DpMHqqH4bqZ71swG rnkQx7pIZ3VYQ5iX8aUiu+ IFxwYXJccGFyIEFwcHJvcH CnCGBczElqupMsP4SvtcPf lH8hwFKamwWuBJ9pVT1qV7 P4uELhUFSxnsKsr0dlWThh dmUgYmVlbiByZXZpZXdlZC Bcy5ChTSwnITE9KVkappYm bmNsdWRpbmcgSCZFLCBTcG LhbEHtZXD0QQiuqcWeqkFe KL1uhJ9daAptaY1zsNUjrM L5vqqoJNKsIFCojUghCJOo CC7deKWcRQKsdrEOeHlimJ WxaV8nS3MgQONkSJEkfl6d TKToxV8tITtmu2AtysquYK TgJQObSTLuceJosc4qMGKl zWZYRQ8ALYsbiUQjr1Vzfx JzT2oSGXG6OWUiAdYrLnbu CQXetUJtzXQuSMFmky02HV IpnA5gqKozWEAbhU2eqM5f oDngvO7bBpZsGsUiFFtoYE 2jTKPdO8dnsGZlTPRaZDNr T9dxOoWnxI7hiYzjEPjmIl AyFyMmFAdfMTT6nN== Embedded Images (test code = [id number]) [facility] [id number] 18:39:56 Test Item Value Reference Range Interpretation Comments Case Report (test code Surgical Pathology ? ? = [id number]) ?Case: [id number] ? Authorizing Provider: ?Stephen Montana MD Collected: ? 07/14/2021 1220 ?Ordering Location: ? ? [facility] ? ? ?Received: ?07/14/2021 3185 ? [facility] ?Pathologist: ? Nay, Keshav, PHD ?Specimen: ? ?ELBOW, LEFT, LEFT, BURSECTOMY SAC ? Final Diagnosis (test x9qesNYyRHHst8asQLMyzF code = [id number]) FuZzEwMzNcZnRuYmpcdWMx IHtccnRmMVxlcGljOTYwMV tuegJlNNUwyAYrD8Mocvru DJyvXI3mWZ6ysIkknYNxbL HwFOKxDzPzq1rcg994fXZc z0khOIWSsfrwoPg4xDmdX9 6cw3T8WnbsY23naBHjGZV5 SKFjQQZrjMYoWDCtXFP0QK XswRQpI6pgHIPiTM0jqfgx YSpgMFriGIEqoBL6LALahE WwL0SfFKHbQCwnQUEcwdy1 TmRfPi2ugQBjjGltBEdsQO JkXHBsYWluXGZzMjBccGFy RGFrGOBLIhRkGIaQT3SNXU BFTEJPVywgTEVGVCwgQlVS Q4MEJN2GUOxboRWbUAqhMX LsKCAkFCH1FUlohC40VWIc FYJpHNVaDSQHZG4DL13aI3 9OTkVDVElWRSBBTkQgRklC Gw0VGPvZO1ZJXWDVC6HKNU BXSVRIIEFDVVRFIElORkxB WS2CWZzJXbBjbZMpLDhpVD xmaTBcbGluMFxwYXJccGFy YXNjgXRds2iaTLbncQihqE 6fKJ5POVaeUHKasNBekBee esGiOMjap0TyW1VuIsCiBO xhbnNpXGRlZmxhbmcxMDMz VTW5ncTbZRWhVPliZLMfYK yqWm2viBJooYbwMrDiEALb q1dpaqHFVHinXpHqY413WG AoBGmfv3frd3OgKCEzzMWo t0Q5RKBZfgrjlVd7e8pbXc BnRhP1fLHyYGnaW9awmrXl xUTiD5ReiYKrjPf4zMuvX3 7xe8U2YlbcB4qpVQLhRBPw X8HrPO9oFWQmMlv9TPV7DN Y4BKCsNLGlL2TkXK3vSDKi nUGrJOm9s3zxrTuqIETuQB G8v5urVKsezbC9TQ6ntz8w rHx5g4afzjGnTFYxWMGjnX OODIEdQ1OywUleSh2hfNx3 cJsjPsqbUSN6Zxw1IQ9awx 52car5eNrgZWBzilnjSwE5 WDvqOWTolsvtDTw3AOabWO RavAZ7XJGixFZqJ2IqZPVj TF3widc9YYA9XWznCYWiWg L9NFEkeLWtWBFhbRvfGKoy y153IAD2PsSpQN4rL0Lwj3 J1yM4dtIXuGUThsIKjXcPf HPTlli6ryIMfFRwuh3CxVW K3htG9wLPxkQOoVTNnYC05 Gewqj0HjNfbsQRN4YUMstt Amb3Rvl0jtKsJkjtHnY0mz D3GvOLOiKSUbEWJwKiYhtv Zyc9Ixn2QamCUqxCb0j8uf FIHoEAQzlFvyk7okMMH2RO BoB9K3oHRzh6xhYHdrGHUh dWQ8hpD9VZNmnYGnB5LmjS 5pJFWxIF0labt5f5qtIMT5 CSnfCYHfSqI3fuJ3OHIyyR QhDNWksMytWQxbs913REY4 GlMeTWZlb7KeG5KvnPrjL1 3roPwdF79gIULasRvayM3j kKnirE9xMmShMyQgFMnuiU xwbGFpblxmMVxmczIwXGxh grfoUQYcFDgvE4zeCgYgJB WqsShhHTfhu5FmFNXpRJAh MlxmczIwXHBhciBJIGhhdm QhcHFqw50gGTayaQCgCIMj NWvnDDTjaIakn4QbK8twLT 7lT3MpaAAbxzYgamBnGMln UBNro0d3eQTziMmed5LfdR ZcMM63niJtROMpUZA2YQJk x5uoYC18laldYcNyeZ61kj MdtqPwKCDfa7koU5andVFb f4Spx9LdpvRfRFqqv9KfER 3siEPwrdafdPB5FUEhlSJr tlRokeL0yTyrQNMzrQ1ruB 0soBxqsB7wRmTnFaOlNQzb LH0wAHNgF9aiaWTxQSWyAX VdN1nhChLogC2xgDxuUnuy hfK4EVBrqo74 Clinical Information LEFT OLECRANON (test code = BURSITIS, SEPTIC [id number]) Gross Description (test a2yrgELtJUDryEJ3YrAoER code = [id number]) Ivc3euc6CgxMArpDQnFUrg eXClbbKcqe89nUN5fU48CF 2wYZUkXnI8KZMrzcN4Lce9 PUKfKTUrjDKlV203d6gir1 lwbdFbzAG6bDkhSNJrjyxq YkS7QSbaVWLesmwiYOb6OR uiENUhhLX8LHGltUIgS8Ik QMWbDC3zdag8ZLF4SMegNN XfVrL3NFYdfTPlMWVgfYpk UEukt859XIG4RhUiAXBqox J9PAsnPVLcO8HwR2OoWTru WBW3DRPnIOHvCJYhPFIsSX LkACysqlQ0t0atCGAxrOFm JXV3YSfraAIuRKBsAFMuQO kpRnWVHpRqCxYjIqQ4EGU2 JrYyEVz3QDonS1PRCQBeHS L1EfRiOBw5WfM2MHt2VFBQ Di9mQYAuXYI3WcTgApC8RD QwNCBcXHQgMiBcXGZsIFxc ZiBBcmlhbCBcXGZzIDEwIF vfiuK5ECBaTFlxYUEvRmMc NF4rJXwKF2ykPNcYXuVaJL BhclxmczIyIFNwZWNpbWVu GOFkiKBtzzPlMLo6DYYmtP 4tUb3exELbsD0yyNGcOYna FAT8iLKuZNKiQBNbDGBnQP 37W2YeywQqYWokHFjmhiAa YmVyICIgbGVmdCwgYnVyc2 EozN1qoXXvTRFlFLJftI7w bGUgdGFuLXBpbmsiLCBhbm PkE66is4fhiZBob1NjIQMz HZibJMDfqXEfXNa7lVPfSN LkZeEatMfrz5JgKAVnZVei HE43JFp3UrLbaYU2NiFebH VcHbLxG61fZJoqvJSmQJyh LAVufaekhDv1ANJmY3Uue4 7vLTH9tpJbMPKsBLpblMGc TUVxkzbfoO9fsELmJVhcsX qnerE9XSCmEBmlsAIdVWL3 wCYsbOGxOUEbhl3yOyKbev JeUI69EFYiqkErv3IcmPno itDfXKMpXHS4Yv1woTQeFB JdadPQZV2OKl8wqIAjXBRf hmTWFXN7XSFyqoMnhKwhLH NLWIwiVVTkP0SxT5BqonR4 s3lnoJzep1AzsSJfSD9yjV FyfQ== Disclaimer (test code = v9uemZGuBBHzb2zpWMGprC [id number]) FuZzEwMzNcZnRuYmpcdWMx QEwjrxAtDWrox7KiH0EaCi AwMFxhbnNpXGRlZmxhbmcx VRMqJFY4piJyVNArPDurQD AkXEqiTw0ezIMyhWfkGyFf UELbs0vahdANDYctTeCqF4 68VTSePAfhe8yvc8UkGPZd tVUlt7I8FSWQkjgeuSe9pM qrH83ga1X9IltzP1ywFBWj CCCdJ4UjPP6sHRLiIvp1YE H4FNH4EFPyWJBwQ4WnRE1m MTDwuKAePLp2d4yhuMjjLB TaURY1m7hzBSfysmOaZE9t as2dcTu5i6feygDsGGZaZV TijSHKEIOvB2GdpJipCt7d dLk4lRuuHbshKYY5Ngx3AN 1iqr08wxh3jKqzTUTwamsv LhH4UUpdVDYbcltnSEn4KK hlKKWuiUV9UTRgtCKhC7Ei MTDgQP2goha2CJQ1JWvbFE RxOkH3MQHfdFKoQROzoQfz CBmdn054RWU5HqFsGR2xQ4 Qzm5Q0wN6yiORdSKYysLBb WpVaQQSiay5klUSwEAmto9 HwWHU3luE1qSQgvHHvZBGk ZD78Ehyyy3SgDjuar0GvG7 7xzTJ5DCxlz6yxIO2tXnL5 nhRaTWpxy0gzkE6bMnV7MH ybBX1vZV8dIJCqaG8dcpjn XHBnYnJkcmhlYWRccGdicm MaPw9rpEknOPD3IScyK7wb uH2zDsV0JDptC2sanC0iWI u7ETlgoMP5QICpzA7qBW3r thvxf2ucITdhAQotPWRzdp I1npK3JAHwlZOzJ2RxaB9u NEIvSF7sdbvbj3xnDAC6OK wjAYOgXPJ0BqOmMUNwg7Qc iee1RsQne2MlpIYoDLwaK2 0le882MBMbndFcK0ylbWPi kkaxqAMqbyxeNDdaeoP6EM BnerLup6GjFYYgAHM2DMwo IGhusHGvVGXnnVlcl4veX0 RscGFyXHBsYWluXGYxXGZz MjBcbGFuZzEwMzNcaGljaF biSMzoIkTkEIFwGZrxZ4mn XpRnN4RzAELzItKhcWDzL8 ggVGhpcyByZXBvcnQgbWF5 AGuzD8x8ADMuxnGzgMq7hh PlLbLaAVSjATM1YRmnmNRl FLUcd9TnuhfhjKYsZi3rdK KuIHMrbN5zIQCmGCSlKQym UM1ipJh1UGTZeWGigCEhIw OSZFGtYM73nkDjTVOFjdif b2W7HOdhLKElw3CilRGdW8 fjf1JjJCUaf65fRS8qv8U8 y3toZPS2DF8ii4PnYNGghZ YdkGNvMCTxg3Wkonykp0Aq JBYqrsWmv3LnYWLxppSniD PpJMClcyIcpr3aurCmYSGd EOFpY2QgohonwDjinbQzUO Dbmd6uouUyGRI7KZTVGASa BFVsh2PngH8mzLRGNFH4fQ Emuz6qkdMQySRbJMYler30 PDWkWI4cZ6jmZLPbJXUusn GviUHin1JsSNIqvYS8pPPw SW0LSpHEs58lXIPlKFEJsi KvTMMuvMpjdTM7deJ6iT2k IChGREEpLlx+IFRoZSBGRE FjJY2obeSyk2AariXtcPgj VBQexYIyq1SpoVZrr6ZnlA lpm1RubRKgxSEjPS1tWRAh clxwYXIgVVRNQiBMYWJvcm E1y9WfMZXlSQHqKSG2iTiu okf0XYFwkC7iUCBoV4hehj nnAIddZKZur6FnuN4adRIC vPYiq9OtxGOktMKKrNCrIG 2gseHfDClGSFbJBAH3oaKj VGYeo1XpYJbgH8tpZ03ioE roeHl0wAW5CDE5fX4qWsh+ IFxwYXJccGFyIEFwcHJvcH YzENMkoFdnwfUgP0CmpiBd tC8csLDjplCoYU5hMM8hN6 E9iRYxLNOtklPev5udCYnz dmUgYmVlbiByZXZpZXdlZC Spo6UqXDymWUC3EQlegdJa bmNsdWRpbmcgSCZFLCBTcG LgeLGiJLS0JTygdhMemaFq OA3qiL8lwLxinJ6gnPQboZ O3dxfgMYJnBTIglPzaRTHr PW2jeKRwFGFcijXQaVvhiW TzzG9bC3PjTJEgVIMhcl5c AFSnsC4bEEoqw2OhokpyFF QbLPSqLHRddzNzkt6xIREl oMUIAM2CHQsipKZfk9Rdge VkI8mMXIU5ALBfJaBoXqpb TLBdqTSkaUYuGCZfev90OR PfzS7cpXmkKJFrzP7oiB7g kTcccX0cPaFxEfBtLUiaOQ 8gIZDcR2crsLVfOIHaQSWv L2urUjPhbE1zxGnhAYdfYw ZnUrZjNIkfXLA6kB== Embedded Images (test code = 4577490829) [facility] [id number] 15:58:33 Test Item Value Reference Interpretation Comments Range TROPONIN I (test 0.006 ng/mL See_Comment [Automated code = 9404397681) message] The system which generated this result [...] biotin. Lab Interpretation Normal (test code = 36054-9) [facility] [id number] 15:58:33 Test Item Value Reference Interpretation Comments Range TROPONIN I (test 0.006 ng/mL See_Comment [Automated code = 1550262761) message] The system which generated this result [...] biotin. Lab Interpretation Normal (test code = 61439-6) [facility]OB[facility] 2021-07-17 13:42:31 Test Item Value Reference Range Interpretation Comments Aspirate or Abscess No aerobic/anaerobic Culture (test code = organisms isolated 12877-8) Gram stain (test code Occasional (Rare) PMNs = 664-3) or Mononuclear cells observed [facility](AEROBIC/ANAEROBIC) 2021-07-17 13:42:31 Test Item Value Reference Range Interpretation Comments Aspirate or Abscess No aerobic/anaerobic Culture (test code = organisms isolated 86381-9) Gram stain (test code Few PMNs or Mononuclear = 664-3) cells observed [facility](AEROBIC/ANAEROBIC) 2021-07-17 13:42:31 Test Item Value Reference Range Interpretation Comments Aspirate or Abscess No aerobic/anaerobic Culture (test code = organisms isolated 50737-4) Gram stain (test code Occasional (Rare) PMNs = 664-3) or Mononuclear cells observed [facility](AEROBIC/ANAEROBIC) 2021-07-17 13:42:31 Test Item Value Reference Range Interpretation Comments Aspirate or Abscess No aerobic/anaerobic Culture (test code = organisms isolated 79123-3) Gram stain (test code Few PMNs or Mononuclear = 664-3) cells observed [facility] METABOLIC PANEL (NA, K, CL, CO2, GLUCOSE, BUN, CREATININE, CA)2021-07-17 11:17:54 Test Item Value Reference Range Interpretation Comments NA (test code = 135 mmol/L 135-145 4543069327) K (test code = 3.8 mmol/L 3.5-5.0 4394174815) CL (test code = 103 mmol/L 98-108 1681263567) CO2 TOTAL (test code = 31 mmol/L 23-31 0079711301) AGAP (test code = 2-16 L 7518968133) BUN (test code = 18 mg/dL 7-23 0043341063) GLUCOSE (test code = 103 mg/dL 70-110 8428174581) CREATININE (test code = 1.04 mg/dL 0.60-1.25 4122671775) CALCIUM (test code = 8.3 mg/dL 8.6-10.6 L 4443489768) eGFR (test code = mL/min/1.73m2 9886772696) FLOYD (test code = FLOYD) Association of [...] tests). Lab Interpretation Abnormal (test code = 11099-9) [facility] (NA, K, CL, CO2, GLUCOSE, BUN, CREATININE, CA)2021-07-17 11:17:54 Test Item Value Reference Range Interpretation Comments NA (test code = 135 mmol/L 135-145 7839397938) K (test code = 3.8 mmol/L 3.5-5.0 9361525885) CL (test code = 103 mmol/L 98-108 0814980051) CO2 TOTAL (test code = 31 mmol/L 23-31 1273101677) AGAP (test code = 2-16 L 3854138660) BUN (test code = 18 mg/dL 7-23 7018291353) GLUCOSE (test code = 103 mg/dL 70-110 6375136038) CREATININE (test code = 1.04 mg/dL 0.60-1.25 7089751482) CALCIUM (test code = 8.3 mg/dL 8.6-10.6 L 9424034626) eGFR (test code = mL/min/1.73m2 0568841555) FLOYD (test code = FLOYD) Association of [...] tests). Lab Interpretation Abnormal (test code = 71526-2) [facility] WITH [id number] 11:12:51 Test Item Value Reference Range Interpretation [...] RDW-SD (test code = 43.8 fL 38.5-51.6 66837-6) RDW-CV (test code = 12.5 % 12.1-15.4 788-0) PLT (test code = See_Comment L [Automated 777-3) message] The sy stem which generated this result transmitted reference range : 150 - 328 10*3/ ?L. The reference r aleksandra was not used to interpret this result as normal/abnormal . MPV (test code = 10.0 fL 9.8-13.0 16521-5) NRBC/100 WBC (test See_Comment [Automat ed code = 1946146201) message] The system which generated this result transmitted reference range : 0.0 - 10.0 /100 WBCs. The refer ence range was not u sed to interpret th is result as normal/abnormal . NRBC x10^3 (test code <0.01 See_Comment [Auto mated = 5178125426) message] The s ystem which generated this result transmitted reference range : 10*3/?L. The reference range was not used to interpret this result as normal/abnormal . GRAN MAT (NEUT) % 69.0 % (test code = 770-8) IMM GRAN % (test code 0.30 % = 3512394557) LYMPH % (test code = 15.2 % 736-9) MONO % (test code = 10.5 % 5905-5) EOS % (test code = 4.2 % 713-8) BASO % (test code = 0.8 % 706-2) GRAN MAT x10^3(ANC) 4.07 10*3/uL 1.99-6.95 (test code = 1585289968) IMM GRAN x10^3 (test <0.03 0.00-0.06 code = 5148450155) LYMPH x10^3 (test code 0.90 10*3/uL 1.09-3.23 L = 731-0) MONO x10^3 (test code 0.62 10*3/uL 0.36-1.02 = 742-7) EOS x10^3 (test code = 0.25 10*3/uL 0.06-0.53 711-2) BASO x10^3 (test code 0.05 10*3/uL 0.01-0.09 = 704-7) Lab Interpretation Abnormal (test code = 44212-8) [facility] WITH [id number] 11:12:51 Test Item Value Reference Range Interpretation [...] RDW-SD (test code = 43.8 fL 38.5-51.6 36831-0) RDW-CV (test code = 12.5 % 12.1-15.4 788-0) PLT (test code = See_Comment L [Automated 777-3) message] The sy stem which generated this result transmitted reference range : 150 - 328 10*3/ ?L. The reference r aleksandra was not used to interpret this result as normal/abnormal . MPV (test code = 10.0 fL 9.8-13.0 97733-8) NRBC/100 WBC (test See_Comment [Automat ed code = 7251225261) message] The system which generated this result transmitted reference range : 0.0 - 10.0 /100 WBCs. The refer ence range was not u sed to interpret th is result as normal/abnormal . NRBC x10^3 (test code <0.01 See_Comment [Auto mated = 3628548017) message] The s ystem which generated this result transmitted reference range : 10*3/?L. The reference range was not used to interpret this result as normal/abnormal . GRAN MAT (NEUT) % 69.0 % (test code = 770-8) IMM GRAN % (test code 0.30 % = 0168069540) LYMPH % (test code = 15.2 % 736-9) MONO % (test code = 10.5 % 5905-5) EOS % (test code = 4.2 % 713-8) BASO % (test code = 0.8 % 706-2) GRAN MAT x10^3(ANC) 4.07 10*3/uL 1.99-6.95 (test code = 7164330646) IMM GRAN x10^3 (test <0.03 0.00-0.06 code = 5206453892) LYMPH x10^3 (test code 0.90 10*3/uL 1.09-3.23 L = 731-0) MONO x10^3 (test code 0.62 10*3/uL 0.36-1.02 = 742-7) EOS x10^3 (test code = 0.25 10*3/uL 0.06-0.53 711-2) BASO x10^3 (test code 0.05 10*3/uL 0.01-0.09 = 704-7) Lab Interpretation Abnormal (test code = 10580-4) [facility] - Please draw trough BEFORE the dose scheduled at 07/16 @ 1630; but no more than 60 mins before the dose is due.2021-07-17 01:16:55 Test Item Value Reference Range Interpretation Comments VANCO TROUGH (test code 14.5 ug/mL 10.0-20.0 = 5502351152) FLOYD (test code = FLOYD) Toxic Range: ?>20 ug/mL 15-20 ug/mL is recommended for severe infection or when Vancomycin ZITA is greater than or equal to 2. Lab Interpretation (test Normal code = 59404-6) [facility] Please draw trough BEFORE the dose scheduled at 07/16 @ 1630; but no more than 60 mins before the dose is due.2021-07-17 01:16:55 Test Item Value Reference Range Interpretation Comments VANCO TROUGH (test code 14.5 ug/mL 10.0-20.0 = 5955486961) FLOYD (test code = FLOYD) Toxic Range: ?>20 ug/mL 15-20 ug/mL is recommended for severe infection or when Vancomycin ZITA is greater than or equal to 2. Lab Interpretation (test Normal code = 66184-7) [facility] [id number] 00:16:04 Test Item Value Reference Range Interpretation Comments NT-proBNP (test code 385 pg/mL See_Comment H [Autom ated = 2786041274) message] The system which generated this result transmitted reference range : <=125. The reference range was not used to interpret this result as normal/abnormal . FLOYD (test code = FLOYD) Biotin has been reported to cause a negative bias, interpret results relative to patient's use of biotin. Lab Interpretation Abnormal (test code = 56209-6) [facility] [id number] 00:16:04 Test Item Value Reference Range Interpretation Comments NT-proBNP (test code 385 pg/mL See_Comment H [Autom ated = 3512275528) message] The system which generated this result transmitted reference range : <=125. The reference range was not used to interpret this result as normal/abnormal . FLOYD (test code = FLOYD) Biotin has been reported to cause a negative bias, interpret results relative to patient's use of biotin. Lab Interpretation Abnormal (test code = 67200-5) [facility] CULTURE [id number] 22:01:50 Test Item Value Reference Range Interpretation Comments Blood Culture-Aerobic No organisms No growth Previo us (test code = 41435-7) isolated prelim inary verified result was Culture In Progress on 07/11/2021 at 19 01 CSTPrevious preliminary verified result was No growth a t 24 hours on 07/12/2021 at 16 01 CSTPrevious preliminary verified result was No growth a t 48 hours on 07/13/2021 at 16 01 CSTPrevious preliminary verified result was No growth a t 72 hours on 07/14/2021 at 16 01 [employer] Blood No organisms No growth Previous Culture-Anaerobic isolated preliminar y (test code = 72545-3) verifi ed result was Culture In Progress on 07/11/2021 at 19 01 CSTPrevious preliminary verified result was No growth a t 24 hours on 07/12/2021 at 16 01 CSTPrevious preliminary verified result was No growth a t 48 hours on 07/13/2021 at 16 01 CSTPrevious preliminary verified result was No growth a t 72 hours on 07/14/2021 at 16 01 [employer] Lab Interpretation Normal (test code = 73674-5) [facility] CULTURE [id number] 22:01:50 Test Item Value Reference Range Interpretation Comments Blood Culture-Aerobic No organisms No growth Previo us (test code = 02325-5) isolated prelim inary verified result was Culture In Progress on 07/11/2021 at 19 01 CSTPrevious preliminary verified result was No growth a t 24 hours on 07/12/2021 at 16 01 CSTPrevious preliminary verified result was No growth a t 48 hours on 07/13/2021 at 16 01 CSTPrevious preliminary verified result was No growth a t 72 hours on 07/14/2021 at 16 01 [employer] Blood No organisms No growth Previous Culture-Anaerobic isolated preliminar y (test code = 18207-7) verifi ed result was Culture In Progress on 07/11/2021 at 19 01 CSTPrevious preliminary verified result was No growth a t 24 hours on 07/12/2021 at 16 01 CSTPrevious preliminary verified result was No growth a t 48 hours on 07/13/2021 at 16 01 CSTPrevious preliminary verified result was No growth a t 72 hours on 07/14/2021 at 16 01 [employer] Lab Interpretation Normal (test code = 43580-8) [facility] CULTURE [id number] 22:01:50 Test Item Value Reference Range Interpretation Comments Blood Culture-Aerobic No organisms No growth Previo us (test code = 65295-4) isolated prelim inary verified result was Culture In Progress on 07/11/2021 at 19 01 CSTPrevious preliminary verified result was No growth a t 24 hours on 07/12/2021 at 16 01 CSTPrevious preliminary verified result was No growth a t 48 hours on 07/13/2021 at 16 01 CSTPrevious preliminary verified result was No growth a t 72 hours on 07/14/2021 at 16 01 [employer] Blood No organisms No growth Previous Culture-Anaerobic isolated preliminar y (test code = 50392-9) verifi ed result was Culture In Progress on 07/11/2021 at 19 01 CSTPrevious preliminary verified result was No growth a t 24 hours on 07/12/2021 at 16 01 CSTPrevious preliminary verified result was No growth a t 48 hours on 07/13/2021 at 16 01 CSTPrevious preliminary verified result was No growth a t 72 hours on 07/14/2021 at 16 01 [employer] Lab Interpretation Normal (test code = 86782-2) [facility] CULTURE [id number] 22:01:50 Test Item Value Reference Range Interpretation Comments Blood Culture-Aerobic No organisms No growth Previo us (test code = 79487-4) isolated prelim inary verified result was Culture In Progress on 07/11/2021 at 19 01 CSTPrevious preliminary verified result was No growth a t 24 hours on 07/12/2021 at 16 01 CSTPrevious preliminary verified result was No growth a t 48 hours on 07/13/2021 at 16 01 CSTPrevious preliminary verified result was No growth a t 72 hours on 07/14/2021 at 16 01 [employer] Blood No organisms No growth Previous Culture-Anaerobic isolated preliminar y (test code = 62761-9) verifi ed result was Culture In Progress on 07/11/2021 at 19 01 CSTPrevious preliminary verified result was No growth a t 24 hours on 07/12/2021 at 16 01 CSTPrevious preliminary verified result was No growth a t 48 hours on 07/13/2021 at 16 01 CSTPrevious preliminary verified result was No growth a t 72 hours on 07/14/2021 at 16 01 [employer] Lab Interpretation Normal (test code = 94583-3) [facility] WITH [id number] 11:35:47 Test Item Value Reference Range Interpretation [...] RDW-SD (test code = 42.8 fL 38.5-51.6 50138-2) RDW-CV (test code = 12.4 % 12.1-15.4 788-0) PLT (test code = See_Comment [Automated 777-3) message] The sy stem which generated this result transmitted reference range : 150 - 328 10*3/ ?L. The reference r aleksandra was not used to interpret this result as normal/abnormal . MPV (test code = 10.2 fL 9.8-13.0 16721-9) NRBC/100 WBC (test See_Comment [Automat ed code = 7549439901) message] The system which generated this result transmitted reference range : 0.0 - 10.0 /100 WBCs. The refer ence range was not u sed to interpret th is result as normal/abnormal . NRBC x10^3 (test code <0.01 See_Comment [Auto mated = 6493566556) message] The s ystem which generated this result transmitted reference range : 10*3/?L. The reference range was not used to interpret this result as normal/abnormal . GRAN MAT (NEUT) % 70.2 % (test code = 770-8) IMM GRAN % (test code 0.50 % = 8381780841) LYMPH % (test code = 16.0 % 736-9) MONO % (test code = 9.4 % 5905-5) EOS % (test code = 2.9 % 713-8) BASO % (test code = 1.0 % 706-2) GRAN MAT x10^3(ANC) 5.36 10*3/uL 1.99-6.95 (test code = 9890657417) IMM GRAN x10^3 (test 0.04 10*3/uL 0.00-0.06 code = 0335661091) LYMPH x10^3 (test code 1.22 10*3/uL 1.09-3.23 = 731-0) MONO x10^3 (test code 0.72 10*3/uL 0.36-1.02 = 742-7) EOS x10^3 (test code = 0.22 10*3/uL 0.06-0.53 711-2) BASO x10^3 (test code 0.08 10*3/uL 0.01-0.09 = 704-7) Lab Interpretation Abnormal (test code = 36919-4) [facility] WITH [id number] 11:35:47 Test Item Value Reference Range Interpretation Comments WBC (test code = See_Comment [Automated 0800-2) message] The sy stem which generated this result transmitted reference range : 4.20 - 10.70 10*3/?L. The reference range was not used to interpret this result as normal/abnormal . RBC (test code = See_Comment L [Automated 776-8) message] The sy stem which generated this [...] RDW-SD (test code = 42.8 fL 38.5-51.6 42689-8) RDW-CV (test code = 12.4 % 12.1-15.4 788-0) PLT (test code = See_Comment [Automated 777-3) message] The sy stem which generated this result transmitted reference range : 150 - 328 10*3/ ?L. The reference r aleksandra was not used to interpret this result as normal/abnormal . MPV (test code = 10.2 fL 9.8-13.0 72443-9) NRBC/100 WBC (test See_Comment [Automat ed code = 7700537818) message] The system which generated this result transmitted reference range : 0.0 - 10.0 /100 WBCs. The refer ence range was not u sed to interpret th is result as normal/abnormal . NRBC x10^3 (test code <0.01 See_Comment [Auto mated = 2814364246) message] The s ystem which generated this result transmitted reference range : 10*3/?L. The reference range was not used to interpret this result as normal/abnormal . GRAN MAT (NEUT) % 70.2 % (test code = 770-8) IMM GRAN % (test code 0.50 % = 2826724335) LYMPH % (test code = 16.0 % 736-9) MONO % (test code = 9.4 % 5905-5) EOS % (test code = 2.9 % 713-8) BASO % (test code = 1.0 % 706-2) GRAN MAT x10^3(ANC) 5.36 10*3/uL 1.99-6.95 (test code = 5695439846) IMM GRAN x10^3 (test 0.04 10*3/uL 0.00-0.06 code = 1530053089) LYMPH x10^3 (test code 1.22 10*3/uL 1.09-3.23 = 731-0) MONO x10^3 (test code 0.72 10*3/uL 0.36-1.02 = 742-7) EOS x10^3 (test code = 0.22 10*3/uL 0.06-0.53 711-2) BASO x10^3 (test code 0.08 10*3/uL 0.01-0.09 = 704-7) Lab Interpretation Abnormal (test code = 01681-7) [facility] METABOLIC PANEL (NA, K, CL, CO2, GLUCOSE, BUN, CREATININE, CA)2021-07-16 11:26:42 Test Item Value Reference Range Interpretation Comments NA (test code = 137 mmol/L 135-145 5737196939) K (test code = 3.9 mmol/L 3.5-5.0 4508888031) CL (test code = 105 mmol/L 98-108 7957897360) CO2 TOTAL (test code = 29 mmol/L 23-31 4603323452) AGAP (test code = 2-16 0280169439) BUN (test code = 21 mg/dL 7-23 7448028096) GLUCOSE (test code = 91 mg/dL 70-110 4717862511) CREATININE (test code = 1.06 mg/dL 0.60-1.25 7237995084) CALCIUM (test code = 8.4 mg/dL 8.6-10.6 L 9214531241) eGFR (test code = mL/min/1.73m2 0499535716) FLOYD (test code = FLOYD) Association of [...] tests). Lab Interpretation Abnormal (test code = 19160-3) [facility] METABOLIC PANEL (NA, K, CL, CO2, GLUCOSE, BUN, CREATININE, CA)2021-07-16 11:26:42 Test Item Value Reference Range Interpretation Comments NA (test code = 137 mmol/L 135-145 9575445460) K (test code = 3.9 mmol/L 3.5-5.0 5803894336) CL (test code = 105 mmol/L 98-108 1499883099) CO2 TOTAL (test code = 29 mmol/L 23-31 8233682510) AGAP (test code = 2-16 6316587535) BUN (test code = 21 mg/dL 7-23 9691897776) GLUCOSE (test code = 91 mg/dL 70-110 4486927210) CREATININE (test code = 1.06 mg/dL 0.60-1.25 3210906696) CALCIUM (test code = 8.4 mg/dL 8.6-10.6 L 8850887505) eGFR (test code = mL/min/1.73m2 2552645558) FLOYD (test code = FLOYD) Association of [...] tests). Lab Interpretation Abnormal (test code = 82121-5) [facility] METABOLIC PANEL (NA, K, CL, CO2, GLUCOSE, BUN, CREATININE, CA)2021-07-15 12:47:33 Test Item Value Reference Range Interpretation Comments NA (test code = 134 mmol/L 135-145 L 2720497606) K (test code = 4.1 mmol/L 3.5-5.0 2219898750) CL (test code = 100 mmol/L 98-108 7761160543) CO2 TOTAL (test code = 27 mmol/L 23-31 4222988292) AGAP (test code = 2-16 5305412329) BUN (test code = 24 mg/dL 7-23 H 0223683167) GLUCOSE (test code = 125 mg/dL 70-110 H 2993502803) CREATININE (test code = 1.03 mg/dL 0.60-1.25 8494908441) CALCIUM (test code = 8.6 mg/dL 8.6-10.6 8742195925) eGFR (test code = mL/min/1.73m2 6922069001) FLOYD (test code = FLOYD) Association of [...] tests). Lab Interpretation Abnormal (test code = 54965-3) [facility] METABOLIC PANEL (NA, K, CL, CO2, GLUCOSE, BUN, CREATININE, CA)2021-07-15 12:47:33 Test Item Value Reference Range Interpretation Comments NA (test code = 134 mmol/L 135-145 L 0337284635) K (test code = 4.1 mmol/L 3.5-5.0 9070087362) CL (test code = 100 mmol/L 98-108 4207525269) CO2 TOTAL (test code = 27 mmol/L 23-31 8232527096) AGAP (test code = 2-16 9032223983) BUN (test code = 24 mg/dL 7-23 H 3368640526) GLUCOSE (test code = 125 mg/dL 70-110 H 9610932481) CREATININE (test code = 1.03 mg/dL 0.60-1.25 8683873092) CALCIUM (test code = 8.6 mg/dL 8.6-10.6 1468085641) eGFR (test code = mL/min/1.73m2 2381778815) FLOYD (test code = FLOYD) Association of [...] tests). Lab Interpretation Abnormal (test code = 76549-4) [facility] (NA, K, CL, CO2, GLUCOSE, BUN, CREATININE, CA)2021-07-15 12:47:33 Test Item Value Reference Range Interpretation Comments NA (test code = 134 mmol/L 135-145 L 1354335453) K (test code = 4.1 mmol/L 3.5-5.0 6989440271) CL (test code = 100 mmol/L 98-108 2349704666) CO2 TOTAL (test code = 27 mmol/L 23-31 9423832094) AGAP (test code = 2-16 5470407570) BUN (test code = 24 mg/dL 7-23 H 4063218773) GLUCOSE (test code = 125 mg/dL 70-110 H 8962972277) CREATININE (test code = 1.03 mg/dL 0.60-1.25 0209525838) CALCIUM (test code = 8.6 mg/dL 8.6-10.6 9011964904) eGFR (test code = mL/min/1.73m2 7374396469) FLOYD (test code = FLOYD) Association of [...] tests). Lab Interpretation Abnormal (test code = 60260-6) [facility] WITH [id number] 11:55:46 Test Item Value Reference Range Interpretation [...] RDW-SD (test code = 42.7 fL 38.5-51.6 91098-7) RDW-CV (test code = 12.2 % 12.1-15.4 788-0) PLT (test code = See_Comment [Automated 777-3) message] The sy stem which generated this result transmitted reference range : 150 - 328 10*3/ ?L. The reference r aleksandra was not used to interpret this result as normal/abnormal . MPV (test code = 10.2 fL 9.8-13.0 43639-6) NRBC/100 WBC (test See_Comment [Automat ed code = [id number]) message] The system which generated this result transmitted reference range : 0.0 - 10.0 /100 WBCs. The refer ence range was not u sed to interpret th is result as normal/abnormal . NRBC x10^3 (test code <0.01 See_Comment [Auto mated = [id number]) message] The s ystem which generated this result transmitted reference range : 10*3/?L. The reference range was not used to interpret this result as normal/abnormal . GRAN MAT (NEUT) % 84.9 % (test code = 770-8) IMM GRAN % (test code 0.50 % = [id number]) LYMPH % (test code = 7.2 % 736-9) MONO % (test code = 6.9 % 5905-5) EOS % (test code = 0.2 % 713-8) BASO % (test code = 0.3 % 706-2) GRAN MAT x10^3(ANC) 9.33 10*3/uL 1.99-6.95 H (test code = [id number]) IMM GRAN x10^3 (test 0.05 10*3/uL 0.00-0.06 code = [id number]) LYMPH x10^3 (test code 0.79 10*3/uL 1.09-3.23 L = 731-0) MONO x10^3 (test code 0.76 10*3/uL 0.36-1.02 = 742-7) EOS x10^3 (test code = <0.03 0.06-0.53 L 711-2) BASO x10^3 (test code 0.03 10*3/uL 0.01-0.09 = 704-7) Lab Interpretation Abnormal (test code = 63905-9) [facility] WITH [id number] 11:55:46 Test Item Value Reference Range Interpretation [...] RDW-SD (test code = 42.7 fL 38.5-51.6 89834-2) RDW-CV (test code = 12.2 % 12.1-15.4 788-0) PLT (test code = See_Comment [Automated 777-3) message] The sy stem which generated this result transmitted reference range : 150 - 328 10*3/ ?L. The reference r aleksandra was not used to interpret this result as normal/abnormal . MPV (test code = 10.2 fL 9.8-13.0 31713-6) NRBC/100 WBC (test See_Comment [Automat ed code = 0741137556) message] The system which generated this result transmitted reference range : 0.0 - 10.0 /100 WBCs. The refer ence range was not u sed to interpret th is result as normal/abnormal . NRBC x10^3 (test code <0.01 See_Comment [Auto mated = [id number]) message] The s ystem which generated this result transmitted reference range : 10*3/?L. The reference range was not used to interpret this result as normal/abnormal . GRAN MAT (NEUT) % 84.9 % (test code = 770-8) IMM GRAN % (test code 0.50 % = 7960015404) LYMPH % (test code = 7.2 % 736-9) MONO % (test code = 6.9 % 5905-5) EOS % (test code = 0.2 % 713-8) BASO % (test code = 0.3 % 706-2) GRAN MAT x10^3(ANC) 9.33 10*3/uL 1.99-6.95 H (test code = 1362192389) IMM GRAN x10^3 (test 0.05 10*3/uL 0.00-0.06 code = 0742956678) LYMPH x10^3 (test code 0.79 10*3/uL 1.09-3.23 L = 731-0) MONO x10^3 (test code 0.76 10*3/uL 0.36-1.02 = 742-7) EOS x10^3 (test code = <0.03 0.06-0.53 L 711-2) BASO x10^3 (test code 0.03 10*3/uL 0.01-0.09 = 704-7) Lab Interpretation Abnormal (test code = 46093-7) [facility] WITH [id number] 11:55:46 Test Item Value Reference Range Interpretation [...] RDW-SD (test code = 42.7 fL 38.5-51.6 55304-3) RDW-CV (test code = 12.2 % 12.1-15.4 788-0) PLT (test code = See_Comment [Automated 777-3) message] The sy stem which generated this result transmitted reference range : 150 - 328 10*3/ ?L. The reference r aleksandra was not used to interpret this result as normal/abnormal . MPV (test code = 10.2 fL 9.8-13.0 24563-7) NRBC/100 WBC (test See_Comment [Automat ed code = 9607618928) message] The system which generated this result transmitted reference range : 0.0 - 10.0 /100 WBCs. The refer ence range was not u sed to interpret th is result as normal/abnormal . NRBC x10^3 (test code <0.01 See_Comment [Auto mated = 3053037487) message] The s ystem which generated this result transmitted reference range : 10*3/?L. The reference range was not used to interpret this result as normal/abnormal . GRAN MAT (NEUT) % 84.9 % (test code = 770-8) IMM GRAN % (test code 0.50 % = 9280597410) LYMPH % (test code = 7.2 % 736-9) MONO % (test code = 6.9 % 5905-5) EOS % (test code = 0.2 % 713-8) BASO % (test code = 0.3 % 706-2) GRAN MAT x10^3(ANC) 9.33 10*3/uL 1.99-6.95 H (test code = 5065983837) IMM GRAN x10^3 (test 0.05 10*3/uL 0.00-0.06 code = 8511728399) LYMPH x10^3 (test code 0.79 10*3/uL 1.09-3.23 L = 731-0) MONO x10^3 (test code 0.76 10*3/uL 0.36-1.02 = 742-7) EOS x10^3 (test code = <0.03 0.06-0.53 L 711-2) BASO x10^3 (test code 0.03 10*3/uL 0.01-0.09 = 704-7) Lab Interpretation Abnormal (test code = 99186-3) [facility] Metabolic Panel (NA, K, CL, CO2, GLUCOSE, BUN, CREATININE, CA)2021-07-15 03:46:35 Test Item Value Reference Range Interpretation Comments NA (test code = 137 mmol/L 135-145 2981861742) K (test code = 4.5 mmol/L 3.5-5.0 1962787344) CL (test code = 100 mmol/L 98-108 1240154126) CO2 TOTAL (test code = 32 mmol/L 23-31 H 2425559885) AGAP (test code = 2-16 8403586188) BUN (test code = 17 mg/dL 7-23 4027014866) GLUCOSE (test code = 103 mg/dL 70-110 0500192327) CREATININE (test code = 1.00 mg/dL 0.60-1.25 6943251021) CALCIUM (test code = 8.6 mg/dL 8.6-10.6 0270736278) eGFR (test code = mL/min/1.73m2 3942249325) FLOYD (test code = FLOYD) Association of [...] tests). Lab Interpretation Abnormal (test code = 97885-9) [facility] Metabolic Panel (NA, K, CL, CO2, GLUCOSE, BUN, CREATININE, CA)2021-07-15 03:46:35 Test Item Value Reference Range Interpretation Comments NA (test code = 137 mmol/L 135-145 1330979694) K (test code = 4.5 mmol/L 3.5-5.0 4645811797) CL (test code = 100 mmol/L 98-108 1013011390) CO2 TOTAL (test code = 32 mmol/L 23-31 H 7175775645) AGAP (test code = 2-16 1278416700) BUN (test code = 17 mg/dL 7-23 8394030420) GLUCOSE (test code = 103 mg/dL 70-110 6143887518) CREATININE (test code = 1.00 mg/dL 0.60-1.25 2775514652) CALCIUM (test code = 8.6 mg/dL 8.6-10.6 0531549769) eGFR (test code = mL/min/1.73m2 2791128553) FLOYD (test code = FLOYD) Association of [...] tests). Lab Interpretation Abnormal (test code = 21616-3) [facility] Metabolic Panel (NA, K, CL, CO2, GLUCOSE, BUN, CREATININE, CA)2021-07-15 03:46:35 Test Item Value Reference Range Interpretation Comments NA (test code = 137 mmol/L 135-145 7933396022) K (test code = 4.5 mmol/L 3.5-5.0 2707586245) CL (test code = 100 mmol/L 98-108 1727885946) CO2 TOTAL (test code = 32 mmol/L 23-31 H 5905880512) AGAP (test code = 2-16 2863929837) BUN (test code = 17 mg/dL 7-23 6263571668) GLUCOSE (test code = 103 mg/dL 70-110 2964254711) CREATININE (test code = 1.00 mg/dL 0.60-1.25 2504878324) CALCIUM (test code = 8.6 mg/dL 8.6-10.6 2197736516) eGFR (test code = mL/min/1.73m2 0951174373) FLOYD (test code = FLOYD) Association of [...] tests). Lab Interpretation Abnormal (test code = 27424-7) [facility] METABOLIC PANEL (NA, K, CL, CO2, GLUCOSE, BUN, CREATININE, CA)2021-07-14 11:38:11 Test Item Value Reference Range Interpretation Comments NA (test code = 138 mmol/L 135-145 0364792862) K (test code = 4.0 mmol/L 3.5-5.0 1504386969) CL (test code = 102 mmol/L 98-108 3895764279) CO2 TOTAL (test code = 34 mmol/L 23-31 H 5126319880) AGAP (test code = 2-16 0906416118) BUN (test code = 17 mg/dL 7-23 5474351457) GLUCOSE (test code = 119 mg/dL 70-110 H 6241904370) CREATININE (test code = 1.15 mg/dL 0.60-1.25 3055326012) CALCIUM (test code = 8.7 mg/dL 8.6-10.6 0513575949) eGFR (test code = mL/min/1.73m2 7847833035) FLOYD (test code = FLOYD) Association of [...] tests). Lab Interpretation Abnormal (test code = 63325-9) [facility] (NA, K, CL, CO2, GLUCOSE, BUN, CREATININE, CA)2021-07-14 11:38:11 Test Item Value Reference Range Interpretation Comments NA (test code = 138 mmol/L 135-145 3345314113) K (test code = 4.0 mmol/L 3.5-5.0 7008506715) CL (test code = 102 mmol/L 98-108 4020712902) CO2 TOTAL (test code = 34 mmol/L 23-31 H 0324690489) AGAP (test code = 2-16 6513955684) BUN (test code = 17 mg/dL 7-23 8811004015) GLUCOSE (test code = 119 mg/dL 70-110 H 0055269019) CREATININE (test code = 1.15 mg/dL 0.60-1.25 3443756820) CALCIUM (test code = 8.7 mg/dL 8.6-10.6 2642533825) eGFR (test code = mL/min/1.73m2 2495398869) FLOYD (test code = FLOYD) Association of [...] tests). Lab Interpretation Abnormal (test code = 53377-4) [facility] METABOLIC PANEL (NA, K, CL, CO2, GLUCOSE, BUN, CREATININE, CA)2021-07-14 11:38:11 Test Item Value Reference Range Interpretation Comments NA (test code = 138 mmol/L 135-145 9796816883) K (test code = 4.0 mmol/L 3.5-5.0 2569531072) CL (test code = 102 mmol/L 98-108 7321497903) CO2 TOTAL (test code = 34 mmol/L 23-31 H 2155422568) AGAP (test code = 2-16 8505422024) BUN (test code = 17 mg/dL 7-23 7800991184) GLUCOSE (test code = 119 mg/dL 70-110 H 8571294705) CREATININE (test code = 1.15 mg/dL 0.60-1.25 1264237686) CALCIUM (test code = 8.7 mg/dL 8.6-10.6 4284931267) eGFR (test code = mL/min/1.73m2 7950248273) FLOYD (test code = FLOYD) Association of [...] tests). Lab Interpretation Abnormal (test code = 01812-9) [facility] [id number] 11:13:50 Test Item Value Reference Range Interpretation Comments PROTIME PATIENT (test See_Comment [Auto mated message] code = 5964-2) The system Tech urSelf generated this result transmitted ref erence range: 12.0 - 1 4.7 Seconds. The re ference range was not u sed to interpret this result as normal/abnor mal. INR (test code = 6301-6) Nor mal INR <1.1; Warfarin Therap eutic range 2.0 to 3. 0 or 2.5 to 3.5, dep ending upon the indica tions. Lab Interpretation (test Normal code = 42909-4) [facility] [id number] 11:13:50 Test Item Value Reference Range Interpretation Comments PROTIME PATIENT (test See_Comment [Auto mated message] code = 5964-2) The system Tech [employer]Self generated this result transmitted ref erence range: 12.0 - 1 4.7 Seconds. The re ference range was not u sed to interpret this result as normal/abnor mal. INR (test code = 6301-6) Nor mal INR <1.1; Warfarin Therap eutic range 2.0 to 3. 0 or 2.5 to 3.5, dep ending upon the indica tions. Lab Interpretation (test Normal code = 30095-5) [facility] [id number] 11:13:50 Test Item Value Reference Range Interpretation Comments PROTIME PATIENT (test See_Comment [Auto mated message] code = 5964-2) The system Tech [employer]Self generated this result transmitted ref erence range: 12.0 - 1 4.7 Seconds. The re ference range was not u sed to interpret this result as normal/abnor mal. INR (test code = 6301-6) Nor mal INR <1.1; Warfarin Therap eutic range 2.0 to 3. 0 or 2.5 to 3.5, dep ending upon the indica tions. Lab Interpretation (test Normal code = 47366-0) [facility] WITH [id number] 11:05:47 Test Item Value Reference Range Interpretation Comments WBC (test code = See_Comment [Automated 4690-2) message] The sy stem which generated this [...] RDW-SD (test code = 42.0 fL 38.5-51.6 79283-5) RDW-CV (test code = 12.1 % 12.1-15.4 788-0) PLT (test code = See_Comment [Automated 777-3) message] The sy stem which generated this result transmitted reference range : 150 - 328 10*3/ ?L. The reference r aleksandra was not used to interpret this result as normal/abnormal . MPV (test code = 9.4 fL 9.8-13.0 L 36280-7) NRBC/100 WBC (test See_Comment [Automat ed code = 6227590502) message] The system which generated this result transmitted reference range : 0.0 - 10.0 /100 WBCs. The refer ence range was not u sed to interpret th is result as normal/abnormal . NRBC x10^3 (test code <0.01 See_Comment [Auto mated = 9838077765) message] The s ystem which generated this result transmitted reference range : 10*3/?L. The reference range was not used to interpret this result as normal/abnormal . GRAN MAT (NEUT) % 65.4 % (test code = 770-8) IMM GRAN % (test code 0.30 % = 9429363498) LYMPH % (test code = 16.4 % 736-9) MONO % (test code = 11.2 % 5905-5) EOS % (test code = 5.7 % 713-8) BASO % (test code = 1.0 % 706-2) GRAN MAT x10^3(ANC) 3.89 10*3/uL 1.99-6.95 (test code = 6826497806) IMM GRAN x10^3 (test <0.03 0.00-0.06 code = 5826894055) LYMPH x10^3 (test code 0.98 10*3/uL 1.09-3.23 L = 731-0) MONO x10^3 (test code 0.67 10*3/uL 0.36-1.02 = 742-7) EOS x10^3 (test code = 0.34 10*3/uL 0.06-0.53 711-2) BASO x10^3 (test code 0.06 10*3/uL 0.01-0.09 = 704-7) Lab Interpretation Abnormal (test code = 65955-3) [facility] WITH [id number] 11:05:47 Test Item Value Reference Range Interpretation Comments WBC (test code = See_Comment [Automated 9090-2) message] The sy stem which generated this result transmitted reference range : 4.20 - 10.70 10*3/?L. The reference range was not used to interpret this result as normal/abnormal . RBC (test code = See_Comment [Automated 669-8) message] The sy stem which generated this [...] RDW-SD (test code = 42.0 fL 38.5-51.6 65033-2) RDW-CV (test code = 12.1 % 12.1-15.4 788-0) PLT (test code = See_Comment [Automated 777-3) message] The sy stem which generated this result transmitted reference range : 150 - 328 10*3/ ?L. The reference r aleksandra was not used to interpret this result as normal/abnormal . MPV (test code = 9.4 fL 9.8-13.0 L 28961-8) NRBC/100 WBC (test See_Comment [Automat ed code = 1984548009) message] The system which generated this result transmitted reference range : 0.0 - 10.0 /100 WBCs. The refer ence range was not u sed to interpret th is result as normal/abnormal . NRBC x10^3 (test code <0.01 See_Comment [Auto mated = 2448515984) message] The s ystem which generated this result transmitted reference range : 10*3/?L. The reference range was not used to interpret this result as normal/abnormal . GRAN MAT (NEUT) % 65.4 % (test code = 770-8) IMM GRAN % (test code 0.30 % = 7930993875) LYMPH % (test code = 16.4 % 736-9) MONO % (test code = 11.2 % 5905-5) EOS % (test code = 5.7 % 713-8) BASO % (test code = 1.0 % 706-2) GRAN MAT x10^3(ANC) 3.89 10*3/uL 1.99-6.95 (test code = 4821130614) IMM GRAN x10^3 (test <0.03 0.00-0.06 code = 5326947594) LYMPH x10^3 (test code 0.98 10*3/uL 1.09-3.23 L = 731-0) MONO x10^3 (test code 0.67 10*3/uL 0.36-1.02 = 742-7) EOS x10^3 (test code = 0.34 10*3/uL 0.06-0.53 711-2) BASO x10^3 (test code 0.06 10*3/uL 0.01-0.09 = 704-7) Lab Interpretation Abnormal (test code = 90315-5) [facility] WITH [id number] 11:05:47 Test Item Value Reference Range Interpretation Comments WBC (test code = See_Comment [Automated 9649-2) message] The sy stem which generated this result transmitted reference range : 4.20 - 10.70 10*3/?L. The reference range was not used to interpret this result as normal/abnormal . RBC (test code = See_Comment [Automated 303-8) message] The sy stem which generated this [...] RDW-SD (test code = 42.0 fL 38.5-51.6 30312-0) RDW-CV (test code = 12.1 % 12.1-15.4 788-0) PLT (test code = See_Comment [Automated 487-3) message] The sy stem which generated this result transmitted reference range : 150 - 328 10*3/ ?L. The reference r aleksandra was not used to interpret this result as normal/abnormal . MPV (test code = 9.4 fL 9.8-13.0 L 58186-6) NRBC/100 WBC (test See_Comment [Automat ed code = 7658659955) message] The system which generated this result transmitted reference range : 0.0 - 10.0 /100 WBCs. The refer ence range was not u sed to interpret th is result as normal/abnormal . NRBC x10^3 (test code <0.01 See_Comment [Auto mated = 6554872703) message] The s ystem which generated this result transmitted reference range : 10*3/?L. The reference range was not used to interpret this result as normal/abnormal . GRAN MAT (NEUT) % 65.4 % (test code = 770-8) IMM GRAN % (test code 0.30 % = 5754361661) LYMPH % (test code = 16.4 % 736-9) MONO % (test code = 11.2 % 5905-5) EOS % (test code = 5.7 % 713-8) BASO % (test code = 1.0 % 706-2) GRAN MAT x10^3(ANC) 3.89 10*3/uL 1.99-6.95 (test code = 1647101433) IMM GRAN x10^3 (test <0.03 0.00-0.06 code = 1083923018) LYMPH x10^3 (test code 0.98 10*3/uL 1.09-3.23 L = 731-0) MONO x10^3 (test code 0.67 10*3/uL 0.36-1.02 = 742-7) EOS x10^3 (test code = 0.34 10*3/uL 0.06-0.53 711-2) BASO x10^3 (test code 0.06 10*3/uL 0.01-0.09 = 704-7) Lab Interpretation Abnormal (test code = 59507-6) [facility] Please draw trough BEFORE the 4th dose scheduled at 0430, but no more than60 mins before the dose is due.2021-07-13 12:38:43 Test Item Value Reference Range Interpretation Comments VANCO TROUGH (test code 13.8 ug/mL 10.0-20.0 = 3980566123) FLOYD (test code = FLOYD) Toxic Range: ?>20 ug/mL 15-20 ug/mL is recommended for severe infection or when Vancomycin ZITA is greater than or equal to 2. Lab Interpretation (test Normal code = 78620-4) [facility] Please draw trough BEFORE the 4th dose scheduled at 0430, but no more than60 mins before the dose is due.2021-07-13 12:38:43 Test Item Value Reference Range Interpretation Comments VANCO TROUGH (test code 13.8 ug/mL 10.0-20.0 = 1301638863) FLOYD (test code = FLOYD) Toxic Range: ?>20 ug/mL 15-20 ug/mL is recommended for severe infection or when Vancomycin ZITA is greater than or equal to 2. Lab Interpretation (test Normal code = 10113-7) [facility] Please draw trough BEFORE the 4th dose scheduled at 0430, but no more than60 mins before the dose is due.2021-07-13 12:38:43 Test Item Value Reference Range Interpretation Comments VANCO TROUGH (test code 13.8 ug/mL 10.0-20.0 = 1753781594) FLOYD (test code = FLOYD) Toxic Range: ?>20 ug/mL 15-20 ug/mL is recommended for severe infection or when Vancomycin ZITA is greater than or equal to 2. Lab Interpretation (test Normal code = 21190-7) [facility] with [id number] 10:54:51 Test Item Value Reference Range Interpretation Comments WBC (test code = See_Comment [Automated 1644-2) message] The sy stem which generated this result transmitted reference range : 4.20 - 10.70 10*3/?L. The reference range was not used to interpret this result as normal/abnormal . RBC (test code = See_Comment [Automated 656-8) message] The sy stem which generated this [...] RDW-SD (test code = 42.4 fL 38.5-51.6 48415-3) RDW-CV (test code = 12.3 % 12.1-15.4 788-0) PLT (test code = See_Comment [Automated 777-3) message] The sy stem which generated this result transmitted reference range : 150 - 328 10*3/ ?L. The reference r aleksandra was not used to interpret this result as normal/abnormal . MPV (test code = 9.9 fL 9.8-13.0 89174-7) NRBC/100 WBC (test See_Comment [Automat ed code = 2019888553) message] The system which generated this result transmitted reference range : 0.0 - 10.0 /100 WBCs. The refer ence range was not u sed to interpret th is result as normal/abnormal . NRBC x10^3 (test code <0.01 See_Comment [Auto mated = 2142453408) message] The s ystem which generated this result transmitted reference range : 10*3/?L. The reference range was not used to interpret this result as normal/abnormal . GRAN MAT (NEUT) % 65.8 % (test code = 770-8) IMM GRAN % (test code 0.20 % = 5363064574) LYMPH % (test code = 15.7 % 736-9) MONO % (test code = 11.8 % 5905-5) EOS % (test code = 4.8 % 713-8) BASO % (test code = 1.7 % 706-2) GRAN MAT x10^3(ANC) 3.18 10*3/uL 1.99-6.95 (test code = 9555550189) IMM GRAN x10^3 (test <0.03 0.00-0.06 code = 2620191806) LYMPH x10^3 (test code 0.76 10*3/uL 1.09-3.23 L = 731-0) MONO x10^3 (test code 0.57 10*3/uL 0.36-1.02 = 742-7) EOS x10^3 (test code = 0.23 10*3/uL 0.06-0.53 711-2) BASO x10^3 (test code 0.08 10*3/uL 0.01-0.09 = 704-7) Lab Interpretation Abnormal (test code = 86036-3) [facility] with [id number] 10:54:51 Test Item Value Reference Range Interpretation [...] RDW-SD (test code = 42.4 fL 38.5-51.6 11319-1) RDW-CV (test code = 12.3 % 12.1-15.4 788-0) PLT (test code = See_Comment [Automated 777-3) message] The sy stem which generated this result transmitted reference range : 150 - 328 10*3/ ?L. The reference r aleksandra was not used to interpret this result as normal/abnormal . MPV (test code = 9.9 fL 9.8-13.0 19415-7) NRBC/100 WBC (test See_Comment [Automat ed code = 3815325367) message] The system which generated this result transmitted reference range : 0.0 - 10.0 /100 WBCs. The refer ence range was not u sed to interpret th is result as normal/abnormal . NRBC x10^3 (test code <0.01 See_Comment [Auto mated = 0375561366) message] The s ystem which generated this result transmitted reference range : 10*3/?L. The reference range was not used to interpret this result as normal/abnormal . GRAN MAT (NEUT) % 65.8 % (test code = 770-8) IMM GRAN % (test code 0.20 % = 3724180946) LYMPH % (test code = 15.7 % 736-9) MONO % (test code = 11.8 % 5905-5) EOS % (test code = 4.8 % 713-8) BASO % (test code = 1.7 % 706-2) GRAN MAT x10^3(ANC) 3.18 10*3/uL 1.99-6.95 (test code = 2314122001) IMM GRAN x10^3 (test <0.03 0.00-0.06 code = 1976682210) LYMPH x10^3 (test code 0.76 10*3/uL 1.09-3.23 L = 731-0) MONO x10^3 (test code 0.57 10*3/uL 0.36-1.02 = 742-7) EOS x10^3 (test code = 0.23 10*3/uL 0.06-0.53 711-2) BASO x10^3 (test code 0.08 10*3/uL 0.01-0.09 = 704-7) Lab Interpretation Abnormal (test code = 80169-3) [facility] with [id number] 10:54:51 Test Item Value Reference Range Interpretation Comments WBC (test code = See_Comment [Automated 4790-2) message] The sy stem which generated this result transmitted reference range : 4.20 - 10.70 10*3/?L. The reference range was not used to interpret this result as normal/abnormal . RBC (test code = See_Comment [Automated 109-8) message] The sy stem which generated this [...] RDW-SD (test code = 42.4 fL 38.5-51.6 27076-6) RDW-CV (test code = 12.3 % 12.1-15.4 788-0) PLT (test code = See_Comment [Automated 777-3) message] The sy stem which generated this result transmitted reference range : 150 - 328 10*3/ ?L. The reference r aleksandra was not used to interpret this result as normal/abnormal . MPV (test code = 9.9 fL 9.8-13.0 26021-2) NRBC/100 WBC (test See_Comment [Automat ed code = 9145459675) message] The system which generated this result transmitted reference range : 0.0 - 10.0 /100 WBCs. The refer ence range was not u sed to interpret th is result as normal/abnormal . NRBC x10^3 (test code <0.01 See_Comment [Auto mated = 8412941602) message] The s ystem which generated this result transmitted reference range : 10*3/?L. The reference range was not used to interpret this result as normal/abnormal . GRAN MAT (NEUT) % 65.8 % (test code = 770-8) IMM GRAN % (test code 0.20 % = 3413341481) LYMPH % (test code = 15.7 % 736-9) MONO % (test code = 11.8 % 5905-5) EOS % (test code = 4.8 % 713-8) BASO % (test code = 1.7 % 706-2) GRAN MAT x10^3(ANC) 3.18 10*3/uL 1.99-6.95 (test code = 3697424385) IMM GRAN x10^3 (test <0.03 0.00-0.06 code = 9360891608) LYMPH x10^3 (test code 0.76 10*3/uL 1.09-3.23 L = 731-0) MONO x10^3 (test code 0.57 10*3/uL 0.36-1.02 = 742-7) EOS x10^3 (test code = 0.23 10*3/uL 0.06-0.53 711-2) BASO x10^3 (test code 0.08 10*3/uL 0.01-0.09 = 704-7) Lab Interpretation Abnormal (test code = 87611-2) [facility]2021-07-12 00:40:43 Test Item Value Reference Range Interpretation Comments HGB A1C (test code = 5.3 % 4.0-5.7 4548-4) FLOYD (test code = FLOYD) Reference RangesNormal: <5.7%Prediabetes: 5.7 - 6.4%Diabetes: > 6.5% Lab Interpretation (test Normal code = 40498-1) [facility]2021-07-12 00:40:43 Test Item Value Reference Range Interpretation Comments HGB A1C (test code = 5.3 % 4.0-5.7 4548-4) FLOYD (test code = FLOYD) Reference RangesNormal: <5.7%Prediabetes: 5.7 - 6.4%Diabetes: > 6.5% Lab Interpretation (test Normal code = 46480-9) [facility]A1C)2021-07-12 00:40:43 Test Item Value Reference Range Interpretation Comments HGB A1C (test code = 5.3 % 4.0-5.7 4548-4) FLOYD (test code = FLOYD) Reference RangesNormal: <5.7%Prediabetes: 5.7 - 6.4%Diabetes: > 6.5% Lab Interpretation (test Normal code = 49444-7) [facility] (NA, K, CL, CO2, GLUCOSE, BUN, CREATININE, CA)2021-07-11 20:36:41 Test Item Value Reference Range Interpretation Comments NA (test code = 136 mmol/L 135-145 4321444946) K (test code = 4.0 mmol/L 3.5-5.0 0780032627) CL (test code = 104 mmol/L 98-108 4237600748) CO2 TOTAL (test code = 29 mmol/L 23-31 5130126180) AGAP (test code = 2-16 4827438058) BUN (test code = 18 mg/dL 7-23 9450810030) GLUCOSE (test code = 89 mg/dL 70-110 5752769813) CREATININE (test code = 1.00 mg/dL 0.60-1.25 7178108638) CALCIUM (test code = 8.3 mg/dL 8.6-10.6 L 2415464426) eGFR (test code = mL/min/1.73m2 5810401882) FLOYD (test code = FLOYD) Association of [...] tests). Lab Interpretation Abnormal (test code = 87952-2) [facility]81757[facility] (ALB,T.PRO,BILI T,BU/BC,ALT,AST,ALK PHOS)2021-07-11 20:36:41 Test Item Value Reference Range Interpretation Comments TOTAL BILI (test code = 6043316864) 1.3 mg/dL 0.1-1.1 H BILI UNCON (test code = 3093028484) 1.1 mg/dL 0.1-1.1 BILI CONJ (test code = 2405209180) 0.0 mg/dL 0.0-0.3 T PROTEIN (test code = 5462148340) 6.4 g/dL 6.3-8.2 ALBUMIN (test code = 6838147869) 3.5 g/dL 3.5-5.0 ALK PHOS (test code = 0643256553) 48 U/L 34-122 ALTv (test code = 1742-6) 12 U/L 5-50 AST(SGOT) (test code = 4470600408) 20 U/L 13-40 Lab Interpretation (test code = Abnormal 15315-4) [facility] (NA, K, CL, CO2, GLUCOSE, BUN, CREATININE, CA)2021-07-11 20:36:41 Test Item Value Reference Range Interpretation Comments NA (test code = 136 mmol/L 135-145 2404728682) K (test code = 4.0 mmol/L 3.5-5.0 5746171023) CL (test code = 104 mmol/L 98-108 9270638662) CO2 TOTAL (test code = 29 mmol/L 23-31 6123401936) AGAP (test code = 2-16 0379201395) BUN (test code = 18 mg/dL 7-23 1947466040) GLUCOSE (test code = 89 mg/dL 70-110 4074116687) CREATININE (test code = 1.00 mg/dL 0.60-1.25 5493500227) CALCIUM (test code = 8.3 mg/dL 8.6-10.6 L 3865423032) eGFR (test code = mL/min/1.73m2 7259510615) FLOYD (test code = FLOYD) Association of [...] tests). Lab Interpretation Abnormal (test code = 31324-6) [facility] (ALB,T.PRO,BILI T,BU/BC,ALT,AST,ALK PHOS)2021-07-11 20:36:41 Test Item Value Reference Range Interpretation Comments TOTAL BILI (test code = 7987957265) 1.3 mg/dL 0.1-1.1 H BILI UNCON (test code = 9469912570) 1.1 mg/dL 0.1-1.1 BILI CONJ (test code = 5218813258) 0.0 mg/dL 0.0-0.3 T PROTEIN (test code = 8263820982) 6.4 g/dL 6.3-8.2 ALBUMIN (test code = 2965249055) 3.5 g/dL 3.5-5.0 ALK PHOS (test code = 1330002494) 48 U/L 34-122 ALTv (test code = 1742-6) 12 U/L 5-50 AST(SGOT) (test code = 3003438431) 20 U/L 13-40 Lab Interpretation (test code = Abnormal 73560-1) [facility] METABOLIC PANEL (NA, K, CL, CO2, GLUCOSE, BUN, CREATININE, CA)2021-07-11 20:36:41 Test Item Value Reference Range Interpretation Comments NA (test code = 136 mmol/L 135-145 5610428934) K (test code = 4.0 mmol/L 3.5-5.0 4799355856) CL (test code = 104 mmol/L 98-108 4151915117) CO2 TOTAL (test code = 29 mmol/L 23-31 3633454546) AGAP (test code = 2-16 4449526865) BUN (test code = 18 mg/dL 7-23 4314588113) GLUCOSE (test code = 89 mg/dL 70-110 8655172322) CREATININE (test code = 1.00 mg/dL 0.60-1.25 2403063162) CALCIUM (test code = 8.3 mg/dL 8.6-10.6 L 0567630024) eGFR (test code = mL/min/1.73m2 1430697426) FLOYD (test code = FLOYD) Association of [...] tests). Lab Interpretation Abnormal (test code = 54286-5) [facility]40110[facility] (ALB,T.PRO,BILI T,BU/BC,ALT,AST,ALK PHOS)2021-07-11 20:36:41 Test Item Value Reference Range Interpretation Comments TOTAL BILI (test code = 9939582036) 1.3 mg/dL 0.1-1.1 H BILI UNCON (test code = 2231775035) 1.1 mg/dL 0.1-1.1 BILI CONJ (test code = 9651106043) 0.0 mg/dL 0.0-0.3 T PROTEIN (test code = 9956846186) 6.4 g/dL 6.3-8.2 ALBUMIN (test code = 6292864634) 3.5 g/dL 3.5-5.0 ALK PHOS (test code = 5033218593) 48 U/L 34-122 ALTv (test code = 1742-6) 12 U/L 5-50 AST(SGOT) (test code = 5141444754) 20 U/L 13-40 Lab Interpretation (test code = Abnormal 48880-1) [facility] Test Item Value Reference Range Interpretation Comments APTT Patient (test See_Comment [Automat ed code = 3173-2) message] The system which generated this result transmitted reference range : 23 - 38 Seconds . The reference range was not used to interpr et this result as normal/abnormal . FLOYD (test code = FLOYD) The [facility] patient population mean normal value for aPTT is 30 seconds. Lab Interpretation Normal (test code = 25538-9) [facility]:21[facility]30 Test Item Value Reference Range Interpretation Comments APTT Patient (test See_Comment [Automat ed code = 3173-2) message] The system which generated this result transmitted reference range : 23 - 38 Seconds . The reference range was not used to interpr et this result as normal/abnormal . FLOYD (test code = FLOYD) The [facility] patient population mean normal value for aPTT is 30 seconds. Lab Interpretation Normal (test code = 48709-1) [facility] 20:21:30 Test Item Value Reference Range Interpretation Comments APTT Patient (test See_Comment [Automat ed code = 3173-2) message] The system which generated this result transmitted reference range : 23 - 38 Seconds . The reference range was not used to interpr et this result as normal/abnormal . FLOYD (test code = FLOYD) The [facility] patient population mean normal value for aPTT is 30 seconds. Lab Interpretation Normal (test code = 31955-4) [facility] / [id number] 20:19:29 Test Item Value Reference Range Interpretation Comments PROTIME PATIENT (test See_Comment H [Auto mated message] code = 5964-2) The system [employer] generated this result transmitted ref erence range: 12.0 - 1 4.7 Seconds. The reference range was not used to int erpret this result as normal/abnormal . INR (test code = 6301-6) Nor mal INR <1.1; Warfarin Therap eutic range 2.0 to 3. 0 or 2.5 to 3.5, dep ending upon the indica tions. Lab Interpretation (test Abnormal code = 78547-1) [facility] / [id number] 20:19:29 Test Item Value Reference Range Interpretation Comments PROTIME PATIENT (test See_Comment H [Auto mated message] code = 5964-2) The system [employer] generated this result transmitted ref erence range: 12.0 - 1 4.7 Seconds. The reference range was not used to int erpret this result as normal/abnormal . INR (test code = 6301-6) Nor mal INR <1.1; Warfarin Therap eutic range 2.0 to 3. 0 or 2.5 to 3.5, dep ending upon the indica tions. Lab Interpretation (test Abnormal code = 31451-2) [facility] / [id number] 20:19:29 Test Item Value Reference Range Interpretation [...] tions. Lab Interpretation (test Abnormal code = 72745-9) [facility] WITH [id number] 20:11:46 Test Item Value Reference Range Interpretation Comments WBC (test code = See_Comment [Automated 8590-2) message] The sy stem which generated this result transmitted reference range : 4.20 - 10.70 10*3/?L. The reference range was not used to interpret this result as normal/abnormal . RBC (test code = See_Comment [Automated 839-8) message] The sy stem which generated this [...] RDW-SD (test code = 42.1 fL 38.5-51.6 92940-3) RDW-CV (test code = 12.2 % 12.1-15.4 788-0) PLT (test code = See_Comment [Automated 617-3) message] The sy stem which generated this result transmitted reference range : 150 - 328 10*3/ ?L. The reference r aleksandra was not used to interpret this result as normal/abnormal . MPV (test code = 10.3 fL 9.8-13.0 97570-4) NRBC/100 WBC (test See_Comment [Automat ed code = 1486890443) message] The system which generated this result transmitted reference range : 0.0 - 10.0 /100 WBCs. The refer ence range was not u sed to interpret th is result as normal/abnormal . NRBC x10^3 (test code <0.01 See_Comment [Auto mated = 3156747189) message] The s ystem which generated this result transmitted reference range : 10*3/?L. The reference range was not used to interpret this result as normal/abnormal . GRAN MAT (NEUT) % 68.4 % (test code = 770-8) IMM GRAN % (test code 0.20 % = 6686545293) LYMPH % (test code = 15.2 % 736-9) MONO % (test code = 10.5 % 5905-5) EOS % (test code = 4.4 % 713-8) BASO % (test code = 1.3 % 706-2) GRAN MAT x10^3(ANC) 3.60 10*3/uL 1.99-6.95 (test code = 6642741822) IMM GRAN x10^3 (test <0.03 0.00-0.06 code = 1187198687) LYMPH x10^3 (test code 0.80 10*3/uL 1.09-3.23 L = 731-0) MONO x10^3 (test code 0.55 10*3/uL 0.36-1.02 = 742-7) EOS x10^3 (test code = 0.23 10*3/uL 0.06-0.53 711-2) BASO x10^3 (test code 0.07 10*3/uL 0.01-0.09 = 704-7) Lab Interpretation Abnormal (test code = 64759-3) [facility] WITH [id number] 20:11:46 Test Item Value Reference Range Interpretation [...] RDW-SD (test code = 42.1 fL 38.5-51.6 83275-9) RDW-CV (test code = 12.2 % 12.1-15.4 788-0) PLT (test code = See_Comment [Automated 777-3) message] The sy stem which generated this result transmitted reference range : 150 - 328 10*3/ ?L. The reference r aleksandra was not used to interpret this result as normal/abnormal . MPV (test code = 10.3 fL 9.8-13.0 77033-7) NRBC/100 WBC (test See_Comment [Automat ed code = 6251231081) message] The system which generated this result transmitted reference range : 0.0 - 10.0 /100 WBCs. The refer ence range was not u sed to interpret th is result as normal/abnormal . NRBC x10^3 (test code <0.01 See_Comment [Auto mated = 2713648868) message] The s ystem which generated this result transmitted reference range : 10*3/?L. The reference range was not used to interpret this result as normal/abnormal . GRAN MAT (NEUT) % 68.4 % (test code = 770-8) IMM GRAN % (test code 0.20 % = 5810151494) LYMPH % (test code = 15.2 % 736-9) MONO % (test code = 10.5 % 5905-5) EOS % (test code = 4.4 % 713-8) BASO % (test code = 1.3 % 706-2) GRAN MAT x10^3(ANC) 3.60 10*3/uL 1.99-6.95 (test code = 0021589327) IMM GRAN x10^3 (test <0.03 0.00-0.06 code = 2231632782) LYMPH x10^3 (test code 0.80 10*3/uL 1.09-3.23 L = 731-0) MONO x10^3 (test code 0.55 10*3/uL 0.36-1.02 = 742-7) EOS x10^3 (test code = 0.23 10*3/uL 0.06-0.53 711-2) BASO x10^3 (test code 0.07 10*3/uL 0.01-0.09 = 704-7) Lab Interpretation Abnormal (test code = 96336-6) [facility] WITH [id number] 20:11:46 Test Item Value Reference Range Interpretation Comments WBC (test code = See_Comment [Automated 2290-2) message] The sy stem which generated this result transmitted reference range : 4.20 - 10.70 10*3/?L. The reference range was not used to interpret this result as normal/abnormal . RBC (test code = See_Comment [Automated 109-8) message] The sy stem which generated this [...] RDW-SD (test code = 42.1 fL 38.5-51.6 04735-1) RDW-CV (test code = 12.2 % 12.1-15.4 788-0) PLT (test code = See_Comment [Automated 777-3) message] The sy stem which generated this result transmitted reference range : 150 - 328 10*3/ ?L. The reference r aleksandra was not used to interpret this result as normal/abnormal . MPV (test code = 10.3 fL 9.8-13.0 12424-3) NRBC/100 WBC (test See_Comment [Automat ed code = 6016003006) message] The system which generated this result transmitted reference range : 0.0 - 10.0 /100 WBCs. The refer ence range was not u sed to interpret th is result as normal/abnormal . NRBC x10^3 (test code <0.01 See_Comment [Auto mated = 7712415331) message] The s ystem which generated this result transmitted reference range : 10*3/?L. The reference range was not used to interpret this result as normal/abnormal . GRAN MAT (NEUT) % 68.4 % (test code = 770-8) IMM GRAN % (test code 0.20 % = 2873538210) LYMPH % (test code = 15.2 % 736-9) MONO % (test code = 10.5 % 5905-5) EOS % (test code = 4.4 % 713-8) BASO % (test code = 1.3 % 706-2) GRAN MAT x10^3(ANC) 3.60 10*3/uL 1.99-6.95 (test code = 9863802538) IMM GRAN x10^3 (test <0.03 0.00-0.06 code = 1477130225) LYMPH x10^3 (test code 0.80 10*3/uL 1.09-3.23 L = 731-0) MONO x10^3 (test code 0.55 10*3/uL 0.36-1.02 = 742-7) EOS x10^3 (test code = 0.23 10*3/uL 0.06-0.53 711-2) BASO x10^3 (test code 0.07 10*3/uL 0.01-0.09 = 704-7) Lab Interpretation Abnormal (test code = 71406-2) [facility]"
[2022-03-26 04:36] LABS: Absolute Lymphocytes (CBC) 0.6 K/uL (0.7-4.9); Hematocrit 39.2 % (39.6-49.0); Lymphocytes % 8.6 % (15.3-44.8); MCV 94.4 fL (80-100); MPV 7.7 fL (7.6-11.3); Protime INR 3.34; RBC Red Blood Cell Count 4.16 M/uL (4.33-5.43)
[2022-03-26 04:59] LABS: Albumin 3.8 g/dL (3.4-5.0); Bilirubin Direct 0.3 mg/dL (0-0.2); Protein, Total 7.5 g/dL (6.4-8.2); Troponin High Sensitivity 9.5 pg/mL (<58.9)
--- NOTE | 2022-03-26 05:02 | P.HP ---
Certification for Inpatient Patient admitted to: Observation With expected LOS: >2 Midnights Patient will require the following post-hospital care: None Practitioner: I am a practitioner with admitting privileges, knowledge of patient current condition, hospital course, and medical plan of care. Services: Services provided to patient in accordance with Admission requirements found in Title 42 Section 412.3 of the Code of Federal Regulations <Holland Mcghee - Last Filed: 03/26/22 04:48> Patient History Date of Service: 03/26/22 Reason for admission: Chest pain History of Present Illness: 78-year-old male with history of atrial fibrillation on chronic anticoagulation, CAD, CHF status post pacemaker/defibrillator placement, hyperlipidemia presents emergency department after he felt he had received a shock from his AICD waking him from his sleep after which he developed some chest pain/back pain radiating to his neck. He reports that he had the battery changed in his pacemaker/defibrillator on February 23 at [facility] as well as receiving a heart catheterization with 2 stent placements on February 28, 2022. At that time his medications were changed including being started on amiodarone, warfarin, Brilinta which she has been compliant with. In the emergency department he had his pacemaker interrogated, which showed no recent arrhythmias or shocks. His EKG showed paced rhythm. ED provider wishes to admit patient under observation for further evaluation and management/cardiology evaluation. - Past Medical/Surgical History Diabetic: No -: Glaucoma -: Diverticulosis, Dierticulitis -: GERD -: CAD -: Chronic atrial fibrillation -: Chronic anti coagulation therapy -: Hypertension -: Hyperlipidemia -: Patient with defibrillator -: Infrarenal abdominal aortic aneurysm -: Deep Vein Thrombosis -: CHF-unknown EF -: Heart catheterization x2 -: Defibrillator placement -: Glaucoma surgery- right eye Psychosocial/ Personal History: Patient is . He has 1 child. 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 - Family History Father -: Diabetes Brother -: Heart disease Mother -: Stroke - Social History Smoking Status: Never smoker Alcohol use: No CD- Drugs: No Caffeine use: Yes Place of Residence: Home <Holland Mcghee - Last Filed: 03/26/22 04:48> Date of Service: 03/26/22 <Tyrel Joseph - Last Filed: 03/26/22 13:50> Allergies No Known Drug Allergies Allergy (Unknown, Verified 09/01/19 10:44) Unknown Home Medications: Brimonidine Tartrate/Timolol [Combigan 0.2%-0.5% Eye Drops] 1 drop LEFT EYE BID 09/10/14 Ezetimibe 10 mg PO BEDTIME 12/09/18 Losartan Potassium 25 mg PO BEDTIME 12/09/18 Travoprost (Benzalkonium) [Travatan 0.004% Eye Drop] 1 drop LEFT EYE BEDTIME 12/09/18 Amiodarone HCl [Cordarone*] 200 mg PO DAILY 03/26/22 Aspirin 81 mg PO DAILY 03/26/22 Fluoxetine HCl 20 mg PO DAILY 03/26/22 Furosemide [Lasix] 20 mg PO DAILY 03/26/22 Metoprolol Succinate 25 mg PO DAILY 03/26/22 Pantoprazole [Protonix Tab*] 40 mg PO DAILY 03/26/22 Spironolactone [Aldactone*] 25 mg PO DAILY 03/26/22 Ticagrelor [Brilinta*] 90 mg PO BID 03/26/22 Warfarin Sodium 2.5 mg PO SEECOM 03/26/22 Warfarin Sodium 5 mg PO SEECOM 03/26/22 Review of Systems 10-point ROS is otherwise unremarkable Respiratory: Shortness of Breath Cardiovascular: Chest Pain <Holland Mcghee - Last Filed: 03/26/22 04:48> Physical Examination - Physical Exam General: Alert, In no apparent distress, Oriented x3 HEENT: Atraumatic, PERRLA, Mucous membr. moist/pink, EOMI, Sclerae nonicteric Neck: Supple, 2+ carotid pulse no bruit, No LAD, Without JVD or thyroid abnormality Respiratory: Clear to auscultation bilaterally, Normal air movement Cardiovascular: Regular rate/rhythm, Normal S1 S2 Capillary refill: <2 Seconds Gastrointestinal: Normal bowel sounds, No tenderness Musculoskeletal: No tenderness Integumentary: No rashes Neurological: Normal speech, Normal strength at 5/5 x4 extr, Normal tone, Normal affect - Studies Laboratory Data (last 24 hrs) 03/26/22 04:15: PT 37.6 H, INR 3.34 03/26/22 04:15: WBC 6.60, Hgb 13.4 L, Hct 39.2 L, Plt Count 158 <Holland Mcghee - Last Filed: 03/26/22 04:48> - Studies Laboratory Data (last 24 hrs) 03/26/22 04:15: PT 37.6 H, INR 3.34 03/26/22 04:15: WBC 6.60, Hgb 13.4 L, Hct 39.2 L, Plt Count 158 03/26/22 04:15: Sodium 136, Potassium 4.0, BUN 32 H, Creatinine 1.77 H, Glucose 121 H, Total Bilirubin 1.0, AST 24, ALT 38, Alkaline Phosphatase 84 <Tyrel Joseph - Last Filed: 03/26/22 13:50> Assessment and Plan - Plan Assessment: Chest pain history of CAD Atrial fibrillation on chronic anticoagulation therapy CHFunknown EF S/P pacemaker/defibrillator placement Hypertension Hyperlipidemia Plan: Chest pain history of CAD: Monitor on telemetry, trend troponins. Pacemaker interrogation showed no arrhythmias or treatments delivered. Cardiology consult in place. Patient had a heart catheterization with 2 stent placements on February 28, 2022 at [facility] as well as having his battery replaced his pacemaker on February 23. His home medications were adjusted after his heart catheterization he is currently taking Brilinta 90 mg 2 times a day, warfarin 5 mg daily2.5 mg on Wednesday and Wednesday as well as aspirin 81 mg daily. Appreciate further input from cardiology. Atrial fibrillation on chronic anticoagulation therapy: Monitor on tele, continue home meds. CHFunknown EF S/P pacemaker/defibrillator placement: Monitor on tele, continue home meds, no arrhythmias or shocks delivered upon interrogation. No echo available for review, will attempt to obtain records from [facility] where he reports he had recent echo. Hypertension: Continue home meds. Hyperlipidemia: Continue home meds. DVT PPX: Supratherapeutic INR, hold Warfarin today. continue brillinta/ASA Code status: Full Discharge Plan: Home Plan to discharge in: 24 Hours - Advance Directives Does patient have a Living Will: No Does patient have a Durable POA for Healthcare: No - Code Status/Comfort Care Code Status Assessed: Yes (Full code) Critical Care: No Time Spent Managing Pts Care (In Minutes): 70 <Holland Mcghee - Last Filed: 03/26/22 04:48> Physician Review: Patient Assessed, Agree with Above Assessment and Plan <Jake,Tyrel - Last Filed: 03/26/22 13:50>
--- NOTE | 2022-03-26 05:04 | ER ---
Nurse's Notes [facility] Name: Chase Daniels Age: 76 yrs Sex: Male : 1945 Arrival Date: 03/26/2022 Time: 04:03 Bed 5 Private MD: Diagnosis: Chest pain, unspecified Presentation: 03/26 04:12 Chief complaint: Patient states: My pacemaker woke my up this morning. it has happened kd3 to me before because i went into v tach so i knew to come in right away. Coronavirus screen: Vaccine status: Patient reports receiving the 2nd dose of the covid vaccine. Ebola Screen: No symptoms or risks identified at this time. Initial Sepsis Screen: Does the patient meet any 2 criteria? No. Patient's initial sepsis screen is negative. Does the patient have a suspected source of infection? No. Patient's initial sepsis screen is negative. Risk Assessment: Do you want to hurt yourself or someone else? Patient reports no desire to harm self or others. Onset of symptoms was March 26, 2022. 04:12 Method Of Arrival: Ambulatory kd3 04:12 Acuity: ADAM 3 kd3 Triage Assessment: 04:15 General: Appears uncomfortable, Behavior is calm, cooperative. Pain: Complains of pain kd3 in thoracic area. Neuro: Level of Consciousness is awake, alert, obeys commands, Oriented to person, place, time, situation. Cardiovascular: Patient's skin is warm and dry. Respiratory: Airway is patent Trachea midline Respiratory effort is even, unlabored, Respiratory pattern is regular, symmetrical. Historical: - Home Meds: 04:15 Combigan 0.2-0.5 % ophthalmic drop [Active]; travoprost ophthalmic [Active]; kd3 04:19 losartan 25 mg oral tab 1 tab once daily [Active]; amiodarone 200 mg Oral tab 1 tab kd3 once daily [Active]; Brilinta 90 mg oral tab 1 tab 2 times per day [Active]; ezetimibe 10 mg oral tab 1 tab once daily [Active]; furosemide 20 mg Oral tab 1 tab once daily [Active]; pantoprazole 40 mg oral TbEC 1 tab once daily [Active]; spironolactone 25 mg Oral tab .5 tab once daily [Active]; metoprolol tartrate 25 mg Oral tab 1 tab once daily [Active]; warfarin 5 mg Oral tab 1 tab once daily [Active]; aspirin 81 mg Oral TbEC 1 tab once daily [Active]; fluoxetine 20 mg Oral cap 1 cap once daily [Active]; - PMHx: 04:15 blood clots; Diverticulitis; heart attack; kidney infection; Myocardial infarction; kd3 DVT; Atrial Fib; Hypertension; - Immunization history:: Adult Immunizations up to date, Client reports receiving the 2nd dose of the Covid vaccine. - Social history:: Smoking status: unknown. Screenin:16 Abuse screen: Denies threats or abuse. Denies injuries from another. Nutritional kd3 screening: No deficits noted. Tuberculosis screening: No symptoms or risk factors identified. Fall Risk None identified. Assessment: 04:25 General: Appears in no apparent distress. comfortable, Behavior is calm, cooperative, jb4 appropriate for age. Pain: Denies pain. Neuro: Level of Consciousness is awake, alert, obeys commands, Oriented to person, place, time, situation. Cardiovascular: Patient's skin is warm and dry. Respiratory: Airway is patent Respiratory effort is even, unlabored, Respiratory pattern is regular, symmetrical. GI: No signs and/or symptoms were reported involving the gastrointestinal system. : EENT: No signs and/or symptoms were reported regarding the EENT system. Derm: Skin is intact, Skin is pink, warm \T\ dry. Musculoskeletal: Circulation, motion, and sensation intact. Range of motion: intact in all extremities. 05:01 Reassessment: Patient appears in no apparent distress at this time. Patient and/or jb4 family updated on plan of care and expected duration. Pain level reassessed. Patient is alert, oriented x 3, equal unlabored respirations, skin warm/dry/pink. 05:10 Reassessment: Pt reports feeling left lower chest pain that radiates to his left side, jb4 feeling dizzy, and clammy. Admitting provider notified. Vital Signs: 04:12 BP 107 / 81; Pulse 69; Resp 19; Temp 98.0(O); Pulse Ox 100% on R/A; Weight 86.18 kg; kd3 Height 5 ft. 11 in. (180.34 cm); Pain 2/10; 05:00 BP 102 / 74 LA (man/reg); Pulse 60; Resp 20; Pulse Ox 100% on R/A; jb4 05:30 BP 97 / 62; Pulse 63; Resp 18; Pulse Ox 100% on R/A; jb4 04:12 Body Mass Index 26.50 (86.18 kg, 180.34 cm) kd3 ED Course: 04:03 Patient arrived in ED. ja2 04:09 Olga De Oliveira MD is Attending Physician. sp3 04:12 Azul Timmons, RN is Primary Nurse. kd3 04:15 Triage completed. kd3 04:15 Initial lab(s) drawn, by me, sent to lab. Inserted saline lock: 18 gauge in right jb4 antecubital area, using aseptic technique. Blood collected. 04:15 Missed attempt(s): 18 gauge in right forearm. Bleeding controlled, band aid applied, jb4 catheter tip intact. 04:16 Patient has correct armband on for positive identification. kd3 04:16 Arm band placed on right wrist. kd3 04:16 No provider procedures requiring assistance completed. kd3 04:25 Basic Metabolic Panel Sent. jb4 04:25 CBC with Diff Sent. jb4 04:25 LFT's Sent. jb4 04:25 NT PRO-BNP Sent. jb4 04:25 PT-INR Sent. jb4 04:25 Troponin HS Sent. jb4 04:30 XRAY Chest (1 view) In Process Unspecified. EDMS 05:02 Tyrel Joseph MD is Hospitalizing Provider. sp3 06:06 Patient admitted, IV remains in place. jb4 Administered Medications: 05:15 Drug: NS 0.9% 500 ml Route: IV; Rate: bolus; Site: right antecubital; jb4 05:45 Follow up: Response: No adverse reaction; IV Status: Completed infusion; IV Intake: jb4 500ml 05:33 Drug: Aspirin Chewable Tablet 81 mg Route: PO; jb4 06:07 Follow up: Response: No adverse reaction jb4 05:33 Drug: Brilinta - Ticagrelor 90 mg Route: PO; jb4 06:07 Follow up: Response: No adverse reaction jb4 Medication: 04:17 VIS not applicable for this client. kd3 Intake: 05:45 IV: 500ml; Total: 500ml. jb4 Outcome: 05:03 Decision to Hospitalize by Provider. sp3 06:06 Admitted to Tele accompanied by nurse, via wheelchair, room 404, with chart, Report jb4 called to [facility] 06:06 Condition: stable 06:06 Discharge instructions given to patient, family, Instructed on the need for admit, Demonstrated understanding of instructions. 06:07 Patient left the ED. jb4 Signatures: Dispatcher [employer] EDMS Aramis Gandhi RN RN jb4 Olga De Oliveira MD MD sp3 Nelly Carlson Kyli, RN RN kd3 Corrections: (The following items were deleted from the chart) 04: 04:15 Home Meds: Betapace 80 mg Oral tab 1 tab 2 times per day; kd3 kd3 04:15 Home Meds: clopidogrel 75 mg Oral tab 1 tab once daily; kd3 kd3 04:15 Home Meds: Eliquis 5 mg Oral tab 1 tab 2 times per day; kd3 kd3 04:15 Home Meds: losartan 50 mg Oral tab 1 tab once daily; kd3 kd3 04:15 Home Meds: simvastatin 10 mg Oral tab 1 tab once daily; kd3 kd3 04:15 Home Meds: Zegerid Oral 1 cap once daily; kd3 kd3 04:15 Home Meds: Zetia 10 mg Oral tab 1 tab once daily; kd3 kd3 04:19 Allergies: Amiodarone; kd3 kd3
--- NOTE | 2022-03-26 05:04 | EDPHYS ---
Physician Documentation [facility] Name: Chase Daniels Age: 76 yrs Sex: Male : 1945 Arrival Date: 03/26/2022 Time: 04:03 Bed 5 Private MD: ED Physician Olga De Oliveira HPI: 03/26 04:24 This 76 yrs old Male presents to ER via Ambulatory with complaints of chest pain. sp3 04:24 76-year-old male with a history of coronary artery disease status post defibrillator sp3 and multiple stents last ones being February 28 of this year, myocardial infarction, diverticulitis, prior thromboembolic disease currently on Coumadin presents to the ED for chest pain and his defibrillator firing once this morning. Prior episodes that were similar patient was in ventricular tachycardia based on interrogation of the defibrillator. The patient symptoms are mild in consist of substernal chest pain radiating proximally to the neck and into the left upper extremity. He denies any significant shortness of breath, abdominal pain, back pain, nausea, vomiting, diarrhea, rash, bleeding headache, syncope, near syncope, neuro symptoms, any other aspect of review of systems at this time.. Historical: - Home Meds: 04:15 Combigan 0.2-0.5 % ophthalmic drop [Active]; travoprost ophthalmic [Active]; kd3 04:19 losartan 25 mg oral tab 1 tab once daily [Active]; amiodarone 200 mg Oral tab 1 tab kd3 once daily [Active]; Brilinta 90 mg oral tab 1 tab 2 times per day [Active]; ezetimibe 10 mg oral tab 1 tab once daily [Active]; furosemide 20 mg Oral tab 1 tab once daily [Active]; pantoprazole 40 mg oral TbEC 1 tab once daily [Active]; spironolactone 25 mg Oral tab .5 tab once daily [Active]; metoprolol tartrate 25 mg Oral tab 1 tab once daily [Active]; warfarin 5 mg Oral tab 1 tab once daily [Active]; aspirin 81 mg Oral TbEC 1 tab once daily [Active]; fluoxetine 20 mg Oral cap 1 cap once daily [Active]; - PMHx: 04:15 blood clots; Diverticulitis; heart attack; kidney infection; Myocardial infarction; kd3 DVT; Atrial Fib; Hypertension; - Immunization history:: Adult Immunizations up to date, Client reports receiving the 2nd dose of the Covid vaccine. - Social history:: Smoking status: unknown. ROS: 04:26 Constitutional: Negative for fever, chills, and weight loss, Eyes: Negative for injury, sp3 pain, redness, and discharge, ENT: Negative for injury, pain, and discharge, Neck: Negative for injury, pain, and swelling, Respiratory: Negative for shortness of breath, cough, wheezing, and pleuritic chest pain, Abdomen/GI: Negative for abdominal pain, nausea, vomiting, diarrhea, and constipation, Back: Negative for injury and pain, MS/Extremity: Negative for injury and deformity, Skin: Negative for injury, rash, and discoloration, Neuro: Negative for headache, weakness, numbness, tingling, and seizure, Psych: Negative for depression, anxiety, suicide ideation, homicidal ideation, and hallucinations, Allergy/Immunology: Negative for hives, rash, and allergies, Endocrine: Negative for neck swelling, polydipsia, polyuria, polyphagia, and marked weight changes, Hematologic/Lymphatic: Negative for swollen nodes, abnormal bleeding, and unusual bruising. 04:26 All other systems are negative. Exam: 04:26 Constitutional: This is a well developed, well nourished patient who is awake, alert, sp3 and in no acute distress. Head/Face: Normocephalic, atraumatic. Eyes: Pupils equal round and reactive to light, extra-ocular motions intact. Lids and lashes normal. Conjunctiva and sclera are non-icteric and not injected. Cornea within normal limits. Periorbital areas with no swelling, redness, or edema. ENT: Nares patent. No nasal discharge, no septal abnormalities noted. External auditory canals are clear. Oropharynx with no redness, swelling, or masses, exudates, or evidence of obstruction, uvula midline. Mucous membranes moist. Neck: Trachea midline, no thyromegaly or masses palpated, and no cervical lymphadenopathy. Supple, full range of motion without nuchal rigidity, or vertebral point tenderness. No Meningismus. Chest/axilla: Normal chest wall appearance and motion. Nontender with no deformity. No lesions are appreciated. Cardiovascular: Regular rate and rhythm with a normal S1 and S2. No gallops, murmurs, or rubs. Normal PMI, no JVD. No pulse deficits. Respiratory: Lungs have equal breath sounds bilaterally, clear to auscultation and percussion. No rales, rhonchi or wheezes noted. No increased work of breathing, no retractions or nasal flaring. Abdomen/GI: Soft, non-tender, with normal bowel sounds. No distension or tympany. No guarding or rebound. No evidence of tenderness throughout. Back: No spinal tenderness. No costovertebral tenderness. Full range of motion. MS/ Extremity: Pulses equal, no cyanosis. Neurovascular intact. Full, normal range of motion. Neuro: Awake and alert, GCS 15, oriented to person, place, time, and situation. Cranial nerves II-XII grossly intact. Motor strength 5/5 in all extremities. Sensory grossly intact. Cerebellar exam normal. Normal gait. Psych: Awake, alert, with orientation to person, place and time. Behavior, mood, and affect are within normal limits. 04:26 ECG was reviewed by the Attending Physician. EKG demonstrates atrial paced rhythm at 77 bpm with normal subsequent intervals, QRS, with normal axis nonspecific ST/T changes inferolaterally without evidence of acute ischemia or ST elevation OH. Vital Signs: 04:12 BP 107 / 81; Pulse 69; Resp 19; Temp 98.0(O); Pulse Ox 100% on R/A; Weight 86.18 kg; kd3 Height 5 ft. 11 in. (180.34 cm); Pain 2/10; 05:00 BP 102 / 74 LA (man/reg); Pulse 60; Resp 20; Pulse Ox 100% on R/A; jb4 05:30 BP 97 / 62; Pulse 63; Resp 18; Pulse Ox 100% on R/A; jb4 04:12 Body Mass Index 26.50 (86.18 kg, 180.34 cm) kd3 MDM: 04:09 Patient medically screened. sp3 04:28 Data reviewed: vital signs, nurses notes. ED course: 76-year-old male with chest pain sp3 and defibrillator firing once. Will obtain EKG, laboratory values, chest x-ray and interrogate defibrillator for positive rhythm. Patient currently is resting comfortably in no acute distress but does complain of mild chest pain. Given his temporal proximity to his last stents, reocclusion is a possibility if his anticoagulation is not therapeutic. She will likely need admission for serial EKGs, serial cardiac markers, and general observation along with cardiology consult.. 03/26 04:10 Order name: Basic Metabolic Panel; Complete Time: 05:07 3 03/26 04:10 Order name: CBC with Diff; Complete Time: 05:07 3 03/26 04:10 Order name: LFT's; Complete Time: 05:07 3 03/26 04:10 Order name: NT PRO-BNP; Complete Time: 05:07 03/26 04:10 Order name: PT-INR; Complete Time: 05:07 3 03/26 04:10 Order name: Troponin HS; Complete Time: 05:07 3 03/26 04:10 Order name: XRAY Chest (1 view) 3 03/26 04:10 Order name: EKG; Complete Time: 04:11 03/26 04:10 Order name: Cardiac monitoring; Complete Time: 04:03/26 04:10 Order name: EKG - Nurse/Tech; Complete Time: 04:03/26 04:40 Order name: SARS RAPID; Complete Time: 05:38 3 03/26 04:10 Order name: IV Saline Lock; Complete Time: 04:3 03/26 04:10 Order name: Labs collected and sent; Complete Time: 04:03/26 04:10 Order name: O2 Per Protocol; Complete Time: 04:03/26 04:10 Order name: O2 Sat Monitoring; Complete Time: 04:17 Administered Medications: 05:15 Drug: NS 0.9% 500 ml Route: IV; Rate: bolus; Site: right antecubital; jb4 05:45 Follow up: Response: No adverse reaction; IV Status: Completed infusion; IV Intake: jb4 500ml 05:33 Drug: Aspirin Chewable Tablet 81 mg Route: PO; jb4 06:07 Follow up: Response: No adverse reaction jb4 05:33 Drug: Brilinta - Ticagrelor 90 mg Route: PO; jb4 06:07 Follow up: Response: No adverse reaction jb4 Disposition Summary: 03/26/22 05:03 Hospitalization Ordered Hospitalization Status: Observation sp3 Provider: Tyrel Joseph sp3 Location: Telemetry/MedSur (observation) sp3 Condition: Stable sp3 Problem: an acute exacerbation sp3 Symptoms: are unchanged sp3 Bed/Room Type: Standard sp3 Room Assignment: 404(03/26/22 05:45) Diagnosis - Chest pain, unspecified sp3 Forms: - Medication Reconciliation Form sp3 - SBAR form sp3 Signatures: Dispatcher [employer] EDMS Holland Mcghee, BREAD DOUGH MIXER-C BREAD DOUGH MIXER-Cla1 Nasrin Buckley RN RN Aramis Gandhi RN RN jb4 Olga De Oliveira MD MD sp3 Azul Timmons RN RN kd3 Corrections: (The following items were deleted from the chart) 04: 04:15 Home Meds: Betapace 80 mg Oral tab 1 tab 2 times per day; kd3 kd3 04: 04:15 Home Meds: clopidogrel 75 mg Oral tab 1 tab once daily; kd3 kd3 04: 04:15 Home Meds: Eliquis 5 mg Oral tab 1 tab 2 times per day; kd3 kd3 04: 04:15 Home Meds: losartan 50 mg Oral tab 1 tab once daily; kd3 kd3 04: 04:15 Home Meds: simvastatin 10 mg Oral tab 1 tab once daily; kd3 kd3 04: 04:15 Home Meds: Zegerid Oral 1 cap once daily; kd3 kd3 04: 04:15 Home Meds: Zetia 10 mg Oral tab 1 tab once daily; kd3 kd3 04: 04:19 Allergies: Amiodarone; kd3 kd3 05:45 05:03 sp3 cg
[2022-03-26] MEDS ORDERED: NA CHLORIDE 0.9% 500 ML ONE (05:13)
[2022-03-26 05:14] LABS: SARS-CoV-2 Antigen Rapid Res Negative (Negative)
[2022-03-26] MEDS ORDERED: ASPIRIN 81 MG CHEWABLE TABLET ONE (05:29)
[2022-03-26] MEDS ORDERED: TICAGRELOR 90 MG TABLET PO ONE (05:29)
[2022-03-26] MEDS ORDERED: ONDANSETRON 4 MG/2 ML VIAL IV PRN (05:59)
[2022-03-26] MEDS: METOPROLOL TAR 25 MG TAB PO SCH (06:00)
[2022-03-26 06:47] VITALS: BMI 25.9
[2022-03-26 06:52] VITALS: O2SAT 99
--- NOTE | 2022-03-26 08:27 | EKG ---
Test Date: 2022-03-26 Test Time: 04:12:03 Tour Sales Representative: TIFFANY MEASUREMENT RESULTS: Intervals: Rate: 77 [place]: QRSD: 108 QT: 408 QTc: 461 [place]: P: [place]: QRS: 30 T: -83 INTERPRETIVE STATEMENTS: Electronic atrial pacemaker Inferior infarct, age undetermined T wave abnormality, consider lateral ischemia Abnormal ECG Compared to ECG 02/09/2022 17:33:46 T-wave abnormality now present Possible ischemia now present Sinus rhythm no longer present Myocardial infarct finding still present Electronically Signed On 03-26-22 08:26:29 CDT by Cirilo Carver
[2022-03-26] MEDS ORDERED: TICAGRELOR 90 MG TABLET PO SCH (09:00)
[2022-03-26] MEDS ORDERED: LOSARTAN POTASSIUM 50 MG TABLET PO SCH (09:00)
[2022-03-26] MEDS: ASPIRIN EC 81 MG TAB PO SCH (09:00)
[2022-03-26] MEDS ORDERED: FUROSEMIDE 20 MG TABLET PO SCH (09:00)
[2022-03-26] MEDS ORDERED: SPIRONOLACTONE 25 MG TABLET PO SCH (09:00)
--- NOTE | 2022-03-26 09:33 | P.DS ---
Admission Date: 03/26/22 Discharge Date: 03/26/22 Reason for Admission: Chest pain Vital Signs/Physical Exam: Temp Pulse Resp BP Pulse Ox 97.0 F 81 16 110/63 98 03/26/22 08:00 03/26/22 08:00 03/26/22 08:00 03/26/22 08:00 03/26/22 08:00 Laboratory Data at Discharge: WBC 6.60 K/uL (4.3-10.9) 03/26/22 04:15 Hgb 13.4 g/dL (13.6-17.9) L 03/26/22 04:15 Hct 39.2 % (39.6-49.0) L 03/26/22 04:15 Plt Count 158 K/uL (152-406) 03/26/22 04:15 PT 37.6 SECONDS (9.5-12.5) H 03/26/22 04:15 INR 3.34 03/26/22 04:15 Sodium 136 mmol/L (136-145) 03/26/22 04:15 Potassium 4.0 mmol/L (3.5-5.1) 03/26/22 04:15 BUN 32 mg/dL (7-18) H 03/26/22 04:15 Creatinine 1.77 mg/dL (0.55-1.3) H 03/26/22 04:15 Glucose 121 mg/dL (74-106) H 03/26/22 04:15 Total Bilirubin 1.0 mg/dL (0.2-1.0) 03/26/22 04:15 AST 24 U/L (15-37) 03/26/22 04:15 ALT 38 U/L (12-78) 03/26/22 04:15 Alkaline Phosphatase 84 U/L (45-117) 03/26/22 04:15 Home Medications: RX: Brimonidine Tartrate/Timolol [Combigan 0.2%-0.5% Eye Drops] 1 drop LEFT EYE BID 09/10/14 RX: Ezetimibe 10 mg PO BEDTIME 12/09/18 RX: Losartan Potassium 25 mg PO BEDTIME 12/09/18 RX: Travoprost (Benzalkonium) [Travatan 0.004% Eye Drop] 1 drop LEFT EYE BEDTIME 12/09/18 Amiodarone HCl [Cordarone Tab] 200 mg PO DAILY 03/26/22 Furosemide [Lasix] 20 mg PO DAILY 03/26/22 Pantoprazole [Protonix Tab] 40 mg PO DAILY 03/26/22 RX: Aspirin 81 mg PO DAILY 03/26/22 RX: Fluoxetine HCl 20 mg PO DAILY 03/26/22 RX: Metoprolol Succinate 25 mg PO DAILY 03/26/22 RX: Warfarin Sodium 2.5 mg PO SEECOM 03/26/22 RX: Warfarin Sodium 5 mg PO SEECOM 03/26/22 Spironolactone [Aldactone] 25 mg PO DAILY 03/26/22 Ticagrelor [Brilinta] 90 mg PO BID 03/26/22 Followup: Brianna Mcneil DO [Primary Care Provider] -
[2022-03-26] MEDS: AMIODARONE HCL 200 MG TAB PO SCH (09:46)
[2022-03-26] MEDS: PANTOPRAZOLE 40MG TABLET PO SCH ×2 (09:46→17:29)
--- NOTE | 2022-03-26 12:09 | P.CNS ---
Date of Consult: 03/26/22 Reason for Consult: Abnormal results of kidney functions studies Requesting Physician: Tyrel Joseph Chief Complaint: Chest pain History of Present Illness: 78-year-old male with history of atrial fibrillation on chronic anti coagulation, prior CA/CAD, ischemic cardiomyopathy with low EF state in the 30- 35% range per reports, status post pacemaker/defibrillator placement, a hx of AAA s/p stent graft repair a few years back presented to the emergency department after he felt he had received a shock from his AICD waking him from his sleep. He reports the sensation, "shock" was head grower than one has has experienced int he past. He reports that he had the battery changed in his pacemaker/defibrillator on February 23 at [facility] as well as receiving a heart catheterization with 2 stent placements on February 28, 2022. At that time his medications were changed including being started on amiodarone, warfarin, Brilinta which she has been compliant with. In the emergency department he had his pacemaker interrogated, which showed no recent arrhythmias or shocks. He feels ok currently other than having some lightheadedness. He has some chronic intermittent mild dyspnea. Allergies Allergies No Known Drug Allergies Allergy (Unknown, Verified 09/01/19 10:44) Unknown Home Medications: Brimonidine Tartrate/Timolol [Combigan 0.2%-0.5% Eye Drops] 1 drop LEFT EYE BID 09/10/14 Ezetimibe 10 mg PO BEDTIME 12/09/18 Losartan Potassium 25 mg PO BEDTIME 12/09/18 Travoprost (Benzalkonium) [Travatan 0.004% Eye Drop] 1 drop LEFT EYE BEDTIME 12/09/18 Amiodarone HCl [Cordarone*] 200 mg PO DAILY 03/26/22 Aspirin 81 mg PO DAILY 03/26/22 Fluoxetine HCl 20 mg PO DAILY 03/26/22 Furosemide [Lasix] 20 mg PO DAILY 03/26/22 Metoprolol Succinate 25 mg PO DAILY 03/26/22 Pantoprazole [Protonix Tab*] 40 mg PO DAILY 03/26/22 Spironolactone [Aldactone*] 25 mg PO DAILY 03/26/22 Ticagrelor [Brilinta*] 90 mg PO BID 03/26/22 Warfarin Sodium 2.5 mg PO SEECOM 03/26/22 Warfarin Sodium 5 mg PO SEECOM 03/26/22 - Past Medical/Surgical History Diabetic: No -: Glaucoma -: Diverticulosis, Dierticulitis -: GERD -: CAD -: Chronic atrial fibrillation -: Chronic anti coagulation therapy -: Hypertension -: Hyperlipidemia -: Patient with defibrillator -: Infrarenal abdominal aortic aneurysm -: Deep Vein Thrombosis -: CHF-unknown EF -: Heart catheterization x2 -: Defibrillator placement -: Glaucoma surgery- right eye Psychosocial/ Personal History: Patient is . He has 1 child. He previously worked as a [employer] - Family History Father Medical History: Diabetes Brother Medical History: Heart disease Mother Medical History: Stroke - Social History Alcohol use: No CD- Drugs: No Caffeine use: No Place of Residence: Home Review of Systems General: Unremarkable Eyes: Unremarkable ENT: Unremarkable Respiratory: Shortness of Breath Cardiovascular: Chest Pain, Light Headedness Gastrointestinal: Unremarkable Genitourinary: Unremarkable Musculoskeletal: Unremarkable Integumentary: Unremarkable Neurological: Unremarkable Lymphatics: Unremarkable Physical Examination Temp Pulse Resp BP Pulse Ox 97.0 F 81 16 110/63 98 03/26/22 08:00 03/26/22 08:00 03/26/22 08:00 03/26/22 08:00 03/26/22 08:00 General: Alert, In no apparent distress, Oriented x3 HEENT: Atraumatic, Normocephalic, EOMI, Abnormal EOM Neck: Supple Respiratory: Clear to auscultation bilaterally, Normal air movement Cardiovascular: No edema, Normal pulses, Regular rate/rhythm, Normal S1 S2, Other (Lt upper chest AICD) Gastrointestinal: Soft and benign, Non-distended Musculoskeletal: No clubbing, No swelling, No contractures Integumentary: No rashes, No breakdown Neurological: Normal speech, Normal tone, Normal affect Laboratory Data (last 24 hrs) 03/26/22 04:15: PT 37.6 H, INR 3.34 03/26/22 04:15: WBC 6.60, Hgb 13.4 L, Hct 39.2 L, Plt Count 158 03/26/22 04:15: Sodium 136, Potassium 4.0, BUN 32 H, Creatinine 1.77 H, Glucose 121 H, Total Bilirubin 1.0, AST 24, ALT 38, Alkaline Phosphatase 84 Conclusions/Impression: 1. Abnormal results of kidney function studies 2. Stage I WIL 3. Ischemic cardiomyopathy 4. Chronic systolic CHF 5. Lightheadedness 6. Acquired cysts of the kidney -Pt's renal function tests in August and Jan of this year were lower and closer to the ULN, prior CT imaging showed preserved renal sizes, some large cysts and a stent graft repair that may extend to the level of the renal vasculature. -Pt's renal insufficiency may be sub-acute and in the setting of some relative BP lowering (BP later this AM after meds is in the systolic 90s) and concurrent use of ARB, albeit a low dose one. Recommend adjusting some of the timing of meds and using SBP < 100 mmHg as a holding parameter -Pt appears to be compensated from the CHF standpoint, BNP < 1000, no overt pulm edema, stable weights at home. Cont lower dose maintenance diuretics unless hypotensive. - Will check urine studies. -No urgency to repeat renal imaging at this time and no reports of SALUD. Thank you for the referral, Abrahan Herrera MD, [facility]
[2022-03-26 13:23] LABS: Potassium 4.5 mmol/L (3.5-5.1)
--- NOTE | 2022-03-26 13:24 | RAD REPORT ---
EXAM DESCRIPTION: RAD - Chest Single View - 03/26/2022 4:29 am CLINICAL HISTORY: 76 years Male, CHEST PAIN COMPARISON: None. FINDINGS: Cardiomediastinal silhouette is normal. No focal consolidation, pneumothorax or pleural effusion. Pacer ICD in place. Osseous structures are unremarkable. IMPRESSION: No acute findings. Electronically signed by: Ryan Block MD 03/26/2022 5:51 AM CDT Due to temporary technical issues with the PACS/Fluency reporting system, reports are being signed by the in house radiologists without review as a courtesy to insure prompt reporting. The interpreting radiologist is fully responsible for the content of the report.
[2022-03-26] MEDS ORDERED: NA CHLORIDE 0.9% 500 ML IV ONE (14:01)
--- NOTE | 2022-03-26 15:46 | CON ---
Date of Consultation: 03/26/2022 Reason For Consultation: Atypical chest pain. History Of Present Illness: Mr. Daniels is a 76-year-old male, who came in to the emergency room robert use he thought his defibrillator run off, he felt a sharp stabbing electric type of chest pain that l asted seconds. Defibrillator was checked and it did not show any discharges and his rhythm has not b een showing any atrial fibrillation or ventricular tachycardia. Denied PND, orthopnea, pedal edema, palpitations, or syncope. Denied any fever or chills. So far, his VA has ruled out. His BNP was 64 4. Past Medical History: Includes CAD, status post multiple stents, the last of which were last month. He has known RCA and LAD stents in the past. They were open in 2019. He has a history of chronic s ystolic congestive heart failure, DVT, paroxysmal atrial fibrillation, hypertension, and defibrillato r placement. Allergies: NONE. Review of Systems: Negative. Social History: Negative. Family History: Negative. Medications: Include amiodarone, losartan, aspirin, Zetia, Lasix, metoprolol, Coumadin, Protonix, Al dactone, and Brilinta. Physical Examination: General: He was asymptomatic, sinus rhythm. Vital Signs: Stable, afebrile. HEENT: Negative. Neck: Supple with no bruit, lymphadenopathy, JVD, or thyromegaly. Chest: Clear to auscultation and percussion. Cardiac: Revealed a regular rhythm and rate. No murmurs, gallops, or rubs. Abdomen: Benign. Extremities: Revealed no clubbing, cyanosis, or edema. Diagnostic Data: Showed a creatinine of 1.77. INR was 3.34. EKG is nonspecific. Chest x-ray is ne gative. Impression And Plan: 1.Atypical chest pain, negative AICD check, history of coronary artery disease, status post recent s tent. This is not an acute coronary syndrome. The patient can go home whenever it is okay with Dr. Joseph. I will see him in the office soon. 2.Paroxysmal atrial fibrillation. He is in sinus rhythm, on amiodarone and Coumadin. 3.History of deep vein thrombosis, on Coumadin. 4.Hypertension, well controlled. 5.Dyslipidemia, well controlled. 6.Gastroesophageal reflux disease. 7.History of chronic systolic congestive heart failure, on appropriate therapy. Again, I would cont inue his home medicine, have him follow up with me in the next week or 2. He can go home today. Cayetano schultz was discussed with Dr. Joseph. JULIANA/KRISSY Voice ID: [id number] Report ID: [id number]
[2022-03-26] MEDS: TICAGRELOR 90 MG TABLET PO SCH (20:51)
[2022-03-26] MEDS ORDERED: EZETIMIBE 10 MG TAB PO SCH (21:00)
[2022-03-27 03:43] LABS: Absolute Lymphocytes (CBC) 0.4 K/uL (0.7-4.9); Hematocrit 34.9 % (39.6-49.0); Lymphocytes % 8.8 % (15.3-44.8); MCV 93.8 fL (80-100); MPV 7.4 fL (7.6-11.3); RBC Red Blood Cell Count 3.72 M/uL (4.33-5.43)
[2022-03-27 03:57] LABS: Albumin 3.2 g/dL (3.4-5.0); Bilirubin Total 0.7 mg/dL (0.2-1.0); Potassium 3.7 mmol/L (3.5-5.1); Protein, Total 6.3 g/dL (6.4-8.2)
[2022-03-27 04:03] LABS: Protime INR 4.38
[2022-03-27] MEDS: METOPROLOL TAR 25 MG TAB PO SCH (05:58)
[2022-03-27] MEDS ORDERED: LOSARTAN POTASSIUM 50 MG TABLET PO SCH ×2 (09:00→21:00)
[2022-03-27] MEDS ORDERED: POTASSIUM CL SA 10 MEQ TAB PO ONE (09:00)
[2022-03-27] MEDS: TICAGRELOR 90 MG TABLET PO SCH (09:25)
[2022-03-27] MEDS: PANTOPRAZOLE 40MG TABLET PO SCH (09:26)
[2022-03-27] MEDS: AMIODARONE HCL 200 MG TAB PO SCH (09:26)
[2022-03-27] MEDS: ASPIRIN EC 81 MG TAB PO SCH (09:26)
[2022-03-27 11:38] VITALS: TEMP 97.2
--- NOTE | 2022-03-27 11:47 | P.PN ---
Nephrology note (S) Pt denies any further lightheadness, denies any CP, has some mild cough or phlegm. (O) Vitals reviewed in the EMR General: Alert, In no apparent distress, Oriented x3 HEENT: Atraumatic, Normocephalic, EOMI, Abnormal EOM Neck: Supple Respiratory: Clear to auscultation bilaterally, Normal air movement Cardiovascular: No edema, Normal pulses, Regular rate/rhythm, Normal S1 S2, Other (Lt upper chest AICD) Gastrointestinal: Soft and benign, Non-distended Musculoskeletal: No clubbing, No swelling, No contractures Integumentary: No rashes, No breakdown Neurological: Normal speech, Normal tone, Normal affect Laboratory Data (last 24 hrs) Reviewed in the EMR Conclusions/Impression: 1. Abnormal results of kidney function studies 2. Stage I WIL 3. Ischemic cardiomyopathy 4. Chronic systolic CHF 5. Lightheadedness 6. Acquired cysts of the kidney -Pt's renal function tests in August and Jan of this year were lower and closer to the ULN, prior CT imaging showed preserved renal sizes, some large cysts and a stent graft repair that may extend to the level of the renal vasculature. -Pt's renal insufficiency may be sub-acute and in the setting of some relative BP lowering (BP later this AM after meds is in the systolic 90s) and concurrent use of ARB, albeit a low dose one. Levels have peaked and marginally lower, held off on IVF admin. Recommended holding/adjusting some of the timing of meds and using SBP < 100 mmHg as a holding parameter -Pt appears to be compensated from the CHF standpoint, BNP < 1000, no overt pulm edema, stable weights at home. Cont lower dose maintenance diuretics unless further hypotensive and hold when SBP < 100 mmHg. -Had ordered urine studies but appears not done. -No urgency to repeat renal imaging at this time and no reports of SALUD. Will have pt follow up in clinic, ok to discharge from my standpoint. Abrahan Herrera MD, [facility]
[2022-03-27] MEDS ORDERED: SPIRONOLACTONE 25 MG TABLET PO SCH (12:00)
--- NOTE | 2022-03-27 13:31 | P.DS ---
Admission Date: 03/26/22 Discharge Date: 03/27/22 Disposition: ROUTINE DISCHARGE Discharge Condition: GOOD Reason for Admission: Chest pain Consultations: 1. Nephrology 2. Cardiology Hospital Course: DIAGNOSES: # KDIGO Stage I Acute Kidney Injury # Hypotension - suspect medication induced # Supratherapuetic INR # Coronary Artery Disease s/p recent PCI # Chronic Compensated Systolic Congestive Heart Failure s/p AICD # Chronic Atrial Fibrillation s/p PPM on Warfarin # History of DVT on Warfarin # Hypertension # Hyperlipidemia HOSPITAL COURSE: Mr. Chase Daniels is a pleasant 76 year old male with a past medical history significant for coronary artery disease, chronic atrial fibrillation s/p PPM on warfarin, chronic systolic congestive heart failure s/p AICD, hypertension, and hyperlipidemia who was admitted to the [facility] on 03/26/2022 for chest pain and concern for his defibrillator firing. He was admitted to the Medicine service. A pacemaker interrogation was completed, which revealed no arrhythmias or treatments delivered. His troponin trend was 9.5 -> 10.9 -> 10.9 -> 11.4. Cardiology was consulted and he was evaluated by Dr. Carver, who cleared him for discharge with outpatient follow- up. However, upon presentation, his creatinine was 1.80. He had outside lab work from January 2022, revealing his creatinine around 1.3. Nephrology was consulted for his acute kidney injury and he was evaluated by Dr. Herrera. He thought that perhaps his hypotension may have resulted in an acute kidney injury. We tried to adjust the timing of his medications; however, he remained in the 90s/50s. However, even at these blood pressures, he was asymptomatic. I personally walked with him around the nursing station and he had no symptoms whatsoever. For now, we have decided to hold his metoprolol, losartan, and spironolactone until he follows up in clinic. Dr. Herrera will arrange for an outpatient follow-up with lab work and can re-introduce his anti-hypertensives at that time as tolerated. He was advised to continue furosemide, but to hold his dose if his home systolic blood pressure is less than 100 mmHg. In regards to his supratherapuetic INR, I advised that he hold today's warfarin dose and take half a dose of his warfarin tomorrow. He stated that he will schedule an INR check on 03/30/2022. On 03/27/2022, he was seen on rounds and deemed medically stable for discharge. He was discharged with instructions to schedule follow-up appointments with his PCP (Dr. Mcneil) in 3-5 days, with Cardiology (Dr. Carver) in 5-7 days, and with Nephrology (Dr. Herrera) in 5-7 days. He and his given the opportunity to ask questions and reported no further questions. Furthermore, all questions were answered to the best of my ability. A copy of this discharge summary will be sent to the above providers to facilitate continuity of care. Today, I personally spent 25 minutes on his case, of which greater than 50% of the time was spent in patient education, counseling, and coordination of care as described above. Vital Signs/Physical Exam: Temp Pulse Resp BP Pulse Ox 97.2 F 67 16 114/67 97 03/27/22 11:37 03/27/22 13:32 03/27/22 13:32 03/27/22 13:32 03/27/22 13:32 General: Alert, In no apparent distress, Oriented x3 HEENT: Atraumatic, PERRLA, Mucous membr. moist/pink, EOMI, Sclerae nonicteric Neck: Supple, JVD not distended, No Thyromegaly Respiratory: Clear to auscultation bilaterally, Normal air movement Cardiovascular: No edema, Regular rate/rhythm, Normal S1 S2, No gallops, No rubs, No murmurs Gastrointestinal: Normal bowel sounds, Soft and benign, Non-distended, No tenderness, No rebound, No guarding Musculoskeletal: No clubbing Integumentary: No rashes, Other (Right upper chest incision from pacemaker is clean, dry, and intact) Neurological: Normal speech, Cranial nerves 3-12 intact, Normal affect Laboratory Data at Discharge: WBC 4.90 K/uL (4.3-10.9) 03/27/22 03:27 Hgb 12.0 g/dL (13.6-17.9) L D 03/27/22 03:27 Hct 34.9 % (39.6-49.0) L 03/27/22 03:27 Plt Count 108 K/uL (152-406) L D 03/27/22 03:27 PT 49.7 SECONDS (9.5-12.5) H 03/27/22 03:27 INR 4.38 H* 03/27/22 03:27 Sodium 139 mmol/L (136-145) 03/27/22 03:27 Potassium 3.7 mmol/L (3.5-5.1) D 03/27/22 03:27 BUN 34 mg/dL (7-18) H 03/27/22 03:27 Creatinine 1.65 mg/dL (0.55-1.3) H 03/27/22 03:27 Glucose 110 mg/dL (74-106) H 03/27/22 03:27 Total Bilirubin 0.7 mg/dL (0.2-1.0) 03/27/22 03:27 AST 16 U/L (15-37) 03/27/22 03:27 ALT 33 U/L (12-78) 03/27/22 03:27 Alkaline Phosphatase 70 U/L (45-117) 03/27/22 03:27 Triglycerides 161 mg/dL (<150) H 03/27/22 03:27 Cholesterol 161 mg/dL (<200) 03/27/22 03:27 HDL Cholesterol 33 mg/dL (40-60) L 03/27/22 03:27 Cholesterol/HDL Ratio 4.88 03/27/22 03:27 Home Medications: RX: Brimonidine Tartrate/Timolol [Combigan 0.2%-0.5% Eye Drops] 1 drop LEFT EYE BID 09/10/14 RX: Ezetimibe 10 mg PO BEDTIME 12/09/18 RX: Travoprost (Benzalkonium) [Travatan 0.004% Eye Drop] 1 drop LEFT EYE BEDTIME 12/09/18 RX: Amiodarone HCl [Cordarone*] 200 mg PO DAILY 03/26/22 RX: Aspirin 81 mg PO DAILY 03/26/22 RX: Fluoxetine HCl 20 mg PO DAILY 03/26/22 RX: Furosemide [Lasix] 20 mg PO DAILY 03/26/22 RX: Pantoprazole [Protonix Tab*] 40 mg PO DAILY 03/26/22 RX: Ticagrelor [Brilinta*] 90 mg PO BID 03/26/22 RX: Warfarin Sodium 2.5 mg PO SEECOM 03/26/22 RX: Warfarin Sodium 5 mg PO SEECOM 03/26/22 Physician Discharge Instructions: 1. Please schedule a follow-up appointment with PCP (Dr. Mcneil) in 3-5 days 2. Please schedule a follow-up appointment with Cardiology (Dr. Carver) in 5-7 days 3. Please schedule a follow-up appointment with Nephrology (Dr. Herrera) in 5-7 days Please stop taking your metoprolol, losartan, and amlodipine. Please do not take your furosemide (Lasix) if your top number is less than 100. Please take your blood pressure twice per day and write it down. If you develop any symptoms including, but not limited to, light-headedness, headache, dizziness, chest pain, or shortness of breath, please return to the Emergency Department for further evaluation Diet: AHA Activity: Ad gretta Followup: Cirilo Carver MD [ACTIVE - CAN ADMIT] - Brianna Mcneil DO [Primary Care Provider] - Abrahan Herrera [ACTIVE - CAN ADMIT] - Time spent managing pt's care (in minutes): 25
[2022-03-27 13:33] VITALS: BP 114/67
== END 2022-03-27 14:40 | disposition home health service (06) ==
LOC: ER 04:00 → ERHOLD 05:02 → 4TH 05:54
PROVIDERS: ADMIT Internal Medicine; ATTEND Internal Medicine
DX: R07.9 Chest pain, unspecified (principal); N17.9 Acute kidney failure, unspecified; I25.10 Atherosclerotic heart disease of native coronary artery without angina pectoris; I50.22 Chronic systolic (congestive) heart failure; I48.11 Longstanding persistent atrial fibrillation; I95.9 Hypotension, unspecified; I25.5 Ischemic cardiomyopathy; R42 Dizziness and giddiness; R79.1 Abnormal coagulation profile; R94.4 Abnormal results of kidney function studies; K21.9 Gastro-esophageal reflux disease without esophagitis; N28.1 Cyst of kidney, acquired; I10 Essential (primary) hypertension; E78.5 Hyperlipidemia, unspecified; Z86.718 Personal history of other venous thrombosis and embolism; Z79.01 Long term (current) use of anticoagulants; Z95.810 Presence of automatic (implantable) cardiac defibrillator; Z95.5 Presence of coronary angioplasty implant and graft; Z82.3 Family history of stroke
CPT/HCPCS: 93005; 85025 ×2; 80048 ×2; 36415; 85610 ×2; 80061; 80076; 84484 ×4; 80053; 83880; 71045; 99285; 87811; J7040 ×2; G0378 ×3